=== PATIENT | female | born 1990 | race Caucasian/White ===

== ENCOUNTER 2018-06-24 19:23 | Emergency (ER) | payer SELFPAY ==
--- NOTE | 2018-06-24 20:57 | ER ---
Nurse's Notes [facility] Name: Sandra Holm Age: 27 yrs Sex: Female : 1990 Arrival Date: 06/24/2018 Time: 19:25 Bed DIS1 Private MD: Diagnosis: Streptococcal pharyngitis Presentation: 06/24 19:30 Presenting complaint: Patient states: sore throat x 2 days. Denies fever. Transition of aa1 care: patient was not received from another setting of care. Onset of symptoms was June 22, 2018. Risk Assessment: Do you want to hurt yourself or someone else? Patient reports no desire to harm self or others. Initial Sepsis Screen: Does the patient meet any 2 criteria? No. Patient's initial sepsis screen is negative. Does the patient have a suspected source of infection? No. Patient's initial sepsis screen is negative. Care prior to arrival: None. 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 - Social history:: Smoking status: Patient/guardian denies using tobacco. - Ebola Screening: : Patient denies exposure to infectious person Patient denies travel to an Ebola-affected area in the 21 days before illness onset. - Family history:: not pertinent. - Hospitalizations: : No recent hospitalization is reported. - History obtained from: spouse. Screenin:49 Abuse screen: Denies threats or abuse. Denies injuries from another. Nutritional aa1 screening: No deficits noted. Tuberculosis screening: No symptoms or risk factors identified. Fall Risk None identified. Assessment: 19:49 General: Appears in no apparent distress. comfortable, Behavior is calm, cooperative, aa1 appropriate for age. Pain: Complains of pain in throat. Neuro: Level of Consciousness is awake, alert, obeys commands, Oriented to person, place, time, situation, Gait is steady, Speech is normal. Respiratory: Airway is patent Respiratory effort is even, unlabored, Respiratory pattern is regular, symmetrical, Breath sounds are clear bilaterally. Denies cough. GI: No signs and/or symptoms were reported involving the gastrointestinal system. : No signs and/or symptoms were reported regarding the genitourinary system. EENT: Throat is reddened has patchy exudate has enlarged tonsils bilaterally. Derm: Skin is intact, is healthy with good turgor, Skin is pink, warm \T\ dry. Musculoskeletal: Circulation, motion, and sensation intact. Capillary refill < 3 seconds. 21:00 Reassessment: Patient appears in no apparent distress at this time. Patient is alert, aa1 oriented x 3, equal unlabored respirations, skin warm/dry/pink. Discussed d/c \T\ f/u instructions with pt \T\ spouse; denies questions or concerns at this time. Vital Signs: 19:30 BP 118 / 63; Pulse 90; Resp 18; Temp 98.4(O); Pulse Ox 100% on R/A; Weight 136.08 kg; aa1 Height 5 ft. 7 in. (170.18 cm); Pain 6/10; 21:00 BP 122 / 67; Pulse 88; Resp 18; Temp 98.3; Pulse Ox 99% on R/A; aa1 19:30 Body Mass Index 46.99 (136.08 kg, 170.18 cm) aa1 ED Course: 19:25 Patient arrived in ED. ag3 19:30 Arm band placed on right wrist. aa1 19:40 Annel Gutierrez FNP [facility] kav 19:40 Keven Pearson MD is Attending Physician. kav 19:44 Eden Rendon, RN is Primary Nurse. aa1 19:48 Triage completed. aa1 19:49 Patient has correct armband on for positive identification. Call light in reach. aa1 21:00 No provider procedures requiring assistance completed. Patient did not have IV access aa1 during this emergency room visit. Administered Medications: No medications were administered Outcome: 20:56 Discharge ordered by . kav 21:00 Discharged to home ambulatory, with significant other. aa1 21:00 Condition: good 21:00 Discharge instructions given to patient, significant other, Instructed on discharge instructions, follow up and referral plans. medication usage, Demonstrated understanding of instructions, follow-up care, medications, Prescriptions given X 2. 21:15 Patient left the ED. aa1 Signatures: Eden Rendon RN RN aa1 Annel Gutierrez, ADJUNCT PHLEBOTOMY INSTRUCTOR ADJUNCT PHLEBOTOMY INSTRUCTOR Kandi Loza ag3
--- NOTE | 2018-06-24 20:57 | EDPHYS ---
Physician Documentation [facility] Name: Sandra Holm Age: 27 yrs Sex: Female : 1990 Arrival Date: 06/24/2018 Time: 19:25 Bed DIS1 Private MD: ED Physician Keven Pearson HPI: 06/24 19:53 This 27 yrs old Female presents to ER via Ambulatory with complaints of Sore kav Throat. 19:53 The patient presents with sore throat. The patient describes throat pain as burning, kav raw. Onset: The symptoms/episode began/occurred acutely, 1 day(s) ago. Severity of symptoms: At their worst the symptoms were moderate, 1 day(s) ago. Modifying factors: The symptoms are alleviated by nothing, The patient has had contact with sick co-worker(s). The patient has been recently seen by a physician:. 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 - Social history:: Smoking status: Patient/guardian denies using tobacco. - Ebola Screening: : Patient denies exposure to infectious person Patient denies travel to an Ebola-affected area in the 21 days before illness onset. - Family history:: not pertinent. - Hospitalizations: : No recent hospitalization is reported. - History obtained from: spouse. ROS: 19:54 Constitutional: Negative for fever, chills, and weight loss, Eyes: Negative for injury, kav pain, redness, and discharge, Neck: Negative for injury, pain, and swelling, Cardiovascular: Negative for chest pain, palpitations, and edema, Respiratory: Negative for shortness of breath, cough, wheezing, and pleuritic chest pain, Abdomen/GI: Negative for abdominal pain, nausea, vomiting, diarrhea, and constipation, Back: Negative for injury and pain, : Negative for injury, bleeding, discharge, and swelling, MS/Extremity: Negative for injury and deformity, Skin: Negative for injury, rash, and discoloration, Neuro: Negative for headache, weakness, numbness, tingling, and seizure, Psych: Negative for depression, anxiety, suicide ideation, homicidal ideation, and hallucinations, Allergy/Immunology: Negative for hives, rash, and allergies, Endocrine: Negative for neck swelling, polydipsia, polyuria, polyphagia, and marked weight changes, Hematologic/Lymphatic: Negative for swollen nodes, abnormal bleeding, and unusual bruising. 19:54 ENT: Positive for sore throat. Exam: 19:54 Constitutional: This is a well developed, well nourished patient who is awake, alert, kav and in no acute distress. Head/Face: Normocephalic, atraumatic. Eyes: Pupils equal round and reactive to light, extra-ocular motions intact. Lids and lashes normal. Conjunctiva and sclera are non-icteric and not injected. Cornea within normal limits. Periorbital areas with no swelling, redness, or edema. Neck: Trachea midline, no thyromegaly or masses palpated, and no cervical lymphadenopathy. Supple, full range of motion without nuchal rigidity, or vertebral point tenderness. No Meningismus. Chest/axilla: Normal chest wall appearance and motion. Nontender with no deformity. No lesions are appreciated. Cardiovascular: Regular rate and rhythm with a normal S1 and S2. No gallops, murmurs, or rubs. Normal PMI, no JVD. No pulse deficits. Respiratory: Lungs have equal breath sounds bilaterally, clear to auscultation and percussion. No rales, rhonchi or wheezes noted. No increased work of breathing, no retractions or nasal flaring. Abdomen/GI: Soft, non-tender, with normal bowel sounds. No distension or tympany. No guarding or rebound. No evidence of tenderness throughout. Back: No spinal tenderness. No costovertebral tenderness. Full range of motion. Female : Normal external genitalia. Skin: Warm, dry with normal turgor. Normal color with no rashes, no lesions, and no evidence of cellulitis. MS/ Extremity: Pulses equal, no cyanosis. Neurovascular intact. Full, normal range of motion. Neuro: Awake and alert, GCS 15, oriented to person, place, time, and situation. Cranial nerves II-XII grossly intact. Motor strength 5/5 in all extremities. Sensory grossly intact. Cerebellar exam normal. Normal gait. Psych: Awake, alert, with orientation to person, place and time. Behavior, mood, and affect are within normal limits. 19:54 ENT: Posterior pharynx: erythema, that is moderate, exudate, that is moderate. Vital Signs: 19:30 BP 118 / 63; Pulse 90; Resp 18; Temp 98.4(O); Pulse Ox 100% on R/A; Weight 136.08 kg; aa1 Height 5 ft. 7 in. (170.18 cm); Pain 12/23; 21:00 BP 122 / 67; Pulse 88; Resp 18; Temp 98.3; Pulse Ox 99% on R/A; aa1 19:30 Body Mass Index 46.99 (136.08 kg, 170.18 cm) [facility] MDM: 19:40 Medical screening is not applicable. [facility] 19:54 Data reviewed: vital signs, nurses notes. [facility] 06/24 19:54 Order name: Strep; Complete Time: 20:56 [facility] 06/24 20:56 Interpretation: Abnormal. ka Administered Medications: No medications were administered Disposition: 06/25 06:37 Co-signature as Attending Physician, Keven Pearson MD I agree with the assessment and jazmine plan of care. Disposition: 06/24/18 20:56 Discharged to Home. Impression: Streptococcal pharyngitis. - Condition is Stable. - Discharge Instructions: Pharyngitis, Strep Throat, [id number]. - Prescriptions for Amoxicillin 875 mg Oral Tablet - take 1 tablet by ORAL route every 12 hours for 10 days; 20 tablet. Ibuprofen 800 mg Oral Tablet - take 1 tablet by ORAL route every 8 hours As needed take with food; 30 tablet. - Medication Reconciliation Form, Thank You Letter, Antibiotic Education, Prescription Opioid Use form. - Follow up: Private Physician; When: 2 - 3 days; Reason: Recheck today's complaints, Continuance of care, Re-evaluation by your physician. - Problem is an acute exacerbation. - Symptoms are unchanged. Signatures: Dispatcher [employer] Eden Palencia, ERIKA RN aa1 Keven Pearson MD MD cha Vern, Katherine, OCEANOLOGIST OCEANOLOGIST ka Corrections: (The following items were deleted from the chart) 06/24 21:15 20:56 06/24/2018 20:56 Discharged to Home. Impression: Streptococcal pharyngitis. aa1 Condition is Stable. Discharge Instructions: Pharyngitis, Strep Throat, [id number]. Prescriptions for Amoxicillin 875 mg Oral Tablet - take 1 tablet by ORAL route every 12 hours for 10 days; 20 tablet, Ibuprofen 800 mg Oral Tablet - take 1 tablet by ORAL route every 8 hours As needed take with food; 30 tablet. and Forms are Medication Reconciliation Form, Thank You Letter, Antibiotic Education, Prescription Opioid Use. Follow up: Private Physician; When: 2 - 3 days; Reason: Recheck today's complaints, Continuance of care, Re-evaluation by your physician. Problem is an acute exacerbation. Symptoms are unchanged. kav
[2018-06-24 21:23] VITALS: BP 118/63; TEMP 98.4; O2SAT 100
== END 2018-06-24 21:15 | disposition home or self-care (01) ==
LOC: ER 19:23
DX: J02.0 Streptococcal pharyngitis (principal); I10 Essential (primary) hypertension
CPT/HCPCS: 87081; 99282

== ENCOUNTER 2018-09-04 09:24 | Emergency (ER) | payer SELFPAY ==
[2018-09-04 10:30] LABS: Absolute Lymphocytes (CBC) 0.6 K/uL (0.7-4.9); Absolute Monocytes 0.8 K/uL (0.1-1.3); Absolute Neutrophil 12.7 K/uL (1.8-8.0); Basophils % 0.2 % (0-1.3); Eosinophils % 0.3 % (0-4.4); Hematocrit 48.7 % (36.0-45.0); Lymphocytes % 3.9 % (15.3-44.8); MPV 9.3 fL (7.6-11.3); Monocytes % 5.9 % (3.3-12.3); RBC Red Blood Cell Count 5.55 M/uL (3.86-4.86)
[2018-09-04] MEDS ORDERED: METOCLOPRAMIDE 10 MG/2mL INJ ONE (10:38)
[2018-09-04] MEDS ORDERED: NA CHLORIDE 0.9% 1,000 ML ONE (10:39)
[2018-09-04] MEDS ORDERED: DIPHENHYDRAMINE 50 MG/ML VIAL ONE (10:39)
[2018-09-04 10:41] LABS: Urine Blood NEGATIVE (NEG); Urine Glucose NEGATIVE (NEG); Urine Protein NEGATIVE (NEG); Urine Specific Gravity >1.030 (1.005-1.030); Urine pH 5.5 (5.0-7.0)
[2018-09-04 10:52] LABS: Bilirubin Direct 0.2 mg/dL (0-0.2); Bilirubin Total 0.7 mg/dL (0.2-1.0); Potassium 4.1 mmol/L (3.5-5.1); Protein, Total 8.2 g/dL (6.4-8.2)
[2018-09-04 11:03] LABS: Blood Morphology Comment NOT SEEN (NOT SEEN); Platelet Estimate ADEQ
--- NOTE | 2018-09-04 11:46 | RAD REPORT ---
EXAM DESCRIPTION: CTAbdomen Pelvis W Contrast - 09/04/2018 11:32 am CLINICAL HISTORY: Abdominal pain. abdominal pain, vomiting COMPARISON: No comparisons TECHNIQUE: Biphasic CT imaging of the abdomen and pelvis was performed with 100 ml non-ionic IV cont rast. All CT scans are performed using dose optimization technique as appropriate and may include automated exposure control or mA/KV adjustment according to patient size. FINDINGS: The lung bases are clear.Postsurgical changes are present about the stomach. The liver, spleen, pancreas, adrenal glands and kidneys are within normal limits. No bowel obstruction, free air, free fluid or abscess. The appendix is normal. No evidence of signi ficant lymphadenopathy. No suspicious bony findings. IMPRESSION: No acute intra-abdominal or pelvic finding.
--- NOTE | 2018-09-04 13:23 | ER ---
Nurse's Notes [facility] Name: Sandra Holm Age: 28 yrs Sex: Female : 1990 Arrival Date: 09/04/2018 Time: 09:26 Bed 15 Private MD: Unknown, Unknown Diagnosis: Upper abdominal pain, unspecified;Vomiting;Diarrhea, unspecified Presentation: 09/04 09:30 Presenting complaint: Patient states: i have been throwing up since midnight, i a tw2 having horrible stomach pains, just all over, and im having diarrhea, nauseous and clammy feeling. Transition of care: patient was not received from another setting of care. Onset of symptoms was September 04, 2018. Risk Assessment: Do you want to hurt yourself or someone else? Patient reports no desire to harm self or others. Initial Sepsis Screen: Does the patient meet any 2 criteria? HR > 90 bpm. No. Patient's initial sepsis screen is negative. Does the patient have a suspected source of infection? No. Patient's initial sepsis screen is negative. Care prior to arrival: None. 09:30 Method Of Arrival: Ambulatory tw2 09:30 Acuity: TRELL 3 tw2 Triage Assessment: 09:32 General: Appears in no apparent distress. Behavior is calm, cooperative, appropriate tw2 for age. Pain: Complains of pain in abdomen. GI: Reports lower abdominal pain, upper abdominal pain, diarrhea, intolerance of fluids, intolerance of food, nausea, vomiting. 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 - Social history:: Smoking status: . - Ebola Screening: : Patient denies travel to an Ebola-affected area in the 21 days before illness onset. Screenin:51 Abuse screen: Denies threats or abuse. Denies injuries from another. Nutritional bp screening: No deficits noted. Tuberculosis screening: No symptoms or risk factors identified. Fall Risk None identified. Assessment: 09:49 General: Appears in no apparent distress. comfortable, obese, Behavior is cooperative, bp appropriate for age, anxious. Pain: Complains of pain in abdomen. Neuro: Level of Consciousness is awake, alert, obeys commands, Oriented to person, place, time, situation, Appropriate for age. Cardiovascular: No deficits noted. Respiratory: Airway is patent Respiratory effort is even, unlabored, Respiratory pattern is regular, symmetrical. GI: Abdomen is obese, Bowel sounds present X 4 quads. : No signs and/or symptoms were reported regarding the genitourinary system. EENT: No deficits noted. Derm: No deficits noted. Musculoskeletal: Circulation, motion, and sensation intact. Range of motion: intact in all extremities. 10:59 Reassessment: PT COMPLETED PO CONTRAST, CT NOTIFIED. bp 11:37 Reassessment: PT RETURNED FROM CT. RESULTS PENDING FOR DISPO. bp 13:31 Reassessment: PT D/C HOME AMBULATORY, DX WITH UNSPECIFIC ABD PAIN AND N/V. bp Vital Signs: 09:31 BP 129 / 83; Pulse 107; Resp 19; Temp 98.4(O); Pulse Ox 100% on R/A; Weight 127.01 kg tw2 (R); Height 5 ft. 6 in. (167.64 cm); Pain 5/10; 10:59 BP 115 / 58; Pulse 86; Resp 14; Pulse Ox 98% ; bp 11:38 BP 124 / 55; Pulse 93; Resp 14; Pulse Ox 100% ; bp 13:24 BP 130 / 67; Pulse 90; Resp 14; Pulse Ox 98% ; bp 09:31 Body Mass Index 45.19 (127.01 kg, 167.64 cm) tw2 ED Course: 09:26 Patient arrived in ED. ag5 09:27 Unknown, Unknown is Private Physician. ag5 09:31 Triage completed. tw2 09:31 Arm band placed on. tw2 09:34 Mohsen Garcia PA is PHCP. jm 09:34 Leonides Fam MD is Attending Physician. jmm 09:39 Darin Barron, ERIKA is Primary Nurse. bp 09:51 Patient has correct armband on for positive identification. Bed in low position. Call bp light in reach. Side rails up X2. 09:58 Urine collected: clean catch specimen, clear, karyn colored. jb1 10:22 Initial lab(s) drawn, by me, sent to lab. Inserted saline lock: 22 gauge in right jb1 antecubital area, using aseptic technique. Blood collected. 11:22 CT completed. Patient tolerated procedure well. Patient moved to CT via wheelchair. sj 11:35 CT Abd/Pelvis - W/Contrast In Process Unspecified. EDMS 13:21 Norman Richards MD is Referral Physician. [facility] 13:32 No provider procedures requiring assistance completed. IV discontinued, intact, bp bleeding controlled, No redness/swelling at site. Pressure dressing applied. Administered Medications: 10:20 Drug: Reglan 10 mg Route: IVP; Site: right antecubital; bp 12:06 Follow up: Response: No adverse reaction; Nausea is decreased bp 10:20 Drug: diphenhydrAMINE 12.5 mg Route: IVP; Site: right antecubital; bp 12:07 Follow up: Response: Nausea is decreased bp 10:20 Drug: NS 0.9% 1000 ml Route: IV; Rate: 1 bolus; Site: right antecubital; bp 12:07 Follow up: IV Status: Completed infusion; IV Intake: 1000ml bp Intake: 12:07 IV: 1000ml; Total: 1000ml. bp Outcome: 13:21 Discharge ordered by MD. m 13:32 Discharged to home ambulatory. bp 13:32 Condition: stable 13:32 Discharge instructions given to patient, Instructed on discharge instructions, follow up and referral plans. medication usage, Demonstrated understanding of instructions, follow-up care, medications, Prescriptions given X 1. 13:34 Patient left the ED. bp Signatures: Dispatcher [employer] EDMS Bryce Chan jb1 Mohsen Garcia PA PA Jenifer Virgen Tara, RN RN tw2 Darin Barron, RN RN bp Muriel Linn ag5 Corrections: (The following items were deleted from the chart) 11:43 11:38 Pulse 93bpm; Resp 14bpm; Pulse Ox 100%; bp bp 13:25 13:24 Reassessment: bp bp
--- NOTE | 2018-09-04 13:23 | EDPHYS ---
Physician Documentation [facility] Name: Sandra Holm Age: 28 yrs Sex: Female : 1990 Arrival Date: 09/04/2018 Time: 09:26 Bed 15 Private MD: Unknown, Unknown ED Physician Leonides Fam HPI: 09/04 09:58 This 28 yrs old Female presents to ER via Ambulatory with complaints of jmm Nausea/Vomiting/Diarrhea, STOMACH PAINS. 09:58 The patient presents to the emergency department with nausea, vomiting, diarrhea, jmm abdominal pain. Onset: The symptoms/episode began/occurred gradually, 1 day(s) ago. Possible causes: unknown. This is a 28 year old female with a history of gastric sleeve performed 3 years ago that presents to the ED with complaints of vomiting and diarrhea beginning last night. Patient denies recent antibiotic use, denies recent travel, denies infectious exposure. . 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 - Social history:: Smoking status: . - Ebola Screening: : Patient denies travel to an Ebola-affected area in the 21 days before illness onset. ROS: 09:58 Constitutional: Negative for fever, chills, and weight loss, Cardiovascular: Negative jmm for chest pain, palpitations, and edema, Respiratory: Negative for shortness of breath, cough, wheezing, and pleuritic chest pain. 09:58 Abdomen/GI: Positive for nausea and vomiting, diarrhea. 09:58 All other systems are negative. Exam: 09:58 Constitutional: This is a well developed, well nourished patient who is awake, alert, jmm and in no acute distress. Head/Face: atraumatic. Eyes: EOMI, no conjunctival erythema appreciated ENT: Moist Mucus Membranes Neck: Trachea midline, Supple Chest/axilla: Normal chest wall appearance and motion. Cardiovascular: Regular rate and rhythm. No edema appreciated Respiratory: Normal respirations, no respiratory distress appreciated 09:58 Abdomen/GI: Inspection: abdomen appears normal, Bowel sounds: normal, Palpation: soft, mild abdominal tenderness, in the right upper quadrant and left upper quadrant. 09:58 Back: ROM is normal. 09:58 Musculoskeletal/extremity: ROM: intact in all extremities. 09:58 Skin: Appearance: Color: normal in color. 09:58 Neuro: Orientation: appropriate for stated age, Mentation: is normal, Memory: is normal. 09:58 Psych: Behavior/mood is pleasant, cooperative. Vital Signs: 09:31 BP 129 / 83; Pulse 107; Resp 19; Temp 98.4(O); Pulse Ox 100% on R/A; Weight 127.01 kg tw2 (R); Height 5 ft. 6 in. (167.64 cm); Pain 5/10; 10:59 BP 115 / 58; Pulse 86; Resp 14; Pulse Ox 98% ; bp 11:38 BP 124 / 55; Pulse 93; Resp 14; Pulse Ox 100% ; bp 13:24 BP 130 / 67; Pulse 90; Resp 14; Pulse Ox 98% ; bp 09:31 Body Mass Index 45.19 (127.01 kg, 167.64 cm) tw2 MDM: 09:58 Patient medically screened. [facility] 13:18 Data reviewed: vital signs, nurses notes, lab test result(s), radiologic studies, CT [facility] scan. Counseling: I had a detailed discussion with the patient and/or guardian regarding: the historical points, exam findings, and any diagnostic results supporting the discharge/admit diagnosis, lab results, radiology results, the need for outpatient follow up, to return to the emergency department if symptoms worsen or persist or if there are any questions or concerns that arise at home, Patient is alert and non toxic in appearance in the ED. Patient tolerates PO. Ct negative. Due to history of bariatric surgery patient is given strict return precautions. Patient understood and agrees with the plan of care. . 09/04 09:57 Order name: Urine Dipstick--Ancillary (enter results); Complete Time: 10:54 09/04 09:57 Order name: Urine --Ancillary (enter results); Complete Time: 10:54 09/04 10:02 Order name: Basic Metabolic Panel; Complete Time: 10:57 [facility] 09/04 10:02 Order name: CBC with Diff; Complete Time: 11:08 [facility] 09/04 10:02 Order name: Creatinine for Radiology; Complete Time: 10:54 [facility] 09/04 10:02 Order name: Hepatic Function; Complete Time: 10:57 [facility] 09/04 09:48 Order name: Urine Dipstick-Ancillary (obtain specimen); Complete Time: 09:54 09/04 09:48 Order name: Urine Test (obtain specimen); Complete Time: 09:54 09/04 10:02 Order name: Lipase; Complete Time: 10:57 [facility] 09/04 10:02 Order name: CT Abd/Pelvis - W/Contrast; Complete Time: 11:55 [facility] 09/04 11:04 Order name: Manual Differential; Complete Time: 11:08 [facility] 09/04 10:02 Order name: IV Saline Lock; Complete Time: 10:22 [facility] 09/04 10:02 Order name: Labs collected and sent; Complete Time: 10:22 [facility] 09/04 12:02 Order name: PO challenge; Complete Time: 12:12 jm Administered Medications: 10:20 Drug: Reglan 10 mg Route: IVP; Site: right antecubital; bp 12:06 Follow up: Response: No adverse reaction; Nausea is decreased bp 10:20 Drug: diphenhydrAMINE 12.5 mg Route: IVP; Site: right antecubital; bp 12:07 Follow up: Response: Nausea is decreased bp 10:20 Drug: NS 0.9% 1000 ml Route: IV; Rate: 1 bolus; Site: right antecubital; bp 12:07 Follow up: IV Status: Completed infusion; IV Intake: 1000ml bp Disposition: 18:49 Co-signature as Attending Physician, Leonides Fam MD Available for consultation at ps1 all times. . Disposition: 09/04/18 13:21 Discharged to Home. Impression: Upper abdominal pain, unspecified, Vomiting, Diarrhea, unspecified. - Condition is Stable. - Discharge Instructions: Diarrhea, Adult, Nausea and Vomiting, Adult. - Prescriptions for Zofran ODT 4 mg Oral tablet,disintegrating - place 1 tablet by TRANSLINGUAL route every 4-6 hours; 20 tablet. - Medication Reconciliation Form, Thank You Letter, Antibiotic Education, Prescription Opioid Use, Work release form form. - Follow up: Norman Richards MD; When: 2 - 3 days; Reason: Recheck today's complaints, Continuance of care, Re-evaluation by your physician. Signatures: Dispatcher [employer] EDMS Mohsen Garcia PA PA jmm Wise, Tara, RN RN tw2 Darin Barron RN RN bp Leonides Fam MD MD ps1 Corrections: (The following items were deleted from the chart) 13:34 13:21 09/04/2018 13:21 Discharged to Home. Impression: Upper abdominal pain, bp unspecified; Vomiting; Diarrhea, unspecified. Condition is Stable. Forms are Medication Reconciliation Form, Thank You Letter, Antibiotic Education, Prescription Opioid Use. Follow up: Norman Richards; When: 2 - 3 days; Reason: Recheck today's complaints, Continuance of care, Re-evaluation by your physician. ryan
[2018-09-04 13:46] VITALS: TEMP 98.4
[2018-09-04 13:50] VITALS: BP 130/67; O2SAT 98
== END 2018-09-04 13:34 | disposition home or self-care (01) ==
LOC: ER 09:24
DX: R11.2 Nausea with vomiting, unspecified (principal); R10.10 Upper abdominal pain, unspecified; R19.7 Diarrhea, unspecified; I10 Essential (primary) hypertension
CPT/HCPCS: 36415; 74177; 80048; 80076; 81003; 81025; 83690; 85025; 96361; 96374; 96375; 99284; J2765; J7030; Q9967

== ENCOUNTER 2019-03-28 09:30 | Emergency (ER) | payer SELFPAY ==
--- NOTE | 2019-03-28 12:02 | ER ---
Nurse's Notes [facility] Name: Sandra Holm Age: 28 yrs Sex: Female : 1990 Arrival Date: 03/28/2019 Time: 09:33 Bed 9 Private MD: Diagnosis: Epistaxis-resolved Presentation: 03/28 10:08 Presenting complaint: Patient states: "I've been having nose bleeds for the last week aa5 and today it was the worse it's ever been". Pt denies congestion, denies cough. Pt also reports sore throat. No active nose bleed in triage noted. Transition of care: patient was not received from another setting of care. Onset of symptoms was March 2019. Risk Assessment: Do you want to hurt yourself or someone else? Patient reports no desire to harm self or others. Initial Sepsis Screen: Does the patient meet any 2 criteria? No. Patient's initial sepsis screen is negative. Does the patient have a suspected source of infection? No. Patient's initial sepsis screen is negative. Care prior to arrival: None. 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 - Social history:: Smoking status: Patient/guardian denies using tobacco. - Ebola Screening: : No symptoms or risks identified at this time. Screenin:38 Abuse screen: Denies threats or abuse. Nutritional screening: No deficits noted. aa5 Tuberculosis screening: No symptoms or risk factors identified. Fall Risk None identified. Assessment: 11:38 General: Appears comfortable, Behavior is calm, cooperative. Pain: Denies pain. Neuro: aa5 Level of Consciousness is awake, alert, obeys commands, Oriented to person, place, time, situation. Cardiovascular: Patient's skin is warm and dry. Respiratory: Airway is patent Respiratory effort is even, unlabored, Respiratory pattern is regular, symmetrical. GI: No signs and/or symptoms were reported involving the gastrointestinal system. : No signs and/or symptoms were reported regarding the genitourinary system. EENT: Reports nose bleeds x 1 week ago. No active bleeding noted. . Derm: Skin is pink, warm \\T\\ dry. Musculoskeletal: Range of motion: intact in all extremities. 12:20 Reassessment: Patient is alert, oriented x 3, equal unlabored respirations, skin aa5 warm/dry/pink. Vital Signs: 10:10 BP 133 / 59; Pulse 71; Resp 18 S; Temp 97.8(O); Pulse Ox 97% on R/A; Weight 136.08 kg aa5 (R); Height 5 ft. 7 in. (170.18 cm) (R); Pain 0/10; 10:10 Body Mass Index 46.99 (136.08 kg, 170.18 cm) aa5 ED Course: 09:33 Patient arrived in ED. rg4 10:08 Arm band placed on. aa5 10:08 Patient has correct armband on for positive identification. aa5 10:09 Triage completed. aa5 11:39 Joellen García, ERIKA is Primary Nurse. aa5 11:39 Jackeline Almendarez FNP-C is PHCP. kb 11:39 Zain Mast MD is Attending Physician. kb 12:20 No provider procedures requiring assistance completed. Patient did not have IV access aa5 during this emergency room visit. Administered Medications: No medications were administered Outcome: 12:00 Discharge ordered by MD. kb 12:20 Discharged to home ambulatory. aa5 12:20 Condition: stable 12:20 Discharge instructions given to patient, Instructed on discharge instructions, follow up and referral plans. Demonstrated understanding of instructions, follow-up care. 12:21 Patient left the ED. aa5 Signatures: Jackeline Almendarez FNP-C FNP-Joellen Rodríguez RN RN aa5 Emily Lopez rg4 Corrections: (The following items were deleted from the chart) 10:11 10:08 Presenting complaint: Patient states: "I've been having nose bleeds for the last aa5 week and today it was the worse it's ever been". Pt denies congestion, denies sore throat. Pt also reports sore throat. aa5 13:42 10:08 Presenting complaint: Patient states: "I've been having nose bleeds for the last aa5 week and today it was the worse it's ever been". Pt denies congestion, denies sore throat. Pt also reports sore throat. No active nose bleed in triage noted. aa5
--- NOTE | 2019-03-28 12:02 | EDPHYS ---
Physician Documentation [facility] Name: Sandra Holm Age: 28 yrs Sex: Female : 1990 Arrival Date: 03/28/2019 Time: 09:33 Bed 9 Private MD: ED Physician Zain Mast HPI: 03/28 12:03 This 28 yrs old Female presents to ER via Ambulatory with complaints of Nose kb Bleed. 12:03 The patient presents with a nose bleed, and the bleeding resolved prior to arrival. kb Onset: The symptoms/episode began/occurred this morning. Modifying factors: The symptoms are alleviated by nothing. the symptoms are aggravated by nothing. Associated signs and symptoms: The patient has no apparent associated signs or symptoms, Loss of consciousness: the patient experienced no loss of consciousness. Severity of symptoms: At their worst the symptoms were mild in the emergency department the symptoms have resolved. The patient has not experienced similar symptoms in the past. The patient has not recently seen a physician. Pt reports intermittent nose bleeds over the last week. Symptoms are resolved now. 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 - Social history:: Smoking status: Patient/guardian denies using tobacco. - Ebola Screening: : No symptoms or risks identified at this time. ROS: 12:03 Constitutional: Negative for fever, chills, and weight loss, Neck: Negative for injury, kb pain, and swelling, Cardiovascular: Negative for chest pain, palpitations, and edema, Respiratory: Negative for shortness of breath, cough, wheezing, and pleuritic chest pain, Abdomen/GI: Negative for abdominal pain, nausea, vomiting, diarrhea, and constipation, : Negative for injury, bleeding, discharge, and swelling, MS/Extremity: Negative for injury and deformity, Skin: Negative for injury, rash, and discoloration, Neuro: Negative for headache, weakness, numbness, tingling, and seizure. 12:03 ENT: Positive for nose bleed. Exam: 12:03 Constitutional: This is a well developed, well nourished patient who is awake, alert, kb and in no acute distress. Head/Face: Normocephalic, atraumatic. ENT: Nares patent. No nasal discharge, no septal abnormalities noted. Tympanic membranes are normal and external auditory canals are clear. Oropharynx with no redness, swelling, or masses, exudates, or evidence of obstruction, uvula midline. Mucous membranes moist. Neck: Trachea midline, no thyromegaly or masses palpated, and no cervical lymphadenopathy. Supple, full range of motion without nuchal rigidity, or vertebral point tenderness. No Meningismus. Chest/axilla: Normal chest wall appearance and motion. Nontender with no deformity. No lesions are appreciated. Cardiovascular: Regular rate and rhythm with a normal S1 and S2. No gallops, murmurs, or rubs. Normal PMI, no JVD. No pulse deficits. Respiratory: Lungs have equal breath sounds bilaterally, clear to auscultation and percussion. No rales, rhonchi or wheezes noted. No increased work of breathing, no retractions or nasal flaring. Abdomen/GI: Soft, non-tender, with normal bowel sounds. No distension or tympany. No guarding or rebound. No evidence of tenderness throughout. Skin: Warm, dry with normal turgor. Normal color with no rashes, no lesions, and no evidence of cellulitis. MS/ Extremity: Pulses equal, no cyanosis. Neurovascular intact. Full, normal range of motion. Neuro: Awake and alert, GCS 15, oriented to person, place, time, and situation. Cranial nerves II-XII grossly intact. Motor strength 5/5 in all extremities. Sensory grossly intact. Cerebellar exam normal. Normal gait. Vital Signs: 10:10 BP 133 / 59; Pulse 71; Resp 18 S; Temp 97.8(O); Pulse Ox 97% on R/A; Weight 136.08 kg aa5 (R); Height 5 ft. 7 in. (170.18 cm) (R); Pain 0/10; 10:10 Body Mass Index 46.99 (136.08 kg, 170.18 cm) aa5 MDM: 11:39 Patient medically screened. kb 12:03 Data reviewed: vital signs, nurses notes. Data interpreted: Pulse oximetry: on room air kb is 97 %. Interpretation: normal. Counseling: I had a detailed discussion with the patient and/or guardian regarding: the historical points, exam findings, and any diagnostic results supporting the discharge/admit diagnosis, the need for outpatient follow up, an ENT specialist, to return to the emergency department if symptoms worsen or persist or if there are any questions or concerns that arise at home. Administered Medications: No medications were administered Disposition: 19:00 Co-signature as Attending Physician, Zain Mast MD. rn Disposition: 03/28/19 12:00 Discharged to Home. Impression: Epistaxis - resolved. - Condition is Stable. - Discharge Instructions: Nosebleed, [id number]. - Medication Reconciliation Form, Thank You Letter, Antibiotic Education, Prescription Opioid Use, Work release form form. - Follow up: Emergency Department; When: As needed; Reason: Worsening of condition. Follow up: Private Physician; When: 2 - 3 days; Reason: Recheck today's complaints, Continuance of care, Re-evaluation by your physician. Signatures: Jackeline Almendarez, FIRE SPRINKLER FITTER-C FIRE SPRINKLER FITTER-Ckb Zain Mast MD MD rn Calderon, Audri RN RN aa5 Corrections: (The following items were deleted from the chart) 12:21 12:00 03/28/2019 12:00 Discharged to Home. Impression: Epistaxis - resolved. Condition aa5 is Stable. Forms are Medication Reconciliation Form, Thank You Letter, Antibiotic Education, Prescription Opioid Use. Follow up: Emergency Department; When: As needed; Reason: Worsening of condition. Follow up: Private Physician; When: 2 - 3 days; Reason: Recheck today's complaints, Continuance of care, Re-evaluation by your physician. kb
[2019-03-28 12:38] VITALS: BP 133/59; TEMP 97.8; O2SAT 97
== END 2019-03-28 12:21 | disposition home or self-care (01) ==
LOC: ER 09:30
DX: R04.0 Epistaxis (principal); I10 Essential (primary) hypertension
CPT/HCPCS: 99281

== ENCOUNTER 2019-08-21 10:48 | Emergency (ER) | payer SELFPAY ==
--- NOTE | 2019-08-21 12:11 | RAD REPORT ---
EXAM DESCRIPTION: RAD - Knee Left 3 View - 08/21/2019 11:18 am CLINICAL HISTORY: Left knee pain status post injury FINDINGS: No fracture Lateral patellar dislocation
--- NOTE | 2019-08-21 13:49 | ER ---
Nurse's Notes [facility] Name: Sandra Holm Age: 29 yrs Sex: Female : 1990 Arrival Date: 08/21/2019 Time: 10:50 Bed 7 Private MD: Diagnosis: Lateral dislocation of left patella Presentation: 08/21 10:51 Presenting complaint: EMS states: Pt was at work, bent/squatted down, L knee "gave ph out", deformity noted, reports that knee cap has dislocated in the past while walking down stairs. Transition of care: patient was not received from another setting of care. Onset of symptoms was August 21, 2019. Risk Assessment: Do you want to hurt yourself or someone else? Patient reports no desire to harm self or others. Initial Sepsis Screen: Does the patient meet any 2 criteria?. Initial Sepsis Screen: Does the patient have a suspected source of infection? No. Patient's initial sepsis screen is negative. Care prior to arrival: None. 10:51 Method Of Arrival: EMS: [facility] ph 10:51 Acuity: TRELL 4 ph Historical: - Allergies: 10:59 No Known Allergies; ph - Home Meds: 10:59 lisinopril 10 mg Oral tab 1 tab once daily [Active]; ph - PMHx: 10:59 Hypertension; ph - PSHx: 10:59 gastric sleeve; ph - Immunization history:: Adult Immunizations unknown. - Coronavirus screen:: The patient has NOT traveled to [place], [place], or [place] in the past 14 days. The patient has NOT had contact with known/suspected case of Coronavirus?. - Social history:: Smoking status: Patient denies any tobacco usage or history of. - Family history:: not pertinent. - Ebola Screening: : No symptoms or risks identified at this time. - Hospitalizations: : No recent hospitalization is reported. Screenin:02 Abuse screen: Denies threats or abuse. Denies injuries from another. Nutritional ph screening: No deficits noted. Tuberculosis screening: No symptoms or risk factors identified. Fall Risk None identified. Assessment: 11:00 Reassessment: ERP at bedside for reduction of L knee cap dislocation, pt tolerated ph well, awaiting xray to check placement. General: Appears in no apparent distress. uncomfortable, obese, well groomed, Behavior is calm, cooperative, appropriate for age. Pain: Complains of pain in left knee. Neuro: Level of Consciousness is awake, alert, obeys commands, Oriented to person, place, time, situation. Cardiovascular: Capillary refill < 3 seconds in bilateral fingers toes Patient's skin is warm and dry. Pulses are 3+ in right dorsalis pedis artery and left dorsalis pedis artery. Respiratory: Airway is patent Respiratory effort is even, unlabored, Respiratory pattern is regular, symmetrical. Derm: Skin is intact, is healthy with good turgor, Skin is pink, warm \\T\\ dry. Musculoskeletal: Bony deformity noted of left knee. 12:00 Reassessment: Patient appears in no apparent distress at this time. Patient and/or ph family updated on plan of care and expected duration. Pain level reassessed. Patient is alert, oriented x 3, equal unlabored respirations, skin warm/dry/pink. 13:45 Reassessment: Pt up and ambulating w/ ERP, no difficulty noted, awaiting d/c. ph 14:03 Reassessment: Patient appears in no apparent distress at this time. Patient and/or ph family updated on plan of care and expected duration. Pain level reassessed. Patient is alert, oriented x 3, equal unlabored respirations, skin warm/dry/pink. Jose wrap placed to L knee, pt instructed to follow up w/ orthopedist, ambulatory upon d/c. Vital Signs: 10:56 BP 105 / 55; Pulse 73; Resp 18; Temp 98.4; Pulse Ox 99% on R/A; ph 13:15 BP 115 / 64; Pulse 72; Resp 18; Temp 97.8; Pulse Ox 99% on R/A; ph ED Course: 10:50 Patient arrived in ED. ph 10:51 Mohsen Garcia PA is PHCP. jm 10:51 Zain Mast MD is Attending Physician. [facility] 10:56 Triage completed. ph 10:59 Arm band placed on Patient placed in an exam room. ph 11:02 Patient has correct armband on for positive identification. Bed in low position. Call ph light in reach. Side rails up X 1. 11:02 No provider procedures requiring assistance completed. ph 12:53 Deena Quiroz, ERIKA is Primary Nurse. ph 13:40 Josafat Willams MD is Referral Physician. rn 14:08 Patient did not have IV access during this emergency room visit. ph Administered Medications: No medications were administered Outcome: 13:40 Discharge ordered by . rn 14:08 Discharged to home ambulatory. ph 14:08 Condition: good 14:08 Discharge instructions given to patient, Instructed on discharge instructions, follow up and referral plans. Demonstrated understanding of instructions, follow-up care. 14:09 Patient left the ED. ph Signatures: Mohsen Garcia PA PA jmm Nieto, Roman, MD MD rn Hall, Patricia, RN RN ph
--- NOTE | 2019-08-21 13:49 | EDPHYS ---
Physician Documentation [facility] Name: Sandra Holm Age: 29 yrs Sex: Female : 1990 Arrival Date: 08/21/2019 Time: 10:50 Bed 7 Private MD: ED Physician Zain Mast HPI: 08/21 11:04 This 29 yrs old Female presents to ER via EMS with complaints of Knee Pain. rn 11:04 The patient presents with decreased range of motion, pain. The complaints affect the rn left knee. Onset: The symptoms/episode began/occurred just prior to arrival. Modifying factors: the symptoms are aggravated by movement, weight bearing, bending knee. Severity of symptoms: At their worst the symptoms were moderate, in the emergency department the symptoms are unchanged. The patient has experienced a previous episode. Reports left knee pain and decreased ROM, was bending down, has had patellar dislocation before, feels similar. Did not fall or strike knee. . Historical: - Allergies: 10:59 No Known Allergies; ph - Home Meds: 10:59 lisinopril 10 mg Oral tab 1 tab once daily [Active]; ph - PMHx: 10:59 Hypertension; ph - PSHx: 10:59 gastric sleeve; ph - Immunization history:: Adult Immunizations unknown. - Coronavirus screen:: The patient has NOT traveled to [place], [place], or [place] in the past 14 days. The patient has NOT had contact with known/suspected case of Coronavirus?. - Social history:: Smoking status: Patient denies any tobacco usage or history of. - Family history:: not pertinent. - Ebola Screening: : No symptoms or risks identified at this time. - Hospitalizations: : No recent hospitalization is reported. ROS: 11:04 MS/Extremity: + left knee pain, possible dislocated patella Neuro: Negative for rn weakness, numbness, tingling Exam: 11:04 Constitutional: This is a well developed, well nourished patient who is awake, alert, rn and in no acute distress. MS/ Extremity: Pulses equal, no cyanosis. Neurovascular intact. + left knee with patella laterally dislocated and painful flexion of knee joint. Vital Signs: 10:56 BP 105 / 55; Pulse 73; Resp 18; Temp 98.4; Pulse Ox 99% on R/A; ph 13:15 BP 115 / 64; Pulse 72; Resp 18; Temp 97.8; Pulse Ox 99% on R/A; ph Procedures: 12:54 Reduction: of the left patella, using traction, manipulation, Patient tolerated well. rn Post reduction film - reveals improved alignment. resolution of pain. MDM: 10:55 Patient medically screened. rn 12:54 Differential diagnosis: dislocation. Data reviewed: vital signs, nurses notes, rn radiologic studies, plain films, and as a result, I will discharge patient. Counseling: I had a detailed discussion with the patient and/or guardian regarding: the historical points, exam findings, and any diagnostic results supporting the discharge/admit diagnosis, radiology results, the need for outpatient follow up, to return to the emergency department if symptoms worsen or persist or if there are any questions or concerns that arise at home. Special discussion: I discussed with the patient/guardian in detail that at this point there is no indication for admission to the hospital. It is understood, however, that if the symptoms persist or worsen the patient needs to return immediately for re-evaluation. Based on the history and exam findings, there is no indication for further emergent testing or inpatient evaluation. I discussed with the patient/guardian the need to see the orthopedic surgeon for further evaluation of the symptoms. 12:54 ED course: Pain markedly improved after patella reduction, still seems a little rn laterally subluxed on xray but patient is ambulatory and able to extend/flex knee, reports feels much better, nothing like when came in. Will dc home with ortho f/u and instructions to wear knee brace.. 08/21 10:56 Order name: XRAY Knee LEFT 3 view rn Administered Medications: No medications were administered Disposition: 08/21/19 13:40 Discharged to Home. Impression: Lateral dislocation of left patella. - Condition is Stable. - Discharge Instructions: Patellar Dislocation. - Work release form, Medication Reconciliation Form, Thank You Letter, Antibiotic Education, Prescription Opioid Use form. - Follow up: Josafat Willams MD; When: As needed; Reason: Recheck today's complaints, Re-evaluation by your physician. - Problem is new. - Symptoms have improved. Signatures: Dispatcher [employer] EDMS Zain Mast MD MD rn Hall, Patricia, RN RN ph Corrections: (The following items were deleted from the chart) 14:09 13:40 08/21/2019 13:40 Discharged to Home. Impression: Lateral dislocation of left ph patella. Condition is Stable. Forms are Medication Reconciliation Form, Thank You Letter, Antibiotic Education, Prescription Opioid Use. Follow up: Josafat Willams; When: As needed; Reason: Recheck today's complaints, Re-evaluation by your physician. Problem is new. Symptoms have improved. rn
[2019-08-21 14:23] VITALS: O2SAT 99
[2019-08-21 14:25] VITALS: BP 115/64; TEMP 97.8
== END 2019-08-21 14:09 | disposition home or self-care (01) ==
LOC: ER 10:48
PROC: 0QSFXZZ Reposition Left Patella, External Approach (ICD-10-PCS; principal; 2019-08-21)
DX: S83.015A Lateral dislocation of left patella, initial encounter (principal); X50.1XXA Overexertion from prolonged static or awkward postures, initial encounter; Y93.89 Activity, other specified; Y92.89 Other specified places as the place of occurrence of the external cause; Y99.0 Civilian activity done for income or pay; I10 Essential (primary) hypertension
CPT/HCPCS: 99283

== ENCOUNTER 2020-03-04 07:56 | Emergency (ER) | payer SELFPAY ==
--- OUTSIDE RECORDS SUMMARY | 2020-03-04 08:08 | XMS REPORT | Continuity of Care Document ---
:1990 Author Organization [facility] t Address [address] [place] [address] [address] [place] [address] Care Team Providers Name Role Phone Unavailable Unavailable Unavailable Problems This patient has no known problems. Allergies, Adverse Reactions, Alerts This patient has no known allergies or adverse reactions. Medications This patient has no known medications. Procedures This patient has no known procedures. Results This patient has no known results.
[2020-03-04 09:02] LABS: Urine Blood NEGATIVE (NEG); Urine Glucose TRACE (NEG); Urine Protein 2+ (NEG)
[2020-03-04 09:07] LABS: Urine Bacteria <20 /HPF (<20); Urine Culture Reflex Order NOT NEEDED; Urine Mucus MOD /HPF (NONE SEEN); Urine RBC NONE SEEN /HPF (NONE SEEN)
--- NOTE | 2020-03-04 09:14 | EDPHYS ---
Physician Documentation [facility] Name: Sandra Holm Age: 29 yrs Sex: Female : 1990 Arrival Date: 03/04/2020 Time: 07:58 Bed 6 Private MD: Suly Sanchez ED Physician Keven Pearson HPI: 03/04 08:23 This 29 yrs old Female presents to ER via Ambulatory with complaints of Back kb Pain. 08:23 The patient presents with pain that is acute, with no known mechanism of injury. The kb patient has not experienced similar symptoms in the past. The patient has not recently seen a physician. 08:24 The patient presents with flank pain, on the right, urinary symptoms, dysuria. Onset: kb The symptoms/episode began/occurred 3 day(s) ago. Modifying factors: The symptoms are alleviated by nothing, the symptoms are aggravated by urinating. Associated signs and symptoms: Pertinent positives: dysuria, Pertinent negatives: constipation, cramping, diarrhea, dyspareunia, fever, hematuria, nausea, urinary frequency, vaginal bleeding, vaginal discharge, vomiting. Severity of symptoms: At their worst the symptoms were moderate, in the emergency department the symptoms are unchanged. Pt reports right low back pain and dysuria for 3 days. . Historical: - Allergies: 08:08 No Known Allergies; ss - PMHx: 08:08 Hypertension; ss - PSHx: 08:08 gastric sleeve; ss - Immunization history:: Adult Immunizations up to date. - Social history:: Smoking status: Patient denies any tobacco usage or history of. ROS: 08:22 Constitutional: Negative for fever, chills, and weight loss, Cardiovascular: Negative kb for chest pain, palpitations, and edema, Respiratory: Negative for shortness of breath, cough, wheezing, and pleuritic chest pain, Abdomen/GI: Negative for abdominal pain, nausea, vomiting, diarrhea, and constipation, MS/Extremity: Negative for injury and deformity, Skin: Negative for injury, rash, and discoloration, Neuro: Negative for headache, weakness, numbness, tingling, and seizure. 08:22 Back: Positive for flank pain, on the right. 08:22 : Positive for burning with urination. Exam: 08:22 Constitutional: This is a well developed, well nourished patient who is awake, alert, kb and in no acute distress. Head/Face: Normocephalic, atraumatic. Chest/axilla: Normal chest wall appearance and motion. Nontender with no deformity. No lesions are appreciated. Cardiovascular: Regular rate and rhythm with a normal S1 and S2. No gallops, murmurs, or rubs. Normal PMI, no JVD. No pulse deficits. Respiratory: Lungs have equal breath sounds bilaterally, clear to auscultation and percussion. No rales, rhonchi or wheezes noted. No increased work of breathing, no retractions or nasal flaring. Abdomen/GI: Soft, non-tender, with normal bowel sounds. No distension or tympany. No guarding or rebound. No evidence of tenderness throughout. Skin: Warm, dry with normal turgor. Normal color with no rashes, no lesions, and no evidence of cellulitis. MS/ Extremity: Pulses equal, no cyanosis. Neurovascular intact. Full, normal range of motion. Neuro: Awake and alert, GCS 15, oriented to person, place, time, and situation. Cranial nerves II-XII grossly intact. Motor strength 5/5 in all extremities. Sensory grossly intact. Cerebellar exam normal. Normal gait. 08:22 Back: pain, that is mild, of the right flank and right low back. Vital Signs: 08:05 BP 142 / 59; Pulse 73; Resp 15; Temp 98.3(TE); Pulse Ox 96% on R/A; Weight 136.08 kg; ss Height 5 ft. 7 in. (170.18 cm); Pain 4/10; 08:05 Body Mass Index 46.99 (136.08 kg, 170.18 cm) ss MDM: 08:00 Patient medically screened. kb 08:21 Data reviewed: vital signs, nurses notes. Data interpreted: Pulse oximetry: on room air kb is 96 %. Interpretation: normal. Counseling: I had a detailed discussion with the patient and/or guardian regarding: the historical points, exam findings, and any diagnostic results supporting the discharge/admit diagnosis, lab results, the need for outpatient follow up, a family practitioner, to return to the emergency department if symptoms worsen or persist or if there are any questions or concerns that arise at home. 09:02 ED course: Spoke to lab about urine micro results. They will work on getting results kb out. 03/04 08:02 Order name: Urine Microscopic Only; Complete Time: 09:09 kb 03/04 08:24 Order name: Urine Dipstick--Ancillary (enter results); Complete Time: 09:03 eb 03/04 08:02 Order name: Urine Test (obtain specimen); Complete Time: 08:35 kb 03/04 08:02 Order name: Urine Dipstick-Ancillary (obtain specimen); Complete Time: 08:35 kb 03/04 08:24 Order name: Urine --Ancillary (enter results); Complete Time: 09:03 eb Administered Medications: 09:16 Drug: TORadol 30 mg Route: IM; Site: left deltoid; em 09:42 Follow up: Response: No adverse reaction; Marked relief of symptoms; Pain is decreased em Disposition: 03/04/20 09:13 Discharged to Home. Impression: Low back pain, Dysuria. - Condition is Stable. - Discharge Instructions: Dysuria, Back Pain, Adult, [id number]. - Prescriptions for Cyclobenzaprine 10 mg Oral Tablet - take 1 tablet by ORAL route every 8 hours As needed; 21 tablet. Diclofenac Sodium 75 mg Oral Tablet, Delayed Release (E.C.) - take 1 tablet by ORAL route 2 times per day As needed; 30 tablet. - Medication Reconciliation Form, Thank You Letter, Antibiotic Education, Prescription Opioid Use, Work release form form. - Follow up: Emergency Department; When: As needed; Reason: Worsening of condition. Follow up: Private Physician; When: 2 - 3 days; Reason: Recheck today's complaints, Continuance of care, Re-evaluation by your physician. Addendum: 03/05/2020 10:49 Co-signature as Attending Physician, Keven Pearson MD I agree with the assessment and c king plan of care. Signatures: Dispatcher [employer] Jackeline Sam, EDI DEVELOPER-C EDI DEVELOPER-Keven Barragan MD MD cha Munoz, Edgar, RN RN Raquel Fernandez RN RN ss Corrections: (The following items were deleted from the chart) 03/04 09:42 09:13 03/04/2020 09:13 Discharged to Home. Impression: Low back pain; Dysuria. em Condition is Stable. Forms are Medication Reconciliation Form, Thank You Letter, Antibiotic Education, Prescription Opioid Use. Follow up: Emergency Department; When: As needed; Reason: Worsening of condition. Follow up: Private Physician; When: 2 - 3 days; Reason: Recheck today's complaints, Continuance of care, Re-evaluation by your physician. kb
--- NOTE | 2020-03-04 09:14 | ER ---
Nurse's Notes [facility] Name: Sandra Holm Age: 29 yrs Sex: Female : 1990 Arrival Date: 03/04/2020 Time: 07:58 Bed 6 Private MD: Suly Sanchez Diagnosis: Low back pain;Dysuria Presentation: 03/04 08:05 Chief complaint: Patient states: L low back pain x 3 days. Burning with urination x 2 ss days. Denies fever. Coronavirus screen: Client denies travel out of the [place] in the last 14 days. At this time, the client does not indicate any symptoms associated with coronavirus-19. Ebola Screen: Patient denies exposure to infectious person. Patient denies travel to an Ebola-affected area in the 21 days before illness onset. Initial Sepsis Screen: Does the patient meet any 2 criteria? No. Patient's initial sepsis screen is negative. Does the patient have a suspected source of infection? Yes: Dysuria/Frequency/Urgency/UTI. Risk Assessment: Do you want to hurt yourself or someone else? Patient reports no desire to harm self or others. Onset of symptoms was March 03, 2020. 08:05 Method Of Arrival: Ambulatory ss 08:05 Acuity: TRELL 4 ss Historical: - Allergies: 08:08 No Known Allergies; ss - PMHx: 08:08 Hypertension; ss - PSHx: 08:08 gastric sleeve; ss - Immunization history:: Adult Immunizations up to date. - Social history:: Smoking status: Patient denies any tobacco usage or history of. Screenin:15 Abuse screen: Denies threats or abuse. Nutritional screening: No deficits noted. em Tuberculosis screening: No symptoms or risk factors identified. Fall Risk None identified. Assessment: 08:25 General: Appears in no apparent distress. comfortable, Behavior is calm, cooperative, em appropriate for age. Pain: Complains of pain in right low back Pain currently is 4 out of 10 on a pain scale. Neuro: Level of Consciousness is awake, alert, obeys commands, Oriented to person, place, time, situation, Appropriate for age. Cardiovascular: Capillary refill < 3 seconds Patient's skin is warm and dry. Respiratory: Airway is patent Respiratory effort is even, unlabored, Respiratory pattern is regular, symmetrical. : Reports burning with urination, Denies. Derm: Skin is intact, is healthy with good turgor, Skin is pink, warm \T\ dry. Musculoskeletal: Capillary refill < 3 seconds, Range of motion: intact in all extremities. 09:20 Reassessment: pending shot time, will be discharged afterwards. em Vital Signs: 08:05 BP 142 / 59; Pulse 73; Resp 15; Temp 98.3(TE); Pulse Ox 96% on R/A; Weight 136.08 kg; ss Height 5 ft. 7 in. (170.18 cm); Pain 4/10; 08:05 Body Mass Index 46.99 (136.08 kg, 170.18 cm) ED Course: 07:58 Patient arrived in ED. mr 07:59 Kasey Sancheza is Private Physician. mr 08:00 Jackeline Almendarez FNP-C is [facility]. kb 08:00 Keven Pearson MD is Attending Physician. kb 08:07 Triage completed. ss 08:07 Jay Ramos, RN is Primary Nurse. em 08:08 Arm band placed on right wrist. ss 08:15 Patient has correct armband on for positive identification. Bed in low position. Call em light in reach. 09:41 No provider procedures requiring assistance completed. Patient did not have IV access em during this emergency room visit. Administered Medications: 09:16 Drug: TORadol 30 mg Route: IM; Site: left deltoid; em 09:42 Follow up: Response: No adverse reaction; Marked relief of symptoms; Pain is decreased em Outcome: 09:13 Discharge ordered by . kb 09:41 Discharged to home ambulatory. em 09:41 Condition: good 09:41 Discharge instructions given to patient, Instructed on discharge instructions, follow up and referral plans. medication usage, Demonstrated understanding of instructions, follow-up care, medications, Prescriptions given X 2. 09:42 Patient left the ED. em Signatures: Jackeline Almendarez FNP-C FNP-Elvira Shelby Tineo mr Jay Ramos, RN RN em Raquel Tamayo RN RN
[2020-03-04] MEDS ORDERED: KETOROLAC 30 MG/ML INJ ONE (09:22)
[2020-03-04 09:50] VITALS: BP 142/59; TEMP 98.3; O2SAT 96
== END 2020-03-04 09:42 | disposition home or self-care (01) ==
LOC: ER 07:56
DX: R30.0 Dysuria (principal); I10 Essential (primary) hypertension
CPT/HCPCS: 81003; 81015; 81025; 96372; 99283

== ENCOUNTER 2020-09-11 23:31 | Emergency (ER) | payer BC, SELFPAY ==
--- OUTSIDE RECORDS SUMMARY | 2020-09-11 23:34 | XMS REPORT | Continuity of Care Document ---
:1990 Author Organization [facility] t Address [address] [place] [address] Care Team Providers Name Role Phone Timo Moran Attending Clinician Problems This patient has no known problems. Allergies, Adverse Reactions, Alerts This patient has no known allergies or adverse reactions. Medications This patient has no known medications. Procedures This patient has no known procedures. Encounters Start End Encounter Admission Attending Care Care Encounter Source Date/Time Date/Time Type Type Clinicians Facility Department ID 2020-07-13 2020-07-13 Outpatient [facility] [id number] [facility] 00:00:00 00:00:00 [facility] 2020-04-13 2020-04-13 Outpatient [facility] [id number] [facility] 00:00:00 00:00:00 Kristen Meyers l Outpati ent Clinics 2020-04-01 2020-04-01 Office [facility] [id number] 14:49:13 15:45:49 Visit Ekaterina Greenwood [employer] [id number] [facility] [id number] MATERNAL [id number] & CHILD [address] [place] [address] Results This patient has no known results.
--- NOTE | 2020-09-12 01:22 | ER ---
Nurse's Notes [facility] Name: Sandra Holm Age: 30 yrs Sex: Female : 1990 Arrival Date: 09/11/2020 Time: 23:35 Bed 20 Private MD: Diagnosis: Fall on same level from slipping, tripping and stumbling;Contusion of right elbow;Contusion of unspecified part of head;Pain in right arm-from fall Presentation: 09/11 23:38 Chief complaint: Patient states: I was sitting down and fell and landed on my right jb4 side. now my elbow hurts. EMS states: Pt was having drinks and she fell on her right side. reports right side pain. Coronavirus screen: Client denies travel out of the [place] in the last 14 days. At this time, the client does not indicate any symptoms associated with coronavirus-19. Ebola Screen: No symptoms or risks identified at this time. Initial Sepsis Screen: Does the patient meet any 2 criteria? No. Patient's initial sepsis screen is negative. Does the patient have a suspected source of infection? No. Patient's initial sepsis screen is negative. Risk Assessment: Do you want to hurt yourself or someone else? Patient reports no desire to harm self or others. Onset of symptoms was September 11, 2020. Transition of care: patient was not received from another setting of care. 23:38 Method Of Arrival: EMS: [facility] 23:38 Acuity: TRELL 4 jb4 Historical: - Allergies: 23:42 No Known Allergies; jb4 - Home Meds: 23:42 lisinopril 10 mg Oral tab 1 tab once daily [Active]; Prozac Oral [Active]; jb4 - PMHx: 23:42 Hypertension; Depression; jb4 - PSHx: 23:42 gastric sleeve; jb4 - Immunization history:: Adult Immunizations up to date. - Social history:: Smoking status: Patient denies any tobacco usage or history of. Patient uses alcohol, patient/guardian reports recent binge of alcohol consumption. Patient/guardian denies using street drugs. Screenin:42 Abuse screen: Denies threats or abuse. Nutritional screening: No deficits noted. jb4 Tuberculosis screening: No symptoms or risk factors identified. Fall Risk None identified. Assessment: 23:42 General: Appears in no apparent distress. comfortable, Behavior is calm, cooperative, jb4 appropriate for age. Pain: Complains of pain in right elbow Pain does not radiate. Pain currently is 4 out of 10 on a pain scale. Neuro: Level of Consciousness is awake, alert, obeys commands, Oriented to person, place, time, situation. Cardiovascular: Patient's skin is warm and dry. Respiratory: Airway is patent Respiratory effort is even, unlabored, Respiratory pattern is regular, symmetrical. GI: No signs and/or symptoms were reported involving the gastrointestinal system. : No signs and/or symptoms were reported regarding the genitourinary system. EENT: No signs and/or symptoms were reported regarding the EENT system. Derm: Skin is intact, Skin is pink, warm \T\ dry. Musculoskeletal: Circulation, motion, and sensation intact. Range of motion: intact in all extremities. 09/12 00:45 Reassessment: Patient appears in no apparent distress at this time. Patient and/or jb4 family updated on plan of care and expected duration. Pain level reassessed. Patient is alert, oriented x 3, equal unlabored respirations, skin warm/dry/pink. 01:31 Reassessment: Patient appears in no apparent distress at this time. Patient and/or jb4 family updated on plan of care and expected duration. Pain level reassessed. Patient is alert, oriented x 3, equal unlabored respirations, skin warm/dry/pink. Vital Signs: 09/11 23:38 BP 126 / 71; Pulse 99; Resp 18; Temp 98.2(O); Pulse Ox 99% on R/A; Weight 145.15 kg jb4 (R); Height 5 ft. 6 in. (167.64 cm); Pain 4/10; 09/12 01:00 BP 130 / 87; Pulse 73; Resp 16; Pulse Ox 97% on R/A; jb4 09/11 23:38 Body Mass Index 51.65 (145.15 kg, 167.64 cm) 4 ED Course: 09/11 23:35 Patient arrived in ED. cf2 23:35 Keven Krishnamurthy PA is PHCP. cp 23:35 Praveen Duarte MD is Attending Physician. cp 23:38 Brendan Marie, ERIKA is Primary Nurse. jb4 23:41 Triage completed. jb4 23:42 Arm band placed on right wrist. jb4 23:42 Patient has correct armband on for positive identification. Bed in low position. Call jb4 light in reach. Side rails up X 1. Pulse ox on. NIBP on. 09/12 00:33 XRAY Chest (1 view) In Process Unspecified. EDMS 00:34 XRAY Humerus RIGHT In Process Unspecified. EDMS 00:34 XRAY Forearm RIGHT In Process Unspecified. EDMS 00:51 CT Head C Spine In Process Unspecified. EDMS 01:19 Grady Frankel MD is Referral Physician. cp 01:31 No provider procedures requiring assistance completed. Patient did not have IV access jb4 during this emergency room visit. Administered Medications: 01:13 Drug: Tylenol 1000 mg Route: PO; jb4 01:31 Follow up: Response: No adverse reaction jb4 01:14 Drug: Zofran (Ondansetron) 4 mg Route: PO; jb4 01:31 Follow up: Response: No adverse reaction jb4 Outcome: 01:21 Discharge ordered by . cp 01:31 Discharged to home via wheelchair, with family. jb4 01:31 Condition: stable 01:31 Discharge instructions given to patient, Instructed on discharge instructions, follow up and referral plans. medication usage, Demonstrated understanding of instructions, follow-up care, medications, Prescriptions given X 1. 01:32 Patient left the ED. jb4 Signatures: Dispatcher [employer] EDCT Keven Krishnamurthy PA PA cp Bryson, James, ERIKA RN jb4 Rin Ricardo cf2
--- NOTE | 2020-09-12 01:22 | EDPHYS ---
Physician Documentation [facility] Name: Sandra Holm Age: 30 yrs Sex: Female : 1990 Arrival Date: 09/11/2020 Time: 23:35 Bed 20 Private MD: ED Physician Praveen Duarte HPI: 09/11 23:45 This 30 yrs old Female presents to ER via EMS with complaints of Arm Injury. cp 23:45 Details of fall: The patient fell from an upright position, while walking, and struck a cp concrete surface. Onset: The symptoms/episode began/occurred just prior to arrival. Associated injuries: The patient sustained injury to the head, contusion, tenderness, right shoulder and right upper arm and right elbow and right forearm, decreased range of motion, painful injury. 23:45 Treatment prior to arrival includes: no previous treatment. cp Historical: - Allergies: 23:42 No Known Allergies; jb4 - Home Meds: 23:42 lisinopril 10 mg Oral tab 1 tab once daily [Active]; Prozac Oral [Active]; jb4 - PMHx: 23:42 Hypertension; Depression; jb4 - PSHx: 23:42 gastric sleeve; jb4 - Immunization history:: Adult Immunizations up to date. - Social history:: Smoking status: Patient denies any tobacco usage or history of. Patient uses alcohol, patient/guardian reports recent binge of alcohol consumption. Patient/guardian denies using street drugs. ROS: 23:50 Constitutional: Negative for body aches, chills, fever, poor PO intake. cp 23:50 Eyes: Negative for injury, pain, redness, and discharge. cp 23:50 Neck: Negative for stiffness. 23:50 Cardiovascular: Negative for chest pain. 23:50 Respiratory: Negative for cough, shortness of breath, wheezing. 23:50 Back: Negative for 23:50 MS/extremity: Positive for pain, tenderness, of the right arm, Negative for deformity, paresthesias. 23:50 Neuro: Negative for altered mental status, loss of consciousness. 23:50 All other systems are negative. Exam: 23:55 Constitutional: The patient appears in no acute distress, alert, awake, non-toxic, well cp developed, well nourished, obese. 23:55 Head/face: Noted is tenderness, that is mild, of the right frontal area and right cp temporal area. 23:55 Eyes: Periorbital structures: appear normal, Pupils: equal, round, and reactive to light and accomodation, Extraocular movements: intact throughout, Conjunctiva: normal, no exudate, no injection, Sclera: no appreciated abnormality, Lids and lashes: appear normal, bilaterally. 23:55 ENT: External ear(s): are unremarkable, Nose: is normal, Posterior pharynx: Airway: no evidence of obstruction, patent. 23:55 Neck: C-spine: C-collar placed in ED, vertebral tenderness, is not appreciated, crepitus, is not appreciated. 23:55 Chest/axilla: Inspection: normal, Palpation: is normal, no crepitus, no tenderness. 23:55 Cardiovascular: Rate: normal, Rhythm: regular. 23:55 Respiratory: the patient does not display signs of respiratory distress, Respirations: normal, no use of accessory muscles, no retractions, labored breathing, is not present, Breath sounds: are clear throughout, no decreased breath sounds, no stridor, no wheezing. 23:55 Abdomen/GI: Inspection: abdomen appears normal, Palpation: abdomen is soft and non-tender, in all quadrants, rebound tenderness, is not appreciated, voluntary guarding, is not appreciated, involuntary guarding, is not appreciated. 23:55 Back: pain, is absent, ROM is normal. Vital Signs: 23:38 BP 126 / 71; Pulse 99; Resp 18; Temp 98.2(O); Pulse Ox 99% on R/A; Weight 145.15 kg jb4 (R); Height 5 ft. 6 in. (167.64 cm); Pain 4/10; 09/12 01:00 BP 130 / 87; Pulse 73; Resp 16; Pulse Ox 97% on R/A; jb4 09/11 23:38 Body Mass Index 51.65 (145.15 kg, 167.64 cm) jb4 Procedures: 01:30 Splinting: Splint applied to right arm using sling, applied by nurse. Examined by me, cp post splint application: neurovascular intact, Patient tolerated well. MDM: 09/11 23:44 Patient medically screened. cp 09/12 00:00 Differential diagnosis: closed head injury, contusion, fracture, multiple trauma. cp 01:20 Data reviewed: vital signs, nurses notes, radiologic studies, CT scan, plain films. cp 01:20 Test interpretation: by ED physician or midlevel provider: xrays of right humerus cp negative for fracture, xrays of right forearm negative for fracture. Counseling: I had a detailed discussion with the patient and/or guardian regarding: the historical points, exam findings, and any diagnostic results supporting the discharge/admit diagnosis, radiology results, the need for outpatient follow up, a orthopedic surgeon, to return to the emergency department if symptoms worsen or persist or if there are any questions or concerns that arise at home. Response to treatment: the patient's symptoms have mildly improved after treatment, and as a result, I will discharge patient. Special discussion: Based on the patient's history, exam and DX evaluation, there is no indication for emergent intervention or inpatient TX. It is understood by the patient/guardian that if the SXs persist or worsen they need to return immediately for re-evaluation. Head and c-spine CT negative for acute trauma. Will discharge to home for continued monitoring. 09/11 23:37 Order name: CT Head C Spine cp 09/11 23:37 Order name: XRAY Chest (1 view) cp 09/11 23:37 Order name: XRAY Humerus RIGHT cp 09/11 23:37 Order name: XRAY Forearm RIGHT cp 09/11 23:38 Order name: C-Collar; Complete Time: 23:49 cp 09/12 00:52 Order name: Sling; Complete Time: 01:25 cp Administered Medications: 01:13 Drug: Tylenol 1000 mg Route: PO; 4 01:31 Follow up: Response: No adverse reaction jb4 01:14 Drug: Zofran (Ondansetron) 4 mg Route: PO; jb4 01:31 Follow up: Response: No adverse reaction jb4 Disposition: 01:40 Chart complete. cp 05:05 Co-signature as Attending Physician, Praveen Duarte MD. [email or web address] Disposition: 09/12/20 01:21 Discharged to Home. Impression: Fall on same level from slipping, tripping and stumbling, Contusion of right elbow, Contusion of unspecified part of head, Pain in right arm - from fall. - Condition is Stable. - Discharge Instructions: Head Injury, Adult, Elbow Contusion. - Prescriptions for Ibuprofen 800 mg Oral Tablet - take 1 tablet by ORAL route every 8 hours As needed take with food; 30 tablet. - Medication Reconciliation Form, Thank You Letter, Antibiotic Education, Prescription Opioid Use form. - Work release form (09/12/20 01:33). jb4 - Follow up: Grady Frankel MD; When: 2 - 3 days; Reason: Recheck today's complaints. - Problem is new. - Symptoms have improved. Signatures: Dispatcher [employer] EDMS Keven Krishnamurthy PA PA cp Brnedan Marie RN RN jb4 Praveen Duarte MD MD [email or web address] Corrections: (The following items were deleted from the chart) 01:32 01:21 09/12/2020 01:21 Discharged to Home. Impression: Fall on same level from jb4 slipping, tripping and stumbling; Contusion of right elbow; Contusion of unspecified part of head; Pain in right arm - from fall. Condition is Stable. Forms are Medication Reconciliation Form, Thank You Letter, Antibiotic Education, Prescription Opioid Use. Follow up: Dr. Grady Frankel; When: 2 - 3 days; Reason: Recheck today's complaints. Problem is new. Symptoms have improved. cp
[2020-09-12] MEDS ORDERED: ACETAMINOPHEN 500 MG TAB ONE (01:26)
[2020-09-12] MEDS ORDERED: ONDANSETRON 4 MG (ODT) TAB ONE (01:26)
[2020-09-12 01:37] VITALS: TEMP 98.2
[2020-09-12 01:38] VITALS: BP 130/87; O2SAT 97
--- NOTE | 2020-09-12 07:42 | RAD REPORT ---
EXAM DESCRIPTION: RAD - Humerus Right - 09/12/2020 12:33 am CLINICAL HISTORY: Right arm pain status post fall FINDINGS: No fracture is seen
--- NOTE | 2020-09-12 07:43 | RAD REPORT ---
EXAM DESCRIPTION: RAD - Forearm Right - 09/12/2020 12:34 am CLINICAL HISTORY: Right arm pain status post fall FINDINGS: No fracture is seen. If the patient has clinical symptoms to suggest an elbow fracture then dedicated plain films of the e lbow would be recommended
--- NOTE | 2020-09-12 08:13 | RAD REPORT ---
EXAM DESCRIPTION: Dave Single View09/12/2020 12:33 am CLINICAL HISTORY: Chest pain COMPARISON: 2015 FINDINGS: The lungs appear clear of acute infiltrate. The heart is normal size IMPRESSION: No acute abnormalities displayed
--- NOTE | 2020-09-12 11:02 | RAD REPORT ---
EXAM DESCRIPTION: CT - Head C Spine Mpr Wo Con - 09/12/2020 2:00 am COMPARISON: None. CLINICAL HISTORY: [facility] MAIN fall TECHNIQUE: Axial images were obtained from skull base to vertex without intravenous contrast. Imag es viewed on bone and brain windows. Multiplanar reformats were performed. Automated exposure contr ol was utilized on this examination as a dose lowering technique. FINDINGS: Brain parenchyma, ventricles, dura, meninges, and extra-axial spaces: Ventricles and sulci are normal. No abnormal attenuation of brain parenchyma is present. No acute intracranial hemor rhage or abnormal extra-axial fluid collections are present. Vascular structures: No hyperdense arteries or veins. Calvarium, mastoid air cells, paranasal sinuses and orbits: The calvarium is normal. The mastoid air cells are clear. Visualized paranasal sinuses are unremarkable. Orbital structures are unremarkable. IMPRESSION: No acute intracranial abnormality. EXAM DESCRIPTION: CT Cervical Spine COMPARISON: None. CLINICAL HISTORY: [facility] MAIN fall TECHNIQUE: Axial CT images were obtained through the entire cervical spine without contrast. Sagit lindsey and coronal reconstructions are provided. Automated exposure control was utilized on this examina tion as a dose lowering technique. FINDINGS: Vertebrae: Vertebral statures and alignment are normal. No acute fracture, dislocation o r destructive osseous process is present. Spinal canal, foramina, and facet joints: No significant spinal canal or foraminal stenoses. No significant facet arthropathy. Paraspinous soft-tissues: Normal. Thyroid: Normal. Other Findings: None. IMPRESSION: Normal CT of the cervical spine. Electronically signed by: Edu Botello MD 09/12/2020 12:58 AM CONSUMER CREDIT COUNSELOR Due to temporary technical issues with the PACS/Fluency reporting system, reports are being signed by the in house radiologists without review as a courtesy to insure prompt reporting. The interpreting radiologist is fully responsible for the content of the report.
== END 2020-09-12 01:32 | disposition home or self-care (01) ==
LOC: ER 23:31
DX: S00.83XA Contusion of other part of head, initial encounter (principal); S50.01XA Contusion of right elbow, initial encounter; W18.30XA Fall on same level, unspecified, initial encounter; Y93.01 Activity, walking, marching and hiking; Y92.9 Unspecified place or not applicable; I10 Essential (primary) hypertension; F32.9 Major depressive disorder, single episode, unspecified
CPT/HCPCS: 70450; 71045; 72125; 99284

== ENCOUNTER 2021-02-12 10:37 | Emergency (ER) | payer BC ==
--- OUTSIDE RECORDS SUMMARY | 2021-02-12 10:40 | XMS REPORT | Continuity of Care Document ---
:1990 Author Organization [facility] t Address [address] [place] [address] Care Team Providers Name Role Phone Jefe Glez DO Attending Clinician Timo Moran Attending Clinician Problems This patient has no known problems. Allergies, Adverse Reactions, Alerts This patient has no known allergies or adverse reactions. Medications This patient has no known medications. Procedures This patient has no known procedures. Encounters Start End Encounter Admission Attending Care Care Encounter Source Date/Time Date/Time Type Type Clinicians Facility Department ID 2020-10-05 2020-10-05 Patient BETTY Glez [id number] 00:00:00 00:00:00 Outreach [facility] [id number] Jefe [facility] [id number] JUAN F [id number] 2020-07-13 2020-07-13 Outpatient [facility] [id number] [facility] 2020-04-13 2020-04-13 Outpatient [facility] [id number] [facility] 2020-04-01 2020-04-01 [facility] [id number] 14:49:13 15:45:49 Visit Ekaterina Greenwood TRANSITION RN [id number] [facility] [id number] MATERNAL [id number] & CHILD [address] [place] [address] Results This patient has no known results.
[2021-02-12 12:56] LABS: Urine Blood Negative (Negative); Urine Glucose Negative (Negative); Urine Protein Negative (Negative); Urine Specific Gravity 1.025 (1.005-1.030); Urine pH 5.5 (5.0-7.0)
[2021-02-12] MEDS ORDERED: ONDANSETRON 4 MG (ODT) TAB ONE (13:11)
[2021-02-12] MEDS ORDERED: MORPHINE 4 MG/ML SYR ONE (13:11)
--- NOTE | 2021-02-12 13:21 | RAD REPORT ---
EXAM DESCRIPTION: CT - Spine Lumbar Wo Con - 02/12/2021 1:11 pm CLINICAL HISTORY: Radiculopathy. Pain;Radiculopathy COMPARISON: No comparisonsNo comparisons TECHNIQUE: Axial noncontrast CT imaging of the lumbar spine was performed with coronal and sagittal re-formatted images. All CT scans are performed using dose optimization technique as appropriate and may include automated exposure control or mA/KV adjustment according to patient size. FINDINGS: No acute lumbar spine fracture seen. No malalignment. Paraspinal tissues are normal in thickness. No paraspinal abscess or hematoma seen. Intervertebral disc disease assessment is inherently limited by CT. Moderate disc height loss at L5-S 1 but mild at the other levels. There is a broad-based disc bulge at L4-5 and L5-S1 which are not wel l assessed on CT. Within these limitations, no high-grade canal stenosis suspected. IMPRESSION: No acute fracture of the lumbar spine. Mild degenerative changes as noted above.
--- NOTE | 2021-02-12 13:36 | EDPHYS ---
Physician Documentation [facility] Name: Sandra Holm Age: 30 yrs Sex: Female : 1990 Arrival Date: 02/12/2021 Time: 10:39 Bed 12 Private MD: ED Physician Zain Mast HPI: 02/12 12:58 This 30 yrs old Female presents to ER via Ambulatory with complaints of Low jr8 Back Pain, Hip Pain. 12:58 The patient presents with pain that is acute. The symptoms are located in the low back. jr8 The pain radiates to the pelvis. The problem was sustained from unknown cause. Onset: The symptoms/episode began/occurred acutely, 2 day(s) ago. Modifying factors: The patient symptoms are alleviated by nothing, the patient symptoms are aggravated by any movement. Associated signs and symptoms: The patient has no apparent associated signs or symptoms. Severity of symptoms: At their worst the symptoms were moderate, in the emergency department the symptoms are unchanged. The patient has not experienced similar symptoms in the past. The patient has been recently seen by a physician:. Patient stated that she woke up a few days ago with low back pain radiating to both hips. Went to all tests emergency room and had urinalysis completed. Negative negative UTI. Was put on anti-inflammatory and muscle relaxants without relief. Concerned that it has not gotten any better over the last couple days and wanted reevaluation.. 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 - Social history:: Smoking status: Patient denies any tobacco usage or history of. ROS: 12:58 Eyes: Negative for injury, pain, redness, and discharge, ENT: Negative for injury, jr8 pain, and discharge, Neck: Negative for injury, pain, and swelling, Cardiovascular: Negative for chest pain, palpitations, and edema, Respiratory: Negative for shortness of breath, cough, wheezing, and pleuritic chest pain, Abdomen/GI: Negative for abdominal pain, nausea, vomiting, diarrhea, and constipation, MS/Extremity: Negative for injury and deformity, Skin: Negative for injury, rash, and discoloration, Neuro: Negative for headache, weakness, numbness, tingling, and seizure. 12:58 Back: Positive for pain at rest, pain with movement, radiated pain. Exam: 12:58 Neck: Trachea midline, no thyromegaly or masses palpated, and no cervical jr8 lymphadenopathy. Supple, full range of motion without nuchal rigidity, or vertebral point tenderness. No Meningismus. Cardiovascular: Regular rate and rhythm with a normal S1 and S2. No gallops, murmurs, or rubs. Normal PMI, no JVD. No pulse deficits. Respiratory: Lungs have equal breath sounds bilaterally, clear to auscultation and percussion. No rales, rhonchi or wheezes noted. No increased work of breathing, no retractions or nasal flaring. Abdomen/GI: Soft, non-tender, with normal bowel sounds. No distension or tympany. No guarding or rebound. No evidence of tenderness throughout. Skin: Warm, dry with normal turgor. Normal color with no rashes, no lesions, and no evidence of cellulitis. MS/ Extremity: Pulses equal, no cyanosis. Neurovascular intact. Full, normal range of motion. Neuro: Awake and alert, GCS 15, oriented to person, place, time, and situation. Cranial nerves II-XII grossly intact. Motor strength 5/5 in all extremities. Sensory grossly intact. Cerebellar exam normal. Normal gait. 12:58 Back: pain, that is moderate, of the low back area, ROM is painful, normal spinal alignment noted. Vital Signs: 11:51 BP 126 / 62; Pulse 74; Resp 16; Temp 97.7; Pulse Ox 97% on R/A; Weight 154.22 kg; iw Height 5 ft. 7 in. (170.18 cm); Pain 5/10; 11:51 Body Mass Index 53.25 (154.22 kg, 170.18 cm) iw MDM: 12:18 Patient medically screened. jr8 13:27 Data reviewed: vital signs, nurses notes, radiologic studies, CT scan. Data jr8 interpreted: Pulse oximetry: on room air is 97 %. Interpretation: normal. Counseling: I had a detailed discussion with the patient and/or guardian regarding: the historical points, exam findings, and any diagnostic results supporting the discharge/admit diagnosis, lab results, radiology results, the need for outpatient follow up, a family practitioner, to return to the emergency department if symptoms worsen or persist or if there are any questions or concerns that arise at home. 02/12 12:55 Order name: Urine Dipstick-Ancillary; Complete Time: 13:00 [facility] 02/12 13:02 Order name: Urine Dipstick--Ancillary (enter results) eb 02/12 12:33 Order name: CT Lumbar Spine Wo Con; Complete Time: 13:26 jr8 02/12 12:33 Order name: Urine Dipstick-Ancillary (obtain specimen); Complete Time: 13:00 jr8 02/12 12:33 Order name: Urine Test (obtain specimen); Complete Time: 13:00 jr8 Administered Medications: 13:00 Drug: morphine 4 mg {Note: rass1.} Route: IM; Site: left deltoid; sv 13:43 Follow up: Response: No adverse reaction; RASS: Alert and Calm (0) sv 13:00 Drug: Ondansetron 4 mg Route: PO; sv 13:43 Follow up: Response: No adverse reaction sv Disposition: 14:58 Co-signature as Attending Physician, Zain Mast MD. rn Disposition Summary: 02/12/21 13:35 Discharge Ordered Location: Home [facility] Problem: new jr8 Symptoms: have improved jr8 Condition: Stable jr8 Diagnosis - Radiculopathy, lumbar region jr8 - Low back pain jr8 Followup: jr8 - With: Private Physician - When: 1 week - Reason: Recheck today's complaints, Continuance of care, Re-evaluation by your physician Discharge Instructions: - Discharge Summary Sheet jr8 - Acute Back Pain, Adult jr8 - Lumbosacral Radiculopathy jr8 - Heat Therapy jr8 Forms: - Work release form jr8 - Medication Reconciliation Form jr8 - Thank You Letter jr8 - Antibiotic Education jr8 - Prescription Opioid Use jr8 Prescriptions: - Medrol (Howard) 4 mg Oral Tablets, Dose Pack - take 1 tablet by ORAL route as directed - follow package instructions; 1 jr8 packet; Refills: 0, Product Selection Permitted Signatures: [facility] Ama, Daily, RN RN sv Rey, Xin, RN RN iw Mast, Zain, MD MD rn Roszak, Sadi, PA PA jr8
--- NOTE | 2021-02-12 13:36 | ER ---
Nurse's Notes [facility] Name: Sandra Holm Age: 30 yrs Sex: Female : 1990 Arrival Date: 02/12/2021 Time: 10:39 Bed 12 Private MD: Diagnosis: Radiculopathy, lumbar region;Low back pain Presentation: 02/12 11:51 Chief complaint: Patient states: having extreme pain in low back and hips, started a iw couple days ago, gotten worse denies injury. Coronavirus screen: At this time, the client does not indicate any symptoms associated with coronavirus-19. Ebola Screen: Patient negative for fever greater than or equal to 101.5 degrees Fahrenheit, and additional compatible Ebola Virus Disease symptoms Patient denies exposure to infectious person. Patient denies travel to an Ebola-affected area in the 21 days before illness onset. No symptoms or risks identified at this time. Initial Sepsis Screen: Does the patient meet any 2 criteria? No. Patient's initial sepsis screen is negative. Does the patient have a suspected source of infection? No. Patient's initial sepsis screen is negative. Risk Assessment: Do you want to hurt yourself or someone else? Patient reports no desire to harm self or others. Onset of symptoms was February 10, 2021. 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 - Social history:: Smoking status: Patient denies any tobacco usage or history of. Screenin:00 Abuse screen: Denies threats or abuse. Denies injuries from another. Nutritional sv screening: No deficits noted. Tuberculosis screening: No symptoms or risk factors identified. Fall Risk None identified. Assessment: 13:00 General: Appears in no apparent distress. uncomfortable, obese, well groomed, well sv developed, Behavior is calm, cooperative, appropriate for age. Pain: Complains of pain in low back area Pain currently is 5 out of 10 on a pain scale. Neuro: Level of Consciousness is awake, alert, obeys commands, Oriented to person, place, time, situation, Moves all extremities. Full function Gait is steady. Respiratory: Respiratory effort is even, unlabored, Respiratory pattern is regular, symmetrical. Derm: Skin is pink, warm \T\ dry. 13:44 Reassessment: Patient appears in no apparent distress at this time. Patient and/or sv family updated on plan of care and expected duration. Pain level reassessed. Patient is alert, oriented x 3, equal unlabored respirations, skin warm/dry/pink. Vital Signs: 11:51 BP 126 / 62; Pulse 74; Resp 16; Temp 97.7; Pulse Ox 97% on R/A; Weight 154.22 kg; iw Height 5 ft. 7 in. (170.18 cm); Pain 5/10; 11:51 Body Mass Index 53.25 (154.22 kg, 170.18 cm) iw ED Course: 10:39 Patient arrived in ED. rg4 11:53 Triage completed. iw 12:18 Sadi Hairston PA is PHCP. jr8 12:18 Zain Mast MD is Attending Physician. jr8 12:20 Nurse Practitioner and/or Physician Tie Presser to see patient. sv 13:00 Daily Serrato, ERIKA is Primary Nurse. sv 13:[address] via wheelchair. sv 13:00 Patient has correct armband on for positive identification. sv 13:11 CT Lumbar Spine Wo Con In Process Unspecified. EDMS 13:43 No provider procedures requiring assistance completed. Patient did not have IV access sv during this emergency room visit. Administered Medications: 13:00 Drug: morphine 4 mg {Note: rass1.} Route: IM; Site: left deltoid; sv 13:43 Follow up: Response: No adverse reaction; RASS: Alert and Calm (0) sv 13:00 Drug: Ondansetron 4 mg Route: PO; sv 13:43 Follow up: Response: No adverse reaction sv Outcome: 13:35 Discharge ordered by . jr8 13:44 Discharged to home ambulatory, with friend. sv 13:44 Condition: stable 13:44 Discharge instructions given to patient, Instructed on discharge instructions, follow up and referral plans. medication usage, Demonstrated understanding of instructions, follow-up care, medications, Prescriptions given X 1. 13:45 Patient left the ED. sv Signatures: Dispatcher [employer] Daily Finley RN RN sv Williams, Irene, RN RN iw Sadi Hairston PA PA jr8 Emily Lopez4 Corrections: (The following items were deleted from the chart) 11:54 11:51 Pulse 74bpm; Resp 16bpm; Pulse Ox 97% RA; Temp 97.7F; 154.22 kg; Height 5 ft. 7 iw in.; BMI: 53.2; Pain 5/10; iw
[2021-02-12 13:59] VITALS: BP 126/62; TEMP 97.7; O2SAT 97
[2021-02-12 17:09] LABS: Urine Blood NEGATIVE (Negative); Urine Glucose NEGATIVE (Negative); Urine Protein NEGATIVE (Negative); Urine Specific Gravity 1.025 (1.005-1.030); Urine pH 5.5 (5.0-7.0)
== END 2021-02-12 13:45 | disposition home or self-care (01) ==
LOC: ER 10:37
DX: M54.16 Radiculopathy, lumbar region (principal); I10 Essential (primary) hypertension
CPT/HCPCS: 72131; 81003; 96372; 99284

== ENCOUNTER 2021-02-19 09:59 | Emergency (ER) | payer BC ==
--- OUTSIDE RECORDS SUMMARY | 2021-02-19 10:01 | XMS REPORT | Continuity of Care Document ---
:1990 Author Organization [facility] t Address [address] [place] [address] Care Team Providers Name Role Phone Jefe [...] Date/Time Type Type Clinicians Facility Department ID 2021-02-15 2021-02-15 Outpatient [facility] [id number] [facility] 00:00:00 00:00:00 kevin - Luigi [facility] 2020-10-05 2020-10-05 Patient BETTY Glez [id number] 00:00:00 00:00:00 Outreach Daryl [facility] [id number] Jefe [facility] [id number] JUAN F [id number] 2020-07-13 2020-07-13 Outpatient [facility] [id number] [facility] 00:00:00 00:00:00 [facility] 2020-04-13 2020-04-13 Outpatient [facility] [id number] [facility] 00:00:00 00:00:00 Kristen roman Outpati ent Clinics 2020-04-01 2020-04-01 Office [facility] [id number] 14:49:13 15:45:49 Visit Ekaterina Greenwood 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
--- NOTE | 2021-02-19 10:23 | ER ---
Nurse's Notes [facility] Name: Sandra Holm Age: 30 yrs Sex: Female : 1990 Arrival Date: 02/19/2021 Time: 10:01 Bed Waiting Private MD: Diagnosis: Radiculopathy, lumbosacral region Presentation: 02/19 10:16 Chief complaint: Patient states: is having severe back pain radiating to hips and iw making her legs numb, followed up with PCP, still having same pain since last week, was seen in ER. Ebola Screen: Patient negative for fever greater than or equal to 101.5 degrees Fahrenheit, and additional compatible Ebola Virus Disease symptoms Patient denies exposure to infectious person. Patient denies travel to an Ebola-affected area in the 21 days before illness onset. No symptoms or risks identified at this time. 10:16 Method Of Arrival: Wheelchair iw 10:18 Coronavirus screen: At this time, the client does not indicate any symptoms associated iw with coronavirus-19. Initial Sepsis Screen: Does the patient meet any 2 criteria? No. Patient's initial sepsis screen is negative. Does the patient have a suspected source of infection? No. Patient's initial sepsis screen is negative. Risk Assessment: Do you want to hurt yourself or someone else? Patient reports no desire to harm self or others. Onset of symptoms was February 12, 2021. 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 - Social history:: Smoking status: unknown. Screenin:42 Abuse screen: Denies threats or abuse. Denies injuries from another. Nutritional iw screening: No deficits noted. Tuberculosis screening: No symptoms or risk factors identified. Fall Risk None identified. Assessment: 10:42 General: Appears in no apparent distress. Behavior is calm, cooperative. Pain: iw Complains of pain in lumbar area, left low back and right low back Pain radiates to left hip and right hip. Neuro: Level of Consciousness is awake, alert, obeys commands, Oriented to person, place, time, situation, Moves all extremities. Full function. Cardiovascular: Patient's skin is warm and dry. Respiratory: Respiratory effort is even, unlabored, Respiratory pattern is regular, symmetrical. Derm: Skin is intact, is healthy with good turgor. Musculoskeletal: Range of motion: intact in all extremities. Vital Signs: 10:16 BP 149 / 74; Pulse 84; Resp 16 S; Temp 98.2; Pulse Ox 98% on R/A; Weight 154.22 kg; iw Height 5 ft. 7 in. (170.18 cm); Pain 6/10; 10:16 Body Mass Index 53.25 (154.22 kg, 170.18 cm) iw ED Course: 10:01 Patient arrived in ED. as 10:18 Triage completed. iw 10:19 Arm band placed on. iw 10:21 Jackeline Almendarez F[facility]-C [facility] kb 10:21 Keven Pearson MD is Attending Physician. kb 10:40 Patient has correct armband on for positive identification. iw 10:42 Xin Le, ERIKA is Primary Nurse. iw 10:50 No provider procedures requiring assistance completed. Patient did not have IV access iw during this emergency room visit. Administered Medications: 10:27 Drug: [place] (HYDROcodone-acetaminophen) 10 mg-325 mg 1 tabs Route: PO; iw 10:50 Follow up: Response: No adverse reaction iw 10:27 Drug: Ketorolac 60 mg Route: IM; Site: left deltoid; iw 10:50 Follow up: Response: No adverse reaction iw Outcome: 10:23 Discharge ordered by . kb 10:52 Discharged to home via wheelchair, with friend. iw 10:52 Condition: good 10:52 Discharge instructions given to patient, Instructed on discharge instructions, follow up and referral plans. medication usage, Demonstrated understanding of instructions, follow-up care, medications, Prescriptions given X 1. 10:53 Patient left the ED. iw Signatures: Jackeline Almendarez FNP-C FNP-Hansa Thomas as Xin Le, RN RN iw Corrections: (The following items were deleted from the chart) 10:19 10:16 Chief complaint: Patient states: is having severe back pain radiating to hips and iw making her legs numb, followed up with PCP, still having same pain since last week iw 10:19 10:16 Pulse 84bpm; Resp 16bpm; Spontaneous; Pulse Ox 98% RA; Temp 98.2F; 154.22 kg; iw Height 5 ft. 7 in.; BMI: 53.2; Pain 6/10; iw
--- NOTE | 2021-02-19 10:23 | EDPHYS ---
Physician Documentation [facility] Name: Sandra Holm Age: 30 yrs Sex: Female : 1990 Arrival Date: 02/19/2021 Time: 10: Bed Waiting Private MD: BRAYAN Physician Keven Pearson HPI: 02/19 11:00 This 30 yrs old Female presents to ER via Wheelchair with complaints of Low kb Back Pain, Leg Pain. 11:00 The patient presents with pain that is acute, with no known mechanism of injury, and kb tenderness. The symptoms are located in the low back. The pain radiates to the buttocks and pelvis. The problem was sustained without known cause. Onset: The symptoms/episode began/occurred 1 week(s) ago. Modifying factors: The patient symptoms are alleviated by nothing, the patient symptoms are aggravated by any movement. Associated signs and symptoms: The patient has no apparent associated signs or symptoms. Severity of symptoms: At their worst the symptoms were moderate, in the emergency department the symptoms are unchanged. The patient has not experienced similar symptoms in the past. The patient has been recently seen at the [facility] Emergency Department, last week, for similar complaints CT scan was performed. Pt reports low back pain that radiates to bilateral hips and down back of legs that started over a week ago. Was seen here on 02/12/21, CT scan wnl. Followed up with PCP after that and was told to continue prescribed medications. Came in today because she is still having the pain. Denies urinary symptoms, denies loss of bowel or bladder control. 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 - Social history:: Smoking status: unknown. ROS: 11:02 Constitutional: Negative for fever, chills, and weight loss. kb 11:02 Back: Positive for pain at rest, pain with movement, radiated pain, Negative for injury or acute deformity, decreased range of motion. 11:02 All other systems are negative. Exam: 11:02 Constitutional: This is a well developed, well nourished patient who is awake, alert, kb and in no acute distress. Head/Face: Normocephalic, atraumatic. ENT: Moist Mucous membranes Respiratory: Respirations even and unlabored. No increased work of breathing, no retractions or nasal flaring. Skin: Warm, dry with normal turgor. Normal color. MS/ Extremity: Pulses equal, no cyanosis. Neurovascular intact. Full, normal range of motion. Neuro: Awake and alert, GCS 15, oriented to person, place, time, and situation. Moves all extremities. Normal gait. Psych: Awake, alert, with orientation to person, place and time. Behavior, mood, and affect are within normal limits. 11:03 Back: pain, that is moderate, of the low back area, ROM is painful, with all movement, kb normal spinal alignment noted. Vital Signs: 10:16 BP 149 / 74; Pulse 84; Resp 16 S; Temp 98.2; Pulse Ox 98% on R/A; Weight 154.22 kg; iw Height 5 ft. 7 in. (170.18 cm); Pain 6/10; 10:16 Body Mass Index 53.25 (154.22 kg, 170.18 cm) iw MDM: 10:21 Patient medically screened. kb 10:25 Data reviewed: vital signs, nurses notes. Data interpreted: Pulse oximetry: on room air kb is 98 %. Interpretation: normal. Counseling: I had a detailed discussion with the patient and/or guardian regarding: the historical points, exam findings, and any diagnostic results supporting the discharge/admit diagnosis, the need for outpatient follow up, a family practitioner, to return to the emergency department if symptoms worsen or persist or if there are any questions or concerns that arise at home. 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 No rx found. Administered Medications: 10:27 Drug: [place] (HYDROcodone-acetaminophen) 10 mg-325 mg 1 tabs Route: PO; iw 10:50 Follow up: Response: No adverse reaction iw 10:27 Drug: Ketorolac 60 mg Route: IM; Site: left deltoid; iw 10:50 Follow up: Response: No adverse reaction iw Disposition: 18:06 Co-signature as Attending Physician, Keven Pearson MD I agree with the assessment and jazmine plan of care. Disposition Summary: 02/19/21 10:23 Discharge Ordered Location: Home kb Condition: Stable kb Diagnosis - Radiculopathy, lumbosacral region kb Followup: kb - With: Emergency Department - When: As needed - Reason: Worsening of condition Followup: kb - With: Private Physician - When: 2 - 3 days - Reason: Recheck today's complaints, Continuance of care, Re-evaluation by your physician Discharge Instructions: - Discharge Summary Sheet kb - Lumbosacral Radiculopathy kb Forms: - Medication Reconciliation Form kb - Thank You Letter kb - Antibiotic Education kb - Prescription Opioid Use kb - Work release form em1 Prescriptions: - Tramadol 50 mg Oral Tablet - take 1 tablet by ORAL route every 8 hours as needed; 12 tablet; Refills: 0, kb Product Selection Permitted Signatures: Jackeline Almendarez, CHETAN-C CHETAN-Keven Barragan MD MD cha Williams, Irene, RN RN iw
[2021-02-19] MEDS ORDERED: KETOROLAC 30 MG/ML INJ ONE (10:51)
[2021-02-19] MEDS ORDERED: HYDROCODONE/APAP 10/325 TAB ONE (10:51)
[2021-02-19 11:00] VITALS: BP 149/74; TEMP 98.2; O2SAT 98
== END 2021-02-19 10:53 | disposition home or self-care (01) ==
LOC: ER 09:59
DX: M54.17 Radiculopathy, lumbosacral region (principal); I10 Essential (primary) hypertension; F32.9 Major depressive disorder, single episode, unspecified
CPT/HCPCS: 96372; 99283

== ENCOUNTER 2021-09-03 12:09 | Emergency (ER) | payer SELFPAY ==
--- OUTSIDE RECORDS SUMMARY | 2021-09-03 12:14 | XMS REPORT | Continuity of Care Document ---
:1990 Author Organization [facility] t Address [address] [place] [address] Care Team Providers Name Role Phone Timo Moran Primary Care Physician Laura Attending Clinician Unavailable HUBER INGRAM Attending Clinician Unavailable Huber Gregory Attending Clinician Jefe Glez DO Attending Clinician Yazan STONE C Attending Clinician Timo ULLOA Attending Clinician Unavailable Doctor Unassigned, Name Attending Clinician Unavailable Payers Payer Name Policy Type Policy Number Effective Date Expiration Date S ource Problems Condition Condition Condition Status Onset Resolution Last Treating Co mments Source Name Details Category Date Date Treatment Clinician Date Nexplanon Nexplanon Disease Active Uni vers in place in place 10-16 ity of 00:00: [address] Essential Essential Disease Active Uni vers hypertensi hypertensi 03 it y of on, benign on, benign 00:00: [id number] Depression Depression Disease Active U nivers 10-16 ity of 00:00: [address] History of History of Disease Active U nivers depression depression 10-16 it y of 00:00: [place] 00 Medical Branch Other Other Disease Active [facility] general general 4-03 ity of counseling counseling 00:00: [place] and advice and advice 00 Me dical for for Branch contracept contracept sarah sarah management management Well woman Well woman Disease Active Overview : Univers exam exam 2-18 Formattin ity of 00:00: g of this 00 note Medical might be Branch different from the original. ICD10 Diagnosis Term Wad Lubricator Utility Morbid Morbid Disease Active Univers obesity obesity 2-18 ity of 00:00: [place] 00 Medical Branch Menorrhagi Menorrhagi Disease Active U nivers a a 2-18 ity of 00:00: [place] 00 Medical Branch Allergies, Adverse Reactions, Alerts Allergy Allergy Status Severity Reaction(s) Onset Inactive Treating Comm ents Source Name Type Date Date Clinician NO KNOWN Drug Active [facility] ALLERGIE Class ity of S [facility] Social History Social Habit Start Date Stop Date Quantity Comments Source Exposure to Not sure [facility] SARS-CoV-2 (event) Medica l [place] Tobacco use and 2020-04-01 2020-04-01 Never used [facility] exposure 00:00:00 00:00:00 [facility] Alcohol intake 2020-04-01 2020-04-01 0 /d [facility] 00:00:00 00:00:00 [facility] Sex Assigned At [birth year] [facility] 00:00:00 00:00:00 [facility] Smoking Status Start Date Stop Date Source Never smoker [facility] Medications Ordered Filled Start Stop Current Ordering Indication Dosage Frequency Signature Comments Components Source Medication Medication Date Date Medication? Clinician (SIG) Name Name etonogestre 2020- No 68mg Unive rs L 03-18 ity of (NEXPLANON) 21:45: 20:46 [place] implant 68 00 :00 Medical mg Branch etonogestre 2019- No 68mg 68 mg, Uni vers L 03-18 Subdermal, ity of (NEXPLANON) 21:45: 20:46 ONCE NOW, [place] implant 68 00 :00 1 dose, Medica l mg Zhane 03/18/20 Branch at 1645, Routine
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
Use approved by: [employer] SUPERVISOR buPROPion 2020-0 Yes 150mg Take 150 Uni vers SR 8-21 mg by ity of (WELLBUTRIN 14:16: mouth [place] SR) 150 mg 19 daily. Medical SR tablet Branch buPROPion 2020-0 Yes 150mg Take 150 Uni vers SR 8-21 mg by ity of (WELLBUTRIN 14:16: mouth [place] SR) 150 mg 19 daily. Medical SR tablet Branch buPROPion 2020-0 Yes 150mg Take 150 Uni vers SR 8-21 mg by ity of (WELLBUTRIN 14:16: mouth [place] SR) 150 mg 19 daily. Medical SR tablet Branch buPROPion 2020-0 Yes 150mg Take 150 Uni vers SR 8-21 mg by ity of (WELLBUTRIN 14:16: mouth [place] SR) 150 mg 19 daily. Medical SR tablet Branch buPROPion 2020-0 Yes 150mg Take 150 Uni vers SR 8-21 mg by ity of (WELLBUTRIN 14:16: mouth [place] SR) 150 mg 19 daily. Medical SR tablet Branch buPROPion 2020-0 Yes 150mg Take 150 Uni vers SR 8-21 mg by ity of (WELLBUTRIN 14:16: mouth [place] SR) 150 mg 19 daily. Medical SR tablet Branch buPROPion 2020-0 Yes 150mg Take 150 Uni vers SR 8-21 mg by ity of (WELLBUTRIN 14:16: mouth [place] SR) 150 mg 19 daily. Medical SR tablet Branch buPROPion 2020-0 Yes 150mg Take 150 Uni vers SR 8-21 mg by ity of (WELLBUTRIN 14:16: mouth [place] SR) 150 mg 19 daily. Medical SR tablet Branch buPROPion 2020-0 Yes 150mg Take 150 Uni vers SR 8-21 mg by ity of (WELLBUTRIN 14:16: mouth [place] SR) 150 mg 19 daily. Medical SR tablet Branch lisinopril 2019-0 Yes 10mg Take 10 mg U nivers 10 mg 8-21 by mouth ity of tablet 14:16: daily. [place] [address] Medical Branch lisinopril 2020-0 Yes 10mg Take 10 mg U nivers 10 mg 8-21 by mouth ity of tablet 14:16: daily. [place] [address] Medical Branch lisinopril 2020-0 Yes 10mg Take 10 mg U nivers 10 mg 8-21 by mouth ity of tablet 14:16: daily. [place] [address] Medical Branch lisinopril 2019-0 Yes 10mg Take 10 mg U nivers 10 mg 8-21 by mouth ity of tablet 14:16: daily. [place] [address] Medical Branch lisinopril 2019-0 Yes 10mg Take 10 mg U nivers 10 mg 8-21 by mouth ity of tablet 14:16: daily. [place] [address] Medical Branch lisinopril 2019-0 Yes 10mg Take 10 mg U nivers 10 mg 8-21 by mouth ity of tablet 14:16: daily. [place] [address] Medical Branch lisinopril 2019-0 Yes 10mg Take 10 mg U nivers 10 mg 8-21 by mouth ity of tablet 14:16: daily. [place] [address] Medical Branch lisinopril 2019-0 Yes 10mg Take 10 mg U nivers 10 mg 8-21 by mouth ity of tablet 14:16: daily. [place] [address] Medical Branch lisinopril 2019-0 Yes 10mg Take 10 mg U nivers 10 mg 8-21 by mouth ity of tablet 14:16: daily. [place] [address] Medical Branch buPROPion 2019-0 Yes 150mg Take 150 Uni vers SR 8-21 mg by ity of (WELLBUTRIN 09:16: mouth [place] SR) 150 mg 19 daily. Medical SR tablet Branch lisinopril 2019-0 Yes 10mg Take 10 mg U nivers 10 mg 8-21 by mouth ity of tablet 09:16: daily. [place] [address] Medical Branch lisinopril 0 Yes 10mg Take 10 mg U nivers 10 mg 4-03 by mouth ity of tablet 16:36: daily. [place] [address] Medical Branch buPROPion 0 Yes 150mg Take 150 Uni vers SR 4-03 mg by ity of (WELLBUTRIN 16:36: mouth [place] SR) 150 mg 15 daily. Medical SR tablet Branch ondansetron 2014-07 Yes 4mg Take 1 Tab Univers (ZOFRAN 0-07 by mouth ity of ODT) 4 mg 00:00: every 8 [place] disintegrat 00 (eight) Medic al ing tablet hours as Branc h needed for Nausea and Vomiting (N/V). ondansetron 2014-07 Yes 4mg Take 1 Tab Univers (ZOFRAN 0-07 by mouth ity of ODT) 4 mg 00:00: every 8 [place] disintegrat 00 (eight) Medic al ing tablet hours as Branc h needed for Nausea and Vomiting (N/V). ondansetron 2014-07 Yes 4mg Take 1 Tab Univers (ZOFRAN 0-07 by mouth ity of ODT) 4 mg 00:00: every 8 [place] disintegrat 00 (eight) Medic al ing tablet hours as Branc h needed for Nausea and Vomiting (N/V). ondansetron 2014-07 Yes 4mg Take 1 Tab Univers (ZOFRAN 0-07 by mouth ity of ODT) 4 mg 00:00: every 8 [place] disintegrat 00 (eight) Medic al ing tablet hours as Branc h needed for Nausea and Vomiting (N/V). ondansetron 2014-07 Yes 4mg Take 1 Tab Univers (ZOFRAN 0-07 by mouth ity of ODT) 4 mg 00:00: every 8 [place] disintegrat 00 (eight) Medic al ing tablet hours as Branc h needed for Nausea and Vomiting (N/V). ondansetron 2014-07 Yes 4mg Take 1 Tab Univers (ZOFRAN 0-07 by mouth ity of ODT) 4 mg 00:00: every 8 [place] disintegrat 00 (eight) Medic al ing tablet hours as Branc h needed for Nausea and Vomiting (N/V). ondansetron 2014-07 Yes 4mg Take 1 Tab Univers (ZOFRAN 0-07 by mouth ity of ODT) 4 mg 00:00: every 8 [place] disintegrat 00 (eight) Medic al ing tablet hours as Branc h needed for Nausea and Vomiting (N/V). ondansetron 2014-07 Yes 4mg Take 1 Tab Univers (ZOFRAN 0-07 by mouth ity of ODT) 4 mg 00:00: every 8 [place] disintegrat 00 (eight) Medic al ing tablet hours as Branc h needed for Nausea and Vomiting (N/V). ondansetron 2014-07 Yes 4mg Take 1 Tab Univers (ZOFRAN 0-07 by mouth ity of ODT) 4 mg 00:00: every 8 [place] disintegrat 00 (eight) Medic al ing tablet hours as Branc h needed for Nausea and Vomiting (N/V). ondansetron 2014-07 Yes 4mg Take 1 Tab Univers (ZOFRAN 0-07 by mouth ity of ODT) 4 mg 00:00: every 8 [place] disintegrat 00 (eight) Medic al ing tablet hours as Branc h needed for Nausea and Vomiting (N/V). ondansetron 2014-07 Yes 4mg Take 1 Tab Univers (ZOFRAN 0-07 by mouth ity of ODT) 4 mg 00:00: every 8 [place] disintegrat 00 (eight) Medic al ing tablet hours as Branc h needed for Nausea and Vomiting (N/V). Immunizations Ordered Filled Immunization Date Status Comments [facility] Immunization Name Name Influenza Virus 2020-04-01 Completed Universit y of Vaccine Quad .5 mL 00:00:00 [facility] 6+ MO Branch Influenza Virus 2020-04-01 Completed Universit y of Vaccine Quad .5 mL 00:00:00 [facility] 6+ MO Branch Influenza Virus 2020-04-01 Completed Universit y of Vaccine Quad .5 mL 00:00:00 [facility] 6+ MO Branch Influenza Virus 2020-04-01 Completed Universit y of Vaccine Quad .5 mL 00:00:00 [facility] 6+ MO Branch Td 2008-03-02 Completed University of 00:00:00 [facility] Td 2008-03-02 Completed University of 00:00:00 [facility] Td 2008-03-02 Completed University of 00:00:00 [facility] Td 2008-03-02 Completed University of 00:00:00 [facility] Td 2008-03-02 Completed University of 00:00:00 [facility] 2008-03-02 Completed University of 00:00:00 [facility] 2008-03-02 Completed University of 00:00:00 [facility] Td 2008-03-02 Completed University of 00:00:00 [facility] 2008-03-02 Completed University of 00:00:00 [facility] 2008-03-02 Completed University of 00:00:00 [facility] 2008-03-02 Completed University of 00:00:00 [facility] Vital Signs Vital Name Observation Time Observation Value Comments Source Systolic blood 2021-09-03 03:19:00 136 mm[Hg] Univer sity of pressure [facility] Diastolic blood 2021-09-03 03:19:00 73 mm[Hg] Unive rsity of pressure [facility] Heart rate 2021-09-03 03:19:00 86 /min Universi ty of [facility] Respiratory rate 2021-09-03 03:19:00 22 /min Univ ersity of [facility] Oxygen saturation in 2021-09-03 03:19:00 98 /min [facility] Arterial blood by [facility] Pulse oximetry [place] Body temperature 2021-09-03 00:22:00 37.39 Mariama Univ ersity of [facility] Body height 2021-09-03 00:22:00 170.2 cm Universi ty of [facility] Body weight 2021-09-03 00:22:00 163.295 kg Universi ty of [facility] BMI 2021-09-03 00:22:00 56.38 kg/m2 Universi ty of [facility] Systolic blood 2020-04-01 20:12:00 146 mm[Hg] Univer sity of pressure [facility] Diastolic blood 2020-04-01 20:12:00 84 mm[Hg] Unive rsity of pressure [facility] Body weight 2020-04-01 20:11:00 149.687 kg Universi ty of [facility] BMI 2020-04-01 20:11:00 51.69 kg/m2 Universi ty of [facility] Heart rate 2020-04-01 20:11:00 70 /min Universi ty of [facility] Body temperature 2020-04-01 20:11:00 36.56 Maraima Univ ersity of [facility] Respiratory rate 2020-04-01 20:11:00 16 /min Univ ersity of [facility] Body height 2020-04-01 20:11:00 170.2 cm Universi ty of [facility] Systolic blood 2020-04-01 20:12:00 146 mm[Hg] Univer sity of pressure [facility] Diastolic blood 2020-04-01 20:12:00 84 mm[Hg] Unive rsity of pressure [facility] Body weight 2020-04-01 20:11:00 149.687 kg Universi ty of [place] [facility] BMI 2020-04-01 20:11:00 51.69 kg/m2 Universi ty [facility] [place] [facility] Heart rate 2020-04-01 20:11:00 70 /min Universi ty [facility] [place] [facility] Body temperature 2020-04-01 20:11:00 36.56 Mariama Univ ersity of [place] [facility] Respiratory rate 2020-04-01 20:11:00 16 /min Univ ersity of [place] [facility] Body height 2020-04-01 20:11:00 170.2 cm Universi ty of [place] [facility] Systolic blood 2020-03-18 20:10:00 147 mm[Hg] Univer sity of pressure [place] [facility] Diastolic blood 2020-03-18 20:10:00 90 mm[Hg] Unive rsity of pressure [place] [facility] Heart rate 2020-03-18 20:10:00 77 /min Universi ty of [place] [facility] Body temperature 2020-03-18 20:10:00 36.78 Mariama Univ ersity of [place] [facility] Respiratory rate 2020-03-18 20:10:00 16 /min Univ ersity of [place] [facility] Body height 2020-03-18 20:10:00 170.2 cm Universi ty [facility] [place] [facility] Body weight 2020-03-18 20:10:00 149.857 kg [facility]i ty [facility] [place] [facility] BMI 2020-03-18 20:10:00 51.74 kg/m2 [facility]i ty [facility] [place] [facility] Systolic blood 2020-03-05 14:07:00 122 mm[Hg] Univer sity of pressure [place] [facility] Diastolic blood 2020-03-05 14:07:00 72 mm[Hg] Unive rsity of pressure [place] [facility] Heart rate 2020-03-05 14:07:00 69 /min Universi ty of [place] [facility] Body temperature 2020-03-05 14:07:00 36.56 Mariama Univ ersity of [place] [facility] Respiratory rate 2020-03-05 14:07:00 16 /min Univ ersity of [place] [facility] Body height 2020-03-05 14:07:00 170.2 cm Universi ty [facility] [place] [facility] Body weight 2020-03-05 14:07:00 151.819 kg Universi ty [facility] [place] [facility] BMI 2020-03-05 14:07:00 52.42 kg/m2 [facility] Procedures Procedure Date / Time Performed Performing Clinician Sour e NOTICE OF PRIVACY 2021-09-03 00:18:34 Doctor Unassigned, No Univ [facility] PRACTICES [facility] CONSENT/REFUSAL FOR 2021-09-03 00:12:22 [facility] TREATMENT FLU VACC ([id number]), 2020-04-01 20:14:42 [facility] IM, QUAD Medical Bran ch POCT TEST 2020-03-18 20:11:00 Ekaterina Ulloa Uni [facility] [place] [facility] DISCLOSURE AND 2020-03-18 05:01:00 Doctor Unassigned, No [facility] CONSENT, MEDICAL AND Name Medical [facility] SURGICAL PROCEDURES ASSIGNMENT OF BENEFITS 2020-03-05 13:49:38 Doctor Unassigned, No [facility] POCT TEST 2020-03-05 00:00:00 Stacy Mayer [facility] Encounters Start End Encounter Admission Attending Care Care Encounter Source Date/Time Date/Time Type Type Clinicians Facility Department ID 2021-08-10 [place] [facility] 13:40:52 [place] [id number] [facility] 2021-08-10 [place] [place] 12:18:34 S[place] [id number] [facility] 2021-08-10 [place] [place] [id number] 12:16:28 Suly [id number] [facility] 2021-08-10 [facility] [place] [facility] [id number] 11:49:57 Suly [id number] [facility] 2021-08-10 [facility] [place] [id number] 11:44:05 Suly [id number] [facility] 2021-09-02 2021-09-02 Emergency X Antoinette INGRAM [facility] ERT [id number] Univers 18:28:00 21:28:00 ity of [facility] 2021-09-02 2021-09-02 Emergency Antoinette Ingram [facility] [id number] Univers 18:28:00 21:28:00 Hubre NUNES [id number] i ty [facility] [id number] [facility] [id number] [address] 2021-05-30 2021-05-30 ambulatory [facility] [id number] [facility] 2021-04-19 2021-04-19 [facility] [id number] [facility] 2021-03-14 2021-03-14 [facility] [id number] [facility] 2021-03-09 2021-03-09 [facility] [id number] [facility] 2021-03-04 2021-03-04 [facility] [id number] [facility] 2021-02-23 2021-02-23 [facility] [id number] [facility] 2021-02-22 2021-02-22 [facility] [id number] [facility] 2021-02-15 2021-02-15 [facility] [id number] [facility] 2020-10-05 2020-10-05 Patient [place] [facility] [id number] 00:00:00 00:00:00 Outreach Daryl PRIMARY [id number] Jefe CARE [id number] PAVILLION [id number] 2020-10-05 2020-10-05 Patient [place] [facility] [id number] Univers 00:00:00 00:00:00 Outreach Daryl PRIMARY [id number] i ty of [facility] [id number] [place]AV[place] [id number] [address] 2020-07-13 2020-07-13 Outpatient [facility] [id number] [facility]00 [facility] Outpati ent [facility] 2020-04-13 2020-04-13 Outpatient [facility] [id number] [facility] 2020-04-01 2020-04-01 Office Yazan, [facility] [id number] 14:49:13 15:45:49 Visit Ekaterina Greenwood [employer] SUPERVISOR [id number] [facility] [id number] MATERNAL [id number] & CHILD [address] [place] [address] 2020-04-01 2020-04-01 Office [facility] [id number] [facility] 14:49:13 15:45:49 Visit Ekaterina Greenwood [employer]PART[employer] SUPERVISOR [id number] [facility] [id number] Tony as MATERNAL [phone] Med ical & CHILD [address] [place] [address] 2020-04-01 2020-04-01 Outpatient R YAZAN, [facility] [id number] Univers 15:00:00 15:00:00 EKATERINA [id number] ity o f [facility] 2020-04-01 2020-04-01 Outpatient R YAZAN, [facility] [id number] Univers 15:00:00 15:00:00 EKATERINA ity o f [facility] 2020-03-18 2020-03-18 Office Yazan, [facility] [id number] Univers 14:46:29 16:12:22 Visit Ekaterina C [employer] SUPERVIS[employer] [id number] ity of [facility] [id number] Tony as MATERNAL [id number] [facility] ical & CHILD 107 [facility] 2020-03-18 2020-03-18 Outpatient R AKINSIPE, [facility] [id number] Univers 15:00:00 15:00:00 EKATERINA ity o [facility] 2020-03-18 2020-03-18 Outpatient R AKINSIPE, [facility] [id number] Univers 15:00:00 15:00:00 EKATERINA ity o [facility] 2020-03-18 2020-03-18 Orders Doctor BHATT [id number] Univers 00:00:00 00:00:00 Only Unassigned, JUAN DANIEL [id number] ity of [facility] [id number] Tony as [phone] [address] 2020-03-11 2020-03-11 Outpatient R AKINSIPE, [facility] [id number] Univers 14:15:00 14:15:00 EKATERINA [id number] ity o [facility] 2020-03-11 2020-03-11 Outpatient R AKINSIPE, [facility] [id number] Univers 14:15:00 14:15:00 EKATERINA ity o [facility] 2020-03-05 2020-03-05 [facility] [id number] Univers 08:51:12 09:45:49 Visit Ekaterina Greenwood [employer] SUPERVISOR [id number] ity of [facility] [id number] Tony as MATERNAL [id number] [facility] ical & CHILD [address] [place] [address] 2020-03-05 2020-03-05 Outpatient R AKINSIPE, [facility] [id number] Univers 09:00:00 09:00:00 EKATERINA [id number] ity o [facility] 2020-03-05 2020-03-05 Outpatient R AKINSIPE, [facility] [id number] Univers 09:00:00 09:00:00 EKATERINA ity o [facility] 2020-03-05 2020-03-05 Orders Doctor MILLER [id number] Univers 00:00:00 00:00:00 Only Unassigned, JUAN DANIEL [id number] ity of [facility] [id number] Tony as [phone] [address] Results Test Description Test Time Test Comments Results Result Comments Source POCT TEST 2020-03-18 20:11:00 Test Item Value Reference Range Interpretation Comme nts POCT PREG (test code = 1605) Negative On board controls acceptable with C Line (test code = 3574) Yes POCT PREG LOT # (test code = 3575) POCT PREG TEST DATE (test code = 3576) [id number] 20:11:00 Test Item Value Reference Range Interpretation Comments POCT PREG (test code = 1605) Negative On board controls acceptable with C Yes Line (test code = 3574) POCT PREG LOT # (test code = 3575) POCT PREG TEST DATE (test code = 3576) [facility] [id number] 14:10:00 Test Item Value Reference Range Interpretation Comments POCT PREG (test code = 1605) Negative On board controls acceptable with C Yes Line (test code = 3574) POCT PREG LOT # (test code = 3575) POCT PREG TEST DATE (test code = 3576) [facility] [id number] 14:10:00 Test Item Value Reference Range Interpretation Comments POCT PREG (test code = 1605) Negative On board controls acceptable with C Yes Line (test code = 3574) POCT PREG LOT # (test code = 3575) POCT PREG TEST DATE (test code = 3576) [facility] [id number] 14:10:00 Test Item Value Reference Range Interpretation Comments POCT PREG (test code = 1605) Negative On board controls acceptable with C Yes Line (test code = 3574) POCT PREG LOT # (test code = 3575) POCT PREG TEST DATE (test code = 3576) [facility]
[2021-09-03] MEDS ORDERED: NA CHLORIDE 0.9% 1,000 ML ONE (12:47)
[2021-09-03] MEDS ORDERED: METOCLOPRAMIDE 10 MG/2mL INJ ONE (12:47)
--- NOTE | 2021-09-03 13:19 | RAD REPORT ---
EXAM DESCRIPTION: CT - Head Brain Wo Cont - 09/03/2021 1:09 pm CLINICAL HISTORY: HTN;Headache;Dizziness COMPARISON: No comparisons TECHNIQUE: Axial 5 mm thick images of the head were obtained without IV contrast. All CT scans are performed using dose optimization technique as appropriate and may include automated exposure control or mA/KV adjustment according to patient size. FINDINGS: No intracranial hemorrhage, mass, edema or shift of mid-line structures. No acute infarcti on changes seen. No abnormal extra-axial fluid collections. Ventricles are normal. Mastoid air cells and visualized portions of the paranasal sinuses are clear. No acute bony findings. IMPRESSION: Negative non-contrast CT head examination.
--- NOTE | 2021-09-03 14:21 | ER ---
Nurse's Notes [facility] Name: Sandra Holm Age: 31 yrs Sex: Female : 1990 Arrival Date: 09/03/2021 Time: 12:12 Bed 26 Private MD: Suly Sanchez Diagnosis: Headache;Essential (primary) hypertension Presentation: 09/03 12:19 Chief complaint: Patient states: "I have been experiencing some really high BP for the ab2 past 3 days, when I checked it before I came it was 156/104. I also have a headache and im dizzy. I just feel bad." Pt denies chest pain or SOB. Coronavirus screen: Vaccine status: Patient reports receiving the 2nd dose of the covid vaccine. Client denies travel out of the [place] in the last 14 days. At this time, the client does not indicate any symptoms associated with coronavirus-19. Ebola Screen: Patient negative for fever greater than or equal to 101.5 degrees Fahrenheit, and additional compatible Ebola Virus Disease symptoms Patient denies exposure to infectious person. Patient denies travel to an Ebola-affected area in the 21 days before illness onset. No symptoms or risks identified at this time. Initial Sepsis Screen: Does the patient meet any 2 criteria? No. Patient's initial sepsis screen is negative. Does the patient have a suspected source of infection? No. Patient's initial sepsis screen is negative. Risk Assessment: Do you want to hurt yourself or someone else? Patient reports no desire to harm self or others. Onset of symptoms is unknown. 12:19 Method Of Arrival: Ambulatory ab2 12:19 Acuity: TRELL 3 ab2 Triage Assessment: 12:22 Headache History: Denies prior headaches. General: Appears in no apparent distress. ab2 comfortable, Behavior is calm, cooperative, appropriate for age. Pain: Complains of pain in head Pain currently is 2 out of 10 on a pain scale. Pain began 4 hours ago. Also complains of nausea. Neuro: No deficits noted. 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 - Social history:: Smoking status: Patient denies any tobacco usage or history of. - Family history:: not pertinent. - Hospitalizations: : No recent hospitalization is reported. Screenin:40 Abuse screen: Denies threats or abuse. Nutritional screening: No deficits noted. ss7 Tuberculosis screening: No symptoms or risk factors identified. Fall Risk None identified. Assessment: 12:38 General: Appears in no apparent distress. comfortable, Behavior is calm, cooperative, ss7 appropriate for age. Pain: Complains of pain in head. Neuro: Level of Consciousness is Oriented to person, place, time, situation, Appropriate for age At Risk Paraprofessional are equal bilaterally Moves all extremities. Gait is steady, Speech is normal, Facial symmetry appears normal, Intact. Cardiovascular: Heart tones S1 S2 Rhythm is regular. Respiratory: No deficits noted. GI: No deficits noted. : No deficits noted. EENT: No deficits noted. Derm: No deficits noted. Musculoskeletal: No deficits noted. Vital Signs: 12:19 BP 163 / 93; Pulse 92; Resp 16; Temp 98.6(TE); Pulse Ox 98% on R/A; Weight 163.29 kg; ab2 Height 5 ft. 7 in. (170.18 cm); Pain 2/10; 13:47 BP 138 / 57; Pulse 90; Resp 20; Pulse Ox 99% ; ss7 12:19 Body Mass Index 56.38 (163.29 kg, 170.18 cm) ab2 ED Course: 12:12 Patient arrived in ED. mr 12:12 Suly Sanchez is Private Physician. mr 12:22 Triage completed. ab2 12:23 Arm band placed on right wrist. ab2 12:31 Zain Mast MD is Attending Physician. rn 12:34 EKG done. lr4 12:40 Patient has correct armband on for positive identification. Bed in low position. Call ss7 light in reach. Pulse ox on. NIBP on. 12:40 No provider procedures requiring assistance completed. ss7 12:46 Inserted saline lock: 20 gauge in right antecubital area, using aseptic technique. lr4 13:09 CT Head Brain wo Cont In Process Unspecified. EDMS 14:42 IV discontinued, intact. ss7 Administered Medications: 12:46 Drug: NS 0.9% 1000 ml Route: IV; Rate: 1000 ml; Site: right antecubital; lr4 14:41 Follow up: Response: No adverse reaction; IV Status: Completed infusion; IV Intake: ss7 1000ml 12:47 Drug: Reglan (metoCLOPramide) 10 mg Route: IVP; Site: right antecubital; lr4 14:41 Follow up: Response: No adverse reaction ss7 Intake: 14:41 IV: 1000ml; Total: 1000ml. ss7 Outcome: 14:20 Discharge ordered by . rn 14:41 Discharged to home ambulatory. ss7 14:41 Condition: good 14:41 Discharge instructions given to patient, Prescriptions given X 1. 14:45 Patient left the ED. ss7 Signatures: Dispatcher [employer] [facility] Shelby Tineo ProZain MD MD rn Bleininger, Nenita Green RN RN ss7 Sharifa Regalado RN RN lr4
--- NOTE | 2021-09-03 14:21 | EDPHYS ---
Physician Documentation [facility] Name: Sandra Holm Age: 31 yrs Sex: Female : 1990 Arrival Date: 09/03/2021 Time: 12:12 Bed 26 Private MD: Suly Sanchez ED Physician Zain Mast HPI: 09/03 14:16 This 31 yrs old Female presents to ER via Ambulatory with complaints of High Blood rn Pressure, Dizziness, Headache. 14:16 The patient has elevated blood pressure and discovered this at home. Onset: The rn symptoms/episode began/occurred yesterday. Modifying factors: The symptoms are aggravated by unknown. Associated signs and symptoms: Pertinent positives: dizziness, headache, lightheadedness, Pertinent negatives: chest pain, vomiting, weakness. Severity of symptoms: At its worst the blood pressure was moderate, in the emergency department the blood pressure is improved. The patient has experienced similar episodes in the past. The patient has been recently seen by a physician:. Seen yesterday at [facility], for same, high blood pressure and headache, told BP elevated 2/2 headache. Has had high BP in past, lost weight and taken off of lisinopril, has now gained back the weight and BP has been reading high for a little while now. NO head injury. No focal neuro complaint. NO chest pain. Reports headache or BP not really better since visit yesterday. . 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 - Social history:: Smoking status: Patient denies any tobacco usage or history of. - Family history:: not pertinent. - Hospitalizations: : No recent hospitalization is reported. ROS: 14:16 Constitutional: Negative for fever, chills, and weight loss, Eyes: Negative for injury, rn pain, redness, and discharge, Neck: Negative for injury, pain, and swelling, Cardiovascular: Negative for chest pain, palpitations, and edema, Respiratory: Negative for shortness of breath, cough, wheezing, and pleuritic chest pain, Abdomen/GI: Negative for abdominal pain, nausea, vomiting, diarrhea, and constipation, Back: Negative for injury and pain, : Negative for injury, bleeding, discharge, and swelling, MS/Extremity: Negative for injury and deformity, Skin: Negative for injury, rash, and discoloration, Neuro: + headache and generalized weakness. Exam: 14:16 Constitutional: Overweight female, no acute distress. Head/Face: Normocephalic, rn atraumatic. Eyes: Periorbital areas with no swelling, redness, or edema. Neck: Trachea midline, no thyromegaly or masses palpated, and no cervical lymphadenopathy. Supple, full range of motion without nuchal rigidity, or vertebral point tenderness. No Meningismus. Cardiovascular: Regular rate and rhythm. No pulse deficits. Respiratory: No increased work of breathing, no retractions or nasal flaring. Abdomen/GI: Soft, non-tender Skin: Warm, dry with normal turgor. Normal color with no rashes, no lesions, and no evidence of cellulitis. MS/ Extremity: Pulses equal, no cyanosis. Neurovascular intact. Full, normal range of motion. Equal circumference. Neuro: Awake and alert, GCS 15, oriented to person, place, time, and situation. Cranial nerves II-XII grossly intact. Motor strength 5/5 in all extremities. Sensory grossly intact. Cerebellar exam normal. Normal gait. Vital Signs: 12:19 BP 163 / 93; Pulse 92; Resp 16; Temp 98.6(TE); Pulse Ox 98% on R/A; Weight 163.29 kg; ab2 Height 5 ft. 7 in. (170.18 cm); Pain 2/10; 13:47 BP 138 / 57; Pulse 90; Resp 20; Pulse Ox 99% ; ss7 12:19 Body Mass Index 56.38 (163.29 kg, 170.18 cm) ab2 MDM: 12:31 Patient medically screened. rn 14:16 Differential diagnosis: Malignant HTN, intracerebral hemorrhage, HTN. Data reviewed: rn vital signs, nurses notes, radiologic studies, CT scan, and as a result, I will discharge patient. Counseling: I had a detailed discussion with the patient and/or guardian regarding: the historical points, exam findings, and any diagnostic results supporting the discharge/admit diagnosis, radiology results, the need for outpatient follow up, to return to the emergency department if symptoms worsen or persist or if there are any questions or concerns that arise at home. Response to treatment: the patient's symptoms have mildly improved after treatment, and as a result, I will discharge patient. Special discussion: I discussed with the patient/guardian in detail that at this point there is no indication for admission to the hospital. It is understood, however, that if the symptoms persist or worsen the patient needs to return immediately for re-evaluation. Based on the history and exam findings, there is no indication for further emergent testing or inpatient evaluation. I discussed with the patient/guardian the need to see the primary care provider for further evaluation of the symptoms. ED course: Pt with improvement of headache after fluids and reglan. Ct head neg. Will dc home with low dose lisinopril and pcp f/u given she has been on this before and gaining weight again.. 09/03 12:38 Order name: CT Head Brain wo Cont; Complete Time: 13:21 rn 09/03 12:38 Order name: EKG; Complete Time: 12:39 rn 09/03 12:38 Order name: EKG - Nurse/Tech; Complete Time: 12:40 rn 09/03 12:39 Order name: IV Start; Complete Time: 12:45 rn Administered Medications: 12:46 Drug: NS 0.9% 1000 ml Route: IV; Rate: 1000 ml; Site: right antecubital; lr4 14:41 Follow up: Response: No adverse reaction; IV Status: Completed infusion; IV Intake: ss7 1000ml 12:47 Drug: Reglan (metoCLOPramide) 10 mg Route: IVP; Site: right antecubital; lr4 14:41 Follow up: Response: No adverse reaction ss7 Disposition Summary: 09/03/21 14:20 Discharge Ordered Location: Home rn Problem: an ongoing problem rn Symptoms: have improved rn Condition: Stable rn Diagnosis - Headache rn - Essential (primary) hypertension rn Followup: rn - With: Private Physician - When: As needed - Reason: Recheck today's complaints, Re-evaluation by your physician Discharge Instructions: - Discharge Summary Sheet rn - General Headache Without Cause rn - Hypertension, Adult rn Forms: - Medication Reconciliation Form rn - Thank You Letter rn - 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 EDMS EDMS
[2021-09-03 15:05] VITALS: TEMP 98.6
[2021-09-03 15:06] VITALS: BP 138/57; O2SAT 99
== END 2021-09-03 14:45 | disposition home or self-care (01) ==
LOC: ER 12:09
DX: I10 Essential (primary) hypertension (principal); F32.A Depression, unspecified
CPT/HCPCS: 70450; 93005; 96361; 96374; 99284; J2765; J7030

== ENCOUNTER 2022-05-05 07:05 | Emergency (ER) | payer BC, SELFPAY ==
--- OUTSIDE RECORDS SUMMARY | 2022-05-05 07:09 | XMS REPORT | Continuity of Care Document ---
:1990 Author Organization [facility] t Address [address] [place] [address] Care Team Providers Name Role Phone Ekaterina Moran Primary Care Physician [phone] Светлана Altamirano Attending Clinician Unavailable Suly Sanchez Attending Clinician Unavailable EKATERINA ULLOA Attending Clinician Unavailable Ekaterina Moran Attending Clinician [phone] Doctor Unassigned, [place] Attending Clinician Unavailable Antoinette INGRAM Attending Clinician Unavailable Antoinette Gregory Attending Clinician Daryl Glez DO Attending Clinician Payers Payer Name Policy Type Policy Number Effective Date Expiration Date Evans huff [id number] 2016 00:00:00 [employer] C1 [id number] 2020 Common Spiri t Blue Shield 00:00:00 - [facility] Problems Condition Condition Condition Status Onset Resolution Last Treating Co mments Source Name Details Category Date Date Treatment Clinician Date Nexplanon Nexplanon Disease Active Uni vers in place in place 10-16 ity of 00:00: [place] [facility] Essential Essential Disease Active Uni vers hypertensi hypertensi 10-16 it y of on, benign [place] History of History of Disease Active U nivers depression depression 10-16 it y of 00:00: [place] [facility] Other Other Disease Active Univers general general 10-16 ity of counseling counseling [place] and advice and advice 00 Me dical for for Branch contracept contracept sarah sarah management management Well woman Well woman Disease Active Overview : Univers exam exam 2-18 Formattin ity of 00:00: g of this note Medical might be Branch different from the original. 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 - [facility] depression [facility] [id number] Essential Problem Active Comm on (primary) Spirit hypertensi - [facility] on [facility] [id number] Tension-ty Problem Active Co mmon pe Spirit headache, - [facility] not [facility] intractabl [facility] e, Medical unspecifie Center d chronicity pattern [id number] Acute Problem Active Common myofascial Spirit strain [facility] [id number] Current Problem Active Common moderate Spirit episode of - [facility] major [facility] depressive [facility] disorder Medical without Center prior episode [id number] Thoracic Problem Active Commo n radiculopa Spirit thy - [facility] Allergies, Adverse Reactions, Alerts This patient has no known allergies or adverse reactions. Social History Social Habit Start Date Stop Date Quantity Comments Source History of Common Spirit - [facility] Use [facility] Sex Assigned At Common Sp cheryl - [facility] Exposure to 2022-02-27 2022-03-09 Not sure University of SARS-CoV-2 00:00:00 08:59:00 [facility] (event) Branch Tobacco use and 2022-03-09 2022-03-09 Smokeless tobacco Un iversity of exposure 00:00:00 00:00:00 non-user [facility] Alcohol intake 2022-03-09 2022-03-09 0 /d University of 00:00:00 00:00:00 [facility] Smoking Status Start Date Stop Date Source Never Smoker Common Spirit - [facility] Medications Ordered Filled Start Stop Current Ordering Indication Dosage Frequency Signature Comments Components Source Medication Medication Date Date Medication? Clinician (SIG) Name Name lisinopril Yes 10mg Take 10 mg U nivers 10 mg 8-25 by mouth ity of tablet 09:24: daily. [address] FLUoxetine Yes TAKE TWO Uni vers 20 mg 6-01 (2) ity of capsule 00:00[place] BY MOUTH Medical ONCE A Branch DAY. Nystatin Nystatin 2021- No 1{appli BID Nystatin [id number] 3-31 04-30 cation} [id number] UNIT/GM UNIT/GM 00:00: 00:00 UNIT/GM 00 :00 Lisinopril Lisinopril No 1{table QD Lisinopril 10 MG 10 MG 3-04 t} 10 MG 00:00: 00 buPROPion Yes 150mg Take 150 Uni vers SR 8-21 mg by ity of (WELLBUTRIN 09:16: mouth [place] SR) 150 mg 19 daily. Medical SR tablet Branch ondansetron 2014-07 Yes 4mg Take 1 Tab Univers (ZOFRAN 0-07 by mouth ity of ODT) 4 mg 00:00: every 8 [place] disintegrat 00 (eight) Medic al ing tablet hours as Branc h needed for Nausea and Vomiting (N/V). Naproxen Naproxen No BID Naproxen 500 MG 500 MG 500 MG traMADol traMADol No traMADol HCl 50 MG HCl 50 MG HCl 50 MG methylPREDN methylPREDN No methylPRED ISolone 4 ISolone 4 NISolone 4 MG MG MG Cyclobenzap Cyclobenzap No 1{table QD Cyclobenza rine HCl 10 rine HCl 10 t_at_be jaci HCl MG MG dtime_a 10 MG s_neede d} FLUoxetine FLUoxetine No 2{capsu QD FLUoxetine HCl 20 MG HCl 20 MG le} HCl 20 MG Naproxen Naproxen No BID Naproxen 500 MG 500 MG 500 MG traMADol traMADol No traMADol HCl 50 MG HCl 50 MG HCl 50 MG methylPREDN methylPREDN No methylPRED ISolone 4 ISolone 4 NISolone 4 MG MG MG Cyclobenzap Cyclobenzap No 1{table QD Cyclobenza rine HCl 10 rine HCl 10 t_at_be jaci HCl MG MG dtime_a 10 MG s_neede d} FLUoxetine FLUoxetine No 2{capsu QD FLUoxetine HCl 20 MG HCl 20 MG le} HCl 20 MG Naproxen Naproxen No BID Naproxen 500 MG 500 MG 500 MG traMADol traMADol No traMADol HCl 50 MG HCl 50 MG HCl 50 MG methylPREDN methylPREDN No methylPRED ISolone 4 ISolone 4 NISolone 4 MG MG MG Cyclobenzap Cyclobenzap No 1{table QD Cyclobenza rine HCl 10 rine HCl 10 t_at_be jaci HCl MG MG dtime_a 10 MG s_neede d} Cyclobenzap Cyclobenzap No 1{table QD Cyclobenza rine HCl 10 rine HCl 10 t_at_be jaci HCl MG MG dtime_a 10 MG s_neede d} FLUoxetine FLUoxetine No 2{capsu QD FLUoxetine HCl 20 MG HCl 20 MG le} HCl 20 MG Cyclobenzap Cyclobenzap No 1{table QD Cyclobenza rine HCl 10 rine HCl 10 t_at_be jaci HCl MG MG dtime_a 10 MG s_neede d} FLUoxetine FLUoxetine No 2{capsu QD FLUoxetine HCl 20 MG HCl 20 MG le} HCl 20 MG Cyclobenzap Cyclobenzap No 1{table QD Cyclobenza rine HCl 10 rine HCl 10 t_at_be jaci HCl MG MG dtime_a 10 MG s_neede d} FLUoxetine FLUoxetine No 2{capsu QD FLUoxetine HCl 20 MG HCl 20 MG le} HCl 20 MG FLUoxetine FLUoxetine No 2{capsu QD FLUoxetine HCl 20 MG HCl 20 MG le} HCl 20 MG Cyclobenzap Cyclobenzap No 1{table QD Cyclobenza rine HCl 10 rine HCl 10 t_at_be jaci HCl MG MG dtime_a 10 MG s_neede d} FLUoxetine FLUoxetine No 2{capsu QD FLUoxetine HCl 20 MG HCl 20 MG le} HCl 20 MG Cyclobenzap Cyclobenzap No 1{table QD Cyclobenza rine HCl 10 rine HCl 10 t_at_be jaci HCl MG MG dtime_a 10 MG s_neede d} Lisinopril Lisinopril No 1{table QD Lisinopril 10 MG 10 MG t} 10 MG FLUoxetine FLUoxetine No 2{capsu QD FLUoxetine HCl 20 MG HCl 20 MG le} HCl 20 MG Cyclobenzap Cyclobenzap No 1{table QD Cyclobenza rine HCl 10 rine HCl 10 t_at_be jaci HCl MG MG dtime_a 10 MG s_neede d} Naproxen Naproxen No BID Naproxen 500 MG 500 MG 500 MG FLUoxetine FLUoxetine No 2{capsu QD FLUoxetine HCl 20 MG HCl 20 MG le} HCl 20 MG Cyclobenzap Cyclobenzap No 1{table QD Cyclobenza rine HCl 10 rine HCl 10 t_at_be jaci HCl MG MG dtime_a 10 MG s_neede d} methylPREDN methylPREDN No methylPRED ISolone 4 ISolone 4 NISolone 4 MG MG MG FLUoxetine FLUoxetine No 2{capsu QD FLUoxetine HCl 20 MG HCl 20 MG le} HCl 20 MG Immunizations Ordered Filled Immunization Date Status Comments [facility] e Immunization Name Name Influenza Virus 2020-04-01 Completed [facility] [place] of Vaccine Quad .5 mL 00:00:00 [facility] 6+ MO Branch Td 2008-03-02 [facility] 00:00:00 [facility] Vital Signs Vital Name Observation Time Observation Value Comments Source Systolic blood 2022-03-09 14:01:00 125 mm[Hg] Univer sity [facility] Diastolic blood 2022-03-09 14:01:00 61 mm[Hg] Unive rsity [facility] Heart rate 2022-03-09 14:01:00 95 /min [facility] Body temperature 2022-03-09 14:01:00 36.44 [facility] Respiratory rate 2022-03-09 14:01:00 20 /min [facility] height 2022-03-09 14:01:[address] [facility] Body weight 2022-03-09 14:01:[address] [facility] BMI 2022-03-09 14:01:00 63.29 kg/m2 [facility] height 2021-09-16 09:00:00 66.5 [in_i] [facility] 2021-09-16 09:00:00 385.8 [lb_av] Common [facility] temperature 2021-09-16 09:00:00 98.1 [degF] Common S [facility] bmi 2021-09-16 09:00:00 61.33 kg/m2 Common S pirit [facility] oximetry 2021-09-16 09:00:00 99 % Common S [facility] respiratory rate 2021-09-16 09:00:00 18 /min Comm on [facility] blood pressure 2021-09-16 09:00:00 136 mm[Hg] Common [facility] - systolic [facility] blood pressure 2021-09-16 09:00:00 70 mm[Hg] Common [facility] - diastolic [facility] height 2021-05-30 14:20:00 66.5 [in_i] Common [facility] weight 2021-05-30 14:20:00 376.8 [lb_av] [facility] temperature 2021-05-30 14:20:00 97.9 [degF] [facility] bmi 2021-05-30 14:20:00 59.9 kg/m2 [facility] S [facility] oximetry 2021-05-30 14:20:00 97 % Common S [facility] respiratory rate 2021-05-30 14:20:00 16 /min Comm on [facility] blood pressure 2021-05-30 14:20:00 124 mm[Hg] Common [facility] - systolic [facility] blood pressure 2021-05-30 14:20:00 80 mm[Hg] Common [facility] - diastolic [facility] height 2021-04-19 15:00:00 66.5 [in_i] Common [facility] weight 2021-04-19 15:00:00 370.4 [lb_av] Common [facility] temperature 2021-04-19 15:00:00 97.4 [degF] Common [facility] bmi 2021-04-19 15:00:00 58.88 kg/m2 [facility] oximetry 2021-04-19 15:00:00 95 % [facility] respiratory rate 2021-04-19 15:00:00 16 /min Comm on [facility] height 2021-03-14 08:40:00 66.5 [in_i] Common [facility] weight 2021-03-14 08:40:00 364 [lb_av] [facility] temperature 2021-03-14 08:40:00 98.4 [degF] [facility] bmi 2021-03-14 08:40:00 57.86 kg/m2 [facility] oximetry 2021-03-14 08:40:00 97 % [facility] respiratory rate 2021-03-14 08:40:00 18 /min Comm on [facility] blood pressure 2021-03-14 08:40:00 134 mm[Hg] [facility] systolic [facility] blood pressure 2021-03-14 08:40:00 65 mm[Hg] [facility] diastolic [facility] height 2021-02-22 13:40:00 66.5 [in_i] Common [facility] weight 2021-02-22 13:40:00 355 [lb_av] [facility] temperature 2021-02-22 13:40:00 98.6 [degF] [facility] bmi 2021-02-22 13:40:00 56.43 kg/m2 [facility] oximetry 2021-02-22 13:40:00 97 % [facility] respiratory rate 2021-02-22 13:40:00 18 /min Comm on [facility] blood pressure 2021-02-22 13:40:00 137 mm[Hg] Common [facility] - systolic [facility] blood pressure 2021-02-22 13:40:00 66 mm[Hg] Common [facility] - diastolic [facility] height 2021-02-15 14:40:00 66.5 [in_i] [facility] weight 2021-02-15 14:40:00 356 [lb_av] Common [facility] temperature 2021-02-15 14:40:00 97.5 [degF] [facility] bmi 2021-02-15 14:40:00 56.59 kg/m2 [facility] oximetry 2021-02-15 14:40:00 98 % [facility] respiratory rate 2021-02-15 14:40:00 18 /min Comm on [facility] blood pressure 2021-02-15 14:40:00 136 mm[Hg] Common [facility] - systolic [facility] blood pressure 2021-02-15 14:40:00 88 mm[Hg] Common [facility] diastolic [facility] Procedures This patient has no known procedures. Encounters Start End Encounter Admission Attending Care Care Encounter Source Date/Time Date/Time Type Type Clinicians Facility Department ID 2021-10-03 Outpatient Adarsh, [facility] [id number] Common 10:29:01 [facility] 2021-09-15 Outpatient Altamirano, STMICHAELLC [facility] [id number] Common 13:43:01 Светлана [facility] 2021-09-14 Outpatient Altamirano, STMICHAELLC [facility] [id number] Common 07:50:01 [facility] 2021-08-10 Outpatient Laura, [facility] [id number] Common 13:40:52 Suly [id number] [facility] 2021-08-10 Outpatient Jasper, STDOUG [facility] [id number] Common 12:18:34 Suly 95687 [facility] 2021-08-10 Outpatient Jasper, STDOUG [facility] [id number] Common 12:16:28 Suly 25358 [facility] 2021-08-10 Outpatient [place], STDOUG [facility] [id number] Common 11:49:57 Suly 72085 [facility] 2021-08-10 Outpatient [place]asper, STDOUG [facility] [id number] Common 11:44:05 Suly 53747 [facility] 2022-03-09 2022-03-09 Outpatient R YAZAN [facility] [id number] Univers 08:30:00 09:39:34 EKATERINA luque [facility] 2022-03-09 2022-03-09 Office Yazan [facility] [id number] Univers 08:30:00 09:39:34 Visit Ekaterina Greenwood 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 [id number] ity of [facility] [id number] Tony as MATERNAL [phone] Med ical & CHILD [address] [place] [address] 2022-03-09 2022-03-09 Orders Doctor MILLER [id number] Univers 00:00:00 00:00:00 Only Unassigned, JUAN DANIEL [id number] ity of [place] [facility] [id number] Tony as [phone] [address] 2021-10-13 2021-10-13 OFFICE [facility] [id number] Co mmon 00:00:00 00:00:00 VISIT EST Spir it PT LEVEL 3 [facility] 2021-09-16 2021-09-16 OFFICE [facility] [id number] Co mmon 00:00:00 00:00:00 VISIT EST Spir it PT LEVEL 3 [facility] 2021-09-02 2021-09-02 Emergency X Antoinette INGRAM [facility] ERT [id number] Univers 18:28:00 21:28:00 ity of [facility] 2021-09-02 2021-09-02 Emergency Antoinette Ingram [facility] [id number] Univers 18:28:00 21:28:00 Sophia NUNES [id number] i ty blossom BREWSTER [id number] [facility] [phone] [place] [address] Branch 2021-05-30 2021-05-30 OFFICE STLMLC STLMLC [id number] Co mmon 00:00:00 00:00:00 VISIT EST Spir it PT LEVEL 3 [facility] 2021-04-19 2021-04-19 OFFICE STLMLC STLMLC [id number] Co mmon 00:00:00 00:00:00 VISIT EST Spir it PT LEVEL 3 [facility] 2021-03-14 2021-03-14 OFFICE STLMLC STLMLC [id number] Co mmon 00:00:00 00:00:00 VISIT EST Spir it PT LEVEL 3 [facility] 2021-03-09 2021-03-09 (TEL) STLMLC STLMLC [id number] Co mmon 00:00:00 00:00:00 [facility] 2021-03-04 2021-03-04 (TEL) STLMLC STLMLC [id number] Co mmon 00:00:00 00:00:00 [facility] 2021-02-23 2021-02-23 (TEL) STLMLC STLMLC [id number] Co mmon 00:00:00 00:00:00 [facility] 2021-02-22 2021-02-22 OFFICE STLMLC STLMLC [id number] Co mmon 00:00:00 00:00:00 VISIT EST Spir it PT LEVEL 3 [facility] 2021-02-15 2021-02-15 OFFICE STLMLC STLMLC [id number] Co mmon 00:00:00 00:00:00 VISIT EST Spir it PT LEVEL 3 [facility] 2020-10-05 2020-10-05 Patient Newton [facility] [id number] 00:00:00 00:00:00 Outreach Daryl PRIMARY [id number] [place] CARE [id number] PAVILLION [id number] 2020-10-05 2020-10-05 [id number] Univers 00:00:00 00:00:00 Outreach Daryl PRIMARY [id number] i ty of [place] [id number] [place] [id number] Wy dical [address] [place] [address] 2020-07-13 2020-07-13 Outpatient [facility] [id number] Common 00:00:00 00:00:00 [facility] 2020-04-13 2020-04-13 Outpatient [facility] [id number] Common 00:00:00 00:00:00 [facility] 2020-04-01 2020-04-01 Office Yazan, [facility] [id number] 14:49:13 15:45:49 Visit Ekaterina C 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 [id number] REGIONAL [id number] MATERNAL [id number] & CHILD [address] [place] [address] 2020-04-01 2020-04-01 [facility] [id number] [facility] 14:49:13 15:45:49 Visit Ekaterina C 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 [id number] ity of REGIONAL [id number] Tony as MATERNAL [id number] Med ical & CHILD [address] [place] [address] 2020-04-01 2020-04-01 Outpatient R YAZAN, [facility] [id number] Univers 15:00:00 15:00:00 EKATERINA ity o f [facility] 2020-03-18 2020-03-18 [facility] [id number] [facility] 14:46:29 16:12:22 Visit Ekaterina C 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 [id number] ity of REGIONAL [id number] Tony as MATERNAL [id number] Med ical & CHILD [address] [place] [address] 2020-03-18 2020-03-18 Outpatient R AKINSIEMIL, [facility] [id number] Univers 15:00:00 15:00:00 EKATERINA luque [facility] 2020-03-18 2020-03-18 Orders Doctor MILLER [id number] Univers 00:00:00 00:00:00 Only Unassigned, JUAN DANIEL [id number] ity of [place] [facility] [id number] Tony as [phone] [address] 2020-03-11 2020-03-11 Outpatient R AKINSIPE, [facility] [id number] Univers 14:15:00 14:15:00 EKATERINA luque [facility] 2020-03-05 2020-03-05 Office [facility] [id number] Univers 08:51:12 09:45:49 Visit Ekaterina Greenwood 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 [id number] ity of [facility] [id number] Tony as MATERNAL [id number] Med ical & CHILD 107 [facility] 2020-03-05 2020-03-05 Outpatient R YAZAN, [facility] [id number] Univers 09:00:00 09:00:00 EKATERINA luque [facility] 2020-03-05 2020-03-05 Orders Doctor MILLER [id number] Univers 00:00:00 00:00:00 Only Unassigned, JUAN DANIEL [id number] ity of [place] [facility] [id number] Tony as [phone] [address] Results This patient has no known results.
--- NOTE | 2022-05-05 09:06 | ER ---
Nurse's Notes [facility] Name: Sandra Holm Age: 31 yrs Sex: Female : 1990 Arrival Date: 05/05/2022 Time: 07:09 Bed 13 Private MD: Suly Sanchez Diagnosis: Acute pharyngitis, unspecified Presentation: 05/05 07:18 Chief complaint: Patient states: sore throat X 3 days. worse today, no fever , + cough iw and runny nose/congestion, my right ear is clogged. Coronavirus screen: Client presents with at least one sign or symptom that may indicate coronavirus-19. Ebola Screen: Patient negative for fever greater than or equal to 101.5 degrees Fahrenheit, and additional compatible Ebola Virus Disease symptoms Patient denies exposure to infectious person. Patient denies travel to an Ebola-affected area in the 21 days before illness onset. No symptoms or risks identified at this time. Initial Sepsis Screen: Does the patient meet any 2 criteria? No. Patient's initial sepsis screen is negative. Does the patient have a suspected source of infection? No. Patient's initial sepsis screen is negative. Risk Assessment: Do you want to hurt yourself or someone else? Patient reports no desire to harm self or others. Onset of symptoms was May 02, 2022. 07:18 Method Of Arrival: Ambulatory iw 07:18 Acuity: TRELL 4 iw Triage Assessment: 08:06 General: Appears in no apparent distress. comfortable, Behavior is calm, cooperative, db appropriate for age, quiet. Pain: Complains of pain in sore throat. EENT: Throat is clear is pink Reports sore throat. 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 - Social history:: Smoking status: Patient denies any tobacco usage or history of. Screenin:01 Abuse screen: Denies threats or abuse. Denies injuries from another. Nutritional db screening: No deficits noted. Tuberculosis screening: No symptoms or risk factors identified. Fall Risk None identified. No fall in past 12 months (0 pts). No secondary diagnosis (0 pts). No IV (0 pts). Ambulatory Aid- None/Bed Rest/Nurse Assist (0 pts). Gait- Normal/Bed Rest/Wheelchair (0 pts) Mental Status- Oriented to own ability (0 pts). Total Guevara Fall Scale indicates No Risk (0-24 pts). Assessment: 08:01 Reassessment: Patient appears in no apparent distress at this time. Patient and/or db family updated on plan of care and expected duration. Pain level reassessed. Patient is alert, oriented x 3, equal unlabored respirations, skin warm/dry/pink. General: Appears in no apparent distress. comfortable, Behavior is calm, cooperative, appropriate for age, quiet. Pain: Complains of pain in sore throat. Neuro: No deficits noted. Level of Consciousness is awake, alert, obeys commands, Oriented to person, place, time, situation, Appropriate for age Speech is normal, Facial symmetry appears normal. Cardiovascular: No deficits noted. Respiratory: No deficits noted. Airway is patent Respiratory effort is even, unlabored, Breath sounds are clear. GI: No deficits noted. No signs and/or symptoms were reported involving the gastrointestinal system. : No deficits noted. No signs and/or symptoms were reported regarding the genitourinary system. EENT: Throat is clear is pink Reports pain in sore throat. EENT: Reports pain since x 3 days. Derm: No deficits noted. No signs and/or symptoms reported regarding the dermatologic system. Musculoskeletal: No deficits noted. No signs and/or symptoms reported regarding the musculoskeletal system. Vital Signs: 07:18 BP 154 / 88; Pulse 102; Resp 16; Temp 97.9; Pulse Ox 98% on R/A; iw 09:48 BP 131 / 75; Pulse 85; Resp 16; Temp 98; Pulse Ox 99% ; db ED Course: 07:09 Patient arrived in ED. am2 07:09 Suly Sanchez FNP-C is Private Physician. am2 07:17 Keven Pearson MD is Attending Physician. jazmine 07:19 Triage completed. iw 07:38 Rhonda Sharif, ERIKA is Primary Nurse. db 08:01 Patient has correct armband on for positive identification. Bed in low position. Call db light in reach. Side rails up X 1. 08:01 No provider procedures requiring assistance completed. db 08:06 Arm band placed on right wrist. db 09:04 Harshad Sage DO is Referral Physician. jazmine 09:48 Patient did not have IV access during this emergency room visit. db Administered Medications: 09:14 Drug: Zithromax (azithromycin) 500 mg Route: PO; db Medication: 08:01 VIS not applicable for this client. db Outcome: 09:05 Discharge ordered by . jazmine 09:48 Discharged to home ambulatory. db 09:48 Condition: stable 09:48 Discharge instructions given to patient, Instructed on discharge instructions, follow up and referral plans. Demonstrated understanding of instructions, follow-up care. 09:51 Patient left the ED. iw Signatures: Keven Pearson MD MD cha Williams, Irene, RN RN iw Cristy Hebert Danielle, RN RN db Corrections: (The following items were deleted from the chart) 07:20 07:18 Pulse 102bpm; Resp 16bpm; Pulse Ox 98% RA; Temp 97.9F; iw iw 08:01 08:01 General: db db
--- NOTE | 2022-05-05 09:06 | EDPHYS ---
Physician Documentation [facility] Name: Sandra Holm Age: 31 yrs Sex: Female : 1990 Arrival Date: 05/05/2022 Time: 07:09 Bed 13 Private MD: Suly Sanchez ED Physician Keven Pearson HPI: 05/05 08:52 This 31 yrs old Female presents to ER via Ambulatory with complaints of Sore jazmine Throat, Cough, Congestion. 08:52 The patient presents with sore throat. The patient describes throat pain as burning, jazmine constant, dry. Onset: The symptoms/episode began/occurred 2 day(s) ago. Severity of symptoms: At their worst the symptoms were mild, in the emergency department the symptoms are unchanged. Modifying factors: The symptoms are alleviated by nothing, the symptoms are aggravated by fluids, swallowing. Associated signs and symptoms: The patient has no apparent associated signs or symptoms. The patient has not experienced similar symptoms in the past, The patient has experienced similar episodes in the past, a few times. CLINICAL FIELD SPECIALIST: 08:01 LMP N/A - control method db Historical: - Allergies: 07:19 No Known Allergies; iw - Home Meds: 08:06 lisinopril 10 mg Oral tab 1 tab once daily [Active]; Prozac 40 mg oral cap [Active]; db - PMHx: 07:19 Depression; Hypertension; iw - PSHx: 07:19 gastric sleeve; iw - Immunization history:: Adult Immunizations unknown. - Social history:: Smoking status: Patient denies any tobacco usage or history of. ROS: 08:56 Constitutional: Negative for fever, chills, and weight loss, Eyes: Negative for injury, jazmine pain, redness, and discharge, Neck: Negative for injury, pain, and swelling, Cardiovascular: Negative for chest pain, palpitations, and edema, Respiratory: Negative for shortness of breath, cough, wheezing, and pleuritic chest pain, Abdomen/GI: Negative for abdominal pain, nausea, vomiting, diarrhea, and constipation, Back: Negative for injury and pain, : Negative for injury, bleeding, discharge, and swelling, MS/Extremity: Negative for injury and deformity, Skin: Negative for injury, rash, and discoloration, Neuro: Negative for headache, weakness, numbness, tingling, and seizure, Psych: Negative for depression, anxiety, suicide ideation, homicidal ideation, and hallucinations, Allergy/Immunology: Negative for hives, rash, and allergies, Endocrine: Negative for neck swelling, polydipsia, polyuria, polyphagia, and marked weight changes, Hematologic/Lymphatic: Negative for swollen nodes, abnormal bleeding, and unusual bruising. 08:56 ENT: Positive for difficulty swallowing. Exam: 08:56 Constitutional: This is a well developed, well nourished patient who is awake, alert, jazmine and in no acute distress. Head/Face: Normocephalic, atraumatic. Eyes: Pupils equal round and reactive to light, extra-ocular motions intact. Lids and lashes normal. Conjunctiva and sclera are non-icteric and not injected. Cornea within normal limits. Periorbital areas with no swelling, redness, or edema. Neck: Trachea midline, no thyromegaly or masses palpated, and no cervical lymphadenopathy. Supple, full range of motion without nuchal rigidity, or vertebral point tenderness. No Meningismus. Chest/axilla: Normal chest wall appearance and motion. Nontender with no deformity. No lesions are appreciated. Cardiovascular: Regular rate and rhythm with a normal S1 and S2. No gallops, murmurs, or rubs. Normal PMI, no JVD. No pulse deficits. Respiratory: Lungs have equal breath sounds bilaterally, clear to auscultation and percussion. No rales, rhonchi or wheezes noted. No increased work of breathing, no retractions or nasal flaring. Abdomen/GI: Soft, non-tender, with normal bowel sounds. No distension or tympany. No guarding or rebound. No evidence of tenderness throughout. Back: No spinal tenderness. No costovertebral tenderness. Full range of motion. Skin: Warm, dry with normal turgor. Normal color with no rashes, no lesions, and no evidence of cellulitis. MS/ Extremity: Pulses equal, no cyanosis. Neurovascular intact. Full, normal range of motion. Neuro: Awake and alert, GCS 15, oriented to person, place, time, and situation. Cranial nerves II-XII grossly intact. Motor strength 5/5 in all extremities. Sensory grossly intact. Cerebellar exam normal. Normal gait. 08:56 ENT: Posterior pharynx: Uvula: normal, swelling, that is mild, erythema, that is mild, exudate, is not appreciated, peritonsillar mass, is not appreciated, pooling of secretions, is not appreciated, Dental exam: normal, no avulsion, no cellulitis, no dental caries, no fractured teeth, no gum swelling, no injury, no malocclusion, no missing teeth, no pain, no trismus. Vital Signs: 07:18 BP 154 / 88; Pulse 102; Resp 16; Temp 97.9; Pulse Ox 98% on R/A; iw 09:48 BP 131 / 75; Pulse 85; Resp 16; Temp 98; Pulse Ox 99% ; db MDM: 07:17 Patient medically screened. [facility] 09:02 Differential diagnosis: cocksackie virus, group A strep tonsillitis, influenza, jazmine pharyngitis, tonsillitis, upper respiratory infection, uvulitis, viral syndrome. Data reviewed: vital signs, nurses notes, lab test result(s), Flu: negative. Data interpreted: alarm security or surveillance monitor: rate is 102 beats/min, rhythm is regular, Pulse oximetry: on room air is 98 %. Test interpretation: by ED physician or midlevel provider: not applicable. 05/05 07:21 Order name: Strep; Complete Time: 08:52 [facility] 05/05 07:21 Order name: SARS-COV-2 RT PCR (Document "Date of Onset" if Symptomatic); Complete Time: [facility] 08:52 05/05 07:21 Order name: Flu; Complete Time: 08:52 [facility] 05/05 08:09 Order name: Throat Culture EDMS Administered Medications: 09:14 Drug: Zithromax (azithromycin) 500 mg Route: PO; db Disposition Summary: 05/05/22 09:05 Discharge Ordered Location: Home jazmine Problem: new jazmine Symptoms: have improved jazmine Condition: Stable jazmine Diagnosis - Acute pharyngitis, unspecified jazmine Followup: jazmine - With: Private Physician - When: 2 - 3 days - Reason: Recheck today's complaints, Continuance of care, Re-evaluation by your physician Followup: jazmine - With: Harshad Sage DO - When: 2 - 3 days - Reason: Recheck today's complaints, Re-evaluation by your physician Discharge Instructions: - Discharge Summary Sheet jazmine - Pharyngitis jazmine - Sore Throat jazmine - Upper Respiratory Infection, Adult jazmine - Upper Respiratory Infection, Adult, [id number] jazmine - Pharyngitis, [id number] [facility] Forms: - Medication Reconciliation Form jazmine - Thank You Letter jazmine - Antibiotic Education jazmine - Prescription Opioid Use jazmine Prescriptions: - Zithromax 500 mg Oral Tablet - take 1 tablet by ORAL route once daily for 4 days; 4 tablet; Refills: 0, jazmine Product Selection Permitted Signatures: Dispatcher [employer] Keven Hatfield MD MD cha Williams, Irene RN RN Rhonda Amin RN RN db
[2022-05-05] MEDS ORDERED: SMZ./TMP. 800/160 MG TABLET ONE (09:10)
[2022-05-05] MEDS ORDERED: AZITHROMYCIN 250 MG TAB ONE (09:13)
[2022-05-05 10:11] VITALS: BP 131/75; TEMP 98; O2SAT 99
== END 2022-05-05 09:51 | disposition home or self-care (01) ==
LOC: ER 07:05
DX: J02.9 Acute pharyngitis, unspecified (principal); Z20.822 Contact with and (suspected) exposure to COVID-19; I10 Essential (primary) hypertension
CPT/HCPCS: 87070; 87081; 87804; 99283; U0003

== ENCOUNTER 2022-08-18 11:20 | Emergency (ER) | payer BC, SELFPAY ==
--- OUTSIDE RECORDS SUMMARY | 2022-08-18 11:23 | XMS REPORT | Continuity of Care Document ---
:1990 Author Organization [facility] t Address [address] [place] [address] Care Team Providers Name Role Phone Ekaterina Moran Primary Care Physician Светлана Altamirano Attending Clinician Unavailable Suly Sanchez Attending Clinician Unavailable EKATERINA ULLOA Attending Clinician Unavailable Ekaterina Moran Attending Clinician [phone] Doctor Unassigned, [place] Attending Clinician Unavailable Antoinette INGRAM Attending Clinician Unavailable Antoinette Gregory Attending Clinician Darly Glez DO Attending Clinician Payers Payer Name Policy Type Policy Number Effective Date Expiration Date S refugio [employer] 6 [id number] Common Spiri t [facility] [id number] 2016 00:00:00 Problems Condition Condition Condition Status Onset Resolution Last Treating Co mments Source Name Details Category Date Date Treatment Clinician Date Nexplanon Nexplanon Disease Active Uni vers in place in place 10-16 ity of 00:00: [place] 00 Medical Branch Essential Essential Disease Active Uni vers hypertensi hypertensi 03 [place] History of History of Disease Active U nivers depression depression 10-16 it y of 00:00: [place] [facility] Other Other Disease Active Univers general general 10-16 [place] of counseling [place] advice and advice 00 Oh dical for for Branch contracept contracept sarah sarah management management Well woman Well woman Disease Active Overview : Univers exam exam 2-18 Formattin ity of 00:00: g of this note Medical might be Branch different from the original. 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 (severe) Spirit obesity - [facility] due to [facility] [id number] Body mass Problem Com mon index Spirit [BMI] - CHI 60.0-69.9, [facility] [id number] GERD Problem Common without Spirit esophagiti - CHI s [facility] [id number] Tension-ty Problem Co mmon pe Spirit headache, - CHI not [facility] intractabl [facility] e, Medical unspecifie Center d chronicity pattern [id number] Acute Problem Common myofascial Spirit strain of - CHI lumbar [facility] initial Medical encounter Center [id number] Current Problem Common moderate Spirit episode of - [facility] major [facility] disorder Medical without Center prior episode [id number] Thoracic Problem Commo n radiculopa Spirit thy - [facility] Allergies, Adverse Reactions, Alerts This patient has no known allergies or adverse reactions. Social History Social Habit Start Date Stop Date Quantity Comments Source History of Common Spirit - Tobacco Use [facility] Sex Assigned At Common Sp cheryl - [facility] Exposure to 2022-02-27 2022-03-09 Not sure University of SARS-CoV-2 00:00:00 08:59:00 [facility] (event) Branch Tobacco use and 2022-03-09 2022-03-09 Smokeless tobacco Un iversity of exposure 00:00:00 00:00:00 non-user [facility] Alcohol intake 2022-03-09 2022-03-09 0 /d University of 00:00:00 00:00:00 [facility] Smoking Status Start Date Stop Date Source Never Smoker Common Spirit - [facility] Medications Ordered Filled Start Stop Current Ordering Indication Dosage Frequency Signature Comments Components Source Medication Medication Date Date Medication? Clinician (SIG) Name Name Omeprazole Omeprazole No QD Omeprazole 40 MG 40 MG 1-26 40 MG 00:00: 00 Mounjaro Mounjaro 2022- No Mounjaro 2.5 2.5 1-12 04-12 2.5 MG/0.5ML MG/0.5ML 00:00: 00:00 MG/0.5ML 00 :00 Mounjaro Mounjaro 2022- No Mounjaro 2.5 2.5 1-12 04-12 2.5 MG/0.5ML MG/0.5ML 00:00: 00:00 MG/0.5ML 00 :00 lisinopril Yes 10mg Take 10 mg U nivers 10 mg 8-25 by mouth ity of tablet 09:24: daily. [place] [address] Medical Branch FLUoxetine Yes TAKE TWO Uni vers 20 mg 6-01 (2) ity of capsule 00:00[place] BY M[place]TH Medical ONCE A DAY. Nystatin Nystatin 2021- No 1{appli BID Nystatin [id number] 035347 3-31 04-30 cation} [id number] UNIT/GM UNIT/GM 00:00: 00:00 UNIT/GM 00 :00 Lisinopril Lisinopril No 1{table QD Lisinopril 10 MG 10 MG 3-04 t} 10 MG 00:00: 00 buPROPion 0 Yes 150mg Take 150 Uni [...] h needed for Nausea and Vomiting (N/V). FLUoxetine FLUoxetine No 2{capsu QD FLUoxetine HCl [...] HCl 20 MG le} HCl 20 MG Lisinopril Lisinopril No 1{table QD Lisinopril 10 MG 10 MG t} 10 MG Lisinopril Lisinopril No 1{table QD Lisinopril 10 MG 10 MG t} 10 MG Cyclobenzap Cyclobenzap No 1{table QD Cyclobenza [...] Immunizations Ordered Filled Immunization Date Status Comments Sour e Immunization Name Name Influenza Virus 2020-04-01 Completed [facility] of Vaccine Quad .5 mL 00:00:00 [facility] 6+ MO Branch Td 2008-03-02 Completed [facility] 00:00:00 [facility] Vital Signs Vital Name Observation Time Observation Value Comments Source Systolic blood 2022-03-09 14:01:00 125 mm[Hg] [facility] [place] [facility] Diastolic blood 2022-03-09 14:01:00 61 mm[Hg] [facility] Heart rate 2022-03-09 14:01:00 95 /min [facility] Body temperature 2022-03-09 14:01:00 36.44 Mariama [facility] [place] [facility] Respiratory rate 2022-03-09 14:01:00 20 /min [facility] Body height 2022-03-09 14:01:00 170.2 cm [facility] Body weight 2022-03-09 14:01:00 183.31 kg [facility] BMI 2022-03-09 14:01:00 63.29 kg/m2 [facility] height 2021-09-16 09:00:00 66.5 [in_i] Common S pirit [facility] weight 2021-09-16 09:00:00 385.8 [lb_av] Common Spirit - [facility] temperature 2021-09-16 09:00:00 98.1 [degF] [facility] bmi 2021-09-16 09:00:00 61.33 kg/m2 [facility] oximetry 2021-09-16 09:00:00 99 % Common [facility] respiratory rate 2021-09-16 09:00:00 18 /min Comm on [facility] blood pressure 2021-09-16 09:00:00 136 mm[Hg] Common [facility] - systolic [facility] blood pressure 2021-09-16 09:00:00 70 mm[Hg] Common [facility] - diastolic [facility] height 2021-05-30 14:20:00 66.5 [in_i] Common [facility] weight 2021-05-30 14:20:00 376.8 [lb_av] [facility] temperature 2021-05-30 14:20:00 97.9 [degF] [facility] bmi 2021-05-30 14:20:00 59.9 kg/m2 [facility] oximetry 2021-05-30 14:20:00 97 % [facility] respiratory rate 2021-05-30 14:20:00 16 /min Comm on [facility] blood pressure 2021-05-30 14:20:00 124 mm[Hg] Common [facility] systolic [facility] blood pressure 2021-05-30 14:20:00 80 mm[Hg] Common [facility] diastolic [facility] height 2021-04-19 15:00:00 66.5 [in_i] Common S [facility] weight 2021-04-19 15:00:00 370.4 [lb_av] [facility] temperature 2021-04-19 15:00:00 97.4 [degF] [facility] bmi 2021-04-19 15:00:00 58.88 kg/m2 [facility] oximetry 2021-04-19 15:00:00 95 % [facility] respiratory rate 2021-04-19 15:00:00 16 /min Comm on [facility] height 2021-03-14 08:40:00 66.5 [in_i] Common [facility] weight 2021-03-14 08:40:00 364 [lb_av] [facility] temperature 2021-03-14 08:40:00 98.4 [degF] Common [facility] bmi 2021-03-14 08:40:00 57.86 kg/m2 Common [facility] oximetry 2021-03-14 08:40:00 97 % [facility] respiratory rate 2021-03-14 08:40:00 18 /min Comm on [facility] blood pressure 2021-03-14 08:40:00 134 mm[Hg] Common [facility] - systolic [facility] blood pressure 2021-03-14 08:40:00 65 mm[Hg] Common [facility] - diastolic [facility] height 2021-02-22 13:40:00 66.5 [in_i] Common [facility] weight 2021-02-22 13:40:00 355 [lb_av] [facility] temperature 2021-02-22 13:40:00 98.6 [degF] Common [facility] bmi 2021-02-22 13:40:00 56.43 kg/m2 [facility] oximetry 2021-02-22 13:40:00 97 % [facility] respiratory rate 2021-02-22 13:40:00 18 /min Comm on [facility] blood pressure 2021-02-22 13:40:00 137 mm[Hg] Common [facility] - systolic [facility] blood pressure 2021-02-22 13:40:00 66 mm[Hg] Common [facility] - diastolic [facility] height 2021-02-15 14:40:00 66.5 [in_i] Common [facility] weight 2021-02-15 14:40:00 356 [lb_av] Common [facility] temperature 2021-02-15 14:40:00 97.5 [degF] Common [facility] bmi 2021-02-15 14:40:00 56.59 kg/m2 Common [facility] oximetry 2021-02-15 14:40:00 98 % Common [facility] respiratory rate 2021-02-15 14:40:00 18 /min Comm on [facility] blood pressure 2021-02-15 14:40:00 136 mm[Hg] Common [facility] systolic [facility] blood pressure 2021-02-15 14:40:00 88 mm[Hg] Common [facility] diastolic [facility] Procedures This patient has no known procedures. Encounters Start End Encounter Admission Attending Care Care Encounter Source Date/Time Date/Time Type Type Clinicians Facility Department ID 2022-07-27 Outpatient Altamirano, STLMLC STLMLC [id number] Common 16:21:00 [facility] 2022-07-25 Outpatient Altamirano, STLMLC STLMLC [id number] Common 08:43:01 [facility] 2021-10-03 Outpatient Altamirano, STLMLC STLMLC [id number] Common 10:29:01 [facility] 2021-09-15 Outpatient Altamirano, STLMLC STLMLC [id number] Common 13:43:01 [facility] 2021-09-14 Outpatient Altamirano, STLMLC STLMLC [id number] Common 07:50:01 [facility] 2021-08-10 Outpatient [place], STLMLC STLMLC [id number] Common 13:40:52 Suly [id number] [facility] 2021-08-10 Outpatient [place], STLMLC STLMLC [id number] Common 12:18:34 Suly [id number] [facility] 2021-08-10 Outpatient [place], [facility] [id number] Common 12:16:28 Suly 77045 [facility] 2021-08-10 Outpatient Laura, STDOUG STLC [id number] Common 11:49:57 Suly 33377 [facility] 2021-08-10 Outpatient Laura, STLMLC [facility] [id number] Common 11:44:05 Suly [id number] [facility] 2022-08-02 2022-08-02 (TEL) [facility] [id number] Co mmon 00:00:00 00:00:00 [facility] 2022-07-31 2022-07-31 (TEL) [facility] [id number] Co mmon 00:00:00 00:00:00 [facility] 2022-03-09 2022-03-09 Outpatient R YAZAN [facility] [id number] [facility] 08:30:00 09:39:34 EKTAERINA alvaradoy o f [facility] 2022-03-09 2022-03-09 [facility] [id number] Univers 08:30:00 09:39:34 Visit Ekaterina Greenwood NURSING AGENCY MANAGER [id number] ity of [facility] [id number] Tony as MATERNAL [id number] Med ical & CHILD [address] [place] [address] 2022-03-09 2022-03-09 Orders Doctor MILLER [id number] Univers 00:00:00 00:00:00 Only Unassigned, JUAN DANIEL [id number] [facility] [id number] Tony as [phone] [address] 2021-10-13 2021-10-13 OFFICE [facility] [id number] Co mmon 00:00:00 00:00:00 VISIT EST Spir it PT LEVEL 3 - [facility] 2021-09-16 2021-09-16 OFFICE [facility] [id number] Co mmon 00:00:00 00:00:00 VISIT EST Spir it PT LEVEL 3 - [facility] 2021-09-02 2021-09-02 Emergency X Antoinette INGRAM [facility] ERT [id number] Univers 18:28:00 21:28:00 ity of [facility] 2021-09-02 2021-09-02 Emergency Antoinette Ingram [facility] [id number] Univers 18:28:00 21:28:00 Sophia NUNES [id number] i ty [facility] [id number] [facility] [phone] [place] [address] Branch 2021-05-30 2021-05-30 OFFICE STLMLC STLMLC [id number] Co mmon 00:00:00 00:00:00 VISIT EST Spir it PT LEVEL 3 - [facility] 2021-04-19 2021-04-19 OFFICE STLMLC STLMLC [id number] Co mmon 00:00:00 00:00:00 VISIT EST Spir it PT LEVEL 3 - [facility] 2021-03-14 2021-03-14 OFFICE STLMLC STLMLC [id number] Co mmon 00:00:00 00:00:00 VISIT EST Spir it PT LEVEL 3 [facility] 2021-03-09 2021-03-09 (TEL) STLMLC STLMLC [id number] Co mmon 00:00:00 00:00:00 [facility] 2021-03-04 2021-03-04 (TEL) STLMLC STLMLC [id number] Co mmon 00:00:00 00:00:00 [facility] 2021-02-23 2021-02-23 (TEL) STLMLC STLMLC [id number] Co mmon 00:00:00 00:00:00 [facility] 2021-02-22 2021-02-22 OFFICE STLMLC STLMLC [id number] Co mmon 00:00:00 00:00:00 VISIT EST Spir it PT LEVEL 3 [facility] 2021-02-15 2021-02-15 OFFICE STLMLC STLMLC [id number] Co mmon 00:00:00 00:00:00 VISIT EST Spir it PT LEVEL 3 - [facility] 2020-10-05 2020-10-05 Patient Newton CTLETICIA [id number] Univers 00:00:00 00:00:00 Outreach Daryl PRIMARY [id number] i ty of [facility] [id number] [place] [id number] Oh dical 388 Branch 2020-10-05 2020-10-05 Patient Newton [facility] [id number] 00:00:00 00:00:00 Outreach Daryl PRIMARY [id number] Jefe CARE [id number] PAVILLION [id number] 2020-07-13 2020-07-13 Outpatient [facility] [id number] Common 00:00:00 00:00:00 [facility] 2020-04-13 2020-04-13 [facility]patient [facility] [id number] Common 00:00:00 00:00:00 [facility] 2020-04-01 2020-04-01 Office Yazan [facility] [id number] [facility] 14:49:13 15:45:49 Visit Ekaterina Greenwood NURSING AGENCY MANAGER [id number] ity of REGIONAL [id number] Tony as MATERNAL [id number] Med ical & CHILD [address] [place] [address] 2020-04-01 2020-04-01 Office Yazan [facility] [id number] 14:49:13 15:45:49 Visit Ekaterina C NURSING AGENCY MANAGER [id number] REGIONAL [id number] MATERNAL [phone] & CHILD [address] [place] [address] 2020-04-01 2020-04-01 Outpatient R YAZAN [facility] [id number] Univers 15:00:00 15:00:00 EKATERINA ity o f [facility] 2020-03-18 2020-03-18 Office Yazan [facility] [id number] Univers 14:46:29 16:12:22 Visit Ekaterina C NURSING AGENCY MANAGER [id number] ity of [facility] [id number] Tony as MATERNAL [id number] [facility] & CHILD [address] [place] [address] 2020-03-18 2020-03-18 [facility] [id number] Univers 15:00:00 15:00:00 EKATERINA luque [facility] 2020-03-18 2020-03-18 Orders Doctor MILLER [id number] Univers 00:00:00 00:00:00 Only Unassigned, JUAN DANIEL [id number] ity of [place] [id number] Tony as [phone] [address] 2020-03-11 2020-03-11 [facility] [id number] Univers 14:15:00 14:15:00 EKATERINA luque [facility] 2020-03-05 2020-03-05 Office [facility] [id number] Univers 08:51:12 09:45:49 Visit [facility] Timo NURSING AGENCY MANAGER [id number] ity of [facility] [id number] Tony as MATERNAL [id number] [facility] & [address] 2020-03-05 2020-03-05 [facility] [id number] Univers 09:00:00 09:00:00 EKATERINA luque [facility] 2020-03-05 2020-03-05 Orders Doctor BHATT [id number] Univers 00:00:00 00:00:00 Only Unassigned, JUAN DANIEL [id number] ity of [place] [facility] [id number] Tony as [phone] [address] Results This patient has no known results.
--- NOTE | 2022-08-18 12:34 | RAD REPORT ---
EXAM DESCRIPTION: RAD - Femur Left - 08/18/2022 12:16 pm CLINICAL HISTORY: PAIN COMPARISON: Knee Left 3 View dated 08/18/2022; Knee Right 3 View dated 08/18/2022 FINDINGS: No fracture or dislocation.
--- NOTE | 2022-08-18 12:35 | RAD REPORT ---
EXAM DESCRIPTION: RAD - Knee Right 3 View - 08/18/2022 12:16 pm CLINICAL HISTORY: PAIN COMPARISON: No comparisons FINDINGS: Mild tricompartmental osteoarthritis. No significant joint fluid. No fracture or dislocati on.
--- NOTE | 2022-08-18 12:35 | RAD REPORT ---
EXAM DESCRIPTION: RAD - Knee Left 3 View - 08/18/2022 12:16 pm CLINICAL HISTORY: PAIN COMPARISON: Knee Left 3 View dated 08/21/2019; Knee Right 3 View dated 08/18/2022 FINDINGS: Mild arthritic changes are present. Small joint effusion. No fracture or dislocation.
--- NOTE | 2022-08-18 13:28 | ER ---
Nurse's Notes [facility] Name: Sandra Holm Age: 32 yrs Sex: Female : 1990 Arrival Date: 08/18/2022 Time: 11:33 Bed 17 Private MD: Diagnosis: Pain in left knee;Pain in right knee Presentation: 08/18 11:42 Chief complaint: EMS states: Pt walking and slipped, c/o left knee pain. Coronavirus jl7 screen: At this time, the client does not indicate any symptoms associated with coronavirus-19. Ebola Screen: Patient positive for the following Ebola Virus Disease associated symptoms:. Initial Sepsis Screen: Does the patient meet any 2 criteria? No. Patient's initial sepsis screen is negative. Does the patient have a suspected source of infection? No. Patient's initial sepsis screen is negative. Risk Assessment: Do you want to hurt yourself or someone else? Patient reports no desire to harm self or others. Onset of symptoms was August 18, 2022. Care prior to arrival: None. 11:42 Method Of Arrival: EMS: [facility] jl7 11:42 Acuity: TRELL 4 jl7 Triage Assessment: 11:43 General: Appears in no apparent distress. uncomfortable, Behavior is calm, cooperative, jl7 appropriate for age. Pain: Complains of pain in left knee Pain currently is 7 out of 10 on a pain scale. Historical: - Allergies: 11:43 No Known Allergies; jl7 - Home Meds: 11:43 Jardiance oral [Active]; jl7 - PMHx: 11:43 Depression; Hypertension; prediabetes; jl7 - PSHx: 11:43 gastric sleeve; jl7 - Immunization history:: Client reports receiving the 2nd dose of the Covid vaccine. - Social history:: Smoking status: Patient denies any tobacco usage or history of. Assessment: 12:35 Reassessment: Patient appears in no apparent distress at this time. Patient and/or kr3 family updated on plan of care and expected duration. Pain level reassessed. Patient is alert, oriented x 3, equal unlabored respirations, skin warm/dry/pink. 13:30 Reassessment: Patient appears in no apparent distress at this time. Patient and/or kr3 family updated on plan of care and expected duration. Pain level reassessed. Patient is alert, oriented x 3, equal unlabored respirations, skin warm/dry/pink. 14:16 Reassessment: Patient appears in no apparent distress at this time. Patient and/or kr3 family updated on plan of care and expected duration. Pain level reassessed. Patient is alert, oriented x 3, equal unlabored respirations, skin warm/dry/pink. Vital Signs: 11:42 BP 144 / 87; Pulse 89; Resp 17; Temp 97.9; Pulse Ox 97% ; Weight 179.62 kg; Height 5 jl7 ft. 7 in. (170.18 cm); Pain 7/10; 12:39 BP 135 / 75; Pulse 77; Pulse Ox 97% on R/A; kr3 13:30 BP 131 / 73; Pulse 80; Resp 18; Pulse Ox 98% on R/A; kr3 14:15 BP 130 / 72; Pulse 79; Resp 18; Pulse Ox 98% on R/A; kr3 11:42 Body Mass Index 62.02 (179.62 kg, 170.18 cm) jl7 ED Course: 11:33 Patient arrived in ED. eb 11:35 Jack[facility]endarez [facility]-C [facility] kb 11:35 Zain Mats MD is Attending Physician. kb 11:43 Triage completed. jl7 11:43 Arm band placed on right wrist. jl7 11:50 Birdie Henderson RN is Primary Nurse. kr3 12:18 Knee Left 3 View XRAY In Process Unspecified. EDMS 12:18 Femur Left XRAY In Process Unspecified. EDMS 12:18 Knee Right 3 View XRAY In Process Unspecified. EDMS Administered Medications: 13:52 Drug: [place] (HYDROcodone-acetaminophen) 10 mg-325 mg 1 tabs Route: PO; kr3 14:18 Follow up: Response: No adverse reaction; RASS: Alert and Calm (0) kr3 13:52 Drug: Ketorolac 30 mg Route: IM; Site: right deltoid; kr3 14:18 Follow up: Response: No adverse reaction kr3 Outcome: 13:27 Discharge ordered by . kb 14:17 Patient left the ED. kr3 Signatures: Dispatcher [employer] EDMS Jackeline Almendarez FNP-C FNP-Ckb Leal, Jahala, RN RN jl7 Lyubov Ventura Kelley, ERIKA RN kr3
--- NOTE | 2022-08-18 13:28 | EDPHYS ---
Physician Documentation [facility] Name: Sandra Holm Age: 32 yrs Sex: Female : 1990 Arrival Date: 08/18/2022 Time: 11:33 Bed 17 Private MD: ED Physician Zain Mast HPI: 08/18 13:26 This 32 yrs old Female presents to ER via EMS with complaints of knee pain. kb 13:26 The patient presents with pain. The complaints affect the right knee and left knee. kb Context: The problem was sustained at home, resulted from the patient falling, the patient can partially bear weight, must have assistance. Onset: The symptoms/episode began/occurred just prior to arrival. Modifying factors: The symptoms are alleviated by nothing. the symptoms are aggravated by movement, weight bearing. Associated signs and symptoms: Pertinent positives: swelling, Pertinent negatives calf tenderness, fever, nausea, numbness, rash, tingling, vomiting, warmth, weakness. Severity of symptoms: At their worst the symptoms were moderate, in the emergency department the symptoms are unchanged. The patient has not experienced similar symptoms in the past. The patient has not recently seen a physician. Patient reports she slipped on 1 step and sustained injuries to both knees. States right knee feels okay now but is still having pain and swelling to left knee.. Historical: - Allergies: 11:43 No Known Allergies; jl7 - Home Meds: 11:43 Jardiance oral [Active]; jl7 - PMHx: 11:43 Depression; Hypertension; prediabetes; jl7 - PSHx: 11:43 gastric sleeve; jl7 - Immunization history:: Client reports receiving the 2nd dose of the Covid vaccine. - Social history:: Smoking status: Patient denies any tobacco usage or history of. ROS: 13:22 Constitutional: Negative for fever, chills, and weight loss. kb 13:22 MS/extremity: Positive for pain, of the right knee, left quadriceps and left knee. 13:22 All other systems are negative. Exam: 13:22 Constitutional: This is a well developed, well nourished patient who is awake, alert, kb and in no acute distress. Head/Face: Normocephalic, atraumatic. ENT: Moist Mucous membranes Cardiovascular: Regular rate and rhythm with a normal S1 and S2. No gallops, murmurs, or rubs. No pulse deficits. Respiratory: Respirations even and unlabored. No increased work of breathing. Talking in full sentences Abdomen/GI: Soft, non-tender. No distention Skin: Warm, dry with normal turgor. Normal color. Neuro: Awake and alert, GCS 15, oriented to person, place, time, and situation. Moves all extremities. Normal gait. Psych: Awake, alert, with orientation to person, place and time. Behavior, mood, and affect are within normal limits. 13:22 Musculoskeletal/extremity: Extremities: grossly normal except: noted in the right knee: pain, noted in the left knee: pain, swelling, tenderness. Vital Signs: 11:42 BP 144 / 87; Pulse 89; Resp 17; Temp 97.9; Pulse Ox 97% ; Weight 179.62 kg; Height 5 7 ft. 7 in. (170.18 cm); Pain 7/10; 12:39 BP 135 / 75; Pulse 77; Pulse Ox 97% on R/A; kr3 13:30 BP 131 / 73; Pulse 80; Resp 18; Pulse Ox 98% on R/A; kr3 14:15 BP 130 / 72; Pulse 79; Resp 18; Pulse Ox 98% on R/A; kr3 11:42 Body Mass Index 62.02 (179.62 kg, 170.18 cm) 7 MDM: 11:35 Patient medically screened. kb 13:21 Data reviewed: vital signs, nurses notes. kb 13:21 Differential diagnosis: dislocation, closed fracture, contusion. Historians other than deni the Patient: EMS: [facility]. Counseling: I had a detailed discussion with the patient and/or guardian regarding: the historical points, exam findings, and any diagnostic results supporting the discharge/admit diagnosis, radiology results, the need for outpatient follow up, a orthopedic surgeon, to return to the emergency department if symptoms worsen or persist or if there are any questions or concerns that arise at home. 08/18 11:36 Order name: Knee Left 3 View XRAY; Complete Time: 12:57 kb 08/18 11:36 Order name: Femur Left XRAY; Complete Time: 12:57 kb 08/18 11:36 Order name: Knee Right 3 View XRAY; Complete Time: 12:57 kb 02/03 13:21 Order name: Crutches; Complete Time: 14:15 kb Administered Medications: 13:52 Drug: Marianna (HYDROcodone-acetaminophen) 10 mg-325 mg 1 tabs Route: PO; kr3 14:18 Follow up: Response: No adverse reaction; RASS: Alert and Calm (0) kr3 13:52 Drug: Ketorolac 30 mg Route: IM; Site: right deltoid; kr3 14:18 Follow up: Response: No adverse reaction kr3 Disposition: 08/19 07:16 Co-signature as Attending Physician, Zain Mast MD I reviewed the patient's care rn provided by the Advanced Practice Provider and agree with the diagnosis and treatment plan. Disposition Summary: 08/18/22 13:27 Discharge Ordered Location: Home kb Condition: Stable kb Diagnosis - Pain in left knee kb - Pain in right knee kb Followup: kb - With: Emergency Department - When: As needed - Reason: Worsening of condition Followup: kb - With: Private Physician - When: 2 - 3 days - Reason: Recheck today's complaints, Continuance of care, Re-evaluation by your physician Discharge Instructions: - Discharge Summary Sheet kb - Musculoskeletal Pain kb - Acute Knee Pain, Adult, [id number] kb Forms: - Medication Reconciliation Form kb - Thank You Letter kb - Antibiotic Education kb - Prescription Opioid Use kb - Work release form eb Prescriptions: - Diclofenac Sodium 75 mg Oral tablet,delayed release (DR/EC) - take 1 tablet by ORAL route 2 times per day As needed; 30 tablet; Refills: 0, kb Product Selection Permitted - orphenadrine citrate 100 mg Oral Tablet Sustained Release - take 1 tablet by ORAL route 2 times per day As needed; 20 tablet; Refills: 0, kb Product Selection Permitted Signatures: Dispatcher [employer] Jackeline Sam FNP-C FNP-Ckb Nieto, Roman, MD MD rn Leal, Jahala RN RN jl7 Birdie Henderson RN RN kr3
[2022-08-18] MEDS ORDERED: HYDROCODONE/APAP 10/325 TAB ONE (13:57)
[2022-08-18] MEDS ORDERED: KETOROLAC 30 MG/ML INJ ONE (13:57)
[2022-08-18 14:53] VITALS: TEMP 97.9
[2022-08-18 14:55] VITALS: O2SAT 98
[2022-08-18 14:57] VITALS: BP 130/72
== END 2022-08-18 14:17 | disposition home or self-care (01) ==
LOC: ER 11:20
DX: M25.562 Pain in left knee (principal); M25.561 Pain in right knee
CPT/HCPCS: 96372; 99283

== ENCOUNTER 2025-02-24 11:16 | Inpatient (IN) | payer BC, OTHER ==
--- OUTSIDE RECORDS SUMMARY | 2025-02-24 11:28 | XMS REPORT | Continuity of Care Document ---
Author Name Unknown Address [address] [facility] [address] [place] [address] [facility] Address [address] [facility] [place] [address] Care Team Providers Care Braker Passenger Train Name Role Phone VERONA VICKY CARTY Primary Care Physician Unavaila Vicky Wiseman Attending Clinician Unavailable Светлана Altamirano Attending Clinician Unavailable YARELIS ALEX Attending Clinician Unavailable LASHANDA AGUDELO Attending Clinician Unavailable BARRY FOX Attending Clinician UnavailLashanda Coelho MD Attending Clinician [phone] Yarelis Alex MD Attending Clinician [phone] MICHELL HALL Attending Clinician Unavailable MICHELL HALL Attending Clinician Unavailable RASHEED GONSALVES Attending Clinician RASHEED Yoder Attending Clinician QUIQUE Gonzáles Attending Clinician UnavailQuique Crandall Attending Clinician Lab, Ang - Db Attending Clinician Unavailable Doctor Unassigned, [place] Attending Clinician Dalia Martinez RD Attending Clinician Yarelis Rizvi Attending Clinician [phone] YARELSI KLEIN Attending Clinician Unavailable Fazal BENTON, Pantera Attending Clinician [phone] PANTERA DIEHL Attending Clinician Unavailable ELODIA WALTERS Attending Clinician Unavailable ELODIA WALTERS Attending Clinician Unavailable Allan CHAMBERLAIN, Richelle Green Attending Clinician [phone] Frannie CHAMBERLAIN PhD, Zaina Attending Clinician [phone] Nurse, [facility] Bariatric Attending Clinician Unavail able CHRISTINE RICHTER Attending Clinician Unavailable Electrocardiogram, Clc Bls Attending Clinician U navailable ELECTROCARDIOGRAM, CLC BLS Attending Clinician U navailable Gerber WHCNP Elina Attending Clinician [phone] A[place]itank WHCNP, Sarika Greenwood Attending Clinician + SARIKA HAND Attending Clinician Unavail able Padmaja Mccloud MD Attending Clinician [phone] PADMAJA MCCLOUD Attending Clinician Unavaila PADMAJA Barnard Attending Clinician Unavaila NORMAN Solomon Attending Clinician Unavailable Norman Sterling MD Attending Clinician [phone] Clinic, Pt/Ortho Walk In Attending Clinician Elizabeth vailable Garland EDOUARDP, Chelsea Attending Clinician [phone] SHANAE PETERSON Attending Clinician Unavailable Res-Colpo/Leep, [facility] Attending Clinician Un available Shanae Peterson MD Attending Clinician [phone] EMILY MI Attending Clinician Unavaila adrian Akindaniela WHCNP, Sarika Greenwood Attending Clinician + MARTA HAILE Attending Clinician Unavailab leelee Pepper-[facility] Nurse Vst, Fp Nrpt Pills Class Attendi ng Clinician Unavailable Melody NASCIMENTO, Marta Wilcox Attending Clinician [phone] Doctor Unassigned, [place] Attending Clinician U katy Nurse, [facility] Rgv Cprit Obgyn Attending Clini basil Unavailable ALISA PEREIRA Attending Clinician Unavailable Provider, Ang-[facility] Temp Attending Clinician Elizabeth vailable Pereira CEMENT BREAKER, Alisa Attending Clinician [phone] CHELSEA ERNANDEZ Attending Clinician Unavailable Antoinette COULTER Attending Clinician Unavailable Antoinette Gregory Attending Clinician [phone] Newton MEDLEY Darylchyna Mayberry Attending Clinician [phone] MICHELL HALL Admitting Clinician Unavailable YARELIS ALEX Admitting Clinician Unavailable Yarelis Alex MD Admitting Clinician [phone] QUIQUE BEAULIEU Admitting Clinician Unavailab le Payers Payer Name Policy Type Policy Number Effective Date Expirati on Date Source [facility] [id number] 2024 00:00:00 [place] [id number] 2023 00:00:00 [place] [address] [id number] [facility] Problems Condition Name Condition Details Condition Category Status Onset Date Resolution Date Last Treatment Date Treating Clinician Comments Source 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 Active 8-12 00:00: 00 [facility] acute hospital Metabolic syndrome Metabolic syndrome Disease Active 01-17 00:00: 00 [facility] acute hospital Gastroesop hageal reflux disease, unspecifie d whether esophagiti s present Gastroesop hageal reflux disease, unspecifie d whether esophagiti s present Disease Active - 00:00: 00 [facility] acute hospital Morbid obesity with BMI of 50.0-59.9, adult Morbid obesity with BMI of 50.0-59.9, adult Disease Active 6-17 00:00: 00 [facility] acute hospital Need for HPV vaccinatio n Need for HPV vaccinatio n Disease Active 2-12 00:00: 00 [facility] acute hospital Pap smear of cervix with ASCUS, cannot exclude HGSIL Pap smear of cervix with ASCUS, cannot exclude HGSIL Disease Active 9-20 00:00: 00 Overview: Formattin g of this note might be different from the original. Pending colpo General acute hospital Nexplanon in place Nexplanon in place Disease Active 10-16 00:00: 00 [facility] acute hospital Essential hypertensi on, benign Essential hypertensi on, benign Disease Active 10-16 00:00: 00 [facility] acute hospital History of depression History of depression Disease Active 10-16 00:00: 00 [facility] acute hospital Other general counseling and advice for contracept sarah management Other general counseling and advice for contracept sarah management Disease Active 10-16 00:00: 00 General acute hospital Well woman exam Well woman exam Disease Active 09-02 00:00: 00 Overview: Formattin g of this note might be different from the original. 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 General acute hospital Menorrhagi a Menorrhagi a Disease Active 09-02 00:00: 00 [facility] acute hospital [id number] Moderate recurrent major depression Problem [facility] [id number] Essential (primary) hypertensi on Problem [facility] [id number] Prediabete s Problem [facility] [id number] Morbid (severe) obesity due to excess calories Problem [facility] [id number] Body mass index [BMI] 60.0-69.9, adult Problem [facility] [id number] GERD without esophagiti s Problem [facility] [id number] Hyperthyro idism Problem [facility] [id number] Tension-ty pe headache, not intractabl e, unspecifie d chronicity pattern Problem [facility] [id number] Acute myofascial strain of lumbar region, initial encounter Problem [facility] [id number] Current moderate episode of major depressive disorder without prior episode Problem [facility] [id number] Thoracic radiculopa thy Problem [facility] Rubella immune Rubella immune Disease Resolve d 09-03 00:00: 00 2016-10-16 00:00:00 2016-10-16 11:51:21 General acute hospital Allergies, Adverse Reactions, Alerts Allergy Name Allergy Type Status Severity Reaction(s) Onset Date Inactive Date Treating Clinician Comments Source NSAIDS (NON-MANPREET ROIDAL ANTI-INF LAMMATOR Y DRUG) Drug Class Active Other-Cmnt 02-18 00:00: 00 General acute hospital Nsaids (Non-Manpreet roidal Anti-Inf lammator y Drug) Propensi ty to adverse reaction s Active Other - See comments 02-18 00:00: 00 Pt. Reports due to gastric bypass & was told not to take NSAIDs General acute hospital ORANGE DRUG INGREDI Active Rash 04-09 00:00: 00 General acute hospital [place] Propensi ty to adverse reaction s Active Swelling 04-09 00:00: 00 [facility] acute hospital NO KNOWN ALLERGIE S Drug Class Active [facility] acute hospital Family History Family Member Diagnosis Comments Start Date Stop Date Sourc e Maternal Aunt Cancer [facility] Maternal Aunt Hypertension Uni [facility] Maternal grandfather Diabetes [facility] Maternal grandmother Arthritis [facility] Natural mother Arthritis Unive [facility] Natural mother Depression Univ [facility] Natural mother Diabetes Unive [facility] Hy[facility] Paternal Aunt Diabetes [facility] Natural sister Asthma Unive [facility] Natural sister Depression Univ [facility] Natural sister Diabetes Unive [facility] Social History Social Habit Start Date Stop Date Quantity Comments Source History of tobacco use Passive smoker [facility] ASSERTION Not General acute hospital History of Occupation [facility] Gender identity [facility] Alcoholic beverage intake 2025-02-19 00:00:00 2025-02-19 00:00:00 Current drinker of alcohol (finding) [facility] History of Social function 2024-02-18 00:00:00 2024-02-18 00:00:00 [facility] Tobacco use and exposure 2024-01-08 00:00:00 2024-01-08 00:00:00 Smokeless tobacco non-user [facility] Alcohol intake 2023-10-18 00:00:00 2023-10-18 00:00:00 Current drinker of alcohol (finding) [facility] Alcohol Comment 2023-03-16 00:00:00 2023-03-16 00:00:00 occasional [facility] Exposure to SARS-CoV-2 (event) 2022-02-27 00:00:00 2022-03-09 08:59:00 Not sure [facility] Smoking Status Start Date Stop Date Source Never smoked tobacco [facility] acute hospital Medications Ordered Medication Name Filled Medication Name Start Date Stop Date Current Medication? Ordering Clinician Indication Dosage Frequency Signature (SIG) Comments Components Source iopamidol (ISOVUE 370-500 mL) injection 85 mL 02-18 20:45: 00 02-18 20:45 :00 No [id number] 85mL 85 mL, Intravenou s, ONCE, 1 dose, On Sun02/18/25 at 1545, Routine [facility] NaCl 0.9% (NS) bolus infusion 1,000 mL 02-18 18:30: 00 02-18 20:02 :00 No [id number] 1000mL at 999 mL/hr, 1,000 mL, IV Infusion, ONCE, 1 dose, On Sun02/18/25 at 1330, SHELLI [facility] acute hospital ondansetron (ZOFRAN (PF)) injection 4 mg 02-18 17:45: 00 02-18 19:04 :00 No [id number] 4mg 4 mg, Slow IV Push, ONCE, 1 dose, On Sun02/18/25 at 1245, Administer over 2-5 Minutes, 2 mL [facility] acute hospital FENTanyl (PF) (SUBLIMAZE) injection 50 mcg 02-18 17:45: 00 02-18 19:02 :00 No [id number] 50ug 50 mcg, Slow IV Push, ONCE, 1 dose, On Sun02/18/25 at 1245, Routine [facility] acute hospital dicyclomine 20 mg tablet 8- 00:00: 00 Yes [id number] 20mg Take 1 tablet by mouth 4 times daily as needed for Abdominal pain. [facility] acute hospital ondansetron 4 mg disintegrat ing tablet - 00:00: 00 Yes [id number] 4mg Take 1 tablet by mouth every 8 hours as needed for Nausea and Vomiting (N/V). [facility] acute hospital PARoxetine 30 mg tablet 02-18 00:00: 00 Yes 30mg Take 1 tablet by mouth in the morning. [facility] acute hospital buPROPion SR 100 mg SR tablet 8- 00:00: 00 Yes 100mg Take 1 tablet by mouth in the morning. [facility] acute hospital hydrOXYzine 10 mg tablet 7- 00:00: 00 Yes 10mg Take 1 tablet by mouth every 6 hours as needed for Anxiety. [facility] acute hospital methIMAzole 5 mg tablet 3-06 00:00: 00 Yes 5mg Take 1 tablet by mouth in the morning and 1 tablet in the evening. [facility] acute hospital methIMAzole 5 MG methIMAzole 5 MG 2023-07 2-18 00:00: 00 No 1{table t} BID methIMAzol e 5 MG thiamine (VITAMIN B1) injection 100 mg 2023-07 0 14:00: 00 05-06 20:21 :59 No [id number] 100mg [facility] acute hospital lactated ringers IV infusion 1,000 mL 2023-07 21:15: 00 05-06 20:40 :00 No [id number] 1000mL at 150 mL/hr, 1,000 mL, IV Infusion, ONCE, 1 dose, On Sun05/06/24 at 1615, Routine [facility] acute hospital proMETHazin e (PHENERGAN) injection 12.5 mg 2023-07 0 21:15: 00 05-06 20:45 :00 No [id number] 12.5mg 12.5 mg, Intramuscu lar, ONCE, 1 dose, On Sun05/06/24 at 1615, Routine, Does the patient have PO or IV access? No [facility] acute hospital thiamine (VITAMIN B1) injection 100 mg 2023-07 20:30: 00 05-06 20:50 :00 No [id number] 100mg 100 mg, Intramuscu lar, DAILY, 1 dose, First dose on Sun05/06/24 at 1530, Routine [facility] acute hospital enoxaparin (LOVENOX) injection 60 mg 2023-07 14:00: 00 Yes 60mg 60 mg, Subcutaneo us, DAILY, First dose on Sun04/16/24 at 0900, Until Discontinu ed, Routine [facility] acute hospital pantoprazol e (PROTONIX) injection 40 mg 2023-07 14:00: 00 Yes 40mg 40 mg, Slow IV Push, DAILY, First dose on Sun04/16/24 at 0900, Until Discontinu ed [facility] acute hospital omeprazole 40 mg capsule 2023-07 00:00: 00 10-14 00:00 :00 No [id number] 40mg Take 1 capsule by mouth in the morning. open capsule, dump contents in mouth, swallow with sip of fluids, and discard capsule [facility] acute hospital acetaminoph en 160 mg chewable tablet 2023-07 00:00: 00 06-06 00:00 :00 No [id number] 960mg Take 6 tablets by mouth every 8 (eight) hours as needed for Pain (Take scheduled for three days and then as needed after that.). [facility] acute hospital ondansetron 4 mg disintegrat ing tablet 2023-07 00:00: 00 05-27 00:00 :00 No [id number] 4mg Take 1 tablet by mouth every 6 (six) hours as needed for Nausea and Vomiting (N/V). [facility] acute hospital simethicone 125 mg chewable tablet 2023-07 00:00: 00 05-27 00:00 :00 No [id number] 125mg Take 1 tablet by mouth every 6 (six) hours as needed for Gas. [facility] acute hospital oxyCODONE 5 mg immediate release tablet 2023-07 00:00: 00 04-24 04:59 :00 No [id number] 5mg Take 1 tablet by mouth every 6 (six) hours as needed for Pain (scale 7-10) for up to 7 days. Indication s: acute pain [facility] traMADoL 50 mg tablet 2023-07 00:00: 00 04-16 00:00 :00 No [id number] 50mg Take 1 tablet by mouth every 6 (six) hours as needed for Pain (scale 7-10) for up to 7 days. Indication s: acute pain [facility] lactated ringers IV infusion 1,000 mL 2023-07 19:15: 00 Yes 1000mL at 75 mL/hr, 1,000 mL, IV Infusion, CONTINUOUS , Starting on Sun04/15/24 at 1415, Until Discontinu ed, Routine, PACU [facility] acute hospital HYDROmorpho ne (DILAUDID) injection 0.2 mg 2023-07 19:06: 04 04-15 23:38 :58 No .2mg 0.2 mg, Slow IV Push, Q5MIN PRN, 10 doses, Starting on Sun04/15/24 at 1406, Until Sun04/15/24 at 1838, Routine, Pain (scale 7-10), PACU, Is this medication approved by a Faculty level provider? 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 Restricted medication : PACU RECOVERY [facility] acetaminoph en (TYLENOL) 160 mg/5 mL oral liquid 975 mg 2023-07 19:00: 00 Yes 975mg 975 mg, Oral, Q8H, First dose on Sun04/15/24 at 1400, Until Discontinu ed, Routine [facility] sugammadex (BRIDION) injection 2023-07 18:58: 00 04-15 19:19 :06 No IV Push, ONCE INTRA PROCEDURE, Starting on Sun04/15/24 at 1358, Until Sun04/15/24 at 1419, Routine, Intra-op [facility] ketorolac (TORADOL) injection 2023-07 18:46: 00 04-15 19:19 :06 No Slow IV Push, ONCE INTRA PROCEDURE, Starting on Sun04/15/24 at 1346, Until Sun04/15/24 at 1419, Routine, Intra-op [facility] HYDROmorphO ne (DILAUDID) injection 2023-07 17:53: 00 04-15 19:19 :06 No Slow IV Push, ONCE INTRA PROCEDURE, Starting on Sun04/15/24 at 1253, Until Sun04/15/24 at 1419, Routine, Intra-op [facility] acetaminoph en (OFIRMEV) IV piggyback 2023-07 17:30: 00 04-15 19:19 :06 No IV Infusion, Administer over 15 Minutes, ONCE INTRA PROCEDURE, Starting on Sun04/15/24 at 1230, Until Sun04/15/24 at 1419, Routine, Intra-op [facility] dexmedeTOMI Dine (PRECEDEX) injection 2023-07 17:26: 00 04-15 19:19 :06 No Intravenou s, ONCE INTRA PROCEDURE, Starting on Sun04/15/24 at 1226, Until Sun04/15/24 at 1419, Routine, Intra-op [facility] bupivacaine (preserv free) (SENSORCAIN E MPF) 0.25 % (2.5 mg/mL) 30 mL, lidocaine-e pinephrine (XYLOCAINE WITH EPINEPHRINE ) 1 %-1:100,000 20 mL 2023-07 17:15: 00 04-15 20:11 :17 No PRN, Starting on Sun04/15/24 at 1215, Intra-op [facility] phenylephri ne (VAZCULEP) injection 2023-07 17:07: 00 04-15 19:19 :06 No Slow IV Push, ONCE INTRA PROCEDURE, Starting on Sun04/15/24 at 1207, Until Sun04/15/24 at 1419, Routine, Intra-op [facility] metoclopram mary HCl (REGLAN) injection 10 mg 2023-07 17:00: 00 04-18 16:59 :00 No 10mg 10 mg, Slow IV Push, Q6H, 12 doses, First dose on Sun04/15/24 at 1200, Last dose on Sun04/18/24 at 0600, Routine [facility] ketorolac (TORADOL) injection 15 mg 2023-07 17:00: 00 04-17 04:59 :00 No 15mg 15 mg, Slow IV Push, Q6H, 6 doses, First dose on Sun04/15/24 at 1200, Last dose on Sun04/16/24 at 1800, Routine [facility] ceFAZolin (ANCEF) injection 2023-07 16:54: 00 04-15 19:19 :06 No Slow IV Push, ONCE INTRA PROCEDURE, Starting on Sun04/15/24 at 1154, Until Sun04/15/24 at 1419, SHELLI, Intra-op [facility] dexamethaso ne (DECADRON PHOSPHATE) injection 2023-07 16:53: 00 04-15 19:19 :06 No IV Push, ONCE INTRA PROCEDURE, Starting on Sun04/15/24 at 1153, Until Sun04/15/24 at 1419, Routine, Intra-op [facility] rocuronium (ZEMURON) injection 2023-07 16:50: 00 04-15 19:19 :06 No IV Push, ONCE INTRA PROCEDURE, Starting on Sun04/15/24 at 1150, Until Sun04/15/24 at 1419, Routine, Intra-op [facility] lactated ringers IV infusion 2023-07 16:41: 00 04-15 19:19 :06 No IV Infusion, CONTINUOUS PRN, Starting on Sun04/15/24 at 1141, Until Sun04/15/24 at 1419, Routine, Intra-op [facility] propofoL IV infusion 2023-07 16:39: 00 04-15 19:19 :06 No Slow IV Push, ONCE INTRA PROCEDURE, Starting on Sun04/15/24 at 1139, Until Sun04/15/24 at 1419, Routine, Intra-op [facility] FENTanyl (PF) (SUBLIMAZE) injection 2023-07 16:39: 00 04-15 19:19 :06 No Epidural, ONCE INTRA PROCEDURE, Starting on Sun04/15/24 at 1139, Until Sun04/15/24 at 1419, Routine, Intra-op [facility] lidocaine 1% (XYLOCAINE) 100 mg/10 mL (1 %) injection 2023-07 16:39: 00 04-15 19:19 :06 No Slow IV Push, ONCE INTRA PROCEDURE, Starting on Sun04/15/24 at 1139, Until Sun04/15/24 at 1419, Routine, Intra-op [facility] succinylcho line (QUELICIN) injection 2023-07 16:38: 00 04-15 19:19 :06 No IV Push, ONCE INTRA PROCEDURE, Starting on Sun04/15/24 at 1138, Until Sun04/15/24 at 1419, Routine, Intra-op [facility] midazolam (VERSED) injection 2023-07 16:37: 00 04-15 19:19 :06 No IV Push, ONCE INTRA PROCEDURE, Starting on Sun04/15/24 at 1137, Until Sun04/15/24 at 1419, Routine, Intra-op [facility] lactated ringers IV infusion 2023-07 16:27: 00 04-15 19:19 :06 No IV Infusion, CONTINUOUS PRN, Starting on Sun04/15/24 at 1127, Until Sun04/15/24 at 1419, Routine, Intra-op [facility] D5W 0.45% NaCl (1/2NS) 1 L + KCL 20 mEq 2023-07 16:15: 00 04-16 12:09 :22 No 1000mL IV Infusion, at 125 mL/hr, CONTINUOUS , Starting on Sun04/15/24 at 1115, Until Sun04/16/24 at 0709, Routine [facility] oxyCODONE (ROXYCONE) 5 mg/5 mL solution 5 mg 2023-07 16:10: 47 Yes 5mg 5 mg, Oral, Q6HPRN, Starting on Sun04/15/24 at 1110, Until Discontinu ed, Routine, Pain (scale 7-10), 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 Restricted medication : YARELIS ALEX [facility] acute hospital ondansetron (ZOFRAN (PF)) injection 4 mg 2023-07 16:10: 47 Yes 4mg 4 mg, Slow IV Push, Q6HPRN, Starting on Sun04/15/24 at 1110, Until Discontinu ed, Routine, Nausea and Vomiting (N/V) [facility] acute hospital heparin (porcine) injection 5,000 Units 2023-07 14:45: 00 04-15 15:19 :00 No 5000U 5,000 Units, Subcutaneo us, ONCE, 1 dose, On Sun04/15/24 at 0945, Routine, DSU Pre-op [facility] acute hospital scopolamine transdermal (TRANSDERM- SCOP) patch 1.5 mg 2023-07 14:42: 57 04-15 16:08 :47 No 1.5mg 1.5 mg, Topical, Administer over 72 Hours, Q72H, First dose on Sun04/15/24 at 0945, Until Discontinu ed, Routine, DSU Pre-op [facility] acute hospital lactated ringers IV infusion 1,000 mL 02-28 17:30: 00 02-28 21:10 :04 No 1000mL at 75 mL/hr, 1,000 mL, IV Infusion, CONTINUOUS , Starting on Sun02/29/24 at 1230, Until Sun02/29/24 at 1610, Routine, PACU [facility] acute hospital FENTanyl (PF) (SUBLIMAZE) injection 25 mcg 02-28 17:21: 40 02-28 21:10 :04 No 25ug 25 mcg, Slow IV Push, Q5MIN PRN, 4 doses, Starting on Sun02/29/24 at 1221, Until Sun02/29/24 at 1610, Routine, Pain Scale 4-6, PACU [facility] acute hospital ondansetron (ZOFRAN (PF)) injection 4 mg 02-28 17:21: 40 02-28 21:10 :04 No 4mg 4 mg, Slow IV Push, PRN, 1 dose, Starting on Sun02/29/24 at 1221, Until Sun02/29/24 at 1610, Routine, Nausea and Vomiting (N/V), PACU [facility] acute hospital ergocalcife rol, vitamin d2, (VITAMIN D2) 1,250 mcg (50,000 unit) capsule 02-24 00:00: 00 06-06 00:00 :00 No [id number] Take 1 capsule by mouth weekly. [facility] acute hospital ergocalcife rol, vitamin d2, (VITAMIN D2) 1,250 mcg (50,000 unit) capsule 01-27 00:00: 00 02-24 00:00 :00 No [id number] Take 1 capsule by mouth weekly. [facility] acute hospital podofilox 0.5 % solution 01-14 00:00: 00 02-24 00:00 :00 No [id number] Apply to area(s) 2 (two) times daily. [facility] acute hospital imiquimod (ALDARA) 5 % cream 01-10 00:00: 00 01-28 00:00 :00 No [id number] 1{packe t} Apply 1 Each to area(s) every Sunday, and Sunday in the evening. [facility] acute hospital barium sulfate (E-Z-HD BARIUM) 98 % oral suspension 90 mL 12-26 15:15: 00 12-26 15:12 :00 No [id number] 90mL 90 mL, Oral, ONCE, 1 dose, On Zhane 12/27/23 at 1015, Routine [facility] acute hospital barium sulfate (LIQUID E-Z PAQUE) 60 % (w/v) oral suspension 50 mL 12-26 15:15: 00 12-26 15:13 :00 No [id number] 50mL 50 mL, Oral, ONCE, 1 dose, On Zhane 12/27/23 at 1015, Routine [facility] acute hospital sod bicarb-citr ic ac-simeth (E-Z-GAS II) 2.21-1.53 gram/4 gram packet 1 Packet 12-26 15:15: 00 12-26 15:13 :00 No [id number] 1{packe t} 1 Packet, Oral, ONCE, 1 dose, On Zhane 12/27/23 at 1015, Routine [facility] acute hospital buPROPion SR (WELLBUTRIN SR) 150 mg SR tablet 12-19 08:49: 37 12-19 00:00 :00 No 150mg Take 150 mg by mouth daily. [facility] acute hospital metformin HCl (METFORMIN ORAL) 12-19 08:49: 22 12-19 00:00 :00 No Take by mouth. [facility] acute hospital FLUoxetine 20 mg capsule 12-19 00:00: 00 Yes 60mg Take 3 capsules by mouth in the morning. [facility] acute hospital omeprazole 40 mg capsule 16 00:00: 00 04-16 00:00 :00 No [id number] 40mg Take 1 capsule by mouth in the morning. [facility] acute hospital etonogestre L (NEXPLANON) implant 68 mg 03-16 21:30: 00 03-16 20:50 :00 No [id number] 68mg [facility] metformin HCl (METFORMIN ORAL) 03-16 14:41: 15 Yes Take by mouth. [facility] acute hospital lisinopriL 10 mg tablet 03-16 14:41: 15 06-06 00:00 :00 No 10mg Take 1 tablet by mouth in the morning. [facility] acute hospital lisinopril 10 mg tablet 8-25 09:24: 36 Yes 10mg Take 10 mg by mouth daily. [facility] acute hospital FLUoxetine 20 mg capsule 12-14 00:00: 00 12-19 00:00 :00 No 40mg 2 capsules. [facility] acute hospital buPROPion SR (WELLBUTRIN SR) 150 mg SR tablet 03-05 09:16: 19 Yes 150mg Take 150 mg by mouth daily. [facility] acute hospital ondansetron (ZOFRAN ODT) 4 mg disintegrat ing tablet 2014-07 00:00: 00 01-07 00:00 :00 No 4mg Take 1 Tab by mouth every 8 (eight) hours as needed for Nausea and Vomiting (N/V). [facility] acute hospital FLUoxetine HCl 20 MG FLUoxetine HCl 20 MG No 2{capsu le} QD FLUoxetine HCl 20 MG Bariatric Multivitami n/Iron - Bariatric Multivitami n/Iron - No Bariatric Multivitam in/Iron - Immunizations Ordered Immunization Name Filled Immunization Name Date Status Comments Source HPV9 2023-08-27 00:00:00 Completed HPV9 2023-08-27 00:00:00 Completed HPV9 2023-08-27 00:00:00 Completed HPV9 2023-08-27 00:00:00 Completed HPV9 2023-08-27 00:00:00 Completed HPV9 2023-08-27 00:00:00 Completed Influenza Virus Vaccine Quad IM, Preserv and ABX Free 6 MO-64 YRS (FLUCELVAX) 2023-04-16 00:00:00 Completed [facility] Influenza Virus Vaccine Quad IM, Preserv and ABX Free 6 MO-64 YRS (FLUCELVAX) 2023-04-16 00:00:00 Completed Influenza Virus Vaccine Quad IM, Preserv and ABX Free 6 MO-64 YRS (FLUCELVAX) 2023-04-16 00:00:00 Completed Influenza Virus Vaccine Quad IM, Preserv and ABX Free 6 MO-64 YRS (FLUCELVAX) 2023-04-16 00:00:00 Completed Influenza Virus Vaccine Quad IM, Preserv and ABX Free 6 MO-64 YRS (FLUCELVAX) 2023-04-16 00:00:00 Completed Influenza Virus Vaccine Quad IM, Preserv and ABX Free 6 MO-64 YRS (FLUCELVAX) 2023-04-16 00:00:00 Completed HPV9 2023-03-16 00:00:00 Completed HPV9 2023-03-16 00:00:00 Completed HPV9 2023-03-16 00:00:00 Completed HPV9 2023-03-16 00:00:00 Completed HPV9 2023-03-16 00:00:00 Completed HPV9 2023-03-16 00:00:00 Completed HPV9 2023-03-16 00:00:00 Completed [facility] HPV9 2023-03-16 00:00:00 Completed [facility] HPV9 2023-01-03 00:00:00 Completed [facility] HPV9 2023-01-03 00:00:00 Completed [facility] HPV9 2023-01-03 00:00:00 Completed [facility] HPV9 2023-01-03 00:00:00 Completed [facility] HPV9 2023-01-03 00:00:00 Completed [facility] HPV9 2023-01-03 00:00:00 Completed [facility] HPV9 2023-01-03 00:00:00 Completed [facility] HPV9 2023-01-03 00:00:00 Completed [facility] HPV9 2023-01-03 00:00:00 Completed [facility] HPV9 2023-01-03 00:00:00 Completed [facility] SARS-COV-2 COVID-19 VACCINE - (MODERNA) 2021-06-04 00:00:00 Completed [facility] Flu Injectable MDCK Quadrivalent 2021-06-04 00:00:00 Completed [facility] SARS-COV-2 COVID-19 VACCINE - (MODERNA) 2021-06-04 00:00:00 Completed Flu Injectable MDCK Quadrivalent 2021-06-04 00:00:00 Completed SARS-COV-2 COVID-19 VACCINE - (MODERNA) 2021-06-04 00:00:00 Completed Flu Injectable MDCK Quadrivalent 2021-06-04 00:00:00 Completed SARS-COV-2 COVID-19 VACCINE - (MODERNA) 2021-06-04 00:00:00 Completed Flu Injectable MDCK Quadrivalent 2021-06-04 00:00:00 Completed SARS-COV-2 COVID-19 VACCINE - (MODERNA) 2021-06-04 00:00:00 Completed Flu Injectable MDCK Quadrivalent 2021-06-04 00:00:00 Completed SARS-COV-2 COVID-19 VACCINE - (MODERNA) 2021-06-04 00:00:00 Completed Flu Injectable MDCK Quadrivalent 2021-06-04 00:00:00 Completed SARS-COV-2 COVID-19 VACCINE - (MODERNA) 2021-06-04 00:00:00 Completed [facility] Flu Injectable MDCK Quadrivalent 2021-06-04 00:00:00 Completed [facility] SARS-COV-2 COVID-19 VACCINE - (MODERNA) 2021-06-04 00:00:00 Completed [facility] Flu Injectable MDCK Quadrivalent 2021-06-04 00:00:00 Completed [facility] SARS-COV-2 COVID-19 VACCINE - (MODERNA) 2021-06-04 00:00:00 Completed [facility] Flu Injectable MDCK Quadrivalent 2021-06-04 00:00:00 Completed [facility] SARS-COV-2 COVID-19 VACCINE - (MODERNA) 2021-06-04 00:00:00 Completed [facility] Flu Injectable MDCK Quadrivalent 2021-06-04 00:00:00 Completed [facility] SARS-COV-2 COVID-19 VACCINE - (MODERNA) 2020-11-13 00:00:00 Completed SARS-COV-2 COVID-19 VACCINE - (MODERNA) 2020-11-13 00:00:00 Completed SARS-COV-2 COVID-19 VACCINE - (MODERNA) 2020-11-13 00:00:00 Completed SARS-COV-2 COVID-19 VACCINE - (MODERNA) 2020-11-13 00:00:00 Completed SARS-COV-2 COVID-19 VACCINE - (MODERNA) 2020-11-13 00:00:00 Completed SARS-COV-2 COVID-19 VACCINE - (MODERNA) 2020-11-13 00:00:00 Completed SARS-COV-2 COVID-19 VACCINE - (MODERNA) 2020-11-13 00:00:00 Completed [facility] SARS-COV-2 COVID-19 VACCINE - (MODERNA) 2020-11-13 00:00:00 Completed [facility] SARS-COV-2 COVID-19 VACCINE - (MODERNA) 2020-11-13 00:00:00 Completed [facility] SARS-COV-2 COVID-19 VACCINE - (MODERNA) 2020-11-13 00:00:00 Completed [facility] SARS-COV-2 COVID-19 VACCINE - (MODERNA) 2020-10-16 00:00:00 Completed SARS-COV-2 COVID-19 VACCINE - (MODERNA) 2020-10-16 00:00:00 Completed SARS-COV-2 COVID-19 VACCINE - (MODERNA) 2020-10-16 00:00:00 Completed SARS-COV-2 COVID-19 VACCINE - (MODERNA) 2020-10-16 00:00:00 Completed SARS-COV-2 COVID-19 VACCINE - (MODERNA) 2020-10-16 00:00:00 Completed SARS-COV-2 COVID-19 VACCINE - (MODERNA) 2020-10-16 00:00:00 Completed SARS-COV-2 COVID-19 VACCINE - (MODERNA) 2020-10-16 00:00:00 Completed [facility] SARS-COV-2 COVID-19 VACCINE - (MODERNA) 2020-10-16 00:00:00 Completed [facility] SARS-COV-2 COVID-19 VACCINE - (MODERNA) 2020-10-16 00:00:00 Completed [facility] SARS-COV-2 COVID-19 VACCINE - (MODERNA) 2020-10-16 00:00:00 Completed [facility] Influenza Virus Vaccine Quad .5 mL IM 6+ MO (FLUZONE/FLULAVAL/F LUARIX) 2020-04-01 00:00:00 Completed [facility] Influenza Virus Vaccine Quad .5 mL IM 6+ MO (FLUZONE/FLULAVAL/F LUARIX) 2020-04-01 00:00:00 Completed [facility] Influenza Virus Vaccine Quad .5 mL IM 6+ MO (FLUZONE/FLULAVAL/F LUARIX) 2020-04-01 00:00:00 Completed [facility] Influenza Virus Vaccine Quad .5 mL IM 6+ MO (FLUZONE/FLULAVAL/F LUARIX) 2020-04-01 00:00:00 Completed [facility] Influenza Virus Vaccine Quad .5 mL IM 6+ MO (FLUZONE/FLULAVAL/F LUARIX) 2020-04-01 00:00:00 Completed [facility] Influenza Virus Vaccine Quad .5 mL IM 6+ MO (FLUZONE/FLULAVAL/F LUARIX) 2020-04-01 00:00:00 Completed [facility] Influenza Virus Vaccine Quad .5 mL IM 6+ MO 2020-04-01 00:00:00 Completed [facility] Influenza Virus Vaccine Quad .5 mL IM 6+ MO 2020-04-01 00:00:00 Completed [facility] Influenza Virus Vaccine Quad .5 mL IM 6+ MO 2020-04-01 00:00:00 Completed [facility] Influenza Virus Vaccine Quad .5 mL IM 6+ MO (FLUZONE/FLULAVAL/F LUARIX) 2020-04-01 00:00:00 Completed [facility] Influenza Virus Vaccine Quad .5 mL IM 6+ MO (FLUZONE/FLULAVAL/F LUARIX) 2020-04-01 00:00:00 Completed [facility] Influenza Virus Vaccine Quad .5 mL IM 6+ MO (FLUZONE/FLULAVAL/F LUARIX) 2020-04-01 00:00:00 Completed [facility] TD, NOS 2008-03-02 00:00:00 Completed [facility] TD, NOS 2008-03-02 00:00:00 Completed [facility] TD, NOS 2008-03-02 00:00:00 Completed [facility] TD, NOS 2008-03-02 00:00:00 Completed [facility] TD, NOS 2008-03-02 00:00:00 Completed [facility] TD, NOS 2008-03-02 00:00:00 Completed [facility] Td 2008-03-02 00:00:00 Completed [facility] TD, NOS 2008-03-02 00:00:00 Completed [facility] TD, NOS 2008-03-02 00:00:00 Completed [facility] TD, NOS 2008-03-02 00:00:00 Completed [facility] TD, NOS 2008-03-02 00:00:00 Completed [facility] TD, NOS 2008-03-02 00:00:00 Completed [facility] SARS-COV-2 COVID-19 VACCINE - (MODERNA) Unknown Completed [facility] Flu Injectable MDCK Quadrivalent Unknown Completed [facility] HPV9 Unknown Completed [facility] Influenza Virus Vaccine Quad IM, Preserv and ABX Free 6 MO-64 YRS (FLUCELVAX) Unknown Completed [facility] TD, NOS Unknown Completed [facility] Influenza Virus Vaccine Quad .5 mL IM 6+ MO (FLUZONE/FLULAVAL/F LUARIX) Unknown Completed [facility] HPV9 Unknown Completed [facility] SARS-COV-2 COVID-19 VACCINE - (MODERNA) Unknown Completed [facility] Flu Injectable MDCK Quadrivalent Unknown Completed [facility] Influenza Virus Vaccine Quad IM, Preserv and ABX Free 6 MO-64 YRS (FLUCELVAX) Unknown Completed [facility] TD, NOS Unknown Completed [facility] Influenza Virus Vaccine Quad .5 mL IM 6+ MO (FLUZONE/FLULAVAL/F LUARIX) Unknown Completed [facility] HPV9 Unknown Completed [facility] SARS-COV-2 COVID-19 VACCINE - (MODERNA) Unknown Completed [facility] Flu Injectable MDCK Quadrivalent Unknown Completed [facility] Influenza Virus Vaccine Quad IM, Preserv and ABX Free 6 MO-64 YRS (FLUCELVAX) Unknown Completed [facility] TD, NOS Unknown Completed [facility] Influenza Virus Vaccine Quad .5 mL IM 6+ MO (FLUZONE/FLULAVAL/F LUARIX) Unknown Completed [facility] HPV9 Unknown Completed [facility] SARS-COV-2 COVID-19 VACCINE - (MODERNA) Unknown Completed [facility] Flu Injectable MDCK Quadrivalent Unknown Completed [facility] Influenza Virus Vaccine Quad IM, Preserv and ABX Free 6 MO-64 YRS (FLUCELVAX) Unknown Completed [facility] TD, NOS Unknown Completed [facility] Influenza Virus Vaccine Quad .5 mL IM 6+ MO (FLUZONE/FLULAVAL/F LUARIX) Unknown Completed [facility] HPV9 Unknown Completed [facility] SARS-COV-2 COVID-19 VACCINE - (MODERNA) Unknown Completed [facility] Flu Injectable MDCK Quadrivalent Unknown Completed [facility] Influenza Virus Vaccine Quad IM, Preserv and ABX Free 6 MO-64 YRS (FLUCELVAX) Unknown Completed [facility] TD, NOS Unknown Completed [facility] Influenza Virus Vaccine Quad .5 mL IM 6+ MO (FLUZONE/FLULAVAL/F LUARIX) Unknown Completed [facility] HPV9 Unknown Completed [facility] SARS-COV-2 COVID-19 VACCINE - (MODERNA) Unknown Completed [facility] Flu Injectable MDCK Quadrivalent Unknown Completed [facility] Influenza Virus Vaccine Quad IM, Preserv and ABX Free 6 MO-64 YRS (FLUCELVAX) Unknown Completed [facility] TD, NOS Unknown Completed [facility] Influenza Virus Vaccine Quad .5 mL IM 6+ MO (FLUZONE/FLULAVAL/F LUARIX) Unknown Completed [facility] HPV9 Unknown Completed [facility] SARS-COV-2 COVID-19 VACCINE - (MODERNA) Unknown Completed [facility] Flu Injectable MDCK Quadrivalent Unknown Completed [facility] Influenza Virus Vaccine Quad IM, Preserv and ABX Free 6 MO-64 YRS (FLUCELVAX) Unknown Completed [facility] TD, NOS Unknown Completed [facility] Influenza Virus Vaccine Quad .5 mL IM 6+ MO (FLUZONE/FLULAVAL/F LUARIX) Unknown Completed [facility] HPV9 Unknown Completed [facility] SARS-COV-2 COVID-19 VACCINE - (MODERNA) Unknown Completed [facility] Flu Injectable MDCK Quadrivalent Unknown Completed [facility] Influenza Virus Vaccine Quad IM, Preserv and ABX Free 6 MO-64 YRS (FLUCELVAX) Unknown Completed [facility] TD, NOS Unknown Completed [facility] Influenza Virus Vaccine Quad .5 mL IM 6+ MO (FLUZONE/FLULAVAL/F LUARIX) Unknown Completed [facility] HPV9 Unknown Completed [facility] SARS-COV-2 COVID-19 VACCINE - (MODERNA) Unknown Completed [facility] Flu Injectable MDCK Quadrivalent Unknown Completed [facility] Influenza Virus Vaccine Quad IM, Preserv and ABX Free 6 MO-64 YRS (FLUCELVAX) Unknown Completed [facility] TD, NOS Unknown Completed [facility] Influenza Virus Vaccine Quad .5 mL IM 6+ MO (FLUZONE/FLULAVAL/F LUARIX) Unknown Completed [facility] SARS-COV-2 COVID-19 VACCINE - (MODERNA) Unknown Completed [facility] Flu Injectable MDCK Quadrivalent Unknown Completed [facility] Influenza Virus Vaccine Quad IM, Preserv and ABX Free 6 MO-64 YRS (FLUCELVAX) Unknown Completed [facility] HPV9 Unknown Completed [facility] TD, NOS Unknown Completed [facility] Influenza Virus Vaccine Quad .5 mL IM 6+ MO (FLUZONE/FLULAVAL/F LUARIX) Unknown Completed [facility] HPV9 Unknown Completed [facility] SARS-COV-2 COVID-19 VACCINE - (MODERNA) Unknown Completed [facility] Flu Injectable MDCK Quadrivalent Unknown Completed [facility] Influenza Virus Vaccine Quad IM, Preserv and ABX Free 6 MO-64 YRS (FLUCELVAX) Unknown Completed [facility] TD, NOS Unknown Completed [facility] Influenza Virus Vaccine Quad .5 mL IM 6+ MO (FLUZONE/FLULAVAL/F LUARIX) Unknown Completed [facility] HPV9 Unknown Completed [facility] SARS-COV-2 COVID-19 VACCINE - (MODERNA) Unknown Completed [facility] Flu Injectable MDCK Quadrivalent Unknown Completed [facility] Influenza Virus Vaccine Quad IM, Preserv and ABX Free 6 MO-64 YRS (FLUCELVAX) Unknown Completed [facility] TD, NOS Unknown Completed [facility] Influenza Virus Vaccine Quad .5 mL IM 6+ MO (FLUZONE/FLULAVAL/F LUARIX) Unknown Completed [facility] HPV9 Unknown Completed [facility] SARS-COV-2 COVID-19 VACCINE - (MODERNA) Unknown Completed [facility] Flu Injectable MDCK Quadrivalent Unknown Completed [facility] Influenza Virus Vaccine Quad IM, Preserv and ABX Free 6 MO-64 YRS (FLUCELVAX) Unknown Completed [facility] TD, NOS Unknown Completed [facility] Influenza Virus Vaccine Quad .5 mL IM 6+ MO (FLUZONE/FLULAVAL/F LUARIX) Unknown Completed [facility] HPV9 Unknown Completed [facility] SARS-COV-2 COVID-19 VACCINE - (MODERNA) Unknown Completed [facility] Flu Injectable MDCK Quadrivalent Unknown Completed [facility] Influenza Virus Vaccine Quad IM, Preserv and ABX Free 6 MO-64 YRS (FLUCELVAX) Unknown Completed [facility] TD, NOS Unknown Completed [facility] Influenza Virus Vaccine Quad .5 mL IM 6+ MO (FLUZONE/FLULAVAL/F LUARIX) Unknown Completed [facility] HPV9 Unknown Completed [facility] SARS-COV-2 COVID-19 VACCINE - (MODERNA) Unknown Completed [facility] Flu Injectable MDCK Quadrivalent Unknown Completed [facility] Influenza Virus Vaccine Quad IM, Preserv and ABX Free 6 MO-64 YRS (FLUCELVAX) Unknown Completed [facility] TD, NOS Unknown Completed [facility] Influenza Virus Vaccine Quad .5 mL IM 6+ MO (FLUZONE/FLULAVAL/F LUARIX) Unknown Completed [facility] HPV9 Unknown Completed [facility] SARS-COV-2 COVID-19 VACCINE - (MODERNA) Unknown Completed [facility] Flu Injectable MDCK Quadrivalent Unknown Completed [facility] Influenza Virus Vaccine Quad IM, Preserv and ABX Free 6 MO-64 YRS (FLUCELVAX) Unknown Completed [facility] TD, NOS Unknown Completed [facility] Influenza Virus Vaccine Quad .5 mL IM 6+ MO (FLUZONE/FLULAVAL/F LUARIX) Unknown Completed [facility] HPV9 Unknown Completed [facility] SARS-COV-2 COVID-19 VACCINE - (MODERNA) Unknown Completed [facility] Flu Injectable MDCK Quadrivalent Unknown Completed [facility] Influenza Virus Vaccine Quad IM, Preserv and ABX Free 6 MO-64 YRS (FLUCELVAX) Unknown Completed [facility] TD, NOS Unknown Completed [facility] Influenza Virus Vaccine Quad .5 mL IM 6+ MO (FLUZONE/FLULAVAL/F LUARIX) Unknown Completed [facility] HPV9 Unknown Completed [facility] SARS-COV-2 COVID-19 VACCINE - (MODERNA) Unknown Completed [facility] Flu Injectable MDCK Quadrivalent Unknown Completed [facility] Influenza Virus Vaccine Quad IM, Preserv and ABX Free 6 MO-64 YRS (FLUCELVAX) Unknown Completed [facility] TD, NOS Unknown Completed [facility] Influenza Virus Vaccine Quad .5 mL IM 6+ MO (FLUZONE/FLULAVAL/F LUARIX) Unknown Completed [facility] HPV9 Unknown Completed [facility] SARS-COV-2 COVID-19 VACCINE - (MODERNA) Unknown Completed [facility] Flu Injectable MDCK Quadrivalent Unknown Completed [facility] Influenza Virus Vaccine Quad IM, Preserv and ABX Free 6 MO-64 YRS (FLUCELVAX) Unknown Completed [facility] TD, NOS Unknown Completed [facility] Influenza Virus Vaccine Quad .5 mL IM 6+ MO (FLUZONE/FLULAVAL/F LUARIX) Unknown Completed [facility] HPV9 Unknown Completed [facility] SARS-COV-2 COVID-19 VACCINE - (MODERNA) Unknown Completed [facility] Flu Injectable MDCK Quadrivalent Unknown Completed [facility] Influenza Virus Vaccine Quad IM, Preserv and ABX Free 6 MO-64 YRS (FLUCELVAX) Unknown Completed [facility] TD, NOS Unknown Completed [facility] Influenza Virus Vaccine Quad .5 mL IM 6+ MO (FLUZONE/FLULAVAL/F LUARIX) Unknown Completed [facility] HPV9 Unknown Completed [facility] SARS-COV-2 COVID-19 VACCINE - (MODERNA) Unknown Completed [facility] Flu Injectable MDCK Quadrivalent Unknown Completed [facility] Influenza Virus Vaccine Quad IM, Preserv and ABX Free 6 MO-64 YRS (FLUCELVAX) Unknown Completed [facility] TD, NOS Unknown Completed [facility] Influenza Virus Vaccine Quad .5 mL IM 6+ MO (FLUZONE/FLULAVAL/F LUARIX) Unknown Completed [facility] HPV9 Unknown Completed [facility] SARS-COV-2 COVID-19 VACCINE - (MODERNA) Unknown Completed [facility] Flu Injectable MDCK Quadrivalent Unknown Completed [facility] Influenza Virus Vaccine Quad IM, Preserv and ABX Free 6 MO-64 YRS (FLUCELVAX) Unknown Completed [facility] TD, NOS Unknown Completed [facility] Influenza Virus Vaccine Quad .5 mL IM 6+ MO (FLUZONE/FLULAVAL/F LUARIX) Unknown Completed [facility] HPV9 Unknown Completed [facility] SARS-COV-2 COVID-19 VACCINE - (MODERNA) Unknown Completed [facility] Flu Injectable MDCK Quadrivalent Unknown Completed [facility] Influenza Virus Vaccine Quad IM, Preserv and ABX Free 6 MO-64 YRS (FLUCELVAX) Unknown Completed [facility] TD, NOS Unknown Completed [facility] Influenza Virus Vaccine Quad .5 mL IM 6+ MO (FLUZONE/FLULAVAL/F LUARIX) Unknown Completed [facility] HPV9 Unknown Completed [facility] SARS-COV-2 COVID-19 VACCINE - (MODERNA) Unknown Completed [facility] Flu Injectable MDCK Quadrivalent Unknown Completed [facility] Influenza Virus Vaccine Quad IM, Preserv and ABX Free 6 MO-64 YRS (FLUCELVAX) Unknown Completed [facility] Influenza Virus Vaccine Quad .5 mL IM 6+ MO (FLUZONE/FLULAVAL/F LUARIX) Unknown Completed [facility] HPV9 Unknown Completed [facility] SARS-COV-2 COVID-19 VACCINE - (MODERNA) Unknown Completed [facility] Flu Injectable MDCK Quadrivalent Unknown Completed [facility] TD, NOS Unknown Completed [facility] Influenza Virus Vaccine Quad .5 mL IM 6+ MO (FLUZONE/FLULAVAL/F LUARIX) Unknown Completed [facility] HPV9 Unknown Completed [facility] SARS-COV-2 COVID-19 VACCINE - (MODERNA) Unknown Completed [facility] Flu Injectable MDCK Quadrivalent Unknown Completed [facility] TD, NOS Unknown Completed [facility] Influenza Virus Vaccine Quad .5 mL IM 6+ MO (FLUZONE/FLULAVAL/F LUARIX) Unknown Completed [facility] HPV9 Unknown Completed [facility] SARS-COV-2 COVID-19 VACCINE - (MODERNA) Unknown Completed [facility] Flu Injectable MDCK Quadrivalent Unknown Completed [facility] Influenza Virus Vaccine Quad IM, Preserv and ABX Free 6 MO-64 YRS (FLUCELVAX) Unknown Completed [facility] TD, NOS Unknown Completed [facility] Influenza Virus Vaccine Quad .5 mL IM 6+ MO (FLUZONE/FLULAVAL/F LUARIX) Unknown Completed [facility] HPV9 Unknown Completed [facility] SARS-COV-2 COVID-19 VACCINE - (MODERNA) Unknown Completed [facility] Flu Injectable MDCK Quadrivalent Unknown Completed [facility] Influenza Virus Vaccine Quad IM, Preserv and ABX Free 6 MO-64 YRS (FLUCELVAX) Unknown Completed [facility] Influenza Virus Vaccine Quad IM, Preserv and ABX Free 6 MO-64 YRS (FLUCELVAX) Unknown Completed [facility] TD, NOS Unknown Completed [facility] TD, NOS Unknown Completed [facility] Influenza Virus Vaccine Quad .5 mL IM 6+ MO (FLUZONE/FLULAVAL/F LUARIX) Unknown Completed [facility] HPV9 Unknown Completed [facility] SARS-COV-2 COVID-19 VACCINE - (MODERNA) Unknown Completed [facility] Flu Injectable MDCK Quadrivalent Unknown Completed [facility] Influenza Virus Vaccine Quad IM, Preserv and ABX Free 6 MO-64 YRS (FLUCELVAX) Unknown Completed [facility] TD, NOS Unknown Completed [facility] Influenza Virus Vaccine Quad .5 mL IM 6+ MO (FLUZONE/FLULAVAL/F LUARIX) Unknown Completed [facility] HPV9 Unknown Completed [facility] SARS-COV-2 COVID-19 VACCINE - (MODERNA) Unknown Completed [facility] Flu Injectable MDCK Quadrivalent Unknown Completed [facility] Influenza Virus Vaccine Quad IM, Preserv and ABX Free 6 MO-64 YRS (FLUCELVAX) Unknown Completed [facility] TD, NOS Unknown Completed [facility] Influenza Virus Vaccine Quad .5 mL IM 6+ MO (FLUZONE/FLULAVAL/F LUARIX) Unknown Completed [facility] Flu Injectable MDCK Quadrivalent Unknown Completed [facility] Influenza Virus Vaccine Quad IM, Preserv and ABX Free 6 MO-64 YRS (FLUCELVAX) Unknown Completed [facility] HPV9 Unknown Completed [facility] SARS-COV-2 COVID-19 VACCINE - (MODERNA) Unknown Completed [facility] TD, NOS Unknown Completed [facility] Influenza Virus Vaccine Quad .5 mL IM 6+ MO (FLUZONE/FLULAVAL/F LUARIX) Unknown Completed [facility] HPV9 Unknown Completed [facility] SARS-COV-2 COVID-19 VACCINE - (MODERNA) Unknown Completed [facility] Flu Injectable MDCK Quadrivalent Unknown Completed [facility] Influenza Virus Vaccine Quad IM, Preserv and ABX Free 6 MO-64 YRS (FLUCELVAX) Unknown Completed [facility] TD, NOS Unknown Completed [facility] Influenza Virus Vaccine Quad .5 mL IM 6+ MO (FLUZONE/FLULAVAL/F LUARIX) Unknown Completed [facility] HPV9 Unknown Completed [facility] SARS-COV-2 COVID-19 VACCINE - (MODERNA) Unknown Completed [facility] Flu Injectable MDCK Quadrivalent Unknown Completed [facility] Influenza Virus Vaccine Quad IM, Preserv and ABX Free 6 MO-64 YRS (FLUCELVAX) Unknown Completed [facility] TD, NOS Unknown Completed [facility] Influenza Virus Vaccine Quad .5 mL IM 6+ MO (FLUZONE/FLULAVAL/F LUARIX) Unknown Completed [facility] Flu Injectable MDCK Quadrivalent Unknown Completed [facility] Influenza Virus Vaccine Quad IM, Preserv and ABX Free 6 MO-64 YRS (FLUCELVAX) Unknown Completed [facility] HPV9 Unknown Completed [facility] SARS-COV-2 COVID-19 VACCINE - (MODERNA) Unknown Completed [facility] TD, NOS Unknown Completed [facility] Influenza Virus Vaccine Quad .5 mL IM 6+ MO (FLUZONE/FLULAVAL/F LUARIX) Unknown Completed [facility] HPV9 Unknown Completed [facility] SARS-COV-2 COVID-19 VACCINE - (MODERNA) Unknown Completed [facility] Flu Injectable MDCK Quadrivalent Unknown Completed [facility] Influenza Virus Vaccine Quad IM, Preserv and ABX Free 6 MO-64 YRS (FLUCELVAX) Unknown Completed [facility] TD, NOS Unknown Completed [facility] Influenza Virus Vaccine Quad .5 mL IM 6+ MO (FLUZONE/FLULAVAL/F LUARIX) Unknown Completed [facility] HPV9 Unknown Completed [facility] SARS-COV-2 COVID-19 VACCINE - (MODERNA) Unknown Completed [facility] Flu Injectable MDCK Quadrivalent Unknown Completed [facility] Influenza Virus Vaccine Quad IM, Preserv and ABX Free 6 MO-64 YRS (FLUCELVAX) Unknown Completed [facility] TD, NOS Unknown Completed [facility] Influenza Virus Vaccine Quad .5 mL IM 6+ MO (FLUZONE/FLULAVAL/F LUARIX) Unknown Completed [facility] HPV9 Unknown Completed [facility] SARS-COV-2 COVID-19 VACCINE - (MODERNA) Unknown Completed [facility] Flu Injectable MDCK Quadrivalent Unknown Completed [facility] Influenza Virus Vaccine Quad IM, Preserv and ABX Free 6 MO-64 YRS (FLUCELVAX) Unknown Completed [facility] TD, NOS Unknown Completed [facility] Influenza Virus Vaccine Quad .5 mL IM 6+ MO (FLUZONE/FLULAVAL/F LUARIX) Unknown Completed [facility] HPV9 Unknown Completed [facility] SARS-COV-2 COVID-19 VACCINE - (MODERNA) Unknown Completed [facility] Flu Injectable MDCK Quadrivalent Unknown Completed [facility] Influenza Virus Vaccine Quad IM, Preserv and ABX Free 6 MO-64 YRS (FLUCELVAX) Unknown Completed [facility] TD, NOS Unknown Completed [facility] Influenza Virus Vaccine Quad .5 mL IM 6+ MO (FLUZONE/FLULAVAL/F LUARIX) Unknown Completed [facility] Vital Signs Vital Name Observation Time Observation Value Comments S ource Systolic blood pressure 2025-02-19 15:01:00 131 mm[Hg] [facility] Diastolic blood pressure 2025-02-19 15:01:00 75 mm[Hg] [facility] Heart rate 2025-02-19 15:01:00 67 /min [facility] Body height 2025-02-19 15:01:00 167.6 cm [facility] Body weight 2025-02-19 15:01:00 124.739 kg [facility] BMI 2025-02-19 15:01:00 44.39 kg/m2 [facility] Oxygen saturation in Arterial blood by Pulse oximetry 2025-02-19 15:01:00 100 /min [facility] Systolic blood pressure 2025-02-18 21:21:00 134 mm[Hg] [facility] Diastolic blood pressure 2025-02-18 21:21:00 78 mm[Hg] [facility] Heart rate 2025-02-18 21:21:00 73 /min [facility] Body temperature 2025-02-18 21:21:00 37.17 Mariama [facility] Respiratory rate 2025-02-18 21:21:00 16 /min [facility] Oxygen saturation in Arterial blood by Pulse oximetry 2025-02-18 21:21:00 99 /min [facility] Body height 2025-02-18 17:31:00 167.6 cm [facility] Body weight 2025-02-18 17:31:00 127.007 kg [facility] BMI 2025-02-18 17:31:00 45.19 kg/m2 [facility] height 2025-01-21 14:40:00 66.5 [in_i] Comm on [facility] weight 2025-01-21 14:40:00 277.2 [lb_av] Co mmon [facility] temperature 2025-01-21 14:40:00 97.9 [degF] Com mon [facility] bmi 2025-01-21 14:40:00 44.07 kg/m2 Comm on [facility] oximetry 2025-01-21 14:40:00 99 % Commo n [facility] respiratory rate 2025-01-21 14:40:00 16 /min [facility] blood pressure systolic 2025-01-21 14:40:00 132 mm[Hg] [facility] blood pressure diastolic 2025-01-21 14:40:00 76 mm[Hg] [facility] height 2024-11-06 15:00:00 66.5 [in_i] Comm on [facility] weight 2024-11-06 15:00:00 274.2 [lb_av] Co mmon [facility] temperature 2024-11-06 15:00:00 98.1 [degF] Com mon [facility] bmi 2024-11-06 15:00:00 43.59 kg/m2 Comm on [facility] oximetry 2024-11-06 15:00:00 100 % Commo n [facility] respiratory rate 2024-11-06 15:00:00 16 /min [facility] blood pressure systolic 2024-11-06 15:00:00 124 mm[Hg] [facility] blood pressure diastolic 2024-11-06 15:00:00 68 mm[Hg] [facility] Systolic blood pressure 2024-10-14 14:11:00 115 mm[Hg] [facility] Diastolic blood pressure 2024-10-14 14:11:00 65 mm[Hg] [facility] Heart rate 2024-10-14 14:11:00 82 /min [facility] Body temperature 2024-10-14 14:11:00 36.89 Mariama [facility] Body weight 2024-10-14 14:11:00 127.279 kg [facility] BMI 2024-10-14 14:11:00 45.29 kg/m2 [facility] Oxygen saturation in Arterial blood by Pulse oximetry 2024-10-14 14:11:00 97 /min [facility] height 2024-08-15 11:20:00 66.5 [in_i] Comm on [facility] weight 2024-08-15 11:20:00 289 [lb_av] Comm on [facility] bmi 2024-08-15 11:20:00 45.94 kg/m2 Comm on [facility] height 2024-08-15 11:20:00 66.5 [in_i] Comm on [facility] weight 2024-08-15 11:20:00 289 [lb_av] Comm on [facility] bmi 2024-08-15 11:20:00 45.94 kg/m2 Comm on [facility] Systolic blood pressure 2024-07-17 21:10:00 115 mm[Hg] [facility] Diastolic blood pressure 2024-07-17 21:10:00 60 mm[Hg] [facility] Heart rate 2024-07-17 21:10:00 86 /min [facility] Body temperature 2024-07-17 21:10:00 36.33 Mariama [facility] Respiratory rate 2024-07-17 21:10:00 18 /min [facility] Body height 2024-07-17 21:10:00 167.6 cm [facility] Body weight 2024-07-17 21:10:00 134.401 kg [facility] BMI 2024-07-17 21:10:00 47.82 kg/m2 [facility] Oxygen saturation in Arterial blood by Pulse oximetry 2024-07-17 21:10:00 98 /min [facility] height 2024-07-02 08:20:00 66.5 [in_i] Comm on [facility] weight 2024-07-02 08:20:00 302.2 [lb_av] Co mmon [facility] temperature 2024-07-02 08:20:00 98.1 [degF] Com mon [facility] bmi 2024-07-02 08:20:00 48.04 kg/m2 Comm on [facility] oximetry 2024-07-02 08:20:00 98 % Commo n [facility] respiratory rate 2024-07-02 08:20:00 15 /min Common [facility] blood pressure systolic 2024-07-02 08:20:00 120 mm[Hg] Common [facility] blood pressure diastolic 2024-07-02 08:20:00 58 mm[Hg] [facility] Systolic blood pressure 2024-05-27 15:26:00 131 mm[Hg] [facility] Diastolic blood pressure 2024-05-27 15:26:00 64 mm[Hg] [facility] Heart rate 2024-05-27 15:26:00 80 /min [facility] Body temperature 2024-05-27 15:26:00 36.83 Mariama [facility] Body weight 2024-05-27 15:26:00 141.477 kg [facility] BMI 2024-05-27 15:26:00 50.34 kg/m2 [facility] Oxygen saturation in Arterial blood by Pulse oximetry 2024-05-27 15:26:00 99 /min [facility] Systolic blood pressure 2024-05-06 21:43:00 136 mm[Hg] [facility] Diastolic blood pressure 2024-05-06 21:43:00 78 mm[Hg] [facility] Heart rate 2024-05-06 21:43:00 66 /min [facility] Oxygen saturation in Arterial blood by Pulse oximetry 2024-05-06 21:43:00 99 /min [facility] Body temperature 2024-05-06 20:10:00 36.94 Mariama [facility] Body weight 2024-05-06 20:10:00 145.106 kg [facility] BMI 2024-05-06 20:10:00 51.63 kg/m2 Univ [facility] Systolic blood pressure 2024-05-01 14:50:00 129 mm[Hg] [facility] Diastolic blood pressure 2024-05-01 14:50:00 63 mm[Hg] [facility] Heart rate 2024-05-01 14:50:00 104 /min [facility] Body temperature 2024-05-01 14:50:00 36.56 Mariama [facility] Respiratory rate 2024-05-01 14:50:00 18 /min [facility] Body height 2024-05-01 14:50:00 167.6 cm [facility] Body weight 2024-05-01 14:50:00 146.557 kg [facility] BMI 2024-05-01 14:50:00 52.15 kg/m2 [facility] Oxygen saturation in Arterial blood by Pulse oximetry 2024-05-01 14:50:00 97 /min [facility] Systolic blood pressure 2024-04-16 17:27:00 122 mm[Hg] [facility] Diastolic blood pressure 2024-04-16 17:27:00 63 mm[Hg] [facility] Heart rate 2024-04-16 17:27:00 65 /min [facility] Body temperature 2024-04-16 17:27:00 37.33 Mariama [facility] Respiratory rate 2024-04-16 17:27:00 18 /min [facility] Oxygen saturation in Arterial blood by Pulse oximetry 2024-04-16 17:27:00 96 /min [facility] Body height 2024-04-15 23:46:00 167.6 cm [facility] Body weight 2024-04-15 23:46:00 154.677 kg [facility] BMI 2024-04-15 23:46:00 55.04 kg/m2 [facility] Systolic blood pressure 2024-04-15 20:15:00 148 mm[Hg] [facility] Diastolic blood pressure 2024-04-15 20:15:00 62 mm[Hg] [facility] Heart rate 2024-04-15 20:15:00 84 /min [facility] Respiratory rate 2024-04-15 20:15:00 28 /min [facility] Oxygen saturation in Arterial blood by Pulse oximetry 2024-04-15 20:15:00 99 /min [facility] Body temperature 2024-04-15 19:15:00 37 Mariama [facility] Body height 2024-04-15 14:45:00 167.6 cm [facility] Body weight 2024-04-15 14:45:00 154.7 kg [facility] BMI 2024-04-15 14:45:00 55.04 kg/m2 [facility] height 2024-04-02 13:00:00 66.5 [in_i] Comm on [facility] weight 2024-04-02 13:00:00 351.8 [lb_av] Co mmon [facility] temperature 2024-04-02 13:00:00 97.9 [degF] Com mon [facility] bmi 2024-04-02 13:00:00 55.93 kg/m2 Comm on [facility] oximetry 2024-04-02 13:00:00 95 % Commo n [facility] respiratory rate 2024-04-02 13:00:00 15 /min [facility] blood pressure systolic 2024-04-02 13:00:00 120 mm[Hg] [facility] blood pressure diastolic 2024-04-02 13:00:00 61 mm[Hg] [facility] Body weight 2024-03-27 14:59:00 159.53 kg [facility] BMI 2024-03-27 14:59:00 56.77 kg/m2 [facility] Systolic blood pressure 2024-03-06 18:11:00 144 mm[Hg] [facility] Diastolic blood pressure 2024-03-06 18:11:00 74 mm[Hg] [facility] Heart rate 2024-03-06 18:11:00 81 /min [facility] Body temperature 2024-03-06 18:11:00 36.78 Mariama [facility] Respiratory rate 2024-03-06 18:11:00 18 /min [facility] Body height 2024-03-06 18:11:00 167.6 cm [facility] Body weight 2024-03-06 18:11:00 159.938 kg [facility] BMI 2024-03-06 18:11:00 56.91 kg/m2 [facility] Oxygen saturation in Arterial blood by Pulse oximetry 2024-03-06 18:11:00 97 /min [facility] Systolic blood pressure 2024-02-29 17:30:00 138 mm[Hg] [facility] Diastolic blood pressure 2024-02-29 17:30:00 76 mm[Hg] [facility] Heart rate 2024-02-29 17:30:00 68 /min [facility] Oxygen saturation in Arterial blood by Pulse oximetry 2024-02-29 17:30:00 97 /min [facility] Respiratory rate 2024-02-29 17:23:00 16 /min [facility] Body temperature 2024-02-29 17:00:00 36.17 [facility] Body height 2024-02-29 13:59:00 167.6 cm [facility] Body weight 2024-02-29 13:59:00 158.6 kg [facility] BMI 2024-02-29 13:59:00 56.43 kg/m2 [facility] Systolic blood pressure 2024-02-29 13:59:00 152 mm[Hg] [facility] Diastolic blood pressure 2024-02-29 13:59:00 90 mm[Hg] [facility] Heart rate 2024-02-29 13:59:00 93 /min [facility] Body temperature 2024-02-29 13:59:00 36.17 [facility] Respiratory rate 2024-02-29 13:59:00 18 /min [facility] Body height 2024-02-29 13:59:00 167.6 cm [facility] Body weight 2024-02-29 13:59:00 158.6 kg Univ [facility] BMI 2024-02-29 13:59:00 56.43 kg/m2 Univ [facility] Oxygen saturation in Arterial blood by Pulse oximetry 2024-02-29 13:59:00 97 /min [facility] Systolic blood pressure 2024-02-25 13:49:00 129 mm[Hg] [facility] Diastolic blood pressure 2024-02-25 13:49:00 73 mm[Hg] [facility] Heart rate 2024-02-25 13:49:00 100 /min [facility] Body temperature 2024-02-25 13:49:00 36.94 Mariama [facility] Body height 2024-02-25 13:49:00 167.6 cm Univ [facility] Body weight 2024-02-25 13:49:00 160.074 kg Univ [facility] BMI 2024-02-25 13:49:00 56.96 [facility] in Arterial blood by Pulse oximetry 2024-02-25 13:49:00 99 /min [facility] Systolic blood pressure 2024-02-20 18:36:00 129 mm[Hg] [facility] Diastolic blood pressure 2024-02-20 18:36:00 76 mm[Hg] [facility] Heart rate 2024-02-20 18:36:00 80 /min [facility] Body temperature 2024-02-20 18:36:00 36.72 Mariama [facility] Respiratory rate 2024-02-20 18:36:00 18 /min [facility] Body height 2024-02-20 18:36:00 167.6 [facility] 2024-02-20 18:36:00 159.893 kg [facility] BMI 2024-02-20 18:36:00 56.89 kg/m2 [facility] O[facility] saturation in Arterial blood by Pulse oximetry 2024-02-20 18:36:00 96 /min [facility] Systolic blood pressure 2024-02-12 18:09:00 130 mm[Hg] [facility] Diastolic blood pressure 2024-02-12 18:09:00 70 mm[Hg] [facility] Heart rate 2024-02-12 18:09:00 79 /min [facility] Body temperature 2024-02-12 18:09:00 36.61 Mariama [facility] Respiratory rate 2024-02-12 18:09:00 18 /min [facility] Body height 2024-02-12 18:09:00 167.6 cm [facility] Body weight 2024-02-12 18:09:00 159.394 kg [facility] BMI 2024-02-12 18:09:00 56.72 kg/m2 [facility] Oxygen saturation in Arterial blood by Pulse oximetry 2024-02-12 18:09:00 97 /min [facility] Systolic blood pressure 2024-01-28 18:40:00 138 mm[Hg] [facility] Diastolic blood pressure 2024-01-28 18:40:00 76 mm[Hg] [facility] Heart rate 2024-01-28 18:40:00 85 /min [facility] Body temperature 2024-01-28 18:40:00 36.39 Mariama [facility] Respiratory rate 2024-01-28 18:40:00 18 /min [facility] Body height 2024-01-28 18:40:00 167.6 cm [facility] Body weight 2024-01-28 18:40:00 157.444 kg [facility] BMI 2024-01-28 18:40:00 56.02 kg/m2 [facility] Oxygen saturation in Arterial blood by Pulse oximetry 2024-01-28 18:40:00 98 /min [facility] Systolic blood pressure 2024-01-10 15:57:00 123 mm[Hg] [facility] Diastolic blood pressure 2024-01-10 15:57:00 61 mm[Hg] [facility] Heart rate 2024-01-10 15:57:00 71 /min [facility] Body temperature 2024-01-10 15:57:00 35.78 Mariama [facility] Respiratory rate 2024-01-10 15:57:00 18 /min [facility] Body height 2024-01-10 15:57:00 167.6 cm Univ [facility] Body weight 2024-01-10 15:57:00 157.852 kg [facility] BMI 2024-01-10 15:57:00 56.17 kg/m2 Univ [facility] Systolic blood pressure 2024-01-08 18:03:00 137 mm[Hg] [facility] Diastolic blood pressure 2024-01-08 18:03:00 68 mm[Hg] [facility] Heart rate 2024-01-08 18:03:00 73 /min [facility] Body temperature 2024-01-08 18:03:00 36.5 Mariama [facility] Body height 2024-01-08 18:03:00 168.3 cm [facility] Body weight 2024-01-08 18:03:00 159.53 kg [facility] BMI 2024-01-08 18:03:00 56.34 kg/m2 [facility] Oxygen saturation in Arterial blood by Pulse oximetry 2024-01-08 18:03:00 98 /min [facility] Systolic blood pressure 2023-12-20 13:29:00 171 mm[Hg] [facility] Diastolic blood pressure 2023-12-20 13:29:00 104 mm[Hg] [facility] Heart rate 2023-12-20 13:29:00 85 /min [facility] Body temperature 2023-12-20 13:29:00 36.06 Mariama [facility] Body height 2023-12-20 13:29:00 172.7 cm [facility] Body weight 2023-12-20 13:29:00 160.12 kg [facility] BMI 2023-12-20 13:29:00 53.67 kg/m2 [facility] Oxygen saturation in Arterial blood by Pulse oximetry 2023-12-20 13:29:00 99 /min [facility] height 2023-11-28 08:20:00 66.5 [in_i] Comm on [facility] weight 2023-11-28 08:20:00 350.0 [lb_av] Co mmon [facility] temperature 2023-11-28 08:20:00 97.7 [degF] Com mon [facility] bmi 2023-11-28 08:20:00 55.64 kg/m2 Comm on [facility] oximetry 2023-11-28 08:20:00 97 % Commo n [facility] respiratory rate 2023-11-28 08:20:00 16 /min [facility] blood pressure systolic 2023-11-28 08:20:00 132 mm[Hg] [facility] blood pressure diastolic 2023-11-28 08:20:00 80 mm[Hg] [facility] Systolic blood pressure 2023-10-18 14:27:00 133 mm[Hg] [facility] Diastolic blood pressure 2023-10-18 14:27:00 76 mm[Hg] [facility] Heart rate 2023-10-18 14:27:00 71 /min [facility] Body temperature 2023-10-18 14:27:00 36.06 Mariama [facility] Respiratory rate 2023-10-18 14:27:00 16 /min [facility] Body height 2023-10-18 14:27:00 167.6 cm [facility] Body weight 2023-10-18 14:27:00 158.623 kg [facility] BMI 2023-10-18 14:27:00 56.44 kg/m2 [facility] height 2023-09-25 08:40:00 66.5 [in_i] Comm on [facility] weight 2023-09-25 08:40:00 361.0 [lb_av] Co mmon [facility] temperature 2023-09-25 08:40:00 98.0 [degF] Com mon [facility] bmi 2023-09-25 08:40:00 57.39 kg/m2 Comm on [facility] oximetry 2023-09-25 08:40:00 97 % Commo n [facility] respiratory rate 2023-09-25 08:40:00 16 /min Common [facility] blood pressure systolic 2023-09-25 08:40:00 132 mm[Hg] Common [facility] blood pressure diastolic 2023-09-25 08:40:00 68 mm[Hg] [facility] Systolic blood pressure 2023-09-13 15:01:00 116 mm[Hg] [facility] Diastolic blood pressure 2023-09-13 15:01:00 63 mm[Hg] [facility] Heart rate 2023-09-13 15:01:00 75 /min [facility] Body temperature 2023-09-13 15:01:00 36.39 Mariama [facility] Respiratory rate 2023-09-13 15:01:00 18 /min [facility] Body height 2023-09-13 15:01:00 167.6 cm [facility] Body weight 2023-09-13 15:01:00 162.751 kg [facility] BMI 2023-09-13 15:01:00 57.91 kg/m2 [facility] Oxygen saturation in Arterial blood by Pulse oximetry 2023-09-13 15:01:00 99 /min [facility] Body temperature 2023-08-27 15:06:00 36.44 Mariama [facility] Systolic blood pressure 2023-04-16 19:48:00 125 mm[Hg] [facility] Diastolic blood pressure 2023-04-16 19:48:00 70 mm[Hg] [facility] Body temperature 2023-04-16 19:48:00 36.39 Mariama [facility] Respiratory rate 2023-04-16 19:48:00 18 /min [facility] Body height 2023-04-16 19:48:00 170.2 cm [facility] Body weight 2023-04-16 19:48:00 166.561 kg [facility] BMI 2023-04-16 19:48:00 57.51 kg/m2 [facility] Systolic blood pressure 2023-03-16 19:39:00 140 mm[Hg] [facility] Diastolic blood pressure 2023-03-16 19:39:00 83 mm[Hg] [facility] Body temperature 2023-03-16 19:31:00 35.94 Mariama [facility] Respiratory rate 2023-03-16 19:31:00 18 /min [facility] Body height 2023-03-16 19:31:00 170.2 cm [facility] Body weight 2023-03-16 19:31:00 165.472 kg [facility] BMI 2023-03-16 19:31:00 57.14 kg/m2 [facility] Systolic blood pressure 2023-01-03 13:22:00 129 mm[Hg] [facility] Diastolic blood pressure 2023-01-03 13:22:00 71 mm[Hg] [facility] Heart rate 2023-01-03 13:22:00 72 /min [facility] Body temperature 2023-01-03 13:22:00 35.78 Mariama [facility] Respiratory rate 2023-01-03 13:22:00 18 /min [facility] Body height 2023-01-03 13:22:00 170.2 cm [facility] Body weight 2023-01-03 13:22:00 165.427 kg [facility] BMI 2023-01-03 13:22:00 57.12 kg/m2 [facility] Body temperature 2023-01-03 14:47:00 35.78 Mariama [facility] height 2022-09-26 08:00:00 66.5 [in_i] Comm on [facility] weight 2022-09-26 08:00:00 381.2 [lb_av] Co mmon [facility] temperature 2022-09-26 08:00:00 98.2 [degF] Com mon [facility] bmi 2022-09-26 08:00:00 60.6 kg/m2 Commo n [facility] oximetry 2022-09-26 08:00:00 97 % Commo n [facility] respiratory rate 2022-09-26 08:00:00 16 /min Common [facility] blood pressure systolic 2022-09-26 08:00:00 139 mm[Hg] Common [facility] blood pressure diastolic 2022-09-26 08:00:00 67 mm[Hg] [facility] height 2022-07-27 16:20:00 66.5 [in_i] Comm on [facility] weight 2022-07-27 16:20:00 413.8 [lb_av] Co mmon [facility] temperature 2022-07-27 16:20:00 97.9 [degF] Com [facility] bmi 2022-07-27 16:20:00 65.78 kg/m2 Comm on [facility] oximetry 2022-07-27 16:20:00 96 % Commo n [facility] respiratory rate 2022-07-27 16:20:00 18 /min [facility] blood pressure systolic 2022-07-27 16:20:00 130 mm[Hg] [facility] blood pressure diastolic 2022-07-27 16:20:00 78 mm[Hg] [facility] Systolic blood pressure 2022-03-09 14:01:00 125 mm[Hg] [facility] Diastolic blood pressure 2022-03-09 14:01:00 61 mm[Hg] [facility] Heart rate 2022-03-09 14:01:00 95 /min [facility] Body temperature 2022-03-09 14:01:00 36.44 Mariama [facility] Respiratory rate 2022-03-09 14:01:00 20 /min [facility] Body height 2022-03-09 14:01:00 170.2 cm [facility] Body weight 2022-03-09 14:01:00 183.31 kg [facility] BMI 2022-03-09 14:01:00 63.29 kg/m2 [facility] height 2021-09-16 09:00:00 66.5 [in_i] Comm on [facility] weight 2021-09-16 09:00:00 385.8 [lb_av] Co mmon [facility] temperature 2021-09-16 09:00:00 98.1 [degF] Com [facility] bmi 2021-09-16 09:00:00 61.33 kg/m2 Comm on [facility] oximetry 2021-09-16 09:00:00 99 % Commo n [facility] respiratory rate 2021-09-16 09:00:00 18 /min Common [facility] blood pressure systolic 2021-09-16 09:00:00 136 mm[Hg] Common [facility] blood pressure diastolic 2021-09-16 09:00:00 70 mm[Hg] [facility] height 2021-05-30 14:20:00 66.5 [in_i] Comm on [facility] weight 2021-05-30 14:20:00 376.8 [lb_av] Co mmon [facility] temperature 2021-05-30 14:20:00 97.9 [degF] Com mon [facility] bmi 2021-05-30 14:20:00 59.9 kg/m2 Commo n [facility] oximetry 2021-05-30 14:20:00 97 % Commo n [facility] respiratory rate 2021-05-30 14:20:00 16 /min Common [facility] blood pressure systolic 2021-05-30 14:20:00 124 mm[Hg] Common [facility] blood pressure diastolic 2021-05-30 14:20:00 80 mm[Hg] Common [facility] height 2021-04-19 15:00:00 66.5 [in_i] Comm on [facility] weight 2021-04-19 15:00:00 370.4 [lb_av] Co mmon [facility] temperature 2021-04-19 15:00:00 97.4 [degF] Com mon [facility] bmi 2021-04-19 15:00:00 58.88 kg/m2 Comm on [facility] oximetry 2021-04-19 15:00:00 95 % Commo n [facility] respiratory rate 2021-04-19 15:00:00 16 /min [facility] height 2021-03-14 08:40:00 66.5 [in_i] Comm on [facility] weight 2021-03-14 08:40:00 364 [lb_av] Comm on [facility] temperature 2021-03-14 08:40:00 98.4 [degF] Com mon [facility] bmi 2021-03-14 08:40:00 57.86 kg/m2 Comm on [facility] oximetry 2021-03-14 08:40:00 97 % Commo n [facility] respiratory rate 2021-03-14 08:40:00 18 /min Common [facility] blood pressure systolic 2021-03-14 08:40:00 134 mm[Hg] [facility] blood pressure diastolic 2021-03-14 08:40:00 65 mm[Hg] Common [facility] height 2021-02-22 13:40:00 66.5 [in_i] Comm on [facility] weight 2021-02-22 13:40:00 355 [lb_av] Comm on [facility] temperature 2021-02-22 13:40:00 98.6 [degF] Com [facility] bmi 2021-02-22 13:40:00 56.43 kg/m2 Comm on [facility] oximetry 2021-02-22 13:40:00 97 % Commo n [facility] respiratory rate 2021-02-22 13:40:00 18 /min [facility] blood pressure systolic 2021-02-22 13:40:00 137 mm[Hg] [facility] blood pressure diastolic 2021-02-22 13:40:00 66 mm[Hg] [facility] height 2021-02-15 14:40:00 66.5 [in_i] Comm on [facility] weight 2021-02-15 14:40:00 356 [lb_av] Comm on [facility] temperature 2021-02-15 14:40:00 97.5 [degF] Com [facility] bmi 2021-02-15 14:40:00 56.59 kg/m2 Comm on [facility] oximetry 2021-02-15 14:40:00 98 % Commo n [facility] respiratory rate 2021-02-15 14:40:00 18 /min [facility] blood pressure systolic 2021-02-15 14:40:00 136 mm[Hg] Common [facility] blood pressure diastolic 2021-02-15 14:40:00 88 mm[Hg] [facility] Systolic blood pressure 2024-02-18 13:30:00 172 mm[Hg] [facility] Diastolic blood pressure 2024-02-18 13:30:00 88 mm[Hg] [facility] Heart rate 2024-02-18 13:30:00 76 /min [facility] Respiratory rate 2024-02-18 13:28:00 18 /min [facility] Body height 2024-02-18 13:28:00 167.6 cm [facility] Body weight 2024-02-18 13:28:00 159.712 kg [facility] BMI 2024-02-18 13:28:00 56.83 kg/m2 [facility] Body temperature 2024-02-12 18:09:00 36.61 Mariama [facility] Oxygen saturation in Arterial blood by Pulse oximetry 2024-02-12 18:09:00 97 /min Axson o [facility] Procedures Procedure Date / Time Performed Performing Clinician Source CT ABDOMEN PELVIS W CONTRAST 2025-02-18 19:44:00 Michell Hall [facility] POCT TEST 2025-02-18 18:28:00 Michell Hall [facility] LIPASE 2025-02-18 18:25:00 Michell Hall [facility] COMP. METABOLIC PANEL (16608) 2025-02-18 18:25:00 Michell Hall [facility] CBC WITH DIFF 2025-02-18 18:25:00 Michell Hall [facility] URINALYSIS 2025-02-18 18:25:00 Michell Hall [facility] US GALL BLADDER 2025-02-18 18:18:31 Michell Hall [facility] PHOSPHORUS 2024-04-16 09:30:00 Abi [facility] MAGNESIUM 2024-04-16 09:30:00 Abi [facility] BASIC METABOLIC PANEL (NA, K , CL, CO2, GLUCOSE, BUN, CREATININE, CA) 2024-04-16 09:30:00 Abi [facility] CBC WITH DIFF 2024-04-16 09:30:00 Abi [facility] PHOSPHORUS 2024-04-16 09:30:00 Abi [facility] MAGNESIUM 2024-04-16 09:30:00 Abi [facility] BASIC METABOLIC PANEL (NA, K , CL, CO2, GLUCOSE, BUN, CREATININE, CA) 2024-04-16 09:30:00 Abi, [facility] CBC WITH DIFF 2024-04-16 09:30:00 Abi [facility] INTUBATION 2024-04-15 16:40:00 [facility] LAPAROSCOPIC ROBOTIC ASSISTE D BARIATRIC GASTRIC BYPASS 2024-04-15 16:09:00 Abi [facility] LAPAROSCOPIC ROBOTIC ASSISTE D BARIATRIC GASTRIC BYPASS 2024-04-15 16:09:00 Abi [facility] POCT TEST 2024-04-15 00:00:00 Antoni [facility] POCT TEST 2024-04-15 00:00:00 Antoni [facility] EGD (ENDO) 2024-02-29 17:45:10 Marta Haile [facility] EGD (ENDO) 2024-02-29 17:45:10 Marta Haile [facility] ESOPHAGOGASTRODUODENOSCOPY 2024-02-29 15:58:00 Abi [facility] POCT TEST 2024-02-29 13:50:00 Aurelio Fuentes [facility] POCT TEST 2024-02-29 13:50:00 Aurelio Fuentes [facility] HB ECG ROUTINE & RHYTHM STRIP 2024-02-06 18:02:16 Quique Beaulieu [facility] SLEEP LAB RESULTS 2024-01-15 21:47:46 Quique Beaulieu [facility] SLEEP LAB RESULTS 2024-01-15 21:47:46 Quique Beaulieu [facility] SLEEP STUDY DATA REPORT 2024-01-15 17:39:11 Quique Beaulieu [facility] SLEEP STUDY DATA REPORT 2024-01-15 17:39:11 Quique Beaulieu [facility] FL UPPER GI SERIES 2023-12-27 15:06:40 Quique Beaulieu [facility] UPPER GI SERIES 2023-12-27 15:06:40 Quique Beaulieu [facility] US LIVER 2023-12-27 13:13:23 Quique Beaulieu [facility] US LIVER 2023-12-27 13:13:23 Quique Beaulieu [facility] COMP. METABOLIC PANEL (27472) 2023-12-24 13:06:00 Quique Beaulieu [facility] CBC WITH DIFF 2023-12-24 13:06:00 Quique Beaulieu [facility] FOLATE 2023-12-24 13:06:00 Quique Beaulieu [facility] FERRITIN SERUM 2023-12-24 13:06:00 Quique Beaulieu [facility] GLYCOSYLATED HEMOGLOBIN (A1C) 2023-12-24 13:06:00 Quique Beaulieu [facility] IRON PANEL 2023-12-24 13:06:00 Quique Beaulieu [facility] LIPID PANEL (54705)(TOTAL CHOLESTEROL, TRIGLYCERIDES, HDL) 2023-12-24 13:06:00 Quique Beaulieu [facility] INTACT PTH CALCIUM GROUP 2023-12-24 13:06:00 Quique Beaulieu [facility] VITAMIN B1 (THIAMINE), WHOLE BLOOD 12-23 13:06:00 Quique Beaulieu [facility] VITAMIN B12, LEVEL 2023-12-24 13:06:00 Quique Beaulieu [facility] VITAMIN D, 25-OH 2023-12-24 13:06:00 Quique Beaulieu [facility] REFERRAL- REQUEST/RESPONSE 2023-12-05 23:49:15 Doctor Unassigned, [place] [facility] REFERRAL- REQUEST/RESPONSE 2023-12-05 23:49:15 Doctor Unassigned, [place] [facility] POCT TEST 2023-10-18 14:34:00 Shanae Peterson [facility] POCT TEST 2023-09-13 15:01:00 Marta Haile [facility] DISCLOSURE AND CONSENT, MEDI WANDA AND SURGICAL PROCEDURES 2023-09-13 06:01:00 Doctor Unassigned, [place] [facility] GARDASIL 9 (HPV 9V) VACCINE 2023-08-27 15:06:53 Sarika Hand [facility] BCCS-RELATED DOCUMENTATION 2023-08-27 06:01:00 Doctor Unassigned, [place] [facility] FLU VACC ([id number]), 6 MO-6 4 YRS, .5ML, IM, QUAD (FLUCELVAX) 2023-04-16 21:02:06 Sarika Hand [facility] HIGH RISK HPV-THIN PREP 2023-03-16 21:09:00 Sarika Hand [facility] PAP SMEAR-LIQUID BASED-CP 2023-03-16 21:09:00 Sarika Hand [facility] GARDASIL 9 (HPV 9V) VACCINE 2023-03-16 19:37:22 Sarika Hand [facility] ASSIGNMENT OF BENEFITS 2023-03-16 19:07:49 Doctor Unassigned, [place] [facility] GARDASIL 9 (HPV 9V) VACCINE 2023-01-03 14:46:18 Sarika Hand [facility] GALV ONLY - HIV TYPE 1 AND 2 ANTIBODY TESTING 2013-09-02 18:25:00 Charles Dixon [facility] Encounters Start Date/Time End Date/Time Encounter Type Admission Type Attending [facility] Care Facility Care Department Encounter ID Source 2024-07-01 08:07:00 Outpatient Vicky Valdes [facility] [id number] [facility] 2024-04-02 12:51:00 [facility] [id number] [facility] 2024-04-01 08:25:00 [facility] [id number] [facility] 2024-03-14 14:44:00 Outpatient Vicky Valdes [facility] [id number] [facility] 2023-11-26 07:40:00 Outpatient Vicky Valdes [facility] [id number] [facility] 2023-11-14 14:25:00 Outpatient TriggVicky moura [facility] [id number] [facility] 2023-09-17 13:51:00 Outpatient Vicky Valdes [facility] [id number] [facility] 2022-11-15 10:55:01 Outpatient TriggVicky moura STLML[facility] STL[facility]C [id number] [facility] 2022-10-26 08:04:00 Outpatient TriggVicky moura STLML[facility] STL[facility]C [id number] [facility] 2022-09-25 13:33:02 Outpatient Vicky Valdes [facility] ST[facility] [id number] [facility] 2022-09-22 10:06:00 Outpatient AltamiranoСветлана STLML[facility] STL[facility]C [id number] [facility] 2022-07-27 16:21:00 Outpatient AltamiranoСветлана STLMLC STLMLC [id number] [facility] 2022-07-25 08:43:01 Outpatient AltamiranoMasoni STLMLC STL[facility]C [id number] [facility] 2021-10-03 10:29:01 Outpatient AltamiranoMasoni STLMLC STLMLC [id number] [facility] 2021-09-15 13:43:01 Outpatient Altamirano, Светлана STLMLC STLMLC [id number] [facility] 2021-09-14 07:50:01 Outpatient Altamirano, Светлана STLMLC STLMLC [id number] [facility] 2021-08-10 13:40:52 Outpatient TriggVicky moura STLMLC STLMLC [id number] [facility] 2021-08-10 12:18:34 Outpatient Vicky Valdes [facility] [id number] [facility] 2021-08-10 12:16:28 Outpatient Vicky Valdes [facility] [id number] Common [facility] 2021-08-10 11:49:57 Outpatient Vicky Valdes [facility] [id number] [facility] 2021-08-10 11:44:05 Outpatient Vicky Valdes [facility] [id number] [facility] 2025-04-10 08:30:00 2025-04-10 08:30:00 Outpatient R [facility] [id number] General acute hospital 2025-02-19 10:15:00 2025-02-19 10:46:07 [facility] 1.2.840.114 350.1.13.10 4.2.7.2.686 [id number] General acute hospital 2025-02-18 00:00:00 2025-02-19 09:41:35 Telephone Yarelis Alex [facility] 1.2.840.114 350.1.13.10 4.2.7.2.686 [id number] General acute hospital 2025-02-18 12:35:00 2025-02-18 16:23:00 Emergency X MICHELL HALL PAMALA [facility] ERT [id number] General acute hospital 2025-02-18 13:22:03 2025-02-18 13:22:03 Outpatient SFA SFA [id number] [facility] 2025-02-09 00:00:00 2025-02-09 00:00:00 [facility] [id number] [facility] 2025-02-09 00:00:00 2025-02-09 00:00:00 (WEB) STLMLC STLMLC [id number] [facility] 2025-02-04 16:22:59 2025-02-04 16:22:59 Outpatient SFA SFA [id number] [facility] 2025-01-21 00:00:00 2025-01-21 00:00:00 OFFICE VISIT ESTAB PT LEVEL 3 STLMLC STLMLC [id number] [facility] 2024-11-17 10:30:00 2024-11-17 10:30:00 Outpatient R RASHEED GONSALVES MICHELLE [facility] [id number] General acute hospital 2024-11-06 00:00:00 2024-11-06 00:00:00 OFFICE VISIT ESTAB PT LEVEL 3 STLMLC STLMLC [id number] [facility] 2024-11-04 16:00:00 2024-11-04 16:00:00 Outpatient R [facility] [id number] General acute hospital 2024-10-14 09:30:00 2024-10-14 09:47:27 Outpatient R QUIQUE BEAULIEU [facility] [id number] General acute hospital 2024-10-14 09:30:00 2024-10-14 09:47:27 Office Visit Quique Beaulieu [facility] ..840.114 350.1.13.10 4.2.7.2.686 [id number] General acute hospital 2024-10-06 08:00:00 2024-10-06 08:15:00 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, Quique Hunter Lab, Bennett Rogers [facility] 1..840.114 350.1.13.10 4.2.7.2.686 [id number] General acute hospital 2024-10-06 08:00:00 2024-10-06 08:00:00 Outpatient R QUIQUE BEAULIEU [facility] [id number] General acute hospital 2024-09-16 00:00:00 2024-09-16 00:00:00 (WEB) STLMLC STLC [id number] [facility] 2023-12-05 00:00:00 2024-08-30 07:43:47 Orders Only Doctor Unassigned, [place] Doctor Unassigned, [place] [facility] 1.2.840.114 350.1.13.10 4.2.7.2.686 [id number] General acute hospital 2024-01-15 00:00:00 2024-08-30 07:23:56 Orders Only Christofer Quique Wilma [facility] 1.2840.114 350.1.13.10 4.2.7.2.686 [id number] General acute hospital 2024-01-15 00:00:00 2024-08-30 07:23:37 Orders Only Jrvalerie Quique Wilma [facility] 1.2840.114 350.1.13.10 4.2.7.2.686 [id number] General acute hospital 2024-08-20 00:00:00 2024-08-20 00:00:00 (TEL) STLC STLC [id number] [facility] 2024-08-15 00:00:00 2024-08-15 00:00:00 OFFICE VISIT ESTAB PT LEVEL 4 STLMLC STLC [id number] [facility] 2024-07-17 15:30:00 2024-07-17 16:19:34 Outpatient R YARELIS ALEX [facility] [id number] General acute hospital 2024-07-17 15:30:00 2024-07-17 16:19:34 Bench Mover Visit Dalia Cook Sarah [facility] 1.2840.114 350.1.13.10 4.2.7.2.686 [id number] General acute hospital 2024-07-07 00:00:00 2024-07-10 09:50:16 Patient Secure Msg Quique [facility] 1.2.840.114 350.1.13.10 4.2.7.2.686 [id number] General acute hospital 2024-05-30 00:00:00 2024-07-05 18:20:02 Patient Secure Msg Quique [facility]ul[facility] 1.2.840.114 350.1.13.10 4.2.7.2.686 [id number] General acute hospital 2024-07-02 00:00:00 2024-07-02 00:00:00 OFFICE VISIT ESTAB PT LEVEL 4 [facility] [id number] [facility] 2024-06-17 10:00:00 2024-06-17 10:00:00 Outpatient R [facility] [id number] General acute hospital 2024-06-03 00:00:00 2024-06-03 13:11:01 Telephone Ernie Yarelis [facility] 1.2.840.114 350.1.13.10 4.2.7.2.686 [id number] General acute hospital 2024-04-27 00:00:00 2024-05-31 18:23:27 Patient Secure Quique Redman [facility] 1.2.840.114 350.1.13.10 4.2.7.2.686 [id number] General acute hospital 2024-05-29 00:00:00 2024-05-29 00:00:00 ([facility]) STLMLC STLMLC [id number] [facility] 2024-05-27 09:30:00 2024-05-27 10:10:50 Outpatient R QUIQUE BEAULIEU [facility] [id number] General acute hospital 2024-05-27 09:30:00 2024-05-27 10:10:50 Office Visit Quique Beaulieu [facility] 1.2.840.114 350.1.13.10 4.2.7.2.686 [id number] General acute hospital 2024-04-09 00:00:00 2024-05-10 18:18:54 Patient Secure Msg Doctor Unassigned, [place] Doctor Unassigned, [place] [facility] 1.2.840.114 350.1.13.10 4.2.7.2.686 [id number] General acute hospital 2024-05-09 00:00:00 2024-05-09 15:46:18 Patient Secure Msg Quique Beaulieu [facility] 1.2840.114 350.1.13.10 4.2.7.2.686 [id number] General acute hospital 2024-05-07 09:00:00 2024-05-07 09:00:00 Outpatient R ERNIE YARELIS [facility] [id number] General acute hospital 2024-05-06 15:30:00 2024-05-06 16:00:00 Office Visit Pantera Diehl [facility] 1.2840.114 350.1.13.10 4.2.7.2.686 [id number] General acute hospital 2024-05-06 15:30:00 2024-05-06 15:30:00 Outpatient R PANTERA DIEHL [facility] [id number] General acute hospital 2024-05-06 00:00:00 2024-05-06 14:24:28 Telephone Abi Yarelis [facility] 1.2840.114 350.1.13.10 4.2.7.2.686 [id number] General acute hospital 2024-05-01 10:00:00 2024-05-01 10:06:21 Outpatient R YARELIS ALEX [facility] [id number] General acute hospital 2024-05-01 10:00:00 2024-05-01 10:06:21 Office Visit Yarelis Alex [facility] 1.2.840.114 350.1.13.10 4.2.7.2.686 [id number] General acute hospital 2024-04-28 00:00:00 2024-04-28 16:14:00 Telephone Ernie Yarelis [facility] 1.2.840.114 350.1.13.10 4.2.7.2.686 [id number] General acute hospital 2024-04-22 00:00:00 2024-04-22 15:28:11 Telephone Yarelis Alex [facility] 1.2.840.114 350.1.13.10 4.2.7.2.686 [id number] General acute hospital 2024-04-21 00:00:00 2024-04-21 09:18:43 Patient Secure Msg Quique Beaulieu [facility] 1.2.840.114 350.1.13.10 4.2.7.2.686 [id number] General acute hospital 2024-04-18 00:00:00 2024-04-18 17:16:10 Telephone Yarelis Alex [facility] 1.2.840.114 350.1.13.10 4.2.7.2.686 [id number] General acute hospital 2024-04-15 09:41:00 2024-04-16 17:31:00 [id number] 2024-04-15 09:41:00 2024-04-16 17:31:00 Hospital Encounter Yarelis Alex [facility] ([facility] 1.2.840.114 350.1.13.10 4.2.7.2.686 [id number] General acute hospital 2024-04-15 11:47:00 2024-04-15 15:26:00 Surgery Abi Yarelis [facility] ([facility]) 1.2.840.114 350.1.13.10 4.2.7.2.686 [id number] General acute hospital 2024-04-15 11:34:00 2024-04-15 14:16:00 [facility]est[facility] 1.2.840.114 350.1.13.10 4.2.7.2.686 [id number] General acute hospital 2024-04-02 00:00:00 2024-04-02 00:00:00 OFFICE VISIT ESTAB PT LEVEL 3 STLMLC STLMLC [id number] [facility] 2024-04-01 00:00:00 2024-04-01 10:28:00 Patient Secure Msg Quique Beaulieu Wilma [facility] 1.2.840.114 350.1.13.10 4.2.7.2.686 [id number] General acute hospital 2024-03-27 10:00:00 2024-03-27 10:53:56 Outpatient R YARELIS ALEX [facility] [id number] General acute hospital 2024-03-27 10:00:00 2024-03-27 10:53:56 Nurse Visit Nurse, [facility] Bariatric Yarelis Alex Nurse, [facility] Bariatric [facility] 1.2.840.114 350.1.13.10 4.2.7.2.686 [id number] General acute hospital 2024-03-13 00:00:00 2024-03-13 00:00:00 (WEB) STLMLC STLMLC [id number] [facility] 2024-03-12 00:00:00 2024-03-12 00:00:00 (WEB) STLMLC STLMLC [id number] [facility] 2024-03-06 13:00:00 2024-03-06 14:11:37 Outpatient R ABI, YARELIS [facility] [id number] General acute hospital 2024-03-06 13:00:00 2024-03-06 14:11:37 Office Visit Abi, Yarelis [facility] 1.2.840.114 350.1.13.10 4.2.7.2.686 [id number] General acute hospital 2024-03-03 00:00:00 2024-03-03 11:51:26 Patient Secure Yarelis Klein [facility] 1.2.840.114 350.1.13.10 4.2.7.2.686 [id number] General acute hospital 2024-02-29 08:45:00 2024-02-29 13:04:00 Outpatient R ABI, YARELIS [facility] [id number] General acute hospital 2024-02-29 08:45:00 2024-02-29 13:04:00 Hospital Encounter Abi, Yarelis [facility] 1.2.840.114 350.1.13.10 4.2.7.2.686 [id number] General acute hospital 2024-02-29 09:43:00 2024-02-29 10:21:00 Surgery Abi, Yarelis [facility] 1.2.840.114 350.1.13.10 4.2.7.2.686 [id number] General acute hospital 2024-02-28 00:00:00 2024-02-28 15:03:58 Patient Secure Msg Yarelis Klein [facility] 1.2.840.114 350.1.13.10 4.2.7.2.686 [id number] [id number] General acute hospital 2024-02-25 00:00:00 2024-02-25 11:11:13 Case Management Yarelis Alex [facility] 1.2.840.114 350.1.13.10 4.2.7.2.686 [id number] General acute hospital 2024-02-25 09:00:00 2024-02-25 09:31:19 Outpatient R QUIQUE BEAULIEU [facility] [id number] General acute hospital 2024-02-25 09:00:00 2024-02-25 09:31:19 Office Visit Quique Beaulieu [facility] 1.2.840.114 350.1.13.10 4.2.7.2.686 [id number] General acute hospital 2024-02-20 00:00:00 2024-02-20 16:56:31 Telephone Yarelis Klein [facility] 1.2.840.114 350.1.13.10 4.2.7.2.686 [id number] [id number] General acute hospital 2024-02-20 13:30:00 2024-02-20 14:00:00 Office Visit Yarelis Klein [facility] 1.2.840.114 350.1.13.10 4.2.7.2.686 [id number] [id number] General acute hospital 2024-02-20 13:30:00 2024-02-20 13:30:00 Outpatient R YARELIS KLEIN [facility] [id number] General acute hospital 2024-02-18 08:45:00 2024-02-18 10:26:24 Outpatient R CHRISTINE RICHTER [facility] [id number] General acute hospital 2024-02-18 00:00:00 2024-02-18 00:00:00 Travel 1.2.840.1 68854.1.1 3.104.2.7 .3.838634 .8 1.2.840.114 350.1.13.10 4.2.7.3.698 084.8 [id number] General acute hospital 2024-02-16 00:00:00 2024-02-16 00:00:00 Travel 1.2.840.1 51696.1.1 3.104.2.7 .3.485127 .8 1.2.840.114 350.1.13.10 4.2.7.3.698 084.8 [id number] General acute hospital 2024-02-15 00:00:00 2024-02-15 00:00:00 Travel 1.2.840.1 60364.1.1 3.104.2.7 .3.358623 .8 1.2.840.114 350.1.13.10 4.2.7.3.698 084.8 [id number] General acute hospital 2024-02-12 13:00:00 2024-02-12 14:17:56 Outpatient R QUIQUE BEAULIEU [facility] [id number] General acute hospital 2024-02-12 13:00:00 2024-02-12 14:17:56 Bench Mover Visit Quique Beaulieu [place] 1.2.840.1 00564.1.1 3.104.2.7 .3.079413 .8 [id number] General acute hospital 2024-02-12 00:00:00 2024-02-12 00:00:00 Travel 1.2.840.1 54391.1.1 3.104.2.7 .3.559183 .8 1.2.840.114 350.1.13.10 4.2.7.3.698 084.8 [id number] General acute hospital 2024-02-10 00:00:00 2024-02-10 00:00:00 Travel 1.2.840.1 22435.1.1 3.104.2.7 .3.315833 .8 1.2.840.114 350.1.13.10 4.2.7.3.698 084.8 [id number] General acute hospital 2024-02-06 12:43:34 2024-02-06 23:59:00 Outpatient R QUIQUE BEAULIEU [facility] [id number] General acute hospital 2024-02-06 12:43:34 2024-02-06 23:59:00 Hospital Encounter Quique Beaulieugram, Cl[facility] Bl[facility] 1.2.840.1 26721.1.1 3.104.2.7 .3.326261 .8 [id number] General acute hospital 2024-02-06 00:00:00 2024-02-06 00:00:00 Travel 1.2.840.1 29171.1.1 3.104.2.7 .3.777154 .8 1.2.840.114 350.1.13.10 4.2.7.3.698 084.8 [id number] General acute hospital 2024-01-30 13:15:00 2024-01-30 13:15:00 Outpatient R ROGELIO TALLEY, YANET [facility] [id number] General acute hospital 2024-01-29 09:30:00 2024-01-29 09:30:00 Outpatient R QUIQUE BEAULIEU [facility] [id number] General acute hospital 2024-01-28 14:00:00 2024-01-28 14:17:36 Outpatient R QUIQUE BEAULIEU [facility] [id number] General acute hospital 2024-01-28 14:00:00 2024-01-28 14:17:36 Office Visit Quique Beaulieu 1.2.840.1 12902.1.1 3.104.2.7 .3.546656 .8 [id number] General acute hospital 2024-01-28 00:00:00 2024-01-28 00:00:00 Travel 1.2.840.1 89487.1.1 3.104.2.7 .3.208800 .8 1.2.840.114 350.1.13.10 4.2.7.3.698 084.8 [id number] General acute hospital 2024-01-26 00:00:00 2024-01-26 00:00:00 Travel 1.2.840.1 42423.1.1 3.104.2.7 .3.877754 .8 1.2.840.114 350.1.13.10 4.2.7.3.698 084.8 [id number] General acute hospital 2024-01-18 00:00:00 2024-01-18 00:00:00 (TEL) [facility] [id number] [facility] 2024-01-14 00:00:00 2024-01-15 09:27:06 Telephone Elina Mayes 1.2.840.1 74005.1.1 3.104.2.7 .3.261092 .8 [id number] General acute hospital 2024-01-10 11:00:00 2024-01-10 11:12:46 Office Visit Sarika Hand Candice 1.2.840.1 53997.1.1 3.104.2.7 .3.241090 .8 [id number] General acute hospital 2024-01-10 09:30:00 2024-01-10 09:45:00 Armature Straightener Visit Padmaja Mccloud 1.2.840.1 35877.1.1 3.104.2.7 .3.579139 .8 [id number] General acute hospital 2024-01-10 09:30:00 2024-01-10 09:30:00 Outpatient PADMAJA DONIS STRAHIL [facility] [id number] General acute hospital 2024-01-10 00:00:00 2024-01-10 00:00:00 Travel 1.2.840.1 56118.1.1 3.104.2.7 .3.870443 .8 1.2.840.114 350.1.13.10 4.2.7.3.698 084.8 [id number] General acute hospital 2024-01-09 00:00:00 2024-01-09 00:00:00 Travel 1.2.840.1 23584.1.1 3.104.2.7 .3.888166 .8 1.2.840.114 350.1.13.10 4.2.7.3.698 084.8 [id number] General acute hospital 2024-01-08 13:00:00 2024-01-08 14:16:04 Outpatient QUIQUE العراقي [facility] [id number] General acute hospital 2024-01-08 13:00:00 2024-01-08 14:16:04 Bench Mover Visit Quique Beaulieu [place] 1.2.840.1 64255.1.1 3.104.2.7 .3.015270 .8 [id number] General acute hospital 2024-01-08 00:00:00 2024-01-08 00:00:00 Travel 1.2.840.1 64174.1.1 3.104.2.7 .3.307742 .8 1.2.840.114 350.1.13.10 4.2.7.3.698 084.8 [id number] General acute hospital 2024-01-06 00:00:00 2024-01-06 00:00:00 Travel 1.2.840.1 67257.1.1 3.104.2.7 .3.104760 .8 1.2.840.114 350.1.13.10 4.2.7.3.698 084.8 [id number] General acute hospital 2023-12-31 08:00:00 2023-12-31 08:18:39 Outpatient R NORMAN STERLING [facility] [id number] General acute hospital 2023-12-31 08:00:00 2023-12-31 08:18:39 Ancillary Visit [facility] Pt/Ortho Walk In 1.2.840.1 09501.1.1 3.104.2.7 .3.260137 .8 [id number] General acute hospital 2023-12-31 00:00:00 2023-12-31 00:00:00 Travel 1.2.840.1 24201.1.1 3.104.2.7 .3.640099 .8 1.2.840.114 350.1.13.10 4.2.7.3.698 084.8 [id number] General acute hospital 2023-12-27 07:50:07 2023-12-27 23:59:00 Hospital Encounter Quique Beaulieu R 1.2.840.1 31517.1.1 3.104.2.7 .3.442350 .8 [id number] General acute hospital 2023-12-27 07:49:45 2023-12-27 07:49:45 Outpatient R QUIQUE BEAULIEU [facility] [id number] General acute hospital 2023-12-27 07:49:45 2023-12-27 07:49:45 Hospital Encounter Quique Beaulieu R 1.2.840.1 54671.1.1 3.104.2.7 .3.304601 .8 [id number] General acute hospital 2023-12-24 08:00:00 2023-12-24 08:04:40 Outpatient R YARELIS ALEX [facility] [id number] General acute hospital 2023-12-24 08:00:00 2023-12-24 08:04:40 Armature Straightener Visit Yarelis Alex Lab, Ang - Db 1.2.840.1 90302.1.1 3.104.2.7 .3.165100 .8 [id number] General acute hospital 2023-12-24 00:00:00 2023-12-24 00:00:00 Travel 1.2.840.1 12751.1.1 3.104.2.7 .3.410174 .8 1.2.840.114 350.1.13.10 4.2.7.3.698 084.8 [id number] General acute hospital 2023-12-20 08:45:00 2023-12-20 10:09:09 Office Visit Yarelis Alex 1.2.840.1 44807.1.1 3.104.2.7 .3.720197 .8 [id number] General acute hospital 2023-12-20 08:45:00 2023-12-20 10:09:09 Outpatient R YARELIS ALEX [facility] [id number] General acute hospital 2023-12-20 00:00:00 2023-12-20 00:00:00 Travel 1.2.840.1 84335.1.1 3.104.2.7 .3.468275 .8 1.2.840.114 350.1.13.10 4.2.7.3.698 084.8 [id number] General acute hospital 2023-12-17 00:00:00 2023-12-18 13:38:31 Telephone Yarelis Alex 1.2.840.1 50840.1.1 3.104.2.7 .3.064555 .8 [id number] General acute hospital 2023-12-18 00:00:00 2023-12-18 00:00:00 Travel 1.2.840.1 87005.1.1 3.104.2.7 .3.032055 .8 1.2.840.114 350.1.13.10 4.2.7.3.698 084.8 [id number] General acute hospital 2023-12-03 00:00:00 2023-12-03 00:00:00 (TEL) STLMLC [facility] [id number] [facility] 2023-12-03 00:00:00 2023-12-03 00:00:00 (WEB) STLMLC STLMLC [id number] [facility] 2023-11-28 00:00:00 2023-11-28 00:00:00 OFFICE VISIT ESTAB PT LEVEL 3 STLMLC STLMLC [id number] [facility] 2023-11-01 00:00:00 2023-11-01 00:00:00 Case Management [facility] 1..840.114 350.1.13.10 4.2.7.2.686 [id number] General acute hospital 2023-10-30 00:00:00 2023-10-30 00:00:00 (WEB) STLMLC STLMLC [id number] [facility] 2023-10-30 00:00:00 2023-10-30 00:00:00 (TEL) STLMLC STLMLC [id number] [facility] 2023-10-29 00:00:00 2023-10-29 00:00:00 Telephone [facility] 1.840.114 350.1.13.10 4.2.7.2.686 [id number] 113 [id number] General acute hospital 2023-10-26 00:00:00 2023-10-26 00:00:00 (TEL) STLMLC STLMLC [id number] [facility] 2023-10-25 00:00:00 2023-10-25 00:00:00 Case Management [facility] 1..840.114 350.1.13.10 4.2.7.2.686 [id number] 113 [id number] General acute hospital 2023-10-18 09:30:00 2023-10-18 11:20:46 Outpatient R SHANAE PETERSON [facility] [id number] General acute hospital 2023-10-18 09:30:00 2023-10-18 10:00:00 Office Visit Res-Colpo/L eep, Uhc-Rmchp Shanae Peterson [facility] 07.17.840.114 350.1.13.10 4.2.7.2.686 [id number] 113 [id number] General acute hospital 2023-10-11 14:30:00 2023-10-11 14:30:00 Outpatient R [facility] [id number] General acute hospital 2023-09-27 09:30:00 2023-09-27 10:02:58 Outpatient R EMILY MI [facility] [id number] General acute hospital 2023-09-25 00:00:00 2023-09-25 00:00:00 OFFICE VISIT ESTAB PT LEVEL 3 [facility]C [facility] [id number] [facility] 2023-09-25 00:00:00 2023-09-25 00:00:00 ([facility]) [facility] [id number] [facility] 2023-09-18 00:00:00 2023-09-18 00:00:00 Telephone Sarika Hand [facility] PHOTO MASK PROCESSOR [facility] MATERNAL & CHILD [facility] ..840.114 350.1.13.10 4.2.7.2.686 [id number] 107 [id number] General acute hospital 2023-09-13 09:45:00 2023-09-13 10:05:50 Outpatient MARTA KIRBY [facility] [id number] General acute hospital 2023-09-13 09:45:00 2023-09-13 10:05:50 Nurse Visit Pea-Rmp Nurse Vst, Fp Nrpt Pills Class Marta Haile [facility] PHOTO MASK PROCESSOR [facility] MATERNAL & CHILD [facility] 1.840.114 350.1.13.10 4.2.7.2.686 [id number] General acute hospital 2023-09-13 09:00:00 2023-09-13 10:05:43 Outpatient R MARTA HAILE [facility] [id number] General acute hospital 2023-09-13 09:00:00 2023-09-13 10:05:43 Office Visit Marta Haile [facility] PHOTO MASK PROCESSOR [facility] & CHILD [facility] 1.840.114 350.1.13.10 4.2.7.2.686 [id number] General acute hospital 2023-09-13 00:00:00 2023-09-13 00:00:00 Orders Only Doctor Unassigned, [place] [facility] 1.0.114 350.1.13.10 4.2.7.2.686 [id number] [id number] General acute hospital 2023-08-27 09:00:00 2023-08-27 09:15:00 Nurse Visit Nurse, Bennett Rmchp Rgv Cprit ObgySarika Roche [facility] PHOTO MASK PROCESSOR [facility] MATERNAL & CHILD [facility] 1.840.114 350.1.13.10 4.2.7.2.686 [id number] 107 [id number] General acute hospital 2023-08-27 09:00:00 2023-08-27 09:10:11 Outpatient R SARIKA HAND [facility] [id number] General acute hospital 2023-08-27 00:00:00 2023-08-27 00:00:00 Orders Only Doctor Unassigned, [place] [facility] 1.840.114 350.1.13.10 4.2.7.2.686 [id number] General acute hospital 2023-07-25 08:30:00 2023-07-25 08:30:00 Outpatient R [facility] [id number] General acute hospital 2023-04-19 00:00:00 2023-04-19 00:00:00 Telephone Sarika Hnad [facility] PHOTO MASK PROCESSOR [facility] & CHILD [facility] 1.2.840.114 350.1.13.10 4.2.7.2.686 [id number] 107 [id number] General acute hospital 2023-04-16 14:15:00 2023-04-16 16:00:48 Outpatient ALISA PARRISH [facility] [id number] General acute hospital 2023-04-16 14:15:00 2023-04-16 16:00:48 Office Visit Provider, Alisa Cifuentes [facility] PHOTO MASK PROCESSOR [facility] & CHILD [facility] 1.840.114 350.1.13.10 4.2.7.2.686 [id number] General acute hospital 2023-04-07 11:30:00 2023-04-07 11:30:00 Outpatient R CHELSEA ERNANDEZ [facility] [id number] General acute hospital 2023-04-05 00:00:00 2023-04-05 00:00:00 Telephone Sarika Hand [facility] PHOTO MASK PROCESSOR [facility] & CHILD [facility] 1.840.114 350.1.13.10 4.2.7.2.686 [id number] General acute hospital 2023-04-04 00:00:00 2023-04-04 00:00:00 Telephone Sarika Hand [facility] PHOTO MASK PROCESSOR [facility] CHILD [facility] 1.2840.114 350.1.13.10 4.2.7.2.686 [id number] 107 [id number] General acute hospital 2023-03-30 10:30:00 2023-03-30 10:30:00 Outpatient R SARIKA HAND [facility] [id number] General acute hospital 2023-03-16 15:00:00 2023-03-16 15:27:00 Outpatient R SARIKA HAND [facility] [id number] General acute hospital 2023-03-16 14:30:00 2023-03-16 15:21:28 Office Visit Sarika Hand [facility] PHOTO MASK PROCESSOR [facility] & CHILD [facility] 1.0.114 350.1.13.10 4.2.7.2.686 [id number] 107 [id number] General acute hospital 2023-03-16 15:00:00 2023-03-16 15:15:00 Nurse Visit Nurse, Bennett Rmchp Rgv Cprit Obgyn Sarika Hand [facility] PHOTO MASK PROCESSOR [facility] 1.0.114 350.1.13.10 4.2.7.2.686 [id number] 107 [id number] General acute hospital 2023-03-16 00:00:00 2023-03-16 00:00:00 Orders Only Doctor Unassigned, [place] [facility] 1.0.114 350.1.13.10 4.2.7.2.686 [id number] General acute hospital 2023-02-09 08:30:00 2023-02-09 08:30:00 Outpatient R [facility] [id number] General acute hospital 2023-01-03 08:15:00 2023-01-03 09:03:21 Outpatient R SARIKA HAND [facility] [id number] General acute hospital 2023-01-03 08:15:00 2023-01-03 09:03:21 Office Visit Sarika Hand [facility] PHOTO MASK PROCESSOR [facility] 1.0.114 350.1.13.10 4.2.7.2.686 [id number] 107 [id number] General acute hospital 2023-01-03 08:45:00 2023-01-03 09:03:10 Outpatient R SARIKA HAND [facility] [id number] General acute hospital 2023-01-03 08:45:00 2023-01-03 09:03:10 Nurse Visit Nurse, Bennett Rmchp Rgv Cprit Obgyn Sarika Hand [place] PHOTO MASK PROCESSOR [facility] & CHILD [facility] 1.2.840.114 350.1.13.10 4.2.7.2.686 [id number] 107 [id number] General acute hospital 2022-10-26 14:15:00 2022-10-26 14:15:00 Outpatient R SARIKA HAND [facility] [id number] General acute hospital 2022-10-06 00:00:00 2022-10-06 00:00:00 (TEL) STLMLC STLMLC [id number] [facility] 2022-09-26 00:00:00 2022-09-26 00:00:00 OFFICE VISIT ESTAB PT LEVEL 4 STLMLC STLMLC [id number] [facility] 2022-08-02 00:00:00 2022-08-02 00:00:00 (TEL) STLMLC STLMLC [id number] [facility] 2022-07-31 00:00:00 2022-07-31 00:00:00 (TEL) STLMLC STLMLC [id number] [facility] 2022-07-27 00:00:00 2022-07-27 00:00:00 OFFICE VISIT ESTAB PT LEVEL 4 STLMLC STLMLC [id number] [facility] 2022-03-09 08:30:00 2022-03-09 09:39:34 Outpatient R SARIKA HAND [facility] [id number] General acute hospital 2022-03-09 08:30:00 2022-03-09 09:39:34 Office Visit Sarika Hand [facility] PHOTO MASK PROCESSOR [facility] 1.2.840.114 350.1.13.10 4.2.7.2.686 [id number] 107 [id number] General acute hospital 2022-03-09 00:00:00 2022-03-09 00:00:00 Orders Only Doctor Unassigned, [place] [facility] 1.2.840.114 350.1.13.10 4.2.7.2.686 [id number] General acute hospital 2021-10-13 00:00:00 2021-10-13 00:00:00 OFFICE VISIT EST PT LEVEL 3 STLMLC STLMLC [id number] [facility] 2021-09-16 00:00:00 2021-09-16 00:00:00 OFFICE VISIT EST PT LEVEL 3 STLMLC STLMLC [id number] [facility] 2021-09-02 18:28:00 2021-09-02 21:28:00 Emergency X Antoinette COULTER [facility] ERT [id number] General acute hospital 2021-09-02 18:28:00 2021-09-02 21:28:00 [facility] 1.2.840.114 350.1.13.10 4.2.7.2.686 [id number] General acute hospital 2021-05-30 00:00:00 2021-05-30 00:00:00 OFFICE VISIT EST PT LEVEL 3 STLMLC STLMLC [id number] [facility] 2021-04-19 00:00:00 2021-04-19 00:00:00 OFFICE VISIT EST PT LEVEL 3 STLMLC STLMLC [id number] [facility] 2021-03-14 00:00:00 2021-03-14 00:00:00 OFFICE VISIT EST PT LEVEL 3 STLMLC STLMLC [id number] [facility] 2021-03-09 00:00:00 2021-03-09 00:00:00 (TEL) STLMLC STLMLC [id number] [facility] 2021-03-04 00:00:00 2021-03-04 00:00:00 (TEL) STLMLC STLMLC [id number] [facility] 2021-02-23 00:00:00 2021-02-23 00:00:00 (TEL) STLMLC STLMLC [id number] [facility] 2021-02-22 00:00:00 2021-02-22 00:00:00 OFFICE VISIT EST PT LEVEL 3 STLMLC STLMLC [id number] [facility] 2021-02-15 00:00:00 2021-02-15 00:00:00 OFFICE VISIT EST PT LEVEL 3 STLMLC STLMLC [id number] [facility] 2020-10-05 00:00:00 2020-10-05 00:00:00 Patient Outreach Daryl Glez [facility] 1.2.840.114 350.1.13.10 4.2.7.2.686 [id number] 2020-10-05 00:00:00 2020-10-05 00:00:00 Patient Outreach Daryl Glez [facility] 1.2.840.114 350.1.13.10 4.2.7.2.686 [id number] General acute hospital 2020-07-13 00:00:00 2020-07-13 00:00:00 Outpatient STLMLC STLMLC [id number] [facility] 2020-04-13 00:00:00 2020-04-13 00:00:00 Outpatient STLMLC STLMLC [id number] [facility] 2020-04-01 14:49:13 2020-04-01 15:45:49 Office Visit Sarika Hand [facility] PHOTO MASK PROCESSOR [facility] 1.2.840.114 350.1.13.10 4.2.7.2.686 [id number] 2020-04-01 14:49:13 2020-04-01 15:45:49 Office Visit Sarika Hand [facility] PHOTO MASK PROCESSOR [facility] CHILD [facility] 1..840.114 350.1.13.10 4.2.7.2.686 [id number] 107 [id number] General acute hospital 2020-04-01 15:00:00 2020-04-01 15:00:00 Outpatient R SARIKA HAND [facility] [id number] General acute hospital 2020-03-18 14:46:29 2020-03-18 16:12:22 Office Visit Sarika Hand [facility] PHOTO MASK PROCESSOR [facility] 1..840.114 350.1.13.10 4.2.7.2.686 [id number] 107 [id number] General acute hospital 2020-03-18 15:00:00 2020-03-18 15:00:00 Outpatient R SARIKA HAND [facility] [id number] General acute hospital 2020-03-18 00:00:00 2020-03-18 00:00:00 Orders Only Doctor Unassigned, [place] [facility] 1..840.114 350.1.13.10 4.2.7.2.686 [id number] General acute hospital 2020-03-11 14:15:00 2020-03-11 14:15:00 Outpatient R SARIKA HAND [facility] [id number] General acute hospital 2020-03-05 08:51:12 2020-03-05 09:45:49 Office Visit Sarika Hand [facility] PHOTO MASK PROCESSOR [facility] 1..840.114 350.1.13.10 4.2.7.2.686 [id number] 107 [id number] General acute hospital 2020-03-05 09:00:00 2020-03-05 09:00:00 Outpatient R SARIKA HAND [facility] [id number] General acute hospital 2020-03-05 00:00:00 2020-03-05 00:00:00 Orders Only Doctor Unassigned, [place] [facility] 1.2.840.114 350.1.13.10 4.2.7.2.686 [id number] [id number] General acute hospital Results Test Description Test Time Test Comments Results Result Comments Source CT Abdomen pelvis w contrast 20:07:35 CT ABDOMEN PELVIS W CONTRAST 02/18/2025 2:34 PM HISTORY: Bowel obstruction suspected COMPARISON: None. TECHNIQUE: Axial images of the abdomen and pelvis were acquired afteradministration of intravenous contrast. Coronal and sagittalreconstructions were also created. FINDINGS: LOWER CHEST: The lungs bases are clear. ? HEPATOBILIARY: The liver is normal in size.No focal hepatic lesion.No biliary ductal dilatation. The gallbladder is distended without surrounding inflammatory changes. SPLEEN: Multiple small calcifications, likely granulomatous. PANCREAS: The parenchyma is unremarkable.No ductal dilatation. No masses. ADRENAL GLANDS: No adrenal nodules. KIDNEYS: No hydronephrosis or stone. No solid mass. GI TRACT: Post gastric bypass. No dilation or wall thickening. The appendixis unremarkable. PERITONEUM AND RETROPERITONEUM: No free air or free fluid. LYMPH NODES: No lymphadenopathy is seen. PELVIS/BLADDER: The urinary bladder is underdistended. The reproductiveorgans are within normal limits. 3 cm left adnexal cyst. VESSELS: Within normal limits. BONES AND SOFT TISSUES: No aggressive osseous lesion or acute osseousabnormality. No concerning soft tissue abnormality. [facility] US Gall bladder 18:31:22 EXAM: US GALL BLADDER HISTORY: 34 years-old Female; Provided indication: r/o cholecystitis. TECHNIQUE: Limited abdominal ultrasound focused on the gallbladder wasperformed. The main portal vein was evaluated with color Doppler.Looper Operator images were obtained for the record. COMPARISON: Abdominal ultrasound dated 12/27/2023 FINDINGS: PANCREAS:The pancreas is poorly visualized due to shadowing from bowel gas. LIVER:Visualized Parenchyma: The liver parenchyma exhibits normal hepaticechogenicity and echotexture.Portal vein: Hepatopetal flow is present in the main portal vein with adiameter of 1 cm and a PSV of 28 cm/s. BILE DUCTS:No intra- or extrahepatic biliary dilatation is visualized.The common duct diameter is normal and measures 0.3 cm. GALLBLADDER:No stones are seen. The gallbladder appears hydropic with a length of 9.3cm The gallbladder wall thickness is normal and measures 0.2 cm. Nopericholecystic fluid is visualized.Moody's sign was not present. [facility] [id number] 00:00:00* Test Item Value Reference Range Interpretation Comme nts TSH RFLX FT4 AND FT3 (test code = 06527-2) 0.917 UIU/ML See_Comment [Automated message] The system which generated this result transmitted reference range: 0.400-4.100 UIU/ML. The reference range was not used to interpret this result as normal/abnormal. NUCLEATED RBCS (test code = 14231-2) 0.0 /100 WBC'S See_Comment [Automated message] The system which generated this result transmitted reference range: 0.0 /100 WBC'S. The reference range was not used to interpret this result as normal/abnormal. ABSOLUTE EOSINOPHILS (test code = 92700-7) 0.07 K/UL See_Comment [Automated message] The system which generated this result transmitted reference range: 0.00-0.50 K/UL. The reference range was not used to interpret this result as normal/abnormal. ABSOLUTE LYMPHOCYTES (test code = 28601-8) 2.15 K/UL See_Comment [Automated message] The system which generated this result transmitted reference range: 1.00-4.00 K/UL. The reference range was not used to interpret this result as normal/abnormal. ABSOLUTE MONOCYTES (test code = 52518-8) 0.79 K/UL See_Comment [Automated message] The system which generated this result transmitted reference range: 0.20-1.00 K/UL. The reference range was not used to interpret this result as normal/abnormal. ABSOLUTE NEUTROPHILS (test code = 17468-4) 6.05 K/UL See_Comment [Automated message] The system which generated this result transmitted reference range: 1.50-7.50 K/UL. The reference range was not used to interpret this result as normal/abnormal. BASOPHILS (test code = 95719-6) 0.7 % EOSINOPHILS (test code = 39517-7) 0.8 % HEMATOCRIT (test code = 82270-9) 43.8 % See_Comment [Automated messa ge] The system which generated this result transmitted reference range: 34.0-45.0 %. The reference range was not used to interpret this result as normal/abnormal. HEMOGLOBIN (test code = 718-7) 14.8 G/DL See_Comment [Automated messa ge] The system which generated this result transmitted reference range: 11.5-15.5 G/DL. The reference range was not used to interpret this result as normal/abnormal. LYMPHOCYTES (test code = 51483-7) 23.5 % MCH (test code = 85340-4) 30.6 PG See_Comment [Automated messa ge] The system which generated this result transmitted reference range: 25.0-33.0 PG. The reference range was not used to interpret this result as normal/abnormal. MCHC (test code = 20181-8) 33.8 G/DL See_Comment [Automated messa ge] The system which generated this result transmitted reference range: 31.0-36.0 G/DL. The reference range was not used to interpret this result as normal/abnormal. MCV (test code = 60410-1) 90.7 fL See_Comment [Automated messa ge] The system which generated this result transmitted reference range: 80.0-99.0 fL. The reference range was not used to interpret this result as normal/abnormal. MONOCYTES (test code = 26845-0) 8.6 % NEUTROPHILS (test code = 48515-0) 66.2 % PLATELET COUNT (test code = 89977-5) 261 K/UL See_Comment [Automated messa ge] The system which generated this result transmitted reference range: 130-400 K/UL. The reference range was not used to interpret this result as normal/abnormal. RBC (test code = 86504-1) 4.83 M/UL See_Comment [Automated messa ge] The system which generated this result transmitted reference range: 3.80-5.40 M/UL. The reference range was not used to interpret this result as normal/abnormal. RDW (test code = 06508-5) 12.5 % See_Comment [Automated messa ge] The system which generated this result transmitted reference range: 11.5-15.0 %. The reference range was not used to interpret this result as normal/abnormal. WBC (test code = 58861-9) 9.1 K/UL See_Comment [Automated [employer]] The system which generated this result transmitted reference range: 3.5-11.0 K/UL. The reference range was not used to interpret this result as normal/abnormal. CALC LDL CHOL (test code = 91347-4) 76 MG/DL See_Comment [Automated [employer]] The system which generated this result transmitted reference range: <100 MG/DL. The reference range was not used to interpret this result as normal/abnormal. CHOLESTEROL (test code = 2093-3) 146 MG/DL See_Comment [Automated [employer]] The system which generated this result transmitted reference range: <200 MG/DL. The reference range was not used to interpret this result as normal/abnormal. HDL CHOLESTEROL (test code = 2085-9) 50 MG/DL See_Comment [Automated [employer]] The system which generated this result transmitted reference range: >39 MG/DL. The reference range was not used to interpret this result as normal/abnormal. RISK RATIO LDL/HDL (test code = 62272-2) 1.52 RATIO See_Comment [Automated message] The system which generated this result transmitted reference range: <3.22 RATIO. The reference range was not used to interpret this result as normal/abnormal. TRIGLYCERIDES (test code = 2571-8) 114 MG/DL See_Comment [Automated [employer]] The system which generated this result transmitted reference range: <150 MG/DL. The reference range was not used to interpret this result as normal/abnormal. ALBUMIN (test code = 1751-7) 4.2 G/DL See_Comment [Automated [employer]] The system which generated this result transmitted reference range: 3.5-5.2 G/DL. The reference range was not used to interpret this result as normal/abnormal. ALKALINE PHOSPHATASE (test code = 6768-6) 125 U/L See_Comment H [Automated message] The system which generated this result transmitted reference range: 40-114 U/L. The reference range was not used to interpret this result as normal/abnormal. BILIRUBIN, TOTAL (test code = 1975-2) 0.4 MG/DL See_Comment [Automated messa ge] The system which generated this result transmitted reference range: <=1.2 MG/DL. The reference range was not used to interpret this result as normal/abnormal. BUN (test code = 3094-0) 12 MG/DL See_Comment [Automated messa ge] The system which generated this result transmitted reference range: 6-20 MG/DL. The reference range was not used to interpret this result as normal/abnormal. CALCIUM (test code = 32375-2) 9.7 MG/DL See_Comment [Automated messa ge] The system which generated this result transmitted reference range: 8.5-10.5 MG/DL. The reference range was not used to interpret this result as normal/abnormal. CALC A/G RATIO (test code = 1759-0) 1.5 RATIO See_Comment [Automated messa ge] The system which generated this result transmitted reference range: 1.0-2.6 RATIO. The reference range was not used to interpret this result as normal/abnormal. CALC BUN/CREAT (test code = 3097-3) 17 RATIO See_Comment [Automated messa ge] The system which generated this result transmitted reference range: 6-28 RATIO. The reference range was not used to interpret this result as normal/abnormal. CALC GLOBULIN (test code = 39957-7) 2.8 G/DL See_Comment [Automated messa ge] The system which generated this result transmitted reference range: 1.9-3.7 G/DL. The reference range was not used to interpret this result as normal/abnormal. CARBON DIOXIDE (test code = 1963-8) 22 MEQ/L See_Comment [Automated messa ge] The system which generated this result transmitted reference range: 19-31 MEQ/L. The reference range was not used to interpret this result as normal/abnormal. CHLORIDE (test code = 2075-0) 105 MEQ/L See_Comment [Automated messa ge] The system which generated this result transmitted reference range: 95-107 MEQ/L. The reference range was not used to interpret this result as normal/abnormal. CREATININE (test code = 2160-0) 0.70 MG/DL See_Comment [Automated messa ge] The system which generated this result transmitted reference range: 0.60-1.30 MG/DL. The reference range was not used to interpret this result as normal/abnormal. eGFR (2020 CKD-EPI) (test code = 41793-6) 118 ML/MIN/1.73 See_Comment [Automated message] The system which generated this result transmitted reference range: >60 ML/MIN/1.73. The reference range was not used to interpret this result as normal/abnormal. GLUCOSE (test code = 1558-6) 83 MG/DL See_Comment [Automated messa ge] The system which generated this result transmitted reference range: 70-99 MG/DL. The reference range was not used to interpret this result as normal/abnormal. POTASSIUM (test code = 2823-3) 4.8 MEQ/L See_Comment [Automated messa ge] The system which generated this result transmitted reference range: 3.5-5.4 MEQ/L. The reference range was not used to interpret this result as normal/abnormal. PROTEIN, TOTAL (test code = 2885-2) 7.0 G/DL See_Comment [Automated messa ge] The system which generated this result transmitted reference range: 6.1-8.3 G/DL. The reference range was not used to interpret this result as normal/abnormal. AST (test code = 1920-8) 18 U/L See_Comment [Automated messa ge] The system which generated this result transmitted reference range: 9-40 U/L. The reference range was not used to interpret this result as normal/abnormal. ALT (test code = 1742-6) 19 U/L See_Comment [Automated messa ge] The system which generated this result transmitted reference range: 5-40 U/L. The reference range was not used to interpret this result as normal/abnormal. SODIUM (test code = 2951-2) 139 MEQ/L See_Comment [Automated messa ge] The system which generated this result transmitted reference range: 133-146 MEQ/L. The reference range was not used to interpret this result as normal/abnormal. FREE T4 (THYROXINE)2024-08-11 00:00:00* Test Item Value Reference Range Interpretation Comme nts TSH RFLX FT4 AND FT3 (test code = 08255-4) 0.175 UIU/ML See_Comment L [Automated messa ge] The system which generated this result transmitted reference range: 0.400-4.100 UIU/ML. The reference range was not used to interpret this result as normal/abnormal. FREE T3 (test code = 3051-0) 2.9 PG/ML See_Comment [Automated [employer]] The system which generated this result transmitted reference range: 2.2-4.2 PG/ML. The reference range was not used to interpret this result as normal/abnormal. FREE T4 (THYROXINE) (test code = 3024-7) 0.91 NG/DL See_Comment [Automated [employer]] The system which generated this result transmitted reference range: 0.80-1.90 NG/DL. The reference range was not used to interpret this result as normal/abnormal. FREE T4 (THYROXINE)2024-06-30 00:00:00* Test Item Value Reference Range Interpretation Comme nts ALBUMIN, URINE, RANDOM (test code = 49187-7) <0.2 MG/DL NOT ESTAB MG/DL CALC ALBUMIN/CREAT, RND (test code = 35945-2) <4 MG/G See_Comment [Automated [employer]] The system which generated this result transmitted reference range: <30 MG/G. The reference range was not used to interpret this result as normal/abnormal. CREATININE, URINE, CONC. (test code = 2161-8) 53.6 MG/DL NOT ESTAB MG/DL HEMOGLOBIN A1c (test code = 4548-4) 5.2 % See_Comment [Automated [employer]] The system which generated this result transmitted reference range: 4.2-5.6 %. The reference range was not used to interpret this result as normal/abnormal. TSH RFLX FT4 AND FT3 (test code = 59474-3) 0.034 UIU/ML See_Comment L [Automated message] The system which generated this result transmitted reference range: 0.400-4.100 UIU/ML. The reference range was not used to interpret this result as normal/abnormal. NUCLEATED RBCS (test code = 08156-4) 0.0 /100 WBC'S See_Comment [Automated message] The system which generated this result transmitted reference range: 0.0 /100 WBC'S. The reference range was not used to interpret this result as normal/abnormal. ABSOLUTE EOSINOPHILS (test code = 12501-3) 0.07 K/UL See_Comment [Automated message] The system which generated this result transmitted reference range: 0.00-0.50 K/UL. The reference range was not used to interpret this result as normal/abnormal. ABSOLUTE LYMPHOCYTES (test code = 44364-7) 3.32 K/UL See_Comment [Automated message] The system which generated this result transmitted reference range: 1.00-4.00 K/UL. The reference range was not used to interpret this result as normal/abnormal. ABSOLUTE MONOCYTES (test code = 97394-5) 0.89 K/UL See_Comment [Automated message] The system which generated this result transmitted reference range: 0.20-1.00 K/UL. The reference range was not used to interpret this result as normal/abnormal. ABSOLUTE NEUTROPHILS (test code = 75871-5) 6.61 K/UL See_Comment [Automated message] The system which generated this result transmitted reference range: 1.50-7.50 K/UL. The reference range was not used to interpret this result as normal/abnormal. BASOPHILS (test code = 61679-3) 0.5 % EOSINOPHILS (test code = 42488-8) 0.6 % HEMATOCRIT (test code = 17537-9) 43.2 % See_Comment [Automated messa ge] The system which generated this result transmitted reference range: 34.0-45.0 %. The reference range was not used to interpret this result as normal/abnormal. HEMOGLOBIN (test code = 718-7) 14.1 G/DL See_Comment [Automated messa ge] The system which generated this result transmitted reference range: 11.5-15.5 G/DL. The reference range was not used to interpret this result as normal/abnormal. LYMPHOCYTES (test code = 65920-1) 30.3 % MCH (test code = 88619-7) 29.1 PG See_Comment [Automated messa ge] The system which generated this result transmitted reference range: 25.0-33.0 PG. The reference range was not used to interpret this result as normal/abnormal. MCHC (test code = 72729-2) 32.6 G/DL See_Comment [Automated messa ge] The system which generated this result transmitted reference range: 31.0-36.0 G/DL. The reference range was not used to interpret this result as normal/abnormal. MCV (test code = 18022-7) 89.3 fL See_Comment [Automated messa ge] The system which generated this result transmitted reference range: 80.0-99.0 fL. The reference range was not used to interpret this result as normal/abnormal. MONOCYTES (test code = 04333-7) 8.1 % NEUTROPHILS (test code = 24179-3) 60.3 % PLATELET COUNT (test code = 24135-4) 360 K/UL See_Comment [Automated messa ge] The system which generated this result transmitted reference range: 130-400 K/UL. The reference range was not used to interpret this result as normal/abnormal. RBC (test code = 74053-4) 4.84 M/UL See_Comment [Automated messa ge] The system which generated this result transmitted reference range: 3.80-5.40 M/UL. The reference range was not used to interpret this result as normal/abnormal. RDW (test code = 34392-4) 14.1 % See_Comment [Automated messa ge] The system which generated this result transmitted reference range: 11.5-15.0 %. The reference range was not used to interpret this result as normal/abnormal. WBC (test code = 19612-7) 11.0 K/UL See_Comment [Automated messa ge] The system which generated this result transmitted reference range: 3.5-11.0 K/UL. The reference range was not used to interpret this result as normal/abnormal. CALC LDL CHOL (test code = 66933-7) 86 MG/DL See_Comment [Automated [employer]] The system which generated this result transmitted reference range: <100 MG/DL. The reference range was not used to interpret this result as normal/abnormal. CHOLESTEROL (test code = 2093-3) 148 MG/DL See_Comment [Automated messa ge] The system which generated this result transmitted reference range: <200 MG/DL. The reference range was not used to interpret this result as normal/abnormal. HDL CHOLESTEROL (test code = 2085-9) 47 MG/DL See_Comment [Automated [employer]] The system which generated this result transmitted reference range: >39 MG/DL. The reference range was not used to interpret this result as normal/abnormal. RISK RATIO LDL/HDL (test code = 78401-1) 1.83 RATIO See_Comment [Automated message] The system which generated this result transmitted reference range: <3.22 RATIO. The reference range was not used to interpret this result as normal/abnormal. TRIGLYCERIDES (test code = 2571-8) 66 MG/DL See_Comment [Automated messa ge] The system which generated this result transmitted reference range: <150 MG/DL. The reference range was not used to interpret this result as normal/abnormal. ALBUMIN (test code = 1751-7) 4.0 G/DL See_Comment [Automated messa ge] The system which generated this result transmitted reference range: 3.5-5.2 G/DL. The reference range was not used to interpret this result as normal/abnormal. ALKALINE PHOSPHATASE (test code = 6768-6) 109 U/L See_Comment [Automated message] The system which generated this result transmitted reference range: 40-114 U/L. The reference range was not used to interpret this result as normal/abnormal. BILIRUBIN, TOTAL (test code = 1975-2) 0.4 MG/DL See_Comment [Automated messa ge] The system which generated this result transmitted reference range: <=1.2 MG/DL. The reference range was not used to interpret this result as normal/abnormal. BUN (test code = 3094-0) 6 MG/DL See_Comment [Automated messa ge] The system which generated this result transmitted reference range: 6-20 MG/DL. The reference range was not used to interpret this result as normal/abnormal. CALCIUM (test code = 17935-9) 9.5 MG/DL See_Comment [Automated messa ge] The system which generated this result transmitted reference range: 8.5-10.5 MG/DL. The reference range was not used to interpret this result as normal/abnormal. CALC A/G RATIO (test code = 1759-0) 1.5 RATIO See_Comment [Automated messa ge] The system which generated this result transmitted reference range: 1.0-2.6 RATIO. The reference range was not used to interpret this result as normal/abnormal. CALC BUN/CREAT (test code = 3097-3) 10 RATIO See_Comment [Automated messa ge] The system which generated this result transmitted reference range: 6-28 RATIO. The reference range was not used to interpret this result as normal/abnormal. CALC GLOBULIN (test code = 43544-9) 2.7 G/DL See_Comment [Automated messa ge] The system which generated this result transmitted reference range: 1.9-3.7 G/DL. The reference range was not used to interpret this result as normal/abnormal. CARBON DIOXIDE (test code = 1962-8) 25 MEQ/L See_Comment [Automated messa ge] The system which generated this result transmitted reference range: 19-31 MEQ/L. The reference range was not used to interpret this result as normal/abnormal. CHLORIDE (test code = 2074-0) 102 MEQ/L See_Comment [Automated messa ge] The system which generated this result transmitted reference range: 95-107 MEQ/L. The reference range was not used to interpret this result as normal/abnormal. CREATININE (test code = 216-0) 0.61 MG/DL See_Comment [Automated messa ge] The system which generated this result transmitted reference range: 0.60-1.30 MG/DL. The reference range was not used to interpret this result as normal/abnormal. eGFR (2020 CKD-EPI) (test code = 94918-3) 123 ML/MIN/1.73 See_Comment [Automated message] The system which generated this result transmitted reference range: >60 ML/MIN/1.73. The reference range was not used to interpret this result as normal/abnormal. GLUCOSE (test code = 1558-6) 83 MG/DL See_Comment [Automated messa ge] The system which generated this result transmitted reference range: 70-99 MG/DL. The reference range was not used to interpret this result as normal/abnormal. POTASSIUM (test code = 2823-3) 4.6 MEQ/L See_Comment [Automated messa ge] The system which generated this result transmitted reference range: 3.5-5.4 MEQ/L. The reference range was not used to interpret this result as normal/abnormal. PROTEIN, TOTAL (test code = 2885-2) 6.7 G/DL See_Comment [Automated messa ge] The system which generated this result transmitted reference range: 6.1-8.3 G/DL. The reference range was not used to interpret this result as normal/abnormal. AST (test code = 1920-8) 17 U/L See_Comment [Automated messa ge] The system which generated this result transmitted reference range: 9-40 U/L. The reference range was not used to interpret this result as normal/abnormal. ALT (test code = 1742-6) 21 U/L See_Comment [Automated messa ge] The system which generated this result transmitted reference range: 5-40 U/L. The reference range was not used to interpret this result as normal/abnormal. SODIUM (test code = 2951-2) 138 MEQ/L See_Comment [Automated messa ge] The system which generated this result transmitted reference range: 133-146 MEQ/L. The reference range was not used to interpret this result as normal/abnormal. FREE T3 (test code = 3051-0) 3.1 PG/ML See_Comment [Automated messa ge] The system which generated this result transmitted reference range: 2.2-4.2 PG/ML. The reference range was not used to interpret this result as normal/abnormal. FREE T4 (THYROXINE) (test code = 3024-7) 1.00 NG/DL See_Comment [Automated message] The system which generated this result transmitted reference range: 0.80-1.90 NG/DL. The reference range was not used to interpret this result as normal/abnormal. [id number] 16:40:00Zaina Kathleen MD PhD ? ? 04/15/2024 12:21 PMIntubationDate/Time: 04/15/2024 11:40 AMUrgency: elective Airway not difficult General Information and Staff Patient location during procedure: ORPerformed: resident/GENERATOR WORKER Performed by: Johnathon Corrales MDAuthorized by: Zaina Kathleen MD PhD ? Indications and Patient ConditionIndications for airway management: anesthesiaSpontaneous ventilation: presentSedation level: deepPreoxygenated: yesPatient position: sniffingMILS maintained throughoutMask difficulty assess ment: 1 - vent by mask Final Airway DetailsFinal airway type: endotracheal airway Successful airway: ETTCuffed: yes Successful intubation technique: direct laryngoscopyFacilitating devices/methods: intubating styletEndotracheal tube insertion site: oralBlade: MacintoshBlade size: #3ETT size (mm): 7.5Cormack- Lehane Classification: grade I - full view of glottisPlacement verified by: chest auscultation and capnometry Measured from: teethETT to teeth (cm): 21Number of attempts at approach: 1Ventilation between attempts: noneNumber of other approaches attempted: 0 Additional CommentsSmooth, atraumatic, dentition and lips unchanged from pre-op.[facility] [id number] 00:00:00* Test Item Value Reference Range Interpretation Comme nts POCT PREG (test code = 1605) Negative On board controls acceptable with C Line (test code = 3574) Yes POCT PREG LOT # (test code = 3575) POCT PREG TEST DATE ( test code = 3576) [facility] [id number] 00:00:00* Test Item Value Reference Range Interpretation Comme nts POCT PREG (test code = 1605) Negative On board controls acceptable with C Line (test code = 3574) Yes POCT PREG LOT # (test code = 3575) POCT PREG TEST DATE ( test code = 3576) [facility] [id number] 13:53:00* Test Item Value Reference Range Interpretation Comme [facility] POCT PREG (test code = 1605) Negative On board controls acceptable with C Line (test code = 3574) Yes POCT PREG LOT # (test code = 3575) POCT PREG TEST DATE ( test code = 3576) Lab Interpretation (test cod e = 93898-4) Normal [facility] [id number] 13:53:00* Test Item Value Reference Range Interpretation Comme [facility] POCT PREG (test code = 1605) Negative On board controls acceptable with C Line (test code = 3574) Yes POCT PREG LOT # (test code = 3575) POCT PREG TEST DATE ( test code = 3576) Lab Interpretation (test cod e = 64758-6) [facility] [id number] 09:50:16* Test Item Value Reference Range Interpretation Comme [facility] Vitamin B1, Whole Blood (test code = 58840-0) 111 nmol/L 70-180 INTERPRETIVE INF ORMATION: Vitamin B1, Whole Blood This assay measures the concentration of thiamine diphosphate (TDP), the primary active form of vitamin B1. Approximately 90 percent of vitamin B1 present in whole blood is TDP. Thiamine and thiamine monophosphate, which comprise the remaining 10 percent, are not measured. This test was developed and its performance characteristics determined by [facility]. It has not been cleared or approved by the [place] Food and Drug Administration. This test was performed in a CLIA certified laboratory and is intended for clinical purposes.Performed By: [facility] [place] [id number] Director: Star Chavez MD, PhDCLIA Number: [id number] [facility] UPPER GI [id number] 15:25:43EXAM: Upper GI examination HISTORY: ?Evaluate for hiatal hernia and GERD; TECHNIQUE:Double contrastfluoroscopic evaluation of the esophagus, stomachand duodenum is performed with patient in gravity dependent and recumbentpositions. Spot views and cine sequences are obtained in uploaded to [facility].FINDINGS: The esophagus demonstrates normal motility and mucosa. No ulcerations,strictures or masses are seen. A small type I hiatal hernia is seen. Severegastroesophageal reflux is noted with refluxseen above the level of theclavicles. The stomach and duodenum demonstrate normal mucosa and motility. No largemasses or obstructing lesions are seen.[facility] UPPER GI [id number] 15:25:43EXAM: Upper GI examination HISTORY: ?Evaluate for hiatal hernia and GERD; TECHNIQUE:Double contrastfluoroscopic evaluation of the esophagus, stomachand duodenum is performed with patient in gravity dependent and recumbentpositions. Spot views and cine sequences are obtained in uploaded to [facility].FINDINGS: The esophagus demonstrates normal motility and mucosa. No ulcerations,strictures or masses are seen. A small type I hiatal hernia is seen. Severegastroesophageal reflux is noted with refluxseen above the level of theclavicles. The stomach and duodenum demonstrate normal mucosa and motility. No largemasses or obstructing lesions are seen.[facility] [id number] 13:17:36EXAM: Ultrasound of the abdomen limited-liver HISTORY: Evaluate for liver disease TECHNIQUE:Sonographic evaluation of the right upper abdomen is performedfocused to the liver. FINDINGS: Liver is enlar ged and measures 18.2 cm in maximum length. The echotextureof the liver is diffusely increased which limits the evaluation of thedeeper portion of the liver for subtle masses. No definite masses are seen.Portal venous flow is in the normal direction. Portal vein measures 1 cm. No intra or extrahepatic bile duct dilation is seen. Common bile ductmeasures 4 mm. Gallbladder is normal. No gallstone, wall thickening or pericholecysticfluid is present. Visualized portions of the pancreas are normal.[facility] 13:17:36EXAM: Ultrasound of the abdomen limited-liver HISTORY: Evaluate for liver disease TECHNIQUE:Sonographic evaluation of the right upper abdomen is performedfocused to the liver. FINDINGS: Liver is enlarged and measures 18.2 cm in maximum length. The echotextureof the liver is diffusely increased which limits the evaluation of thedeeper portion of the liver for subtle masses. No definite masses are seen.Portal venous flow is in the normal direction. Portal vein measures 1 cm. No intra or extrahepatic bile duct dilation is seen. Common bile ductmeasures 4 mm. Gallbladder is normal. No gallstone, wall thickening or pericholecysticfluid is present. Visualized portions of the pancreas are normal.[facility] [facility] Calcium Ywmfs0631-32-07 21:48:58* Test Item Value Reference Range Interpretation Comme [facility] PTH-INTACT (test code = 8354299633) 50.1 pg/mL 12.0-88.0 PTH-CA Interpretation (test code = 0180633173) PTH IS [facility] for Calcium CALCIUM (test code = 0432006062) 9.4 mg/dL 8.6-10.6 [facility]it[facility] B12, [id number] 21:05:18* Test Item Value Reference Range Interpretation Comme nts VIT B12 (test code = 9146142531) 286 pg/mL 240-930 RICARDO (test code = RICARDO) Biotin has been reported to cause a positive bias, interpret results relative to patient's use of biotin. Lab Interpretation (test code = 21529-9) Normal [facility] CenterFolate2024-06-10 21:05:18* Test Item Value Reference Range Interpretation Comme nts FOLATE SER (test code = 7895224132) 3.7 ng/mL 3.0-20.0 Biotin has been reported to cause a positive bias, interpret results relative to patient's use of biotin. Lab Interpretation (test code = 05769-0) Normal [facility] CenterVitamin D, [id number] 20:45:35* Test Item Value Reference Range Interpretation Comme nts VIT D 25OH (test code = 40350-5) 25-80 L RICARDO (test code = RICARDO) Deficiency: <20 ng/mLInsufficiency: 20-24 ng/mLOptimal: 25-80 ng/mL Lab Interpretation (test code = 97933-6) Abnormal [facility] CenterGlycosylated Hemoglobin (A1C)2023-12-24 20:15:14* Test Item Value Reference Range Interpretation Comme nts HGB A1C (test code = 4548-4) 4.9 % 4.0-5.7 RICARDO (test code = RICARDO) Reference RangesNormal: <5.7%Prediabetes: 5.7 - 6.4%Diabetes: > 6.5% Lab Interpretation (test code = 77820-3) Normal [facility] CenterCbc with [id number] 20:04:26* Test Item Value Reference Range Interpretation Comme nts WBC (test code = 6690-2) 9.39 4.30-11.10 RBC (test code = 789-8) 4.87 3.93-5.25 HGB (test code = 718-7) 15.1 g/dL 11.6-15.0 H HCT (test code = 4544-3) 44.7 % 35.7-45.2 MCV (test code = 787-2) 91.8 fL 80.6-95.5 MCH (test code = 785-6) 31.0 pg 25.9-32.8 MCHC (test code = 786-4) 33.8 g/dL 31.6-35.1 RDW-SD (test code = 48865-6) 47.7 fL 39.0-49.9 RDW-CV (test code = 788-0) 14.2 % 12.0-15.5 PLT (test code = 777-3) 272 166-358 MPV (test code = 50947-3) 10.4 fL 9.5-12.9 NRBC/100 WBC (test code = 6425636541) 0.0 0.0-10.0 NRBC x10^3 (test code = 5135951420) See_Comment [Automated messa ge] The system which generated this result transmitted reference range: 10*3/?L. The reference range was not used to interpret this result as normal/abnormal. GRAN MAT (NEUT) % (test code = 770-8) 62.9 % IMM GRAN % (test code = 4646873893) 0.50 % LYMPH % (test code = 736-9) 25.5 % MONO % (test code = 5905-5) 9.6 % EOS % (test code = 713-8) 0.6 % BASO % (test code = 706-2) 0.9 % GRAN MAT x10^3(ANC) (test code = 4242374322) 5.91 10*3/uL 1.88-7.09 IMM GRAN x10^3 (test code = 5617797334) 0.05 10*3/uL 0.00-0.06 LYMPH x10^3 (test code = 731-0) 2.39 10*3/uL 1.32-3.29 MONO x10^3 (test code = 742-7) 0.90 10*3/uL 0.33-0.92 EOS x10^3 (test code = 711-2) 0.06 10*3/uL 0.03-0.39 BASO x10^3 (test code = 704-7) 0.08 10*3/uL 0.01-0.07 H Lab Interpretation (test code = 87191-7) Abnormal [facility] CenterFerritin [id number] 19:53:22* Test Item Value Reference Range Interpretation Comme nts FERRITIN (test code = 1641302569) 49.3 ng/mL 6.0-137.0 RICARDO (test code = RICARDO) Biotin has been reported to cause a negative bias, interpret results relative to patient's use of biotin. Lab Interpretation (test code = 37898-0) Normal [facility] CenterIron [id number] 19:30:58* Test Item Value Reference Range Interpretation Comme nts IRON (test code = 6685601078) 103 ug/dL 50-160 TIBC (test code = 4935023292) 277 ug/dL 250-410 % FE SAT (test code = 5898829881) 37 % 20-50 Lab Interpretation (test cod e = 12015-5) Normal [facility] CenterComp. Metabolic Panel (84586)2023-12-24 19:21:16* Test Item Value Reference Range Interpretation Comme nts NA (test code = 4005605509) 138 mmol/L 135-145 K (test code = 0494515327) 4.4 mmol/L 3.5-5.0 CL (test code = 1001416548) 105 mmol/L 98-108 CO2 TOTAL (test code = 0410631677) 27 mmol/L 23-31 AGAP (test code = 0590392419) 6 2-16 BUN (test code = 0489656171) 11 mg/dL 7-23 GLUCOSE (test code = 8454393680) 84 mg/dL 70-110 CREATININE (test code = 2160-0) 0.75 mg/dL 0.50-1.04 TOTAL BILI (test code = 4612923822) 0.9 mg/dL 0.1-1.1 CALCIUM (test code = 6040760506) 9.4 mg/dL 8.6-10.6 T PROTEIN (test code = 7272397436) 7.3 g/dL 6.3-8.2 ALBUMIN (test code = 9318941823) 4.0 g/dL 3.5-5.0 ALK PHOS (test code = 3140291995) 106 U/L 34-122 ALTv (test code = 1742-6) 27 U/L 5-35 AST(SGOT) (test code = 3943109664) 25 U/L 13-40 eGFR (test code = 21993-6) 109.3 mL/min/1.73m2 CKD-EPI eGFR (20 21). Assuming creatinine has been stable day-to-day for at least three months, the eGFR indicates Category G1 (>= 90 mL/min/1.73 m2) [facility] CenterLipid Panel (60619)(Total Cholesterol, Triglycerides, HDL)2023-12-24 19:21:16* Test Item Value Reference Range Interpretation Comme nts CHOL (test code = 4789506327) 194 mg/dL 120-200 HDL (test code = 1717266734) 64 mg/dL >=50 HDLC RATIO (test code = 4098697995) 3.0 <=4.5 TRIG (test code = 0569050052) 82 mg/dL 30-170 LDL CHOL (test code = 65299-9) 114 mg/dL <=160 VLDL (test code = 0177411002) 16 mg/dL 5-60 Lab Interpretation (test cod e = 95511-0) Normal [facility] CenterREFERRAL- REQUEST/ATQPHVXT6055-73-72 23:49:15 Ordered by an unspecified provider.[facility] Caaw8595-05-17 14:35:00* Test Item Value Reference Range Interpretation Comme nts POCT PREG (test code = 1605) Negative On board controls acceptable with C Line (test code = 3574) Yes POCT PREG LOT # (test code = 3575) POCT PREG TEST DATE ( test code = 3576) Lab Interpretation (test cod e = 77443-1) Normal [facility] [id number] 14:35:00* Test Item Value Reference Range Interpretation Comme nts POCT PREG (test code = 1605) Negative On board controls acceptable with C Line (test code = 3574) Yes POCT PREG LOT # (test code = 3575) POCT PREG TEST DATE ( test code = 3576) Lab Interpretation (test cod e = 51708-2) Normal [facility] Ljap6478-82-02 14:35:00* Test Item Value Reference Range Interpretation Comme nts POCT PREG (test code = 1605) Negative On board controls acceptable with C Line (test code = 3574) Yes POCT PREG LOT # (test code = 3575) POCT PREG TEST DATE ( test code = 3576) Lab Interpretation (test cod e = 52787-6) Normal [facility] [id number] 14:35:00* Test Item Value Reference Range Interpretation Comme nts POCT PREG (test code = 1605) Negative On board controls acceptable with C Line (test code = 3574) Yes POCT PREG LOT # (test code = 3575) POCT PREG TEST DATE ( test code = 3576) Lab Interpretation (test cod e = 00656-1) Normal [facility] [id number] 14:35:00* Test Item Value Reference Range Interpretation Comme nts POCT PREG (test code = 1605) Negative On board controls acceptable with C Line (test code = 3574) Yes POCT PREG LOT # (test code = 3575) POCT PREG TEST DATE ( test code = 3576) Lab Interpretation (test cod e = 79799-1) Normal [facility] CenterPOCT [id number] 15:01:00* Test Item Value Reference Range Interpretation Comme nts POCT PREG (test code = 1605) Negative On board controls acceptable with C Line (test code = 3574) Yes POCT PREG LOT # (test code = 3575) POCT PREG TEST DATE ( test code = 3576) Lab Interpretation (test cod e = 62794-7) Normal [facility] Consult Notes Date/Time Note Provider Source 2024-04-16 12:41:00 Associated Order(s): CONSULT ADULT PHYSICAL THERAPY RN cleared PT for session. Patient agreeable to working with physical therapy. Patient met up in chair and with present . Recommend nursing staff utilize no assistive devices to safely assist patient with mobility out of the bed or chair. PHYSICAL THERAPY EVALUATION Consult received, chart reviewed and evaluation complete this date. Patient is referred to PT for evaluation and treatment. Patient is a 33 year old female who presents to hospital for Morbid obesity with BMI of 50.0-59.9, adult [E66.01, Z68.43. Pt is s/p laparoscopic robotic assisted bariatric gastric bypass on 04/15/24. Discharge Recommendations: Therapy Needs and Potential: Patient without any skilled PT needs at this time. Challenges to Home Transition: N/A Equipment recommendations: no device Current Functional Status and/or Treatment: AM-PAC 6 Clicks (Raw Score 0=Dependent, 24=Independent; Low function Raw Score 0= Dependent, 32=Independent): Raw Score - Basic Mobility : 21 T-Scale Score - Basic Mobility : 45.55 Bed Mobility: Not assessed due to patient found up in chair upon PT arrival. Transfers: Sit to stand: Independent using no device. Stand to sit: Independent using no device. Static/dynamic standing balance: Excellent [employer]orporated pre-gait activities such as standing marches x 10. No LOB or unsteadiness noted. Dizziness No Ambulation: Assisted patient with ambulation as follows: 600 feet using no device. and Independent. Stairs: assisted patient with gait up and down 10 steps using bilateral hand rails with Independent. Analyzed step through gait ascending stairs, step-to gait descending stairs . Patient utilized bilateral hand rails with BUE to maintain balance and safety during activity. Dizziness No Therapeutic exercise: patient educated in Energy conservation, Fall prevention, General strengthening, Relaxation/breathing techniques, and Safety awareness. and instructed patient in the following: ankle pumps, quad sets, hip abduction/adduction, straight leg raises, long arc quads, seated marching, sit to stands x 10 Patient educated on performing therapeutic exercises in a pain-free ROM. Educated patient with importance and benefits of progressive OOB activities as tolerated to: Increase overall mobility, strength and endurance and progress towards PLOF Decrease chances of pneumonia, deconditioning, BLE DVT's, skin breakdown and pressure sores. Patient verbalizing understanding to all discussed Functional Outcome Measures: (Values within the past 12 hours) Tinetti Gait Score- # / 12 Initiation of gait: No hesitancy Step length: On both sides, swing foot passes stance foot Foot clearance: Both feet completely clear floor Step Symmetry: Step lengths equal Step continuity: Steps appear continuous Path: Straight without AD Trunk: No sway, no flexion, no use of arms, no use of AD Walking: Heels almost touching Tinetti Gait Score: 12 Tinetti Gait Score Interpretation: >= 7 - Low risk for falls After session, patient up in chair and with present post-session . Call button provided. RN made aware of pt's current status, functional mobility, and to continue to monitor. PLAN OF CARE: PT signs off. See below for complete details. Admit Date: 04/15/2024 Hospital Diagnosis:Morbid obesity with BMI of 50.0-59.9, adult [E66.01, Z68.43] PT Diagnosis: Difficulty walking Weight Bearing Precaution: NA General Precautions: PPE used:Gloves, General, Fall, Lines/Tubes,IV peripheral Bracing/Cast present or required:Abdominal binder PMH: Past Medical History: Diagnosis Date Depression Dx: Jul 2016, not taking medication Depression 10/16/2016 Diabetes mellitus 2010 pt states she was told has prediabetes. Dx 2010 Hypertension 2013 Dx 2013, currently taking meds, Managed by Vicky valdes PSH: Past Surgical History: Procedure Laterality Date ESOPHAGOGASTRODUODENOSCOPY N/A 02/29/2024 Surgeon: Yaerlis Alex MD; Location: [facility] OR LOCATION LAPAROSCOPIC GASTRIC SLEEVE (SHX) N/A 10/05/2015 LAPAROSCOPIC ROBOTIC ASSISTED BARIATRIC GASTRIC BYPASS N/A 04/15/2024 Surgeon: Yarelis Alex MD; Location: [facility] OR LOCATION TOOTH EXTRACTION 2019 Prior Living Situation: lives with their spouse and in a apartment DME: No device Prior level of Mobility: community ambulation, house hold ambulation, ambulates with no device. Suspected ischemic or hemorraghic stroke:No Subjective: I've been doing fine Patient/Family Goals: N/A Patient/Family verbalizes understanding of condition: Yes PAIN: -Pain Location: abdomen -Pain rating before treatment: 1, After treatment: does not rate -Pain Management: Nursing Notified and Use of assistive device aides in pain reduction during mobility COMMUNICATION Primary Language: Tajik Able to Verbalize needs: Yes Vision:glasses Hearing:good; no issues reported ORIENTATION/COGNITION: Oriented to: person, place, date/time, and situation Awake: Yes Alert: Yes Dizzy: No Follows Commands: Yes 1-Step Yes Multi-Step Yes Inconsistent: No NEUROLOGICAL Light Touch: within functional limits bilateral LE, BALANCE: Sitting: Static: Excellent Dynamic: Excellent Standing: Static: Good Dynamic: Good RANGE OF MOTION: within functional limits bilateral LE STRENGTH: 4/5 (Good), bilateral LE ENDURANCE: Good, Room air SKIN INTEGRITY: refer to RN Notes PROBLEM LIST: Decreased strength ASSESSMENT: Patient is a 33 year old female seen secondary to the above listed diagnosis. No further inpatient PT needs identified at this time. Rehabilitation Potential: NA as no further therapy needs Goals: The following goals are to maximize independence and safety with functional mobility to eventually return to prior living situation and prior functional status. Defer as no PT needs. Treatment Plan: Evaluation only and Discharge from PT PATIENT EDUCATION: Patient provided with preferred teaching of verbal information on role of PT, plan of care. Shows readiness to learn. Verbal instruction teaching provided. Individual is able to read and verbalizes understanding of teaching provided. Total Time Tx Codes in Minutes: 0 min Total Treatment Time in Minutes: 15 min Taisha Freeman PT, DPT Physical Therapist Pt will be followed by physical therapy, however, this therapist may not be primary therapist. [place] [phone] for questions or concerns. Taisha Freeman PT [facility] 2024-04-16 10:14:24 Associated Order(s): CONSULT FOOD AND NUTRITION Medical Nutrition Therapy - Consult for Education Patient is a 33 year old female who is s/p gastric bypass. Confirmed patient has Bariatric Booklet and is familiar with diet advancement schedule as per Surgery team. Briefly discussed importance of hydration, protein supplements, vitamin/mineral supplements, and diet advancement as directed by MD. All nutrition questions answered at this time. Mary Capellan MS, RD, LD Clinical Dietitian Office Number: [phone] Mary Capellan V [facility] History and Physical Notes Date/Time Note Provider Source 2024-04-15 11:20:37 Pre-Operative History and Physical Date of Service: 04/15/2024 HPI Yamilka Holm is a 33 year old female presenting today for laparoscopic robotic assisted bariatric gastric bypass.. PMH includes depression, prediabetes, HTN, GERD, Vitamin D Deficiency, CHRISTIAN. Her current weight is 341 lb, BMI 55.05. She had prior Gastric Sleeve in 2016 in [place]. She reports adhering to her liquid diet for the past two weeks and reports mild nausea but no sx of recent illness. She reports no other changes in her health or new medications since last seen in clinic. CURRENT HOSPITAL MEDICATIONS Current Facility-Administered Medications Medication Dose Route Frequency Last Rate Last Admin acetaminophen (TYLENOL) 160 mg/5 mL oral liquid 975 mg 975 mg Oral Q8H D5W 0.45% NaCl (1/2NS) 1 L + KCL 20 mEq 1,000 mL IV Infusion CONTINUOUS [START ON 04/16/2024] enoxaparin (LOVENOX) injection 60 mg 60 mg Subcutaneous DAILY ketorolac (TORADOL) injection 15 mg 15 mg Slow IV Push Q6H metoclopramide HCl (REGLAN) injection 10 mg 10 mg Slow IV Push Q6H ondansetron (ZOFRAN (PF)) injection 4 mg 4 mg Slow IV Push Q6HPRN oxyCODONE (ROXYCONE) 5 mg/5 mL solution 5 mg 5 mg Oral Q6HPRN [START ON 04/16/2024] pantoprazole (PROTONIX) injection 40 mg 40 mg Slow IV Push DAILY traMADol (UTMB COMPOUNDED) 5 mg/mL oral suspension 50 mg 50 mg Oral Q6HPRN Review of Systems 14 point ROS negative other than noted in HPI HISTORIES Past Medical History: Diagnosis Date Depression Dx: Jul 2016, not taking medication Depression 10/16/2016 Diabetes mellitus 2010 pt states she was told has prediabetes. Dx 2010 Hypertension 2013 Dx 2013, currently taking meds, Managed by Vicky valdes Past Surgical History: Procedure Laterality Date ESOPHAGOGASTRODUODENOSCOPY N/A 02/29/2024 Surgeon: Yarelis Alex MD; Location: [facility] OR [facility] LAPAROSCOPIC GASTRIC SLEEVE (SHX) N/A 10/05/2015 TOOTH EXTRACTION 2019 Family History Problem Relation Age of Onset Arthritis Mother Depression Mother Diabetes Mother Hypertension Mother Asthma Sister Depression Sister Diabetes Sister Cancer Maternal Aunt lung and kidney Hypertension Maternal Aunt Diabetes Paternal Aunt Arthritis Maternal Grandmother Diabetes Maternal Grandfather defects NoFHx Breast Cancer NoFHx Colon Cancer NoFHx Ovarian Cancer NoFHx Uterine Cancer NoFHx Genetic NoFHx Heart NoFHx Mental retardation NoFHx Neurological NoFHx Osteoporosis NoFHx Psychiatry NoFHx Other - see comments NoFHx Social History Socioeconomic History Marital status: Single Number of children: 0 Years of education: 12 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 No domestic violence or abuse Physical Exam Vitals: Vitals: 04/15/24 0945 BP: (!) 147/93 Pulse: 100 Resp: 16 Temp: 37.5 ?C (99.5 ?F) TempSrc: Tympanic SpO2: 98% Weight: 154.7 kg (341 lb 0.8 oz) Height: 1.676 m (5' 6") (-)=Negative,(+)=Positive PHYSICAL EXAM General: awake, alert, no acute distress HEENT: EOMI, atraumatic, normocephalic, no scleral icterus, moist mucous membrances CV: HDS Resp: breathing comfortably on room air, equal b/l chest rise Abdomen: soft, NT, obese abdomen Extremities/Musculoskeletal: moves all extremities, good peripheral perfusion Neuro: no focal deficits MEDICATIONS Scheduled Medicationsacetaminophen, 975 mg, Q8H [START ON 04/16/2024] enoxaparin (LOVENOX) adult SC Syringe, 60 mg, DAILY ketorolac, 15 mg, Q6H metoclopramide HCl, 10 mg, Q6H [START ON 04/16/2024] pantoprazole (PROTONIX) IV, 40 mg, DAILY IV Medications/JdzajT0W 0.45% NaCl + KCL 20 mEq RTU PRN Medicationsondansetron, 4 mg, Q6HPRN oxyCODONE, 5 mg, Q6HPRN traMADol (ULTRAM) 50 mg/mL oral suspension, 50 mg, Q6HPRN Current Facility-Administered Medications Medication Dose Route Frequency Last Rate Last Admin acetaminophen (TYLENOL) 160 mg/5 mL oral liquid 975 mg 975 mg Oral Q8H D5W 0.45% NaCl (1/2NS) 1 L + KCL 20 mEq 1,000 mL IV Infusion CONTINUOUS [START ON 04/16/2024] enoxaparin (LOVENOX) injection 60 mg 60 mg Subcutaneous DAILY ketorolac (TORADOL) injection 15 mg 15 mg Slow IV Push Q6H metoclopramide HCl (REGLAN) injection 10 mg 10 mg Slow IV Push Q6H ondansetron (ZOFRAN (PF)) injection 4 mg 4 mg Slow IV Push Q6HPRN oxyCODONE (ROXYCONE) 5 mg/5 mL solution 5 mg 5 mg Oral Q6HPRN [START ON 04/16/2024] pantoprazole (PROTONIX) injection 40 mg 40 mg Slow IV Push DAILY traMADol (UTMB COMPOUNDED) 5 mg/mL oral suspension 50 mg 50 mg Oral Q6HPRN PATHOLOGY N/a ASSESSMENT/PLAN: Lulu Holm is a 33 yo F PMH depression, prediabetes, HTN, GERD, Vitamin D Deficiency, CHRISTIAN who previously underwent gastric sleeve in [place] in 2016. Patient has chosen to undergo robot assisted gastric bypass. Surgery scheduled for today, 04/15/24. Informed consent was obtained from the patient. I discussed the risks, benefits, and alternatives to the procedure. Time for questions was offered and all questions were answered. The risks of the procedure including but not limited to: bleeding, infection, damage to internal structures, and need for further procedures were described to the patient. No guarantees were made regarding the results, outcomes, or success of the procedure. The patient acknowledged these risks and voiced a desire to proceed. - Appropriate pre-procedural diet - Risks, benefits and alternatives discussed with patient and she wished to proceed with procedure. - Consent signed. - To OR today for robot assisted gastric bypass Maribel Menjivar MD General Surgery PGY-1 Associated attestation - Yarelis Alex MD - 04/15/2024 11:29 AM CDT SURGERY [facility] 2024-02-29 09:24:03 Patient seen in preop, no changes since last time seen in clinic Aminta Carvajal MD General Surgery Associated attestation - Yarelis Alex MD - 02/29/2024 1:16 PM CDT Source Note - Quique Beaulieu ANP - 02/25/2024 9:00 AM CDT Bariatric Follow Up Visit Chief Complaint: Morbid Obesity HPI Yamilka Holm is a 33 year old female presenting for follow up appointment in consideration for bariatric surgery. PMH includes depression, prediabetes, HTN, GERD, Vitamin D Deficiency, CHRISTIAN. Her current weight is 352 lb, BMI 56.99. She had prior Gastric Sleeve in 2016 in [facility]. Since last visit, she continues to increase protein amount and eating protein first. She also is implementing the rule. Discussed limiting processed, greasy foods in preparation for surgery. She continues to exercise at least 4 times per week and drinks water. Dietary Recall/Progression Breakfast: Breakfast taco, low carbohydrate, chorizo and egg Lunch: Chicken and green beans, water Dinner: Chicken and rice Exercise: 45 minutes per day 4 times per week WEIGHT HX 1. Heaviest weight at 410 lb which was after the sleeve, but was able to get to 249 lbs post sleeve. 2. Previous attempts to lose weight in the last 5 years include: Reducing alcohol intake and sodas. She also ate less amount of carbohydrates. She was also on Mounjaro, but had to stop because of insurance. 3. Patient describes weight pattern as yo-yo weight loss. 4. Eating habits include eating when not hungry, eating when stressed, and emotional eating, eat out boredom. 5. Patient does not describe frequent episodes of binge-eating. 6. Patient does not have a history of bulimia, anorexia, or other eating disorder. Substance Abuse 1. Tobacco Use within 1 year: No 2. ETOH Use (how much and how often): One glass every week 3. Illegal Drug Use within 1 year: No Medical Assessment 1. Any history of FEN-FEN USE: None 2. Assess for GERD: Omeprazole 40 mg daily started 1 year ago. Has daily acidity, regurgitation, and belching. 3. Use of Immunosuppressants: None 4. Known Hepatic Disease: None 5. Any GI problems (diarrhea, constipation, etc): [place] foods, diarrhea 6. Autoimmune disease: None 7. 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 Are you or : No 2. Contraceptive: Nexplanon Psychological 1. Depression-- Yes 2. Bipolar/Schizophrenia-- No 3. Anxiety-- Yes 4. Suicide Thoughts / Attempts -- No 5. Hospitalization for Emotional Problems-- No 6. Psychiatric / Psychological [place] -- Therapist in [place], Claritza Valdes, PCP MEDICATIONS Current Outpatient Medications Medication Sig Dispense Refill ergocalciferol, vitamin d2, (VITAMIN D2) 1,250 mcg (50,000 unit) capsule Take 1 capsule by mouth weekly. 8 capsule 0 podofilox 0.5 % solution Apply to area(s) 2 (two) times daily. 3.5 mL 0 FLUoxetine 20 mg capsule Take 3 capsules by mouth in the morning. omeprazole 40 mg capsule Take 1 capsule by mouth in the morning. lisinopril 10 mg tablet Take 1 tablet by mouth in the morning. No current facility-administered medications for this visit. HISTORY Past Medical History: Diagnosis Date Depression Dx: Jul 2016, not taking medication Depression 10/16/2016 Diabetes mellitus 2010 pt states she was told has prediabetes. 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 Tobacco Use Smoking status: Never Passive exposure: Current (spouse smokes outside and in the car) Smokeless tobacco: Never Substance and Sexual Activity Alcohol use: Yes Comment: occasional Drug use: No Sexual activity: Yes Partners: Male control/protection: Implant Comment: last sexual intercourse 02/23/2023 Other Topics Concern Service Not Asked Blood Transfusions No Caffeine Concern Not Asked Occupational Exposure Not Asked Hobby Hazards Not Asked Sleep Concern Not Asked Stress Concern Not Asked Weight Concern Not Asked Special Diet Not Asked Back Care Not Asked Exercise Not Asked Bike Helmet Not Asked Seat Belt Not Asked Self-Exams Not Asked Social History Narrative Pt lives with , feels safe at home. No domestic violence or abuse Social Determinants of Health Financial Resource Strain: Not on file Food Insecurity: Not on file Transportation Needs: Not on file Physical Activity: Not on file Stress: Not on file Social Connections: Not on file Intimate Partner Violence: Not on file Housing Stability: Not on file Family History Problem Relation Age of Onset Arthritis Mother Depression Mother Diabetes Mother Hypertension Mother Asthma Sister Depression Sister Diabetes Sister Cancer Maternal Aunt lung and kidney Hypertension Maternal Aunt Diabetes Paternal Aunt Arthritis Maternal Grandmother Diabetes Maternal Grandfather defects NoFHx Breast Cancer NoFHx Colon Cancer NoFHx Ovarian Cancer NoFHx Uterine Cancer NoFHx Genetic NoFHx Heart NoFHx Mental retardation NoFHx Neurological NoFHx Osteoporosis NoFHx Psychiatry NoFHx Other - see comments NoFHx REVIEW OF SYSTEMS General: (+) weight gain Skin: negative HEENT: (+) headache Neck: negative Heme: negative Resp: (+) dyspnea on exertion Cardio: negative GI: (+) diarrhea : negative Endo: (+) diabetes Psych: (+) anxiety, (+) depression PHYSICAL EXAM BP 129/73 | Pulse 100 | Temp 36.9 ?C (98.5 ?F) (Temporal Artery) | Ht 1.676 m (5' 6") | Wt 160.1 kg (352 lb 14.4 oz) | SpO2 99% | BMI 56.96 kg/m? General: alert and oriented x 4; no apparent distress HEENT: normocephalic atraumatic Neck: supple, no lymphadenopathy, no bruits, no JVD, full range of motion Cardio: regular rate and rhythm Abdomen: soft, abdominal pannus : not examined Rectal: not examined Extremities: no clubbing, cyanosis, or edema Skin: no rashes A/P Yamilka Holm is a 33 year old female patient with Class III Severe Obesity with BMI @ 56.99. She has the following major co-morbidities complicated by obesity: HTN, prediabetes, CHRISTIAN, Hepatic Steatosis, Severe GERD, Hiatal Hernia. Patient continue to show committment with making lifestyle changes in order for the conversion to RNYGB to be a success. Class III Morbid Obesity, BMI 56.02, Wt. 347 lb. S/P VSG (2016) with weight regain, Vitamin D Deficiency, Postgastrectomy Malabsorption, Severe GERD - Discussed risk/benefits/purpose of EGD, planning for EGD on 02/29/[address] Alex -C/W Omeprazole 40 mg daily -C/W with Lifestyle changes, high protein meals -Vitamin D replacement for total 8 weeks, sent over additional 4 capsules, recheck Vitamin D levels -limit high-fat/fried foods/processed foods -limit sweets/high-carb foods -plate method/portion control -RTC in 4-6 weeks with Bariatric CEMENT BREAKER Current Progress Surgeon: MD Abi Visit: 09/15 Procedure: RNYGB UGI: Severe GERD, small hiatal hernia Liver US: Hepatic Steatosis, Hepatomegaly EGD: Scheduled for 02/29/[address] Alex EKG: NSR CHRISTIAN: Mild Sleep Apnea, AHI 10.1, planning on APAP Psych eval: Cleared PT Eval: Cleared A1C: 4.9 HGB: 15.1 Vitamin D: < 13, Vitamin D 50,000 Units weekly x 8 weeks, she has finished 4 week course. Will send additional 4 capsules Tobacco Use: None Cardiac Hx: None Anticoagulation Use: None Nutrition (# visits): 2/3 Weight: 353 lb > 347 lb > 352 lb Contraceptive: Nexplanon Supplements: Purchased patch aid Risk/benefit calculator: Completed and discussed and emailed to patient Support Group: Enrolled in February Total time spent with patient was 30 minutes to review testing/imaging/labs, provide further education, review plan, and documentation. 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 Performed by: Johnathon Corrales MD Authorized by: Zaina Kathleen MD PhD Indications and Patient Condition Indications for airway management: anesthesia Spontaneous ventilation: present Sedation level: deep Preoxygenated: yes Patient position: sniffing MILS maintained throughout Mask difficulty assessment: 1 - vent by mask Final Airway Details Final airway type: endotracheal airway Successful airway: ETT Cuffed: yes Successful intubation technique: direct laryngoscopy Facilitating devices/methods: intubating stylet Endotracheal tube insertion site: oral Blade: Jody Blade size: #3 ETT size (mm): 7.5 Cormack-Lehane Classification: grade I - full view of glottis Placement verified by: chest auscultation and capnometry Measured from: teeth ETT to teeth (cm): 21 Number of attempts at approach: 1 Ventilation between attempts: none Number of other approaches attempted: 0 Additional Comments Smooth, atraumatic, dentition and lips unchanged from pre-op. [facility] [employer] Notes Date/Time Note Provider Source 2025-02-19 09:32:28 Spoke with patient who had called yesterday regarding pain and nausea/vomiting. She was seen in ER yesterday and reports they set up her with general surgery for today to discuss her gallbladder. I explained I will let Dr Alex know and we hope she gets to feeling better soon. Patient thanked me for calling back. [facility] 2025-02-18 16:22:42 Pt given printed and verbal discharge instructions regarding hydrops of gallbladder, RUQ pain and encouraged hydration. Prescription x2 sent to pharmacy Pt verbalized understanding of instructions, pt awake alert oriented, resp reg unlabored, skin w/d, color appropriate for race, moves all ext well,pt encouraged to follow up with pcp. Advised to seek medical attention for new/prolonged/worsening of symptoms. No adverse reaction to meds given in ER noted upon discharge PIV d'cd, dressing to site, catheter in tact. Awake, alert oriented, resp reg unlabored, skin w/d, pt leaving ambulatory without assist, in no apparent distress, Quique Milian RN [facility] 2025-02-18 16:06:28 Attempted to return call, no answer. LM on to please call back at [phone] [facility] 2025-02-18 13:45:00 Per pt., pt. Refused tordol [facility] 2025-02-18 12:32:20 CC: N/V/D, abdominal pain began yesterday. Patient called PCP and referred to ED PMH: Gastric bypass 2023 Diana Pulliam RN [facility] 2025-02-18 11:52:06 Yamilka Holm is a 34 year old female Pt calling stating, she's is having nausea abdominal pain and derriere and very uncomfortable she believes it may be due to her surgery Please advise [phone] (home) Bozena Cruz [facility] 2024-10-06 08:00:00 Images from the original note were not included. Venipuncture collection performed by clean technique on the left anticubitus. Total of 1 attempts were made. Slight pressure and a bandage/dressing were applied to the site(s). The patient experienced no complications. The following specimens were processed according to instructions and sent to [facility] laboratories per lab order on 10/06/2024 : LT BLUE SST 4 RED LAV 2 PPT DK GREEN (LiHep) 1 DK GREEN (SodH) NELSON DK BLUE (K2) DK BLUE (S) ACD Blood Culture NIPT/NTD [facility] 2024-06-05 14:13:07 Title XIX signed and returned to nursing staff. Please ensure patient has the appropriate 31-90 day follow up scheduled thank you! TMILLER CEMENT BREAKER-FAMILY MIDLEVEL PROVIDER [facility] 2024-06-03 13:10:11 Images from the original note were not included. Title XIX received from [facility] and placed in Yarelis Klein's folder. TMILLER Becky Wagner RN [facility] 2024-05-06 14:22:25 Spoke with patient and asked if she could come in today, right away; patient reports she can. I explained I will put her in for 3:30pm but if she can get here earlier it would be better as it will take some time to get fluids in her. Patient verbalized understanding and thanked me. PSS scheduled appt today for IV fluids with CEMENT BREAKER T [facility] 2024-05-06 14:00:37 Spoke with patient who reports she started having stomach pain and nausea yesterday after eating 2 tbsp of egg. She reports she went to bed and woke up fine but when she ate 1 tbsp of refried beans she vomited and is having difficulty getting anything down. Patient confirms she has eaten these things before without any problems. Patients reports she has been drinking 2 protein shakes / day to get her 60 grams and has been meeting her clear liquid goals, but yesterday only got in about half and today has only got in about 16 oz and that was very hard d/t the nausea. I explained she is likely dehydrated. When I asked patient if she had any nausea medication left from surgery. Patient confirmed that she took zofran she had, but it did not help. When asked about urine output, patient reports her urine yesterday was slightly darker but today is definitely darker. I explained it sounds like she is dehydrated and I will talk with CEMENT BREAKER and call her back. Patient verbalized understanding. T [facility] 2024-05-06 13:10:42 Pt is calling stating she just threw up and feeling nausa Please advise T Robbie Del Castillo [facility] Admittedly 2024-04-28 16:06:32 Images from the original note were not included. [employer] not in network. Reordered APAP under [facility]. New start DME The following has been sent to the provider for completion via parachute/FAX Orders pended for [facility] Prescription for APAP Sleep study /data report dated 01.15.24 Demographics - Face sheet Insurance Information Progress Notes from office visit prior to sleep study - 12.20.23 Follow up due 31-90 days following initiation of any device. Please start: APAP 5-15 cm H2O Fit to Comfort Mask Heated Humidification EPR: 3 Ramp time: 30 min Start pressure: 4 Resmed device ONLY Please make visible on [employer] under Gladys Gonzalez Becky Wagner RN [facility] 2024-04-22 15:12:44 Yamilka Holm is a 33 year old female identified via name/. Outgoing call made to patient for follow up on Bariatric post operative condition: Surgery: Laparoscopic Robotic Assisted Bariatric Gastric Bypass Surgery date: 04/15/24 POD #: 7 Pain: 0/10 Teaching: RNYGB/DS/ELIO-S: No NSAIDs lifelong. Take liquid/chewable Tylenol every 8 hours for the first 2 to 3 days after surgery. May taper off as tolerated. Take tramadol as needed for pain every 6 hours. Pain < 5: continue pain regimen as needed. Pain >5: & not following prescribed regimen = reinforce instructions and have patient call back if not improved. Pain >5: & follow prescribed regimen = escalate to provider ? advised on using ice pack, heating pad (up to 20 minutes on then off for 20 minutes before reapplying), abdominal binder as desired for comfort, walking or OTC chewable simethicone for gas discomfort. ? expected: cramping, sore, throbbing, burning, aching, pulling sensation at surgical sites ? unexpected: sharp/severe, not relieved by pain meds Meds: -Any questions r/t meds: no -taking omeprazole as prescribed: yes -knows when to start vitamins: yes has HTN, taking meds, last BP reading at home: yes, last BP 100/70 Check 2 times per day in the AM and PM and keep a log to take to PCP or provider prescribing medications for HTN . Teaching: ? do not swallow anything bigger than a baby aspirin ? cut or crush all NON extended release (aka: XL) meds ? omeprazole 40 mg daily for 90 days for stomach tissue healing - open capsule, dump into mouth & swallow with sip of fluid ? vitamins are on pg. 10 in booklet if has HTN: record readings, f/u with prescribing providerr within 4 weeks of surgery. Low BP readings, notify & escalate to any provider Incision sites: wound adhesive -description: glue and incisions intact Teaching: ? DO allow glue to come off on own as skin heals or will be removed at f/u appointment. ? Do NOT scrub or submerge sites under water until completely healed. if redness, hot to touch, drainage or foul order: notify. if rash & itching: Ok to use OTC PO Benadryl and calamine ointment. Instruct patient to call back if rash is spreading or worsening. if bruising (normal): Continue to monitor & educate on bruising stages. Call back if spreading or increased pain. Diet stage (per their response): porfirio -has Bariatric Surgery Booklet: yes -what is patient consuming: Appropriate -ounces drank yesterday: >64 oz -ounces drank today (reaching 64 oz goal?): 32 -verbalizes recommended goal for grams of PRO/day: yes -tolerating diet? yes -Nausea/Vomiting: no -aware of when to start next stage of diet: yes Teaching: ? If you become nauseous: use prescribed zofran ? Encourage patient on starting early in the day and constantly sipping on fluids throughout the day. Offer Baritastic tashi ? Educate on PRO goals and provide examples of sources for protein. (Pg. 5 & 13 of "Activity and Circulation Post-Surgery packed" discussed at pre-op teaching) ? Reinforce smaller portions and taking smaller sips at a time. No gulping, straws, carbonation ? Educate patient on diet stages from their current stage (pg. 14 in booklet) up to Stage 4 (pg. 16): Diet stages by timeframe Portion sizes Consistency Examples of food options On POD #4, start protein shakes. Advised to start with small amount and advance as tolerated. May only be able to drink one protein shake the first day but should advance to goal of 60 gm of protein per day in addition to 64 oz of fluids per day. On POD # 7, add sugar-free british yogurt or ricotta/cottage cheese to diet. Starting with 1 tbsp 1 time per day, taking small bites. Avoid fluids 30 min before and 30 min after eating food. May advance as tolerated up to 2 tbsp 2 times per day. At 2 weeks after surgery, continue puree diet, but can add other food items (see pg. 15 in booklet) that have to be smashed or pureed; and can increase to 2-4 tbsp per 2 meals At 4 weeks after surgery, start soft foods. These foods should be easy to chew down to a soft consistency. The diet should remain high in protein, low fat, low carbs, and minimal sugar. At 6 weeks can start to have fruit/raw veggies. Reinforced that while advancing diet, it is imperative to maintain drinking at least 64 oz of fluids per day first and then get 60 gm of protein from combined food sources and protein supplements. Start each stage with lowest recommended portion size and advance slowly as tolerated. Encouraged to use the book as a reference and guide. Output: -urine color: pale yellow Teaching: Pale yellow urine: no intervention Darker yellow urine: encourage patient to increase fluids and continue to monitor. Call back if unable to get urine to pale yellow. Giselle urine: Escalate to provider, s/s dehydration: headache, lightheaded/dizzy, heart racing, fatigue. -BM since surgery: yes Teaching: ? Stools may be less often and a less amount after surgery (tend to be looser if DS or ELIO-s) Constipation: Ok to start OTC laxative, such as MiraLAX powder or chewable Dulcolax after 3-4 days no BM. If these are unsuccessful at producing a BM, may try Dulcolax suppository or fleets enema. Instruct patient to call back if unable to have BM after interventions. Physical activity: walking Teaching: reinforce walking at least every 1 hour during the day and no lifting >10 lbs. or strenuous activity until after 4 weeks. Continue doing incentive spirometer at home 10 breaths an hour while awake. Follow Up: -scheduled and aware of f/u appt w/bariatric surgeon & PCP: yes on 05/01/[address] Alex, has f/u in June with PCP, who is aware of her surgery. Advised patient about scheduling f/u sooner. -scheduled w/ specialty providers (as indicated): n/a Teaching: ? f/u w/ specialties within 4 weeks of surgery Reasons to call clinic: ? Sharp abd pain not improving with prescribed pain meds ? N/V not relieved with prescribed medications ? Not tolerating diet/unable to reach goals for liquids and/or protein ? S/S of dehydration ? S/S of infection at incision sites ? Temp >100 F ? Call 911 or go to the Emergency Room for the following reasons: Vomiting bright red or coffee-ground, Chest pain, Shortness of breath, Severe abdominal pain. Reminders: -(if applicable) take pictures of ANY abnormal s/s and upload to [employer] -can call clinic after hours; mention surgery/surgeon/date of surgery Patient encouraged to call the clinic if more guidance or assistance is needed or symptoms change/worsen. Patient verbalized understanding and denied further questions/concerns. Alem Deras RN, [facility] Adult Specialties- Metabolic and Bariatric Surgery [facility] [address] 2024-04-18 17:10:12 Received transfer call from [facility] Spoke with patient who reports concerns if not consuming enough because her stomach is making hungry noises. I explained stomach growls do not mean she is hungry. Stomach sounds can be from digesting food. Confirmed patient is meeting her 64 oz of clear and her urine is light yellow. I explained tomorrow she starts back on liquid diet and protein intake. Patient reports she is feeling full on what she is drinking now. Reminded patient to try and combine her protein with her clears. Add protein powder to water or broth or by protein clear drinks with minimum of 20 gram of protein and only needs to meet 60 grams of protein / day, not 100 grams. Reminded to start protein slow and if does not have any nausea she can increase. Explained when she gets back on her protein she may start feeling full again. Patient verbalized understanding. Patient advised to call back if she has any other questions or concerns. Patient thanked me for taking the call and explaining. [facility] [address] 2024-04-16 13:15:39 Problem: Pain Goal: Control of pain at or below patient's documented comfort goal 04/16/2024 1315 by Jean-Claude Calloway RN Outcome: Adequate for discharge 04/16/2024 0754 by Jean-Claude Calloway RN Outcome: Progressing as expected Goal: Reduction in pain sensation 04/16/2024 1315 by Jean-Claude Calloway RN Outcome: Adequate for discharge 04/16/2024 0754 by Jean-Claude Calloway RN Outcome: Progressing as expected Problem: Discharge Planning Goal: Adequate for discharge 04/16/2024 1315 by Jean-Claude Calloway RN Outcome: Adequate for discharge 04/16/2024 0754 by Jean-Claude Calloway RN Outcome: Progressing as expected Goal: Effective communication 04/16/2024 1315 by Jean-Claude Calloway RN Outcome: Adequate for discharge 04/16/2024 0754 by Jean-Claude Calloway RN Outcome: Progressing as expected Problem: Falls, Risk of Goal: Absence of falls 04/16/2024 1315 by Jean-Claude Calloway RN Outcome: Adequate for discharge 04/16/2024 0754 by Jean-Claude Calloway RN Outcome: Progressing as expected Problem: Infection Risk Goal: Absence of infection 04/16/2024 1315 by Jean-Claude Calloway RN Outcome: Adequate for discharge 04/16/2024 0754 by Jean-Claude Calloway RN Outcome: Progressing as expected Jean-Claude Calloway RN [facility] 2024-04-16 11:40:48 Addendum created 04/16/24 1140 by Johnathon Corrales MD Intraprocedure Meds edited ANESTHESIOLOGY [facility] 2024-04-16 10:20:43 Patient sitting in chair resting comfortably. Patient's identity confirmed. Spouse at bedside. Yamilka Holm is a 33-year-old female s/p Laparoscopic Robotic Assisted Bariatric Gastric Bypass on 04/15/2024. POD #1. Patient reports generalized pain. Advised patient once discharged home to take liquid tylenol every 8 hours or powder form mixed with water for the next 3 days and tramadol as needed every 6 hours. May taper off as tolerated. May wear abdominal binder as de sired for comfort and use ice packs or heating pad for discomfort. For gas discomfort, the best remedy is walking, but may take OTC chewable simethicone. Advised if pain worsens or not tolerable with prescribed medications to call the clinic. Patient verbalized understanding. Advised to check Blood Pressure twice daily and record. Discussed medications. Patient advised to not start vitamin supplementation until 2 weeks post-op. Patient must not swallow pills larger than a baby ASA. Pills must be liquid, crushed, cut with pill cutter or capsules opened if not extended release. Explained that the patient will be prescribed omeprazole to take for 90 days to aid in tissue healing. This comes in a capsule form that will need to be opened, contents dumped in mouth, swallowed with sip of fluid, and capsule discarded. If a scopolamine patch was placed behind your ear on the day of surgery, it will need to be removed after 72 hours on the third day after surgery. May cause drowsiness, dizziness, confusion, or blurred vision. May remove the patch sooner if side effects are bothersome. Patient verbalized understanding. Incision care instructions given. Explained to patient that the Glue at incision sites must stay in place and allowed to come off on its own or removed at post op clinic appointment. Avoid submerging sites under water until completely healed. May shower allowing soapy water to run over sites, rinse, and pat dry. Avoid scrubbing sites. Advised to monitor sites for redness, warmth, swelling, drainage, or foul odor and to call the clinic should these symptoms occur. Patient verbalized understanding. Advised patient to walk every 30 min to 1 hour while awake and to advance as tolerated by increasing steps every day. Avoid strenuous activity until after 4 weeks post-op. Then start slow when adding exercise routine and advance as tolerated. Advised to avoid lifting > 10 lbs until 4 weeks after surgery. Encouraged patient to continue IS for 10 breaths per hour while awake. Explained that the patient may drive when they feel comfortable doing so and no longer taking tramadol. Patient verbalized understanding. Patient reports tolerated CLD. Patient reports they have the bariatric surgery patient education booklet. Used copy of booklet to discuss advancing diet after surgery. Remain on clear liquids for 3 days after surgery. Patient verbalizes goal of 64 oz of liquids per day. May drink water, sugar-free Gatorade/Powerade/vitamin water, broth, sugar-free jello, sugar-free popsicles, caffeine-free tea/black coffee. Patient received Bariatric Surgery Clear Liquid Intake Form. Instructions give to track for the first 2 weeks and bring completed document to 2 week postop appointment or send a copy via [employer]. On POD #4, start protein shakes. Advised to start with small amount and advance as tolerated. May only be able to drink one protein shake the first day but should advance to goal of 60 gm for women and 80 gm for men of protein per day in addition to 64 oz of clear fluids per day. On POD # 7, next Sunday, add sugar-free british yogurt, ricotta/cottage cheese, sugar-free pudding with added protein powder, or strained low fat cream soups to diet. Starting with 1 tbsp 1 time per day, taking small bites. Avoid fluids 30 min before and 30 min after eating food. May advance as tolerated up to 2 tbsp 2 times per day. Start with one new food at a time to identify food intolerances. On POD #14, 2 weeks after surgery may start pureed consistency foods. Food should be a thick liquid or smooth paste consistency. Foods should be high protein, low fat, minimal carbs, and minimal sugar. Due to the limited space in the stomach, want to ensure foods eaten are of high nutritional value. Suggested starting with canned tuna, canned chicken, cooked vegetables, beans, scrambled eggs, hummus, or tofu. Add protein powder to pureed foods. At 4 weeks after surgery, start soft foods. These foods should be easy to chew down to a soft consistency. The diet should remain high in protein, low fat, low carbs, and minimal sugar. Reinforced that while advancing diet, it is imperative to maintain drinking at least 64 oz of fluids per day first and then get 60 gm of protein from combined food sources and protein supplements. Start each stage with lowest recommended portion size and advance slowly as tolerated. Encouraged to use the book as a reference and guide. Advised patient to monitor urine amount and color to assess hydration. If urine appears darker yellow, needs to increase fluid intake. Reviewed s/s of dehydration. Explained that constipation or more frequent loose stools can occur post operatively. Patient may take OTC Miralax powder or chewable Dulcolax for constipation. Patient advised to call the clinic if dehydration, large volume watery stools, or continued constipation after intervention occurs. Patient verbalizes understanding. Reviewed "when to call" page in booklet. Patient acknowledged post-op follow-up appointment with Dr. Alex. Patient and her spouse did not voice additional questions. Notified patient that they will receive a post-op follow-up call from the clinic at 1 week after surgery. Quique Beaulieu APRN, DUANE-C Metabolic and Bariatric Surgery [facility] [employer] 2024-04-16 07:54:33 Problem: Pain Goal: Control of pain at or below patient's documented comfort goal Outcome: Progressing as expected Goal: Reduction in pain sensation Outcome: Progressing as expected Problem: Discharge Planning Goal: Adequate for discharge Outcome: Progressing as expected Goal: Effective communication Outcome: Progressing as expected Problem: Falls, Risk of Goal: Absence of falls Outcome: Progressing as expected Problem: Infection Risk Goal: Absence of infection Outcome: Progressing as expected [facility] [employer] 2024-04-16 00:15:33 Problem: Pain Goal: Control of pain at or below patient's documented comfort goal Outcome: Progressing as expected Goal: Reduction in pain sensation Outcome: Progressing as expected Problem: Discharge Planning Goal: Adequate for discharge Outcome: Progressing as expected Goal: Effective communication Outcome: Progressing as expected Problem: Falls, Risk of Goal: Absence of falls Outcome: Progressing as expected Problem: Infection Risk Goal: Absence of infection Outcome: Progressing as expected Yasmin Bailey RN [facility] 2024-04-15 14:52:15 Patient: Yamilka Holm Procedure Summary Date: 04/15/24 Room / Location: [address] LOCATION Anesthesia Start: 1134 Anesthesia Stop: 1416 Procedure: LAPAROSCOPIC ROBOTIC ASSISTED BARIATRIC GASTRIC BYPASS (Abdomen) Diagnosis: Morbid obesity with BMI of 50.0-59.9, adult (Morbid obesity with BMI of 50.0-59.9, adult [E66.01, Z68.43]) Surgeons: Yarelis Alex MD Responsible Provider: Zaina Kathleen MD PhD Anesthesia Type: General ASA Status: 3 Anesthesia Type: General Last vitals BP 136/60 (04/15/24 1445) Temp 37 ?C (98.6 ?F) (04/15/24 1415) Pulse 82 (04/15/24 1445) Resp 27 (04/15/24 1445) SpO2 96 % (04/15/24 1445) There were no known notable events for this encounter. Anesthesia Post Evaluation Patient location during evaluation: bedside Patient participation: complete - patient participated Level of consciousness: awake and alert Pain score: 0 Pain management: satisfactory to patient Airway patency: patent Cardiovascular status: acceptable and blood pressure returned to baseline Respiratory status: acceptable Hydration status: acceptable AN-ANESTHESIOLOGY ANESTHESIOLOGIST [facility] 2024-04-15 11:54:00 OPERATIVE NOTE Date of Surgery: 04/15/2024 Surgeons and Role: * Yarelis Alex MD - Primary * Maribel Menjivar MD - Resident - Assisting Pre-Op Diagnosis: Morbid obesity with Body mass index is 55.05 kg/m?. HTN, GERD, h/o sleeve gastrectomy Post-Op Diagnosis Codes: Same Procedures: Procedure(s) (LRB): LAPAROSCOPIC ROBOTIC ASSISTED BARIATRIC GASTRIC BYPASS (N/A) CPT: 61685 Any Complications Encounters: none Estimated Blood Loss: 10 ml Specimens Removed: ID Type Source Tests Collected by Time Destination 1 : Tissue STOMACH SURGICAL PATHOLOGY EXAM Yarelis Alex MD 04/15/2024 1229 * No implants in log * Patient's Condition: Stable Findings: Sleeve stricture in the upper sleeve. Enlarged fatty liver Indications: Yamilka Holm is a 33 year old female with Morbid obesity with Body mass index is 55.05 kg/m?. Patient has history of sleeve gastrectomy and has GERD now. A detailed discussion was held with the patient and decision was made to perform a gastric bypass. Procedure: The patient was seen in the pre-operative holding area. The risks, benefits, complications, treatment options, and expected outcomes were discussed with the patient. The patient concurred with the proposed plan, with a signed informed consent. The site of surgery properly noted/marked. The patient was taken to the operating room and placed in supine position on the operating table, identified as Yamilka Holm and the procedure verified as lap robotic-assisted gastric bypass. Prior to the induction of general anesthesia, antibiotic prophylaxis was administered, bilateral sequential compression stockings were applied and the patient was given chemical venous thromboembolism prophylaxis. Following general endotracheal anesthesia the patient was positioned on the table on a foot board with ankles and knees secured. The abdomen was prepped and draped in the usual sterile fashion. A surgical time out was done confirming the correct patient, operation and that all the anticipated supplies and instruments were available in the room. She was then prepped and draped in a standard surgical fashion. A stab incision was made in the left subcostal region. A Veress needle was used and pneumoperitoneum was established and the abdomen was insufflated to 15 mm Hg. A 5 mm, 0 degree laparoscope with the Optiview trocar was used to enter the abdomen under direct visualization. No abnormalities were noted. There were also noted adhesions to the anterior abdominal wall. The remainder of the trocars were placed under direct visualization including a 8 mm trocar in the right mid abdomen, a 12 mm trocar in the left mid abdomen and a 8 mm trocar in the left lateral position. Left lobe of the liver was retracted using 0 Vloc stitch. The diaphragm and the GE junction were easily visualized. We identified the left gastric vessel and used the 60 mm robotic blue load with reinforcement to transect the stomach horizontally. A 40 Fr VisiG was placed to size the gastric pouch. We then used 60 mm green load vertically. Small amount of excess stomach was removed by firing a blue load. Next, the omentum was elevated, identifying the mesocolon adjacent to the ligament of Treitz. The jejunum was run 75 cm from the ligament of Treitz and was brought up ante-colic, ante-gastric fashion. A gastrostomy and an enterotomy were made in the charlie limb. The robotic stapler with a white load was used to create a stapled gastrojejunostomy. The common enterotomy was closed using 3-0 absorbable V-lock in running fashion. Valle's defect was closed with 2-0 Ethibond in running fashion. The biliary portion of the omega loop was stapled off using a 60 mm robotic stapler with white load. The Charlie limb was then measured 150 cm distally. The Charlie limb was placed next to the biliopancreatic limb and the bowel limbs were opened using robotic juan antonio. A 60 mm robotic stapler with white load was inserted into the lumen, held upward in an anti-mesenteric fashion and fired. The common enterotomy was closed using white load on a 60 mm robotic stapler. The mesenteric defect was closed using a running 2-0 non-absorbable v-lock. The Charlie limb was occluded with a bowel clamp. A leak test was performed by pushing ICG mixed with saline down the visiG. There was no evidence of a leak from the anastomosis. The gastrojejunal anastomosis was circumferentially covered with VistaSeal on the anterior and posterior surface. The cut end of the Charlie limb was covered as well with the vertical staple line. The glue was allowed to dry. The robot was undocked. A completion laparoscopic survey was performed showing no signs of bleeding, bowel injury, or other pathology. Pneumoperitoneum was completely reduced after viewing removal of the trocars under direct visualization. The skin was closed with subcuticular 4-0 Monocryl. The patient was extubated and taken to PACU in stable condition. Yarelis Alex MD [facility] [employer] 2024-04-02 11:06:41 Name/ MRN / Age / Gender: Yamilka Holm, [id number] 33 year old female BMI: Estimated body mass index is 56.77 kg/m? as calculated from the following: Height as of 03/06/24: 1.676 m (5' 6"). Weight as of 03/27/24: 159.5 kg (351 lb 11.2 oz). Allergies: Patient has no known allergies. Last Vitals: BP Readings from Last 1 Encounters: 03/06/24 (!) 144/74 Pulse Readings from Last 1 Encounters: 03/06/24 81 SpO2 Readings from Last 1 Encounters: 03/06/24 97% Date of Surgery: 02/29/2024 Surgeon: Yarelis Alex MD Procedure: LAPAROSCOPIC ROBOTIC ASSISTED BARIATRIC GASTRIC BYPASS (Abdomen) OR Location: [facility] LOC[facility] Anesthesia Preop Screen (no physical exam) Anesthesia Preop: Chart Review and [id number] [facility] questionnaire answers incorporated [facility] Communication: 33F scheduled for robotic gastric bypass in the setting of super morbid obesity with BMI>50. Anesthesia History Anesthesia History Negative per Chart Review (-) Hx of anesthetic complications (-) Hx of PONV (-) Hx of malignant hyperthermia (-) Pt reports no hx of difficult airway Previous Anesthetics/Airways Cardiovascular Comments: 02/06/2024 EKG Normal sinus rhythm, 74 bpm Normal ECG No previous ECGs available (-) Chest pain with 1-2 flights of stairs (+) Hypertension (-) Hx of cardiac stress test (-) Hx of cardiac cath (-) Angina/Chest Pain Within Last Year (-) Patient does not report prior CA (-) CAD (-) Valvular problems/murmurs (-) Dysrhythmias (-) Pt reports prior cardiac surgery (-) No cardiovascular devices present (-) CHF Pulmonary (+) Patient reports snoring or stopping breathing during sleep (+) Sleep apnea (-) Home O2 (-) COPD (-) Asthma (-) Tobacco use (-) Recent bronchitis or URI Neuro/Musculoskeletal (-) CVA(-) Seizures (+) Psychiatric history and depression (+) Anxiety (-) Neuromuscular Disease (+) Obesity (BMI 56.96 kg/m?) and super morbid obesity GI/Hepatic Comments: CC: Vitamin D deficiency. Postgastrectomy malabsorption H/o Gastric Sleeve in 2016 in [facility] (+) GERD (-) can lay flat without symptoms (-) Liver disease Hematology Hematology ROS Negative per Chart Review Comments: CBCWBC x10 3 (/uL) Date Value 09/02/2013 11.9 (H) WBC (10*3/?L) Date Value 12/24/2023 9.39 RBC x10 6 (/uL) Date Value 09/02/2013 5.00 RBC (10*6/?L) Date Value 12/24/2023 4.87 PLT x10 3 (/uL) Date Value 09/02/2013 214 PLT (10*3/?L) Date Value 12/24/2023 272 HGB Date Value 12/24/2023 15.1 g/dL (H) 09/02/2013 14.3 G/DL HCT (%) Date Value 12/24/2023 44.7 09/02/2013 42.1 (-) PE/DVT (-) Not on anti-coagulant therapy Prior Blood Transfusion: No Renal Renal ROS Negative per Chart Review Comments: CMPNA (mmol/L) Date Value 12/24/2023 138 K (mmol/L) Date Value 12/24/2023 4.4 CALCIUM (mg/dL) Date Value 12/24/2023 9.4 CL (mmol/L) Date Value 12/24/2023 105 BUN (mg/dL) Date Value 12/24/2023 11 CREATININE (mg/dL) Date Value 12/24/2023 0.75 GLUCOSE (mg/dL) Date Value 12/24/2023 84 CO2 TOTAL (mmol/L) Date Value 12/24/2023 27 ALBUMIN (g/dL) Date Value 12/24/2023 4.0 T PROTEIN (g/dL) Date Value 12/24/2023 7.3 TOTAL BILI (mg/dL) Date Value 12/24/2023 0.9 ALTv (U/L) Date Value 12/24/2023 27 AST(SGOT) (U/L) Date Value 12/24/2023 25 ALK PHOS (U/L) Date Value 12/24/2023 106 (-) Renal disease (-) Dialysis Skin Endo/Other (+) Diabetes Mellitus Other (-) Tobacco use (+) Alcohol use 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 Hold on DOS. Phentermine: Alert [facility] anesthesiologist SGLT2 Inhibitors: "gliflozins" to be held for 3 days prior to elective surgeries GLP1 Agonosit: stop 7 days prior to surgery MAC Cases: Continue taking MACIEL inhibitors and ARBs ASA Classification ASA: 3 Labs: Chemistry 12/24/2023 CBC 12/24/2023 138 105 11 84 9.39 15.1 (H) 272 4.4 27 0.75 44.7 eGFR: 109.3 Date: 12/24/2023 ANC: 5.91 Date: 12/24/2023 LFTs 12/24/2023 Coags AST: 25 AP: 106 Prot: 7.3 Ca: 9.4 PT: - Date: - ALT: 27 T Jarrod: 0.9 Alb: 4.0 PTT: - Date: - PO4: - Date: - INR: - Date: - Cardiac Endocrine & other pBNP: - Date: - A1C: 4.9 Date: 12/24/2023 Trop I: - Date: - POCT A1C: - Date: - CK: - Date: - TSH: - Date: - CKMB: - Date: - FT4: - Date: - LDL: 114 Date: 12/24/2023 Lact: - Date: - Procal: - Date: - Respiratory -|-|-|-|- D-dimer: - ABG Date: - Date: - Miscellaneous Type and Screen: - Antibody: - Date: - POCT : Negative Date: 02/29/2024 Current Medications: No current facility-administered medications for this encounter. Current Outpatient Medications Medication Sig Dispense Refill ergocalciferol, vitamin d2, (VITAMIN D2) 1,250 mcg (50,000 unit) capsule Take 1 capsule by mouth weekly. 4 capsule 0 FLUoxetine 20 mg capsule Take 3 capsules by mouth in the morning. omeprazole 40 mg capsule Take 1 capsule by mouth in the morning. lisinopril 10 mg tablet Take 1 tablet by mouth in the morning. Previous Surgeries: Past Surgical History: Procedure Laterality Date ESOPHAGOGASTRODUODENOSCOPY N/A 02/29/2024 Surgeon: Yarelis Alex MD; Location: [facility] OR LOCATION LAPAROSCOPIC GASTRIC SLEEVE (SHX) N/A 10/05/2015 TOOTH EXTRACTION 2019 Anesthesia Physical Exam General no apparent distress and alert and oriented x 3 Neuro/Psych neurological Nonfocal Dental no notable dental hx Abdominal (+) obesity, abdomen soft and benign Airway Mallampati score:III Neck ROM: full Mouth opening:normal Extremity Normal extremity Pulmonary pulmonary exam normal and bilateral clear to auscultation Other Cardiovascular cardiovascular exam normalRhythm:Regular Rate: Normal Anesthesia Plan ASA Status: 3 Plan discussed during pre-op evaluation: General Anesthetic plan on DOS: General Plan to include: IV induction and face mask Anesthesia plan discussed with: patient or business services representative Post-Operative Analgesia: routine analgesia & antiemetics Recovery Plan: PACU Additional comments: Preg test (-) on 04/15/2024 Preop evaluation was done prior to induction of anesthesia. Patient seen in holding. Benefits and risks including but not limited to damage to teeth, lips, throat, nausea, vomiting, memory lose, postop blindness, prepheral nerve damage, damage to organs, brain, lose of life discussed. Patient or patient representativie understands and wishes to proceed with the procedure. All questions answered. Consent signed in chart. Zaina Kathleen MD, PhD [facility] 2024-02-28 10:56:55 Patient contacted for pre op phone call. Patient given procedural prep instructions, NPO status/timing for procedure, medication instructions,.Patient verbalized understanding of instructions. Discussed with patient they will need a responsible adult, 18 years old or older, to provide transportation on the day of procedure. Patient also informed that they will be contacted the day before their procedure with arrival time. Pre op call complete. T Olivia Ladd RN [facility] 2024-02-20 16:44:58 Images from the original note were not included. New start DME The following has been sent to the provider for completion via parachute/FAX Orders pended for [employer] Prescription for APAP Sleep study /data report dated - 01/10/2024 TUAN 10.1 Demographics - Face sheet Insurance Information Progress Notes from office visit prior to sleep study - 12/20/2023 LOVN 02/20/2024 Follow up due 31-90 days following initiation of any device. Emily Najera RN [facility] 2024-01-15 09:26:29 Patient informed new medication sent to pharmacy and call back if not covered to discuss options, verbalized understanding. [facility] 2024-01-15 09:20:29 New prescription sent. BERTHA Nash 01/15/2024 9:20 AM T [facility] 2024-01-15 07:20:02 An alternative could be condylox (podofilox topical) 0.5% - apply small amount to affected area(s) every 12hrs x 3days, off x4 days for up to 4 weeks. If this isn't covered, ask what is covered. OR, she can come back into the office for TCA treatment once a week for 4-6wks OR, I could refer her to BERTHA Tian 01/15/2024 7:28 AM' T [facility] 2024-01-14 12:56:50 Call placed to pharmacy and given correct fax number to send PA. [facility] 2024-01-14 10:02:46 Yamilka Holm is a 33 year old female Pt is calling stating her pharmacy informed her they are needing a prior authorization for pt's imiquimod (ALDARA) 5 % cream prescription to dispense the medication. [facility] [address] AT [address] Ricardo Lemus [facility] 2023-12-24 08:00:00 Images from the original note were not included. Venipuncture collection performed by clean technique on the right anticubitus. Total of 1 attempts were made. Slight pressure and a bandage/dressing were applied to the site(s). The patient experienced no complications. The following specimens were processed according to instructions and sent to [facility] laboratories per lab order on 12/24/2023: LT BLUE SST 4 RED LAV 2 PPT DK GREEN (LiHep) 1 DK GREEN (SodH) NELSON DK BLUE (K2) DK BLUE (S) ACD Blood Culture NIPT/NTD [facility] 2023-12-18 13:37:59 Spoke to patient she does not have a co-pay. Shannon Prater [facility] 2023-12-17 14:01:01 Copied from [facility] #[id number]. Topic: Appointment - Confirm Appointment >> Dec 17, 2023 2:00 PM Patient Fisher Lobster wrote: Yamilka Holm Pt calling requesting someone to call and verify copay amount before appointment on 12/19. Please advise [phone] (home) Hawa Hamilton [facility] 2023-10-29 15:20:18 Spoke with patient who states that since leep she has been bleeding (started recently). Using 2 pads per day. Ad ised her to be seen if bleeding becomes heavier than a period or continues for extended amount of time Vicky Taylor RN [facility] 2023-10-29 15:15:01 No answer when calling patient, voice mail left T [facility] 2023-10-29 09:43:27 Copied from [facility] #[id number]. Topic: Clinical - Medical Advice >> Oct 29, 2023 9:41 AM Patient Fisher Lobster wrote: Pt is requesting call back, states has some concerns after procedure of appointment. Please call [phone] (home) BANDAR Cardoza [facility] 2023-10-18 09:30:00 Addended by: SHANAE PETERSON on: 10/18/2023 10:58 AM Modules accepted: Level of Service OG-OBSTETRICS & GYNECOLOGY STAFF [facility] 2023-09-18 12:51:14 See note from 09/17/2023. Belkys Freeman RN 09/18/23 12:51 PM TMILLER [facility] 2023-09-18 12:40:14 ISAIAS 3 noted on colposcopy bx. Pt needs a LEEP. Schedule in [place]. Please contact pt with results and POC. BERTHA Nelson 09/18/2023 12:40 PM [facility]
[2025-02-24] MEDS ORDERED: NA CHLORIDE 0.9% 1,000 ML ONE (14:02)
[2025-02-24] MEDS ORDERED: ONDANSETRON 4 MG/2 ML VIAL ONE (14:02)
[2025-02-24] MEDS ORDERED: MORPHINE 4 MG/ML SYR ONE (14:02)
[2025-02-24 14:03] LABS: Absolute Lymphocytes (CBC) 2.7 K/uL (0.7-4.9); Hematocrit 44.3 % (36.0-45.0); Hemoglobin 15.0 g/dL (12.0-15.0); MCH 30.3 pg (27.0-35.0); MCHC 33.8 g/dL (32.0-36.0); MCV 89.5 fL (80-100); MPV 8.6 fL (7.6-11.3); Nucleated RBC Absolute Count 0.0 (0-0); Nucleated Red Blood Cells % 0.0 % (0-0); RBC Red Blood Cell Count 4.95 M/uL (3.86-4.86); White Blood Count 8.80 thou/uL (4.3-10.9)
[2025-02-24 14:20] LABS: ALT/SGPT 20.0 U/L (13-56); AST/SGOT 22.0 U/L (15-37); Albumin 3.6 g/dL (3.4-5.0); Albumin/Globulin Ratio 0.9 (1.1-1.8); Alkaline Phosphatase 94.0 U/L (45-117); Anion Gap 11.9 mEq/L (5.0-15.0); BUN Blood Urea Nitrogen 13.0 mg/dL (7-18); Globulin 3.9 g/dL (2.3-3.5); Glucose Level 85.0 mg/dL (74-106); Lipase 17.0 U/L (13-75); Potassium 3.9 mEq/L (3.5-5.1)
--- NOTE | 2025-02-24 16:18 | RAD REPORT ---
EXAMINATION: US Abdomen Exam Limited CLINICAL HISTORY: HS MAIN N ABD PAIN Bed Name: IW1 COMPARISON: None. TECHNIQUE: Limited upper abdominal grayscale and color flow sonographic images. FINDINGS: Gallbladder: Cholelithiasis with small stones and echogenic sludge.. No wall thickening or pericholec ystic fluid. No reported sonographic positive Moody sign. Bile ducts: No intrahepatic or extrahepatic biliary dilatation. Common bile duct measures 4 mm. Liver: Visualized portions of the liver demonstrate normal echogenicity with no suspicious findings. Fluid: No ascites. IMPRESSION: Gallbladder sludge with small gallstones. No findings to suggest acute cholecystitis..
--- NOTE | 2025-02-24 16:26 | RAD REPORT ---
EXAMINATION: CT Abdomen Pelvis W Contrast CLINICAL INDICATION: Female, 34 years old. ABD PAIN TECHNIQUE: CT abdomen and pelvis was performed, after the administration of IV contrast, as [facility]. Axial, sagittal and coronal reconstructions were obtained. One or more of the following dose reduction techniques were used: Automated exposure control, adjustment of the mA and k V according to patient size, and iterative reconstruction. Unless otherwise specified, incidental findings do not require dedicated imaging follow-up. COMPARISON: 09/04/2018 FINDINGS: LOWER CHEST: The visualized lung bases are clear. LIVER: Normal in size and contour. No focal lesion. BILIARY SYSTEM: Moderate gallbladder distention. SPLEEN: Normal size. No focal lesion. PANCREAS: No mass, ductal dilation, or jacquelyn-pancreatic fluid. ADRENALS: Normal; no mass. KIDNEYS: Normal size and contour. No hydronephrosis. URINARY BLADDER: Decompressed limiting evaluation. GASTROINTESTINAL TRACT: Sequelae of gastric bypass. No evidence of free air, significant intra-abdomi nal free fluid, bowel obstruction or abscess. APPENDIX: Normal appendix. LYMPH NODES: No lymphadenopathy. MUSCULOSKELETAL: No acute or suspicious osseous abnormality. ADDITIONAL FINDINGS: None. IMPRESSION: No acute or concerning abnormalities seen in the abdomen or pelvis.
--- NOTE | 2025-02-24 16:36 | EDPHYS ---
Physician Documentation [facility] Name: Sandra Holm Age: 34 yrs Sex: Female : 1990 Arrival Date: 02/24/2025 Time: 11:16 Bed 9 Private MD: ED Physician Norris Sage HPI: 02/24 15:01 This 34 yrs old Female presents to ER via Ambulatory with complaints of Abdominal Pain, sb4 Vomiting/Diarrhea. 15:01 Patient presents right upper quadrant and epigastric abdominal pain with associated sb4 nausea, vomiting, and diarrhea for over a week now. States she was initially seen at [facility] 8 days ago, had lab work, CT scan, and ultrasound done and was told that her gallbladder was inflamed and had sludge. She was discharged with a prescription for dicyclomine. She followed up with a general surgeon the next day who wanted her to have a HIDA scan done which is scheduled in another week. She states the pain got more severe today so she presented to the ED. Historical: - Allergies: 11:31 NSAIDS; hb 11:31 Oranges; hb - PMHx: 11:31 Depression; Hypertension; prediabetes; hb - PSHx: 11:31 gastric sleeve; hb 11:32 Gastric Bypass; hb ROS: 15:01 Constitutional: Negative for fever, chills, and weight loss, sb4 15:01 Abdomen/GI: Positive for abdominal pain, nausea, vomiting, and diarrhea, 15:01 All other systems are negative, Exam: 16:23 Head/Face: Normocephalic, atraumatic. Eyes: Extra-ocular motions intact. Periorbital sb4 areas with no swelling, redness, or edema. ENT: Mucous membranes moist. Cardiovascular: Regular rate and rhythm with a normal S1 and S2. Respiratory: No increased work of breathing, no retractions or nasal flaring. Skin: Warm, dry with normal turgor. Normal color with no rashes, no lesions, and no evidence of cellulitis. 16:23 Constitutional: The patient appears alert, awake, obese, in obvious pain, uncomfortable, 16:23 Abdomen/GI: Inspection: abdomen appears normal, Bowel sounds: normal, Palpation: moderate abdominal tenderness, in the epigastric area and right upper quadrant, Indicators: McBurney's point is tender, Vital Signs: 11:29 BP 153 / 88; Pulse 86; Resp 16; Temp 97.7(O); Pulse Ox 100% ; Weight 124.74 kg; Height hb 5 ft. 6 in. ; Pain 7/10; 19:06 BP 113 / 60; Pulse 78; Resp 16; Pulse Ox 99% on R/A; al5 11:29 Body Mass Index 44.39 (124.74 kg, 167.64 cm) hb 11:29 Pain Scale: Adult hb MDM: 11:23 Medical Screening Exam initiated sb4 16:23 Differential diagnosis: cholecystitis, Cholelithiasis, non-specific abd pain, sb4 pancreatitis. Data reviewed: vital signs, nurses notes, lab test result(s), radiologic studies. Counseling: I had a detailed discussion with the patient and/or guardian regarding the historical points, exam findings, and any diagnostic results supporting the discharge/admit diagnosis, the presence of at least one elevated blood pressure reading (>120/80) during this emergency department visit, lab results, radiology results, to return to the emergency department if symptoms worsen or persist or if there are any questions or concerns that arise at home. 16:34 Consideration of Admission/Observation Patient was admitted/placed on observation. sb4 Management of patient was discussed with the following: House Father: Dr. Farias, will take patient to the OR tomorrow for laparoscopic cholecystectomy. Once clear liquid diet until midnight with antibiotics then n.p.o. after midnight with pain medications and antiemetics. Care significantly affected by the following chronic conditions: Diabetes, Hypertension, Obesity. 02/24 13:26 Order name: CBC with Diff; Complete Time: 14:05 sb4 02/24 13:26 Order name: CMP; Complete Time: 14:45 sb4 02/24 13:26 Order name: Lipase; Complete Time: 14:45 sb4 02/24 13:26 Order name: Test, Urine; Complete Time: 14:45 sb4 02/24 17:16 Order name: Basic Metabolic Panel EDMS 02/24 17:16 Order name: Basic Metabolic Panel EDMS 02/24 17:16 Order name: Basic Metabolic Panel EDMS 02/24 17:16 Order name: Basic Metabolic Panel EDMS 02/24 17:16 Order name: Basic Metabolic Panel EDMS 02/24 17:16 Order name: CBC with Automated Diff EDMS 02/24 17:16 Order name: CBC with Automated Diff EDMS 02/24 17:16 Order name: CBC with Automated Diff EDMS 02/24 17:16 Order name: CBC with Automated Diff EDMS 02/24 17:16 Order name: CBC with Automated Diff EDMS 02/24 13:26 Order name: Abdomen Limited US; Complete Time: 16:18 sb4 02/24 13:26 Order name: CT Abd/Pelvis - IV Contrast Only; Complete Time: 16:28 sb4 02/24 13:26 Order name: IV Saline Lock; Complete Time: 14:01 sb4 02/24 13:26 Order name: Labs collected and sent; Complete Time: 14:01 sb4 Administered Medications: 14:14 Drug: NS 0.9% IV 1000 ml IV at 1 bolus Per protocol; to be given as a bolus over 60 iw minutes Route: IV; Rate: 1 bolus; Site: right antecubital; 19:09 Follow up: Response: No adverse reaction; IV Status: Completed infusion; IV Intake: al5 1000ml 14:14 Drug: morphine IVP or IV 4 mg IVP once over 4 mins Route: IVP; Infused Over: 4 mins; iw Site: right antecubital; 19:09 Follow up: Response: No adverse reaction al5 14:14 Drug: Ondansetron IVP 4 mg IVP once; over 2 minutes Route: IVP; Site: right antecubital;iw 19:09 Follow up: Response: No adverse reaction al5 17:32 Drug: Piperacillin-Tazobactam IVPB 3.375 grams IVPB once over 60 mins; (mix in NS 100 iw mL) Route: IVPB; Infused Over: 60 mins; Site: right antecubital; 19:09 Follow up: Response: No adverse reaction; IV Status: Completed infusion; IV Intake: al5 100ml 17:32 Drug: diphenhydrAMINE IVP 25 mg IVP once Route: IVP; Site: right antecubital; iw 19:09 Follow up: Response: No adverse reaction al5 17:32 Drug: metoCLOPramide IVP 10 mg IVP once; over 1 to 2 minutes Route: IVP; Site: right iw antecubital; 19:09 Follow up: Response: No adverse reaction al5 Disposition Summary: 02/24/25 16:36 Hospitalization Ordered Notes: Hospitalization Status: Inpatient Admission sb4 Provider: Ray Mast sb4 Location: Telemetry/MedSurg (Inpatient) sb4 Condition: Fair sb4 Problem: new sb4 Symptoms: are unchanged sb4 Bed/Room Type: Standard sb4 Room Assignment: 402(02/24/25 17:17) bd Diagnosis - Other cholelithiasis without obstruction sb4 - Upper abdominal pain, unspecified sb4 Forms: - Medication Reconciliation Form sb4 - SBAR form sb4 - Leadership Thank You Letter sb4 Signatures: Dispatcher [employer] Char Chowdhury Irene, RN RN Vaishnavi Orona RN RN hb Brown, Sophia, PA-C PA-C sb4 Cristy Romero RN al5 Corrections: (The following items were deleted from the chart) 17:17 16:36 sb4 bd
--- NOTE | 2025-02-24 16:36 | ER ---
Nurse's Notes [facility] Name: Sandra Holm Age: 34 yrs Sex: Female : 1990 Arrival Date: 02/24/2025 Time: 11:16 Bed 9 Private MD: Diagnosis: Other cholelithiasis without obstruction;Upper abdominal pain, unspecified Presentation: 02/24 11:29 Chief complaint: Intermittent RUQ pain x 1 week, became severe today. Also c/o N/V/D hb today. Seen at [facility] last week, told her gallbladder was inflamed and had sludge. Coronavirus screen: At this time, the client does not indicate any symptoms associated with coronavirus-19. Ebola Screen: No symptoms or risks identified at this time. Initial Sepsis Screen: Does the patient meet any 2 criteria? No. Patient's initial sepsis screen is negative. Does the patient have a suspected source of infection? No. Patient's initial sepsis screen is negative. Risk Assessment: Do you want to hurt yourself or someone else? Patient reports no desire to harm self or others. Onset of symptoms was February 17, 2025. 11:29 Method Of Arrival: Ambulatory hb 11:29 Acuity: TRELL 3 hb Historical: - Allergies: 11:31 NSAIDS; hb 11:31 Oranges; hb - PMHx: 11:31 Depression; Hypertension; prediabetes; hb - PSHx: 11:31 gastric sleeve; hb 11:32 Gastric Bypass; hb Screenin:06 [facility] ED Fall Risk Assessment (Adult) History of falling in the last 3 months, al5 including since admission No falls in past 3 months (0 pts) Confusion or Disorientation No (0 pts) Intoxicated or Sedated No (0 pts) Impaired Gait No (0 pts) Mobility Assist Device Used No (0 pt) Altered Elimination No (0 pt) Score/Fall Risk Level 0 - 2 = Low Risk Oriented to surroundings, Maintained a safe environment, Hourly rounding (assess needs \T\ fall precautionary measures) done. Abuse screen: Denies threats or abuse. Denies injuries from another. Nutritional screening: No deficits noted. Tuberculosis screening: No symptoms or risk factors identified. Assessment: 13:34 Reassessment: Patient and/or family updated on plan of care and expected duration. Pain ll1 level reassessed. Vital Signs: 11:29 BP 153 / 88; Pulse 86; Resp 16; Temp 97.7(O); Pulse Ox 100% ; Weight 124.74 kg; Height hb 5 ft. 6 in. ; Pain 7/10; 19:06 BP 113 / 60; Pulse 78; Resp 16; Pulse Ox 99% on R/A; al5 11:29 Body Mass Index 44.39 (124.74 kg, 167.64 cm) hb 11:29 Pain Scale: Adult hb ED Course: 11:18 Patient arrived in ED. mr 11:23 Katt Menjivar PA-C is PHCP. sb4 11:23 Norris Sage MD is Attending Physician. sb4 11:31 Triage completed. hb 11:32 Arm band placed on. hb 13:34 Patient placed in an exam room, on a stretcher. ll1 13:42 Xin Le, RN is Primary Nurse. iw 14:42 CT Abd/Pelvis - IV Contrast Only In Process Unspecified. EDMS 14:51 Abdomen Limited US In Process Unspecified. EDMS 16:36 Ray Mast MD is Hospitalizing Provider. sb4 19:06 No provider procedures requiring assistance completed. Patient admitted, IV remains in al5 place. 22G RAC. 19:07 Patient has correct armband on for positive identification. Bed in low position. Call al5 light in reach. Side rails up X2. Provided Education on: room transfer admission. Administered Medications: 14:14 Drug: NS 0.9% IV 1000 ml IV at 1 bolus Per protocol; to be given as a bolus over 60 iw minutes Route: IV; Rate: 1 bolus; Site: right antecubital; 19:09 Follow up: Response: No adverse reaction; IV Status: Completed infusion; IV Intake: al5 1000ml 14:14 Drug: morphine IVP or IV 4 mg IVP once over 4 mins Route: IVP; Infused Over: 4 mins; iw Site: right antecubital; 19:09 Follow up: Response: No adverse reaction al5 14:14 Drug: Ondansetron IVP 4 mg IVP once; over 2 minutes Route: IVP; Site: right antecubital;iw 19:09 Follow up: Response: No adverse reaction al5 17:32 Drug: Piperacillin-Tazobactam IVPB 3.375 grams IVPB once over 60 mins; (mix in NS 100 iw mL) Route: IVPB; Infused Over: 60 mins; Site: right antecubital; 19:09 Follow up: Response: No adverse reaction; IV Status: Completed infusion; IV Intake: al5 100ml 17:32 Drug: diphenhydrAMINE IVP 25 mg IVP once Route: IVP; Site: right antecubital; iw 19:09 Follow up: Response: No adverse reaction al5 17:32 Drug: metoCLOPramide IVP 10 mg IVP once; over 1 to 2 minutes Route: IVP; Site: right iw antecubital; 19:09 Follow up: Response: No adverse reaction al5 Medication: 19:07 VIS not applicable for this client. al5 Intake: 19:09 IV: 100ml; Total: 100ml. al5 19:09 IV: 1000ml; Total: 1100ml. al5 Outcome: 16:36 Decision to Hospitalize by Provider. sb4 19:08 Admitted to Med/surg accompanied by nurse, via wheelchair, room 402, with chart, al5 19:08 Condition: stable 19:08 Instructed on the need for admit, 19:26 Patient left the ED. al5 Signatures: Dispatcher [employer] EDCT TineoShelby kimball, Reg Reg mr Xin Le, RN RN iw Vaishnavi Suarez RN RN hb Lewis, Lynsay, RN RN ll1 Katt Menjivar, PA-Timo PA-Timo sb4 Cristy Romero RN RN al5 Corrections: (The following items were deleted from the chart) 19:24 19:06 Patient admitted, IV remains in place. al5 al5
[2025-02-24] MEDS ORDERED: NA CHLORIDE 0.9% 100 ML ONE (17:10)
[2025-02-24] MEDS ORDERED: DIPHENHYDRAMINE 50 MG/ML VIAL ONE (17:10)
[2025-02-24] MEDS ORDERED: METOCLOPRAMIDE 10 MG/2mL INJ ONE (17:10)
[2025-02-24] MEDS ORDERED: PIPERACIL/TAZO 3.375 GM VIAL IV ONE (17:11)
--- NOTE | 2025-02-24 17:27 | P.HP ---
Certification for Inpatient Patient admitted to: Observation With expected LOS: <2 Midnights Patient will require the following post-hospital care: None Practitioner: I am a practitioner with admitting privileges, knowledge of patient current condition, hospital course, and medical plan of care. Services: Services provided to patient in accordance with Admission requirements found in Title 42 Section 412.3 of the Code of Federal Regulations Patient History Date of Service: 02/24/25 Reason for admission: Cholelithiasis, epigastric tenderness History of Present Illness: 34-year-old female with history of hypothyroidism, depression/anxiety with history of gastric sleeve/gastric bypass presents to the emergency department chief complaint of upper abdominal pain. She reports that she was recently seen at another hospital with a similar diagnosis and had followed up once with a surgeon in the [place] area who is making plans for HIDA scan. She reports that her pain became significantly worse this morning after eating eggs and for the reason she reported back to the emergency department. Patient was evaluated in the emergency department her labs were unremarkable abdominal ultrasound showed cholelithiasis and CT of the abdomen pelvis was negative for any other acute findings. Given her recurrent/ongoing abdominal pain ED provider discussed case with general surgery who will evaluate the patient morning for possible laparoscopic cholecystectomy. Allergies No Known Allergies Allergy (Unverified 10/14/11 00:00) - Past Medical/Surgical History -: Hyperthyroidism -: Depression/anxiety -: Gastric sleeve/bypass Psychosocial/ Personal History: Lives at home with family - Social History Alcohol use: No CD- Drugs: No Caffeine use: Yes Place of Residence: Home Review of Systems 10-point ROS is otherwise unremarkable Gastrointestinal: Nausea, Abdominal Pain Physical Examination - Physical Exam General: Alert, In no apparent distress, Oriented x3 HEENT: Atraumatic, PERRLA, EOMI Neck: Supple, 2+ carotid pulse no bruit, No LAD Respiratory: Clear to auscultation bilaterally, Normal air movement Cardiovascular: Regular rate/rhythm, Normal S1 S2 Gastrointestinal: Normal bowel sounds, Tenderness (Mild epigastric tenderness) Musculoskeletal: No tenderness Integumentary: No rashes Neurological: Normal gait, Normal speech, Normal strength at 5/5 x4 extr, Normal affect - Studies Laboratory Data (last 24 hrs) 02/24/25 02/24/25 13:50 13:50 WBC 8.80 Hgb 15.0 Hct 44.3 Plt Count 292 Sodium 141 Potassium 3.9 BUN 13 Creatinine 0.64 Glucose 85 Total Bilirubin 0.4 AST 22 ALT 20 Alkaline Phosphatase 94 Lipase 17 Assessment and Plan - Plan Assessment: Cholelithiasis, abdominal tenderness Hyperthyroidism Depression/anxiety Plan: Cholelithiasis, abdominal tenderness Clear liquid diet, n.p.o. after midnight IV antibiotics with Zosyn As needed pain medications and antiemetics General Surgery evaluation in the morning Hyperthyroidism Depression/anxiety Continue home medications when verified DVT PPX: SCD Code status: Full code Discharge Plan: Home Plan to discharge in: 24 Hours - Advance Directives Does patient have a Living Will: No Does patient have a Durable POA for Healthcare: No - Code Status/Comfort Care Code Status Assessed: Yes (Full code) Critical Care: No Time Spent Managing Pts Care (In Minutes): 61
[2025-02-24] MEDS: NA CHLORIDE 0.9% 1,000 ML IV SCH (19:35)
[2025-02-24] MEDS: MORPHINE 2 MG/ML SYR IV PRN (19:35)
[2025-02-24] MEDS: HYDROCODONE/APAP 5/325 MG TAB PO PRN (21:33)
[2025-02-25 00:01] VITALS: BMI 44.4
[2025-02-25] MEDS: PIPER TAZO 3.375 GM in NA CHLORIDE 0.9% 100 ML IV SCH (00:23)
[2025-02-25 05:31] LABS: Absolute Lymphocytes (CBC) 2.6 K/uL (0.7-4.9); Anion Gap 6.7 mEq/L (5.0-15.0); BUN Blood Urea Nitrogen 11.0 mg/dL (7-18); Glucose Level 79.0 mg/dL (74-106); Hematocrit 37.8 % (36.0-45.0); Hemoglobin 13.0 g/dL (12.0-15.0); MCH 30.5 pg (27.0-35.0); MCHC 34.3 g/dL (32.0-36.0); MCV 88.8 fL (80-100); MPV 8.6 fL (7.6-11.3); Nucleated RBC Absolute Count 0.0 (0-0); Nucleated Red Blood Cells % 0.0 % (0-0); Potassium 3.7 mEq/L (3.5-5.1); RBC Red Blood Cell Count 4.25 M/uL (3.86-4.86); White Blood Count 7.20 thou/uL (4.3-10.9)
[2025-02-25] MEDS: ONDANSETRON 4 MG/2 ML VIAL IV PRN (06:34)
--- NOTE | 2025-02-25 08:04 | P.CNS ---
Date of Consult: 02/25/25 Reason for consult: Abdominal History of present illness: Patient is a 34-year-old female who is having biliary colic for the last week. Patient went to [facility] and was diagnosed with gallstones and was discharged. However, she continues to have upper abdominal pain radiating to the back associated with nausea occasional vomiting and postprandial in nature. Patient occasionally has bloating, belching and heartburn. Patient denies any diarrhea, constipation, blood per rectum, dysuria or hematuria. Patient denies any sore throat, runny nose, cough, headache, dizziness, chest pain, fever or chills. Review of systems: Otherwise unremarkable Past medical history: Hyperthyroidism, depression, anxiety Past surgical history: Gastric bypass surgery Allergies: None Social history: Patient denies smoking or drinking alcohol Family history: Diabetes Vital signs: Stable, afebrile Physical exam: Awake, alert and oriented x 3 Head and neck exam: No icterus, no neck masses, no JVD, throat clear neck supple Chest: Clear Heart: S1-S2 Abdomen: Soft, nondistended, positive bowel sound, positive right upper quadrant tenderness with minimal rebound no rigidity or guarding Extremity: Neurovascular intact Neuro: Nonfocal Diagnostic data: White count is normal, LFTs are normal, ultrasound and CT reviewed Assessment: Chronic cholecystitis and cholelithiasis Plan/recommendation: Admit, n.p.o., IV fluids, IV antibiotics, and to the OR for laparoscopic cholecystectomy possible open. Patient understands risk, benefits and alternatives and agrees to procedure. CC:
[2025-02-25] MEDS ORDERED: ONDANSETRON 4 MG/2 ML VIAL ONE (08:49)
[2025-02-25] MEDS ORDERED: FENTANYL CITR 100 MCG/2 ML ONE (08:49)
[2025-02-25] MEDS ORDERED: ROCURONIUM 50 MG/5 ML VIAL IV ONE (08:49)
[2025-02-25] MEDS ORDERED: KETOROLAC 30 MG/ML INJ ONE (08:49)
[2025-02-25] MEDS ORDERED: MIDAZOLAM HCL 2 MG/2 ML INJ ONE (08:49)
[2025-02-25] MEDS ORDERED: LIDOCAINE 2% MPF 5 ML VIAL ONE (08:49)
[2025-02-25] MEDS: DEXMEDETOMIDINE HCL 200 MCG/2 ML VIAL ONE (08:54)
[2025-02-25] MEDS: BUPIVACAINE 0.5% PF 10 ML VIAL ONE (09:37)
[2025-02-25] MEDS ORDERED: Mastisol Adhesive Liq ONE (09:56)
--- NOTE | 2025-02-25 10:03 | P.OP ---
Date of Service: 02/25/25 Preop diagnosis: Chronic cholecystitis and cholelithiasis Postop diagnosis: Same Procedure performed: Laparoscopic cholecystectomy Surgeon: Ramesh Farias MD Shirring Machine Operator: Kayla CHAVEZ Estimated blood loss: Minimal Specimen: Gallbladder Findings: As above Anesthesia: General Complications: None Drains: None Fluids and blood products: Nonapplicable Disposition: Recovery room Operative note: Patient brought to the OR and placed in supine position. General anesthesia began. Patient prepped and draped in usual sterile fashion. Marcaine 0.5% infiltrated locally. 15 blade used to make a 1 cm supraumbilical midline incision. Subcu tissue divided and bleeding controlled cautery. Fascia identified and divided. #1 Vicryl stay suture placed. Peritoneal cavity entered with sharp and blunt dissection. 12 mm trocar placed into the peritoneal cavity under direct vision. 12 mm trocar placed into the peritoneal cavity under direct vision. Pneumoperitoneum established. Three 5 mm trocars placed under direct vision. 1 trocar placed in the epigastric region just to the right of midline. 2 trocars placed in the right subcostal region. Laparoscopy revealed chronic inflammation of the gallbladder. Fundus identified and retracted superiorly. Infundibulum identified and retracted inferolaterally. There was some mild adhesions in this area that were taken down with blunt and sharp dissection. Cystic duct and cystic artery were clearly identified with blunt dissection. Clips placed in both structure divid ed. Cautery used to remove the gallbladder from the liver bed. Gallbladder retrieved to the umbilicus via Endo Catch bag. Right upper quadrant irrigated. Effluent clear. There is no evidence of bleeding or bile leakage appreciated. All trocars removed under direct vision. Stay sutures tied to each other to reapproximate the fascial defect. Subcutaneous wounds irrigated and bleeding controlled cautery. 3-0 chromic used to approximate subcutaneous tissue and close skin. Sterile dressing applied. Patient awakened and taken to recovery room in good general condition. CC:
[2025-02-25] MEDS: HYDROMORPHONE HCL 0.5 MG/0.5 ML INJ ONE (10:37)
--- NOTE | 2025-02-25 14:25 | P.PN ---
Date of Service: 02/25/25 Subjective: Status post laparoscopic cholecystectomy Doing well postoperatively No other acute events overnight ROS: 10 point ROS as noted above, otherwise negative Physical exam GEN: Alert, oriented, NAD HEENT: Normal conjunctiva, sclera anicteric CV: Regular rate and rhythm, no edema Pulm: Nonlabored respirations on room air ABD: Soft, nontender, nondistended MSK: No joint tenderness Integumentary: No rashes Neuro: Normal speech, normal affect Vitals reviewed Assessment: Chronic cholecystitis and cholelithiasis S/P laparoscopic cholecystectomy Hyperthyroidism Depression/anxiety Plan: Chronic cholecystitis and cholelithiasis laparoscopic cholecystectomy Doing well postoperatively Possible discharge in the morning if still doing well Will discharge with pain medications and antibiotics for 5 days Hyperthyroidism Depression/anxiety Continue home medications when verified DVT PPX: SCD Code status: Full code Discharge Plan: Home Plan to discharge in: 24 Hours Chronic cholecystitis and cholelithiasis Time Spent Managing Pts Care (In Minutes): 35
[2025-02-25] MEDS: HYDROMORPHONE HCL 1 MG/ML INJ IV PRN (16:01)
[2025-02-25] MEDS: HYDROCODONE/APAP 7.5/325 MG TAB PO PRN (21:01)
[2025-02-26 05:32] LABS: Absolute Lymphocytes (CBC) 2.0 K/uL (0.7-4.9); Hematocrit 38.2 % (36.0-45.0); Hemoglobin 13.3 g/dL (12.0-15.0); MCH 30.8 pg (27.0-35.0); MCHC 34.8 g/dL (32.0-36.0); MCV 88.5 fL (80-100); MPV 8.6 fL (7.6-11.3); Nucleated RBC Absolute Count 0.0 (0-0); Nucleated Red Blood Cells % 0.0 % (0-0); RBC Red Blood Cell Count 4.32 M/uL (3.86-4.86); White Blood Count 11.30 thou/uL (4.3-10.9)
[2025-02-26 05:46] LABS: Anion Gap 7.9 mEq/L (5.0-15.0); BUN Blood Urea Nitrogen 8.0 mg/dL (7-18); Glucose Level 102.0 mg/dL (74-106); Potassium 3.9 mEq/L (3.5-5.1)
[2025-02-26] MEDS: POTASSIUM CL SA 10 MEQ TAB PO ONE (06:09)
[2025-02-26 08:21] VITALS: BP 119/64; TEMP 97.9
[2025-02-26 09:50] VITALS: O2SAT 98
--- NOTE | 2025-02-26 13:41 | PN ---
Date of Progress Note: 02/26/2025 Subjective: The patient is awake and alert. No complaint. Objective: Vital Signs: Stable. Afebrile. Abdomen: Benign. Dressing is clean, dry, and intact. Laboratory Data: Reviewed. White count is 11.3. Chemistry is within normal limits. Assessment: Status post laparoscopic cholecystectomy. Recommendations: Patient cleared for discharge. Discharge instructions given to patient to follow u p with me in the office. Discharge medications per the hospitalist team. /MODL Voice ID: [id number] Report ID: [id number]
--- NOTE | 2025-02-26 13:48 | P.DS ---
Admission Date: 02/25/25 Discharge Date: 02/26/25 Disposition: ROUTINE DISCHARGE Discharge Condition: GOOD Reason for Admission: Cholelithiasis, epigastric tenderness Brief History of Present Illness: 34-year-old female with history of hypothyroidism, depression/anxiety with history of gastric sleeve/gastric bypass presents to the emergency department chief complaint of upper abdominal pain. She reports that she was recently seen at another hospital with a similar diagnosis and had followed up once with a surgeon in the [place] area who is making plans for HIDA scan. She reports that her pain became significantly worse this morning after eating eggs and for the reason she reported back to the emergency department. Patient was evaluated in the emergency department her labs were unremarkable abdominal ultrasound showed cholelithiasis and CT of the abdomen pelvis was negative for any other acute findings. Given her recurrent/ongoing abdominal pain ED provider discussed case with general surgery who will evaluate the p atient morning for possible laparoscopic cholecystectomy. Hospital Course: Assessment: Chronic cholecystitis and cholelithiasis S/P laparoscopic cholecystectomy Hyperthyroidism Depression/anxiety Patient was admitted for abdominal pain, cholecystitis. She underwent laparoscopic cholecystectomy on 02/25 and has been doing well postoperatively. She is tolerating diet, passing gas and urinating freely. She stable for discharge and outpatient follow-up with general surgery. Vital Signs/Physical Exam: Temp Pulse Resp BP Pulse Ox 97.9 F 73 18 119/64 98 02/26/25 08:00 02/26/25 08:00 02/26/25 08:00 02/26/25 08:00 02/26/25 08:00 General: Alert, In no apparent distress, Oriented x3 HEENT: Atraumatic, PERRLA Neck: Supple, JVD not distended Respiratory: Clear to auscultation bilaterally, Normal air movement Cardiovascular: Regular rate/rhythm, Normal S1 S2 Gastrointestinal: Normal bowel sounds, No tenderness Musculoskeletal: No tenderness Integumentary: No rashes Neurological: Normal speech, Normal affect Laboratory Data at Discharge: WBC 11.30 thou/uL (4.3-10.9) H 02/26/25 05:03 Hgb 13.3 g/dL (12.0-15.0) 02/26/25 05:03 Hct 38.2 % (36.0-45.0) 02/26/25 05:03 Plt Count 267 thou/uL (152-406) 02/26/25 05:03 Sodium 139 mEq/L (136-145) 02/26/25 05:03 Potassium 3.9 mEq/L (3.5-5.1) 02/26/25 05:03 BUN 8 mg/dL (7-18) 02/26/25 05:03 Creatinine 0.59 mg/dL (0.55-1.02) 02/26/25 05:03 Glucose 102 mg/dL (74-106) 02/26/25 05:03 Total Bilirubin 0.4 mg/dL (0.2-1.0) 02/24/25 13:50 AST 22 U/L (15-37) 02/24/25 13:50 ALT 20 U/L (13-56) 02/24/25 13:50 Alkaline Phosphatase 94 U/L (45-117) 02/24/25 13:50 Lipase 17 U/L (13-75) 02/24/25 13:50 Home Medications: Hydroxyzine HCl [Atarax] 10 mg PO BIDP PRN 02/24/25 PARoxetine HCL [Paxil] 30 mg PO DAILY 02/24/25 buPROPion HCL [Bupropion HCl Sr] 100 mg PO DAILY 02/24/25 Amox/Clavulanate [Augmentin 875-125 Tab] 875 mg PO BID 5 Days #10 tab 02/26/25 Hydrocodone 5/APAP 325 [[place] 5/325] 1 tab PO Q8H PRN #15 tab 02/26/25 New Medications: Amox/Clavulanate [Augmentin 875-125 Tab] 875 mg PO BID 5 Days #10 tab Hydrocodone 5/APAP 325 [[place] 5/325] 1 tab PO Q8H PRN #15 tab PRN Reason: Pain Physician Discharge Instructions: PROBLEM: Patient was admitted for abdominal pain, cholecystitis. She underwent laparoscopic cholecystectomy on 02/25 and has been doing well postoperatively. She is tolerating diet, passing gas and urinating freely. She stable for discharge and outpatient follow-up with general surgery. GOAL: Clear understanding of disease process INSTRUCTIONS: Prescriptions for antibiotics and pain medication sent to her pharmacy [facility] in the [place]. May remove bandages tomorrow and shower in AM. Do not remove steri strips (white strips directly on incisions). Do not soak in bath tub, showers only. Follow up with Dr. Farias in [address] Farias's office to make appointment and any further questions or concerns. Medications will be managed by surgeon through his office. If symptoms worsen call 911 or return to emergency room. Nurses station 4th floor [phone]. Diet: [place] Activity: as tolerated May shower in a.m. Remove dressing after shower Keep Steri-Strips on at all times Incentive spirometry as instructed Follow-up in office 1 week, call for appointment Resume home meds and diet Activity as tolerated, no heavy lifting or strenuous exercise Antibiotics and pain medicine per the hospitalist team Diet: [place] Activity: Ad autumn Followup: Suly Sanchez NP [Primary Care Provider] - Ramesh Farias MD [ACTIVE - CAN ADMIT] - 1 Week Time spent managing pt's care (in minutes): 32
== END 2025-02-26 11:54 | disposition home or self-care (01) | DRG 263 ==
LOC: ER 11:16 → ERHOLD 17:11 → 4TH 18:00 → OBSVTOIN 02-25 14:22
PROVIDERS: ADMIT Hospitalist; ATTEND Hospitalist
PROC: 0FT44ZZ Resection of Gallbladder, Percutaneous Endoscopic Approach (ICD-10-PCS; principal; 2025-02-25 09:15)
DX: K80.10 Calculus of gallbladder with chronic cholecystitis without obstruction (principal); Z68.41 Body mass index [BMI] 40.0-44.9, adult; E66.9 Obesity, unspecified; F32.A Depression, unspecified; I10 Essential (primary) hypertension; F41.9 Anxiety disorder, unspecified; E05.90 Thyrotoxicosis, unspecified without thyrotoxic crisis or storm; E11.9 Type 2 diabetes mellitus without complications; Z98.84 Bariatric surgery status
CPT/HCPCS: 36415; 74177; 76705; 80048; 80053; 81025; 83690; 85025; 88304; 94010; 96361; 96365; 96366; 96375; 99285; G0378; J1100; J1171; J1200; J2003; J2250; J2270; J2405; J2543; J2704; J2765; J3010; J7030; Q9967